=== PATIENT | female | born 1970 | race African-American/Black ===

== ENCOUNTER 2019-02-16 02:26 | Emergency (ER) | payer MEDICAID ==
[~2019-02-16] VITALS: Ht 170.2 cm; Wt 89.1 kg
[~2019-02-16 02:26] MED LIST: BUSPAR5 MG PO; CATAPRES 0.1MG0.1 MG PO; CLEOCIN HC150 MG/CAP PO; DULCOLAX STOOL100 MG PO; FERROUS SU325 MG/TAB PO; FLAGYL500 MG PO; FLEXERIL 1010 MG/TAB PO; FLEXERIL5 MG PO; FLOMAX 0.40.4 MG/CAP PO; GLUCOPHAGE1000 MG PO; GLUCOPHAGE500 MG/TAB PO; HCTZ12.5TAB PO; IBU600 MG PO; LANTUS100 U/ML SQ; LEVAQUIN 750MG750 M1 PO; LIDODERM 5% PATC1 EA TP; LIPITOR 10MG10 MG; LIPITOR 40MG TA40 MG PO; LOPRESSOR 225 MG/TAB PO; MACROBID 1100 MG/CAP PO; MAGIC MOUTH PO; NORCO 325 MG-51 TAB PO; NORVASC 10MG10 MG PO; NOVLOG SQ; NOVOLOG 100U100 U/M1 SQ; NOVOLOG FLEX100 U/ML SQ; PERCOCET 325 MG1 TA2 PO; PHENERGAN 25 TA25 MG PO; PRINIVIL2.5 MG PO; PYRIDIUM200 M1 PO; REGLAN 10MG10 MG/TAB PO; SOMA 350MG350 MG/TAB PO; TOUJEO300 U/ML SQ; ULTRAM 50MG TAB50 MG PO; VOLTAREN 75 DR75 MG PO; XANAX 0.5MG0.5 MG PO; XANAX 1MG1 MG PO; ZANAFLEX CAPSULE4 MG PO; ZANTAC 7575 MG PO; ZESTRIL 10MG10 MG PO; ZITHROMAX Z PA250 MG PO; ZITHROMAX500 M2 PO; ZOFRAN 4MG T4 MG/TAB PO; ZOFRAN ODT4 MG PO; ZOFRAN ODT8 MG PO; ZOFRAN8 MG PO; ZYPREXA10 MG PO
[2019-02-16 02:29] VITALS: TEMP 97.4
[2019-02-16] MEDS ORDERED: NOVOLOG FLEX100 U/ML IM (02:37)
[2019-02-16] MEDS ORDERED: CATAPRES 0.1MG0.1 MG PO (02:38)
[2019-02-16] MEDS ORDERED: LANTUS SOLOS100 U/ML SQ (02:38)
[2019-02-16] MEDS ORDERED: TOPROL XL 25MG25 MG PO (02:38)
[2019-02-16] MEDS ORDERED: XANAX .25M0.25 MG/TA (02:39)
[2019-02-16 03:00] LABS: BASO % 0.3 % (0.0-2.0); EOS % 0.1 % (0-4.0); GRAN # 7.2 (1.4-6.5); GRAN % 70.8 % (42.2-75.2); HEMOGLOBIN 10.9 g/dl (12.5-16.0); LYMPH # 2.5 (1.2-3.4); LYMPH % 24.5 % (20.0-51.0); MEAN CELL VOLUME 74 fl (80.0-100.0); MEAN CORPUSCULAR HEMOGLOBIN 23 pg (27.0-31.0); MEAN CORPUSCULAR HGB CONC 30 g/dl (33.0-37.0); MEAN PLATELET VOLUME 10.6 fl (7.4-10.4); MONO # 0.4 (0.1-0.6); MONO % 3.8 % (1.7-9.3); PLATELET COUNT 278 K/mm3 (130-400); RED BLOOD COUNT 4.82 M/mm3 (4.10-5.30); REDCELL DISTRIBUTION WIDTH-CV 14.7 % (11.5-14.5)
[2019-02-16 03:18] LABS: HEMATOCRIT 35.8 % (37.0-47.0)
[2019-02-16 03:25] LABS: INR 0.9 (0.8-3.0); PROTHROMBIN TIME 10.4 SECONDS (9.7-12.8)
[2019-02-16 04:22] LABS: ALANINE AMINOTRANSFERASE 21 U/L (9-52); ALBUMIN 4.6 gm/dL (3.5-5.0); ALKALINE PHOSPHATASE 81 U/L (50-136); ANION GAP 14 mmol/L (7-16); AST,SGOT 24 U/L (15-37); BILIRUBIN,TOTAL 0.2 mg/dL (0.0-1.0); BLOOD UREA NITROGEN 19 mg/dL (7-17); CALCIUM 9.9 mg/dL (8.4-10.2); CARBON DIOXIDE 25 mmol/L (22-30); CHLORIDE 104 mmol/L (98-107); CREATININE, serum 0.75 (0.52-1.25); GLUCOSE 158 mg/dL (74-106); POTASSIUM 3.8 mmol/L (3.4-5.0); SODIUM 144 mmol/L (137-145); TOTAL PROTEIN 8.1 gm/dL (6.4-8.2)
[2019-02-16 04:41] LABS: TROPONIN-I < 0.012 ng/mL (0.000-0.035)
[2019-02-16] MEDS ORDERED: XANAX 0.5MG0.5 MG PO (04:41)
[2019-02-16 05:00] VITALS: BP 124/80; PULSE 96
== END 2019-02-16 05:23 | disposition home or self-care (01) ==
LOC: EDBD 02:26 → COL.ER 02:26
PROVIDERS: Emergency Medicine
DX: R13.10 Dysphagia, unspecified (principal); R10.9 Unspecified abdominal pain; F41.9 Anxiety disorder, unspecified; E11.9 Type 2 diabetes mellitus without complications; I10 Essential (primary) hypertension; Z79.4 Long term (current) use of insulin
CPT/HCPCS: J2060; J2765

== ENCOUNTER 2019-03-26 17:26 | Emergency (ER) | payer MEDICAID ==
[~2019-03-26] VITALS: Ht 170.2 cm; Wt 92.7 kg
[~2019-03-26 17:26] MED LIST changes: +LANTUS SOLOS100 U/ML SQ; +NOVOLOG FLEX100 U/ML IM; +TOPROL XL 25MG25 MG PO; +XANAX .25M0.25 MG/TA
[2019-03-26 17:27] VITALS: TEMP 97.6
[2019-03-26 18:09] LABS: BASO % 0.6 % (0.0-2.0); EOS % 0.6 % (0-4.0); GRAN # 3.1 (1.4-6.5); GRAN % 43.5 % (42.2-75.2); HEMOGLOBIN 10.9 g/dl (12.5-16.0); LYMPH # 3.4 (1.2-3.4); LYMPH % 48.5 % (20.0-51.0); MEAN CELL VOLUME 73 fl (80.0-100.0); MEAN CORPUSCULAR HEMOGLOBIN 23 pg (27.0-31.0); MEAN CORPUSCULAR HGB CONC 31 g/dl (33.0-37.0); MEAN PLATELET VOLUME 10.5 fl (7.4-10.4); MONO # 0.5 (0.1-0.6); MONO % 6.5 % (1.7-9.3); PLATELET COUNT 373 K/mm3 (130-400); RED BLOOD COUNT 4.85 M/mm3 (4.10-5.30); REDCELL DISTRIBUTION WIDTH-CV 14.9 % (11.5-14.5)
[2019-03-26 18:11] LABS: HEMATOCRIT 35.5 % (37.0-47.0)
[2019-03-26 18:21] LABS: ALBUMIN 4.5 gm/dL (3.5-5.0); BILIRUBIN,TOTAL 0.2 mg/dL (0.0-1.0); C-REACTIVE PROTEIN 0.6 mg/dL (0.0-0.9); CALCIUM 9.5 mg/dL (8.4-10.2); CREATININE, serum 0.7 (0.52-1.25); POTASSIUM 3.4 mmol/L (3.4-5.0); TOTAL PROTEIN 8.4 gm/dL (6.4-8.2)
[2019-03-26] MEDS ORDERED: ZOFRAN ODT4 MG PO (20:03)
[2019-03-26] MEDS ORDERED: PERCOCET 325 MG1 TA2 PO (20:03)
[2019-03-26 21:00] VITALS: BP 182/79; PULSE 80
== END 2019-03-26 21:00 | disposition home or self-care (01) ==
LOC: COL.ER 17:26
PROVIDERS: Emergency Medicine
DX: R55 Syncope and collapse (principal); R11.2 Nausea with vomiting, unspecified; R10.9 Unspecified abdominal pain; F31.9 Bipolar disorder, unspecified; E11.9 Type 2 diabetes mellitus without complications; I10 Essential (primary) hypertension; E78.5 Hyperlipidemia, unspecified; Z90.710 Acquired absence of both cervix and uterus; Z98.890 Other specified postprocedural states
CPT/HCPCS: J1170; J2405; J2550; J7030; Q9967

== ENCOUNTER 2019-03-28 13:19 | Emergency (ER) | payer SELFPAY ==
[~2019-03-28] VITALS: Ht 170.2 cm; Wt 92.7 kg
[2019-03-28 13:25] VITALS: BP 132/90; TEMP 98.5
[2019-03-28] MEDS ORDERED: FLEXERIL 1010 MG/TAB PO (16:07)
[2019-03-28] MEDS ORDERED: ROXICODONE 55 MG/TAB PO (16:07)
[2019-03-28 16:36] VITALS: PULSE 89
== END 2019-03-28 16:37 | disposition home or self-care (01) ==
LOC: COL.ER 13:19
DX: M54.5 Low back pain (principal); F41.9 Anxiety disorder, unspecified; Z90.710 Acquired absence of both cervix and uterus; Z79.4 Long term (current) use of insulin
CPT/HCPCS: J1885

== ENCOUNTER 2019-04-02 15:42 | Emergency (ER) | payer MEDICAID ==
[~2019-04-02] VITALS: Ht 170.2 cm; Wt 92.7 kg
[~2019-04-02 15:42] MED LIST changes: +ROXICODONE 55 MG/TAB PO
[2019-04-02 16:05] VITALS: TEMP 97.3
[2019-04-02 17:14] LABS: COLLECTION METHOD CLEAN CATCH
[2019-04-02 17:21] LABS: BASO % 0.3 % (0.0-2.0); EOS % 0.5 % (0-4.0); GRAN # 3.2 (1.4-6.5); HEMATOCRIT 39.2 % (37.0-47.0); HEMOGLOBIN 11.9 g/dl (12.5-16.0); LYMPH # 2.5 (1.2-3.4); LYMPH % 41.4 % (20.0-51.0); MEAN CELL VOLUME 74 fl (80.0-100.0); MEAN CORPUSCULAR HEMOGLOBIN 22 pg (27.0-31.0); MEAN CORPUSCULAR HGB CONC 30 g/dl (33.0-37.0); MEAN PLATELET VOLUME 10.5 fl (7.4-10.4); MONO # 0.3 (0.1-0.6); MONO % 4.8 % (1.7-9.3); PLATELET COUNT 400 K/mm3 (130-400); RED BLOOD COUNT 5.32 M/mm3 (4.10-5.30)
[2019-04-02 17:27] LABS: PH 5 (5-8); URINE APPEARANCE Clear; URINE BACTERIA None Seen /hpf; URINE BILIRUBIN Negative (NEGATIVE); URINE BLOOD Negative (NEGATIVE); URINE COLOR Yellow; URINE GLUCOSE Negative (NEGATIVE); URINE KETONE Negative (NEGATIVE); URINE LEUKOCYTE ESTERASE Negative (NEGATIVE); URINE NITRATE Negative (NEGATIVE); URINE PROTEIN(semi-quant) Negative (NEGATIVE); URINE RBC None Seen /hpf; URINE UROBILINOGEN Negative (NEGATIVE)
[2019-04-02 17:32] LABS: ALBUMIN 4.9 gm/dL (3.5-5.0); BILIRUBIN,TOTAL 0.3 mg/dL (0.0-1.0); CREATININE, serum 0.63 (0.52-1.25); POTASSIUM 3.9 mmol/L (3.4-5.0); TOTAL PROTEIN 9.3 gm/dL (6.4-8.2)
[2019-04-02] MEDS ORDERED: FIORICET 325 MG1 TA1 PO (17:49)
[2019-04-02] MEDS ORDERED: NEXIUM 20MG20 MG PO (18:13)
[2019-04-02 18:26] VITALS: BP 129/71; PULSE 82
== END 2019-04-02 18:30 | disposition home or self-care (01) ==
LOC: COL.ER 15:42
PROVIDERS: Emergency Medicine
DX: R51 Headache (principal); R10.0 Acute abdomen; E11.9 Type 2 diabetes mellitus without complications; I10 Essential (primary) hypertension; Z90.710 Acquired absence of both cervix and uterus; Z79.4 Long term (current) use of insulin
CPT/HCPCS: J0780; J1170; J1200; J1885; J7030

== ENCOUNTER 2019-04-04 10:53 | Emergency (ER) | payer MEDICAID ==
[~2019-04-04] VITALS: Ht 170.2 cm; Wt 92.7 kg
[~2019-04-04 10:53] MED LIST changes: +FIORICET 325 MG1 TA1 PO; +NEXIUM 20MG20 MG PO
[2019-04-04 10:58] VITALS: BP 127/85; TEMP 96.8
[2019-04-04] MEDS ORDERED: FLEXERIL 1010 MG/TAB PO (12:42)
[2019-04-04] MEDS ORDERED: PERCOCET 325 MG1 TA2 PO (12:42)
[2019-04-04 12:55] VITALS: PULSE 74
== END 2019-04-04 12:56 | disposition home or self-care (01) ==
LOC: COL.ER 10:53
DX: S39.012A Strain of muscle, fascia and tendon of lower back, initial encounter (principal); F31.9 Bipolar disorder, unspecified; F41.9 Anxiety disorder, unspecified; E11.9 Type 2 diabetes mellitus without complications; Z90.710 Acquired absence of both cervix and uterus; Z79.4 Long term (current) use of insulin; Z88.0 Allergy status to penicillin; W01.0XXA Fall on same level from slipping, tripping and stumbling without subsequent striking against object, initial encounter; Y92.59 Other trade areas as the place of occurrence of the external cause
CPT/HCPCS: J1885

== ENCOUNTER 2019-04-07 15:11 | Emergency (ER) | payer MEDICAID ==
[~2019-04-07] VITALS: Ht 170.2 cm; Wt 96.5 kg
[2019-04-07 15:13] VITALS: TEMP 97.5
[2019-04-07 16:22] LABS: BASO % 0.6 % (0.0-2.0); EOS # 0.1 (0.0-0.7); EOS % 1.2 % (0-4.0); GRAN # 1.7 (1.4-6.5); GRAN % 34.7 % (42.2-75.2); LYMPH # 2.8 (1.2-3.4); LYMPH % 56.9 % (20.0-51.0); MEAN CELL VOLUME 75 fl (80.0-100.0); MEAN CORPUSCULAR HEMOGLOBIN 22 pg (27.0-31.0); MEAN CORPUSCULAR HGB CONC 30 g/dl (33.0-37.0); MEAN PLATELET VOLUME 10.6 fl (7.4-10.4); MONO # 0.3 (0.1-0.6); MONO % 6.4 % (1.7-9.3); PLATELET COUNT 330 K/mm3 (130-400); REDCELL DISTRIBUTION WIDTH-CV 15.1 % (11.5-14.5)
[2019-04-07 16:32] LABS: ALBUMIN 4.4 gm/dL (3.5-5.0); BILIRUBIN,TOTAL 0.2 mg/dL (0.0-1.0); CALCIUM 9.6 mg/dL (8.4-10.2); CREATININE, serum 0.77 (0.52-1.25); POTASSIUM 3.8 mmol/L (3.4-5.0); TOTAL PROTEIN 7.9 gm/dL (6.4-8.2)
[2019-04-07 16:33] LABS: HEMATOCRIT 33.9 % (37.0-47.0)
[2019-04-07] MEDS ORDERED: ZOFRAN 4MG T4 MG/TAB PO (17:41)
[2019-04-07] MEDS ORDERED: FLEXERIL 1010 MG/TAB PO (17:41)
[2019-04-07 17:58] VITALS: BP 119/71; PULSE 81
== END 2019-04-07 18:04 | disposition home or self-care (01) ==
LOC: COL.ER 15:11
PROVIDERS: Emergency Medicine
DX: S39.012A Strain of muscle, fascia and tendon of lower back, initial encounter (principal); M25.562 Pain in left knee; M25.561 Pain in right knee; R10.10 Upper abdominal pain, unspecified; R11.2 Nausea with vomiting, unspecified; E11.9 Type 2 diabetes mellitus without complications; I10 Essential (primary) hypertension; E78.5 Hyperlipidemia, unspecified; F31.9 Bipolar disorder, unspecified; E66.9 Obesity, unspecified; Z90.710 Acquired absence of both cervix and uterus; Z87.891 Personal history of nicotine dependence; Z79.4 Long term (current) use of insulin; Z68.33 Body mass index [BMI] 33.0-33.9, adult; W19.XXXA Unspecified fall, initial encounter
CPT/HCPCS: J1885; J2270; J2405; J7030

== ENCOUNTER 2019-04-11 11:41 | Emergency (ER) | payer MEDICAID ==
[~2019-04-11] VITALS: Ht 170.2 cm; Wt 92.7 kg
[2019-04-11 11:59] VITALS: BP 134/94; TEMP 97.7
[2019-04-11] MEDS ORDERED: CLEOCIN HCL300 MG PO (16:13)
[2019-04-11] MEDS ORDERED: PERCOCET 325 MG1 TA2 PO (16:13)
[2019-04-11 17:30] VITALS: PULSE 83
== END 2019-04-11 17:30 | disposition home or self-care (01) ==
LOC: COL.ER 11:41
DX: T22.252A Burn of second degree of left shoulder, initial encounter (principal); L03.114 Cellulitis of left upper limb; I10 Essential (primary) hypertension; E11.9 Type 2 diabetes mellitus without complications; Z88.0 Allergy status to penicillin; F41.9 Anxiety disorder, unspecified; F20.9 Schizophrenia, unspecified; E78.5 Hyperlipidemia, unspecified; Z79.4 Long term (current) use of insulin; X19.XXXA Contact with other heat and hot substances, initial encounter; Y92.009 Unspecified place in unspecified non-institutional (private) residence as the place of occurrence of the external cause

== ENCOUNTER 2019-04-13 12:05 | Emergency (ER) | payer MEDICAID ==
[~2019-04-13] VITALS: Ht 170.2 cm; Wt 93.6 kg
[~2019-04-13 12:05] MED LIST changes: +CLEOCIN HCL300 MG PO
[2019-04-13 12:51] VITALS: TEMP 98
[2019-04-13 13:37] LABS: BASO % 0.7 % (0.0-2.0); EOS # 0.1 (0.0-0.7); EOS % 1.2 % (0-4.0); GRAN # 1.9 (1.4-6.5); GRAN % 46.7 % (42.2-75.2); HEMOGLOBIN 10.6 g/dl (12.5-16.0); LYMPH # 1.8 (1.2-3.4); LYMPH % 44.2 % (20.0-51.0); MEAN CELL VOLUME 75 fl (80.0-100.0); MEAN CORPUSCULAR HEMOGLOBIN 22 pg (27.0-31.0); MEAN CORPUSCULAR HGB CONC 30 g/dl (33.0-37.0); MEAN PLATELET VOLUME 10.3 fl (7.4-10.4); MONO # 0.3 (0.1-0.6); PLATELET COUNT 342 K/mm3 (130-400); RED BLOOD COUNT 4.77 M/mm3 (4.10-5.30); REDCELL DISTRIBUTION WIDTH-CV 14.8 % (11.5-14.5)
[2019-04-13 13:48] LABS: HEMATOCRIT 35.7 % (37.0-47.0)
[2019-04-13 13:50] LABS: ALBUMIN 4.2 gm/dL (3.5-5.0); BILIRUBIN,TOTAL 0.2 mg/dL (0.0-1.0); C-REACTIVE PROTEIN 1.1 mg/dL (0.0-0.9); CALCIUM 9.5 mg/dL (8.4-10.2); CREATININE, serum 0.71 (0.52-1.25); POTASSIUM 4.2 mmol/L (3.4-5.0); TOTAL PROTEIN 7.8 gm/dL (6.4-8.2)
[2019-04-13 14:02] LABS: ERYTHROCYTE SEDIMENTATION RATE 4 mm/hr (0-20)
[2019-04-13] MEDS ORDERED: NORCO 325 MG-51 TAB PO (14:27)
[2019-04-13 16:11] VITALS: BP 111/78; PULSE 69
== END 2019-04-13 16:26 | disposition home or self-care (01) ==
LOC: COL.ER 12:05
PROVIDERS: Physician Assistant
DX: L03.114 Cellulitis of left upper limb (principal); E11.9 Type 2 diabetes mellitus without complications; F32.9 Major depressive disorder, single episode, unspecified; F41.9 Anxiety disorder, unspecified; I10 Essential (primary) hypertension; F20.9 Schizophrenia, unspecified; Z79.4 Long term (current) use of insulin; Z88.0 Allergy status to penicillin; Z90.710 Acquired absence of both cervix and uterus; Z87.828 Personal history of other (healed) physical injury and trauma
CPT/HCPCS: J1885; J2550; J7030

== ENCOUNTER 2019-04-17 16:12 | Emergency (ER) | payer MEDICAID ==
[~2019-04-17] VITALS: Ht 170.2 cm; Wt 93.2 kg
[2019-04-17 16:23] VITALS: TEMP 97.7
[2019-04-17 16:58] LABS: COLLECTION METHOD CLEAN CATCH
[2019-04-17 17:03] LABS: MUCOUS Present /lpf; PH 6 (5-8); URINE APPEARANCE Hazy; URINE BACTERIA None Seen /hpf; URINE BILIRUBIN Negative (NEGATIVE); URINE BLOOD Negative (NEGATIVE); URINE COLOR Yellow; URINE GLUCOSE Negative (NEGATIVE); URINE KETONE Negative (NEGATIVE); URINE LEUKOCYTE ESTERASE Negative (NEGATIVE); URINE NITRATE Negative (NEGATIVE); URINE PROTEIN(semi-quant) Negative (NEGATIVE); URINE RBC 0-2 /hpf; URINE UROBILINOGEN Negative (NEGATIVE)
[2019-04-17 18:44] LABS: BASO % 0.3 % (0.0-2.0); EOS % 0.3 % (0-4.0); GRAN # 4.2 (1.4-6.5); GRAN % 63.2 % (42.2-75.2); HEMATOCRIT 38.2 % (37.0-47.0); HEMOGLOBIN 11.6 g/dl (12.5-16.0); LYMPH % 30.9 % (20.0-51.0); MEAN CELL VOLUME 74 fl (80.0-100.0); MEAN CORPUSCULAR HEMOGLOBIN 22 pg (27.0-31.0); MEAN CORPUSCULAR HGB CONC 30 g/dl (33.0-37.0); MEAN PLATELET VOLUME 10.2 fl (7.4-10.4); MONO # 0.3 (0.1-0.6); PLATELET COUNT 335 K/mm3 (130-400); RED BLOOD COUNT 5.19 M/mm3 (4.10-5.30); REDCELL DISTRIBUTION WIDTH-CV 14.5 % (11.5-14.5)
[2019-04-17 18:55] LABS: ALBUMIN 4.7 gm/dL (3.5-5.0); BILIRUBIN,TOTAL 0.2 mg/dL (0.0-1.0); CALCIUM 10.3 mg/dL (8.4-10.2); CREATININE, serum 0.7 (0.52-1.25); POTASSIUM 3.9 mmol/L (3.4-5.0); TOTAL PROTEIN 8.9 gm/dL (6.4-8.2)
[2019-04-17] MEDS ORDERED: XANAX 1MG1 MG PO (19:31)
[2019-04-17 20:22] VITALS: BP 181/92; PULSE 50
== END 2019-04-17 20:29 | disposition home or self-care (01) ==
LOC: COL.ER 16:12
PROVIDERS: Physician Assistant
DX: R11.10 Vomiting, unspecified (principal); R10.13 Epigastric pain; E11.9 Type 2 diabetes mellitus without complications; I10 Essential (primary) hypertension; K21.9 Gastro-esophageal reflux disease without esophagitis; Z90.710 Acquired absence of both cervix and uterus; Z79.4 Long term (current) use of insulin; Z87.891 Personal history of nicotine dependence
CPT/HCPCS: J2270; J2405; J7030

== ENCOUNTER 2019-05-06 19:15 | Emergency (ER) | payer MEDICAID ==
[~2019-05-06] VITALS: Ht 170.2 cm; Wt 92.7 kg
[2019-05-06 19:25] VITALS: TEMP 97.2
[2019-05-06] MEDS ORDERED: PHENERGAN 25 TA25 MG PO (19:37)
[2019-05-06 19:55] LABS: BASO % 0.5 % (0.0-2.0); EOS % 0.4 % (0-4.0); GRAN # 2.3 (1.4-6.5); HEMOGLOBIN 10.5 g/dl (12.5-16.0); LYMPH # 2.8 (1.2-3.4); LYMPH % 50.7 % (20.0-51.0); MEAN CELL VOLUME 74 fl (80.0-100.0); MEAN CORPUSCULAR HEMOGLOBIN 23 pg (27.0-31.0); MEAN CORPUSCULAR HGB CONC 31 g/dl (33.0-37.0); MEAN PLATELET VOLUME 10.7 fl (7.4-10.4); MONO # 0.3 (0.1-0.6); PLATELET COUNT 288 K/mm3 (130-400); RED BLOOD COUNT 4.67 M/mm3 (4.10-5.30); REDCELL DISTRIBUTION WIDTH-CV 14.4 % (11.5-14.5)
[2019-05-06 19:57] LABS: HEMATOCRIT 34.4 % (37.0-47.0)
[2019-05-06 20:19] LABS: ALANINE AMINOTRANSFERASE 20 U/L (9-52); ALBUMIN 4.4 gm/dL (3.5-5.0); ALKALINE PHOSPHATASE 76 U/L (50-136); ANION GAP 13 mmol/L (7-16); AST,SGOT 25 U/L (15-37); BILIRUBIN,TOTAL 0.2 mg/dL (0.0-1.0); BLOOD UREA NITROGEN 10 mg/dL (7-17); C-REACTIVE PROTEIN 0.6 mg/dL (0.0-0.9); CALCIUM 9.8 mg/dL (8.4-10.2); CARBON DIOXIDE 30 mmol/L (22-30); CHLORIDE 98 mmol/L (98-107); CREATININE, serum 0.75 (0.52-1.25); GLUCOSE 331 mg/dL (74-106); LIPASE 91 U/L (23-300); POTASSIUM 3.7 mmol/L (3.4-5.0); SODIUM 141 mmol/L (137-145); TOTAL PROTEIN 7.6 gm/dL (6.4-8.2)
[2019-05-06 20:28] LABS: TROPONIN-I < 0.012 ng/mL (0.000-0.035)
[2019-05-06 21:05] LABS: COLLECTION METHOD CLEAN CATCH
[2019-05-06 21:17] LABS: MUCOUS Present /lpf; PH 6 (5-8); URINE APPEARANCE Hazy; URINE BACTERIA None Seen /hpf; URINE BILIRUBIN Negative (NEGATIVE); URINE BLOOD Negative (NEGATIVE); URINE COLOR Yellow; URINE GLUCOSE 3+ (NEGATIVE); URINE KETONE Negative (NEGATIVE); URINE LEUKOCYTE ESTERASE 3+ (NEGATIVE); URINE NITRATE Negative (NEGATIVE); URINE PROTEIN(semi-quant) Negative (NEGATIVE); URINE RBC None Seen /hpf; URINE UROBILINOGEN Negative (NEGATIVE)
[2019-05-06] MEDS ORDERED: OMNICEF 300MG300 MG PO (21:35)
[2019-05-06 22:03] VITALS: BP 143/118; PULSE 79
== END 2019-05-06 22:03 | disposition home or self-care (01) ==
LOC: COL.ER 19:15
PROVIDERS: Emergency Medicine
DX: N39.0 Urinary tract infection, site not specified (principal); I10 Essential (primary) hypertension; E11.9 Type 2 diabetes mellitus without complications; Z90.710 Acquired absence of both cervix and uterus; Z79.4 Long term (current) use of insulin
CPT/HCPCS: C9113; J0696; J1170; J1630; J2405; J2550; J7030

== ENCOUNTER 2019-05-16 13:48 | Emergency (ER) | payer MEDICAID ==
[~2019-05-16] VITALS: Ht 165.1 cm; Wt 90.9 kg
[~2019-05-16 13:48] MED LIST changes: +OMNICEF 300MG300 MG PO
[2019-05-16 13:56] VITALS: TEMP 97.9
[2019-05-16 15:08] VITALS: BP 149/102; PULSE 88
== END 2019-05-16 15:10 | disposition home or self-care (01) ==
LOC: COL.ER 13:48
DX: M79.645 Pain in left finger(s) (principal); M25.542 Pain in joints of left hand; I10 Essential (primary) hypertension; F32.9 Major depressive disorder, single episode, unspecified; E11.9 Type 2 diabetes mellitus without complications; F41.9 Anxiety disorder, unspecified; Z90.710 Acquired absence of both cervix and uterus; Z87.891 Personal history of nicotine dependence; Z79.4 Long term (current) use of insulin

== ENCOUNTER 2019-05-19 16:07 | Observation (INO) | payer MEDICAID ==
[~2019-05-19] VITALS: Ht 170.2 cm; Wt 99.9 kg
[2019-05-19 16:53] LABS: BASO % 0.2 % (0.0-2.0); EOS % 0.1 % (0-4.0); GRAN # 4.7 (1.4-6.5); HEMOGLOBIN 11.3 g/dl (12.5-16.0); LYMPH # 3.5 (1.2-3.4); LYMPH % 39.4 % (20.0-51.0); MEAN CELL VOLUME 73 fl (80.0-100.0); MEAN CORPUSCULAR HEMOGLOBIN 22 pg (27.0-31.0); MEAN CORPUSCULAR HGB CONC 31 g/dl (33.0-37.0); MEAN PLATELET VOLUME 10.5 fl (7.4-10.4); MONO # 0.5 (0.1-0.6); MONO % 5.8 % (1.7-9.3); PLATELET COUNT 375 K/mm3 (130-400); RED BLOOD COUNT 5.06 M/mm3 (4.10-5.30); REDCELL DISTRIBUTION WIDTH-CV 15.3 % (11.5-14.5)
[2019-05-19 16:59] LABS: ALANINE AMINOTRANSFERASE 21 U/L (9-52); ALBUMIN 4.9 gm/dL (3.5-5.0); ALKALINE PHOSPHATASE 106 U/L (50-136); ANION GAP 19 mmol/L (7-16); AST,SGOT 23 U/L (15-37); BILIRUBIN,TOTAL 0.4 mg/dL (0.0-1.0); BLOOD UREA NITROGEN 15 mg/dL (7-17); CALCIUM 10.3 mg/dL (8.4-10.2); CARBON DIOXIDE 27 mmol/L (22-30); CHLORIDE 96 mmol/L (98-107); CREATININE, serum 0.89 (0.52-1.25); GLUCOSE 324 mg/dL (74-106); LIPASE 56 U/L (23-300); POTASSIUM 3.9 mmol/L (3.4-5.0); SODIUM 142 mmol/L (137-145); TOTAL PROTEIN 8.5 gm/dL (6.4-8.2)
[2019-05-19 17:04] LABS: HEMATOCRIT 36.7 % (37.0-47.0)
[2019-05-19 17:11] LABS: TROPONIN-I < 0.012 ng/mL (0.000-0.035)
[2019-05-19] MEDS ORDERED: NOVOLOG 100U100 U/M1 SQ (22:07)
[2019-05-19] MEDS ORDERED: PRINIVIL20 MG PO (22:07)
[2019-05-19] MEDS ORDERED: PERCOCET 325 MG1 TAB PO (22:10)
[2019-05-19 23:18] LABS: PARTIAL THROMBOPLASTIN TIME 31.3 SECONDS (26.0-37.0)
[2019-05-20] VITALS (7 sets, daily range): BP systolic 109–174; BP diastolic 67–112; PULSE 67–94; TEMP 97.5–98.4
[2019-05-20 00:28] LABS: CALCIUM 9.4 mg/dL (8.4-10.2); CREATININE, serum 0.67 (0.52-1.25); POTASSIUM 3.5 mmol/L (3.4-5.0)
--- NOTE | 2019-05-20 03:17 | NUR ---
2144 - RECEIVED REPORT FROM NICOLÁS GALLEGOS. 2199 - PT ARRIVED IN UNIT VIA WHEELCHAIR, ALERT AND ORINTED, ON ROOM AIR, COMPLAINS OF CHEST PAIN 05/19. BP ELAVATED, MEDICATIONS GIVEN ORDERED. PRESENT AT BEDSIDE WELL.
[2019-05-20 05:47] LABS: BASO % 0.2 % (0.0-2.0); EOS % 0.4 % (0-4.0); GRAN # 1.9 (1.4-6.5); GRAN % 39.5 % (42.2-75.2); LYMPH # 2.6 (1.2-3.4); LYMPH % 52.9 % (20.0-51.0); MEAN CELL VOLUME 74 fl (80.0-100.0); MEAN CORPUSCULAR HGB CONC 31 g/dl (33.0-37.0); MEAN PLATELET VOLUME 11.3 fl (7.4-10.4); MONO # 0.3 (0.1-0.6); MONO % 6.8 % (1.7-9.3); RED BLOOD COUNT 4.06 M/mm3 (4.10-5.30); REDCELL DISTRIBUTION WIDTH-CV 15.7 % (11.5-14.5)
[2019-05-20 05:58] LABS: HEMATOCRIT 30.1 % (37.0-47.0); HEMOGLOBIN 9.2 g/dl (12.5-16.0); MEAN CORPUSCULAR HEMOGLOBIN 23 pg (27.0-31.0); PLATELET COUNT 275 K/mm3 (130-400)
[2019-05-20 06:00] LABS: ALANINE AMINOTRANSFERASE 22 U/L (9-52); ALBUMIN 3.6 gm/dL (3.5-5.0); ALKALINE PHOSPHATASE 72 U/L (50-136); ANION GAP 12 mmol/L (7-16); AST,SGOT 24 U/L (15-37); BILIRUBIN,TOTAL 0.2 mg/dL (0.0-1.0); BLOOD UREA NITROGEN 9 mg/dL (7-17); CALCIUM 8.4 mg/dL (8.4-10.2); CARBON DIOXIDE 26 mmol/L (22-30); CHLORIDE 101 mmol/L (98-107); CHOLESTEROL 155 mg/dL (120-200); CHOLESTEROL RISK RATIO 3.5; CREATININE, serum 0.55 (0.52-1.25); GLUCOSE 306 mg/dL (74-106); HDL CHOLESTEROL 44 mg/dL; LDL CHOLESTEROL 80 mg/dL; MAGNESIUM 1.8 mg/dL (1.6-2.3); POTASSIUM 3.8 mmol/L (3.4-5.0); SODIUM 139 mmol/L (137-145); TOTAL PROTEIN 6.4 gm/dL (6.4-8.2); TRIGLYCERIDE 153 mg/dL
[2019-05-20 06:11] LABS: TROPONIN-I < 0.012 ng/mL (0.000-0.035)
--- NOTE | 2019-05-20 07:27 | NUR ---
REPORT GIVEN TO NICOLÁS COSTA.
--- NOTE | 2019-05-20 07:45 | NUR ---
PATIENT ASSESSMENT COMPLETED. SHE COMPLAINS OF PAIN ALL OVER AND STATES THAT THE DOCTOR IN THE ICU WAS GOING TO GIVE HER "DILAUDID" FOR HER PAIN. I HAVE NO ORDERS AT THIS TIME FOR THIS MEDICATION. SHE IS DICONNECTED TO GET IN THE SHOWER SHE IS VERY HUNGRY BREAKFAST HAS BEEN ORDERED AND SHE HAS ALREADY AMBULATED IN THE HALLWAY TO THE NUTRITION ROOM GETTING CRACKERS WITH BUTTER.
--- NOTE | 2019-05-20 08:00 | NUR ---
PATIENT ASSESSMENT COMPLETED SHE IS SETTLED IN FROM TRANSFER FROM ICU. I HAVE DISCONNECTED HER FOR HER TO GET IN THE SHOWER. SHE AMBULATES AROUND THE ROOM WITHOUT DIFFICULTY STEADY ON FEET.
--- NOTE | 2019-05-20 08:30 | NUR ---
PATIENT FOUND ON FLOOR OF THE BATHROOM, SHE WAS IN THE SHOWER STOOD UP AND SLIPPED PER HER REPORT. ASSESSMENT COMPLETED. VSS. ASSISTED TO BED WITH 2 HOSPITAL STAFF AND GAIT BELT. CHARGE NURSE AND TRANSFORMER STOCK CLERK NOTIFIED. WILL NOTIFY DOCTOR. NEEDS MET AND FALL RISK FACTORS PUT INTO PLACE.
--- NOTE | 2019-05-20 09:00 | NUR ---
DR. DOSS NOTIFIED OF PATIENT FALL
--- NOTE | 2019-05-20 11:58 | NUR ---
PRN XANAX GIVEN AT THIS TIME PER REQUEST. SHE IS FEELING STIFF. WILL GET UP TO AMBULATE IN THE HALLWAYS AFTER LUNCH
--- NOTE | 2019-05-20 12:48 | NUR ---
PATIENT COMPLAINS OF PAIN PRN PAIN MEDICIATON GIVEN
--- NOTE | 2019-05-20 15:28 | NUR ---
Patient lives at home with her (Brandon Freedman [phone]) in [place], [place] and plans to return home upon recovery. Patient is typically independent with daily living activities and does not have anticipated durable medical equipment needs at this time. Patient's primary care physician is Dr. Cabral, her pharmacy is [facility], and she does not have advance directives of healthcare completed at this time. human services program specialist will follow as needed.
--- NOTE | 2019-05-20 16:00 | NUR ---
PATIENT AMBULATES WITH THIS NURSE IN THE HALLWAY. SHE REPORTS THAT SHE FEELS STIFF AND NEEDS TO MOVE AROUND.
--- NOTE | 2019-05-20 18:25 | NUR ---
PATIENT C/O OF GENERALIZED PAIN. PRN PERCOCET PROVIDED
--- NOTE | 2019-05-20 20:00 | NUR ---
PATIENT IS ORIENTED BUT DROWSY. VSS. HEART SR ON TELE. NO C/O CHEST PAIN OR SOA. PATIENT MOVING AROUND ROOM WITH EASY STAND BY ASSIST. PATIENT REPORTS SHE FELL IN THE SHOWER TODAY. NO INJURY REPORTED. PATIENT TAKES NARCOTICS FOR CHRONIC PAIN ISSUES WELL MEDS FOR ANXIETY AND DEPRESSION. PATIENT HAS PSYCH HX AND IS OFTEN ANXIOUS. NOTED BLOOD SUGARS IN THE 300'S. PATIENT HAS HX OF DM BUT DOESN'T FOLLOW ADA DIET. PATIENT SEEMS TO CONSTANTLY EAT. NPO AT ID FOR PEPITO. IV FLUIDS INFUSING INTO RIGHT AC IV VIA PUMP. HEAD TO TOE ASSESSMENT WNL. NOTED SLIGHTLY DEMINISHED BASES IN LUNG RIBERA. PM MEDS GIVEN. PATIENT REQUESTING XANAX BEFORE BED. AT BEDSIDE. NO OTHER NEEDS. CALL LIGHT IN REACH. LIGHTS TURNED DOWN.
[2019-05-21] VITALS (10 sets, daily range): BP systolic 114–140; BP diastolic 70–94; PULSE 58–89; TEMP 97.6–98.7
--- NOTE | 2019-05-21 07:40 | NUR ---
Patient is resting in bed, eyes are closed. Does open eyes when spoken to. States she is having some back pain and requested morning medications so she could receive her flexeril and requested PRN xanax. Asked multiple times when she would go for her procedure, she wants to eat. States she is starving. Does not want insulin until after she eats as she is afraid her glucose will drop. Was provided with warm blanket per her request. Does not verbalize any other needs or concerns at this time. Call light and personal items are within reach.
[2019-05-21 07:49] LABS: BASO % 0.5 % (0.0-2.0); EOS % 1.1 % (0-4.0); GRAN # 1.5 (1.4-6.5); LYMPH # 1.9 (1.2-3.4); LYMPH % 50.8 % (20.0-51.0); MEAN CELL VOLUME 75 fl (80.0-100.0); MEAN CORPUSCULAR HGB CONC 30 g/dl (33.0-37.0); MEAN PLATELET VOLUME 10.8 fl (7.4-10.4); MONO # 0.3 (0.1-0.6); MONO % 8.6 % (1.7-9.3); PLATELET COUNT 270 K/mm3 (130-400); RED BLOOD COUNT 4.15 M/mm3 (4.10-5.30); REDCELL DISTRIBUTION WIDTH-CV 15.9 % (11.5-14.5)
[2019-05-21 07:52] LABS: CALCIUM 8.6 mg/dL (8.4-10.2); CREATININE, serum 0.6 (0.52-1.25); HEMATOCRIT 31.3 % (37.0-47.0); HEMOGLOBIN 9.3 g/dl (12.5-16.0); MEAN CORPUSCULAR HEMOGLOBIN 22 pg (27.0-31.0); POTASSIUM 4.5 mmol/L (3.4-5.0)
--- NOTE | 2019-05-21 12:24 | NUR ---
Initial visit; Patient thanked Senior Svp for looking in on her and offering compassion and prayer. Senior Svp will follow up after patient receives test results.
[2019-05-21] MEDS ORDERED: CATAPRES 0.1MG0.1 MG PO (16:53)
[2019-05-21] MEDS ORDERED: LIPITOR 40MG TA40 MG PO (16:53)
[2019-05-21] MEDS ORDERED: LOPRESSOR 225 MG/TAB PO (16:53)
[2019-05-21] MEDS ORDERED: ASPIRIN E.C. 8181 MG PO (16:54)
[2019-05-21] MEDS ORDERED: LANTUS SOLOS100 U/ML SQ ×2 (16:54)
[2019-05-21] MEDS ORDERED: PRINIVIL20 MG PO (16:54)
[2019-05-21] MEDS ORDERED: NORVASC 10MG10 MG PO (16:54)
[2019-05-21] MEDS ORDERED: NOVOLOG 100U100 U/M1 SQ ×2 (16:55)
[2019-05-21] MEDS ORDERED: GLUCOPHAGE1000 MG PO (16:55)
--- NOTE | 2019-05-21 17:14 | NUR ---
Patients blood glucose resulted at 401, provider was notified.
--- NOTE | 2019-05-21 19:11 | NUR ---
Patient has no needs at this time, call light and personal items are within reach.
--- NOTE | 2019-05-21 19:25 | NUR ---
Shift assessment complete. Pt resting in bed, awake, a&o, cooperative c cares. Pt c/o continued back pain, will provide PRN pain med c HS meds per pt request. Pt denies any other c/o. INT patent. Tele in place. Pt denies further needs. Call light in reach, bed alarm on. Will continue to monitor.
[2019-05-22 03:56] VITALS: BP 134/88; PULSE 64; TEMP 98.6
[2019-05-22 07:47] VITALS: BP 136/101; PULSE 88; TEMP 97.9
--- NOTE | 2019-05-22 08:15 | NUR ---
Patient is in bed with blanket over head. Went to see her per her request. Knocked on door, patient noted to be snoring. Call light and personal items are within reach.
--- NOTE | 2019-05-22 10:05 | NUR ---
Entered patients room to administer medicaitons, patient requested to go to the bathroom and was assisted to do so. Nursing remained at bedside, was notified of this and instructed patient to let nurse know when she was finished so she could be assisted back to bed. Patient did not notifiy nurse and fell into bathroom door and then to ground. She states that she hit her head on the door and her knee was hurting. She would not attempt to stand for staff. Had to be rolled onto blanket and be physically lifted off floor by 4 staff. Neuro checks were complete and within normal limits. Vital signs were taken with no changes from this morning. Notified provider, CT scan ordered along with IV toradol x1. is at bedside and stated, "you've done this on purpose," and was laughing. There is no open areas to skin observed. Call light and personal items are within reach.
--- NOTE | 2019-05-22 10:30 | NUR ---
Follow-up visit; Patient thanked Sales Support Technician for looking in on her again today and asks that Sales Support Technician continue to pray for her.
[2019-05-22 11:14] LABS: CALCIUM 9.6 mg/dL (8.4-10.2); CREATININE, serum 0.68 (0.52-1.25); POTASSIUM 4.8 mmol/L (3.4-5.0)
--- NOTE | 2019-05-22 11:45 | NUR ---
Patient is up in recliner eating lunch. Gait was steady while walking around bed and to the chair. Was eating without difficulty. returned and aid observed him bringing her cookies. Patient was noted to have 2 glasses of iced tea on her table and there was several sugar packets in the trash. Patient was also asking for 2 chocolate milk cartons and was suggested to not drink the milk due to highly elevated blood sugars. Patient was unhappy with the suggestion. She had already had 2 apple juices from the patient fridge that brought her.
--- NOTE | 2019-05-22 15:44 | NUR ---
GILBERTO met the patient and patient's , Brandon, to review discharge plan and to discuss therapies recommendation of home health. GILBERTO also discussed how the patient's insurance, Medicaid [employer]etna, does not pay for therapy in the home. The patient and her verbalized understanding. The patient reports that she would be interested with being set up with home health for assisted and would be agreeable to do outpatient PT/OT. SW discussed therapy centers and presented her with Medicare.gov's list of home health agencies. The patient chose [facility] for assisted and [facility] for outpatient PT/OT. GILBERTO contacted and faxed a referral to Anselmo at [facility]. Anselmo reports that they can accept the patient for assisted, to help with medication management and diabetes education. GILBERTO contacted Charlee at [facility] and set up an appointment for OT on 05/25 at 1245 and an appointment for PT on 05/29 at 0900. GILBERTO updated the hospitalist and informed the refinery operator reforming unit of the appointments. GILBERTO will need to fax the patient's discharge orders to [facility] (fax#[phone]). GILBERTO to continue to follow.
[2019-05-22] MEDS ORDERED: LANTUS SOLOS100 U/ML SQ (17:26)
[2019-05-22] MEDS ORDERED: NOVOLOG 100U100 U/M1 SQ (17:26)
--- NOTE | 2019-05-22 19:20 | NUR ---
Patient assisted to personal vehicle via wheelchair. driving. Patient questioned possible written prescription for xanax and percocet. Per NICOLÁS Davidson providers will not write prescriptions for patient at this time. Follow up with primary care physician. Patient aware. No other questions at this time.
--- NOTE | 2019-05-23 09:01 | NUR ---
The patient discharged back home with her on, 05/22, with home health services for mcfp through [facility] and outpatient PT/OT at [facility] on [address]. SW contacted and faxed the patient's d/c orders to [facility] and [facility]. No additional needs at this time.
--- NOTE | 2019-05-23 16:20 | NUR ---
Suyapa, from [facility], contacted SW to inform that they cannot accept the patient for services; if she also does outpatient PT/OT. Anselmo, at [facility], reports that they can do snf/PT for the patient and then transition the patient to outpatient services, once she is ready to graduate from them. SW contacted the patient to discuss this plan. The patient reports that she is in agreeance to this. SW updated [facility]. No additional needs at this time.
== END 2019-05-22 19:30 | disposition home or self-care (01) ==
LOC: COL.ER 16:07 → ICU 20:22 → MEDICAL 20:22
PROVIDERS: Emergency Medicine; Nurse Practitioner Family; Physician Assistant; Student in an Organized Health Care Education/Training Program; ADMIT Family Medicine
DX: I16.0 Hypertensive urgency (principal); I10 Essential (primary) hypertension; G89.29 Other chronic pain; F51.04 Psychophysiologic insomnia; D50.9 Iron deficiency anemia, unspecified; E83.42 Hypomagnesemia; E11.65 Type 2 diabetes mellitus with hyperglycemia; I08.1 Rheumatic disorders of both mitral and tricuspid valves; E66.9 Obesity, unspecified; Z68.32 Body mass index [BMI] 32.0-32.9, adult; Z90.710 Acquired absence of both cervix and uterus; Z79.4 Long term (current) use of insulin; Z87.891 Personal history of nicotine dependence; Z82.49 Family history of ischemic heart disease and other diseases of the circulatory system; Z88.0 Allergy status to penicillin
CPT/HCPCS: 99232-AI; A9500; G0378; J1650; J1815; J1885; J2060; J2270; J3475; J7030; Q9967

== ENCOUNTER 2019-06-03 15:18 | Emergency (ER) | payer MEDICAID ==
[~2019-06-03] VITALS: Ht 170.2 cm; Wt 92.7 kg
[~2019-06-03 15:18] MED LIST changes: +ASPIRIN E.C. 8181 MG PO; +PERCOCET 325 MG1 TAB PO; +PRINIVIL20 MG PO
[2019-06-03 15:22] VITALS: TEMP 97
[2019-06-03 15:57] LABS: BASO % 0.3 % (0.0-2.0); EOS % 0.1 % (0-4.0); GRAN # 7.9 (1.4-6.5); GRAN % 82.8 % (42.2-75.2); HEMATOCRIT 37.3 % (37.0-47.0); HEMOGLOBIN 11.5 g/dl (12.5-16.0); LYMPH # 1.2 (1.2-3.4); LYMPH % 12.3 % (20.0-51.0); MEAN CELL VOLUME 72 fl (80.0-100.0); MEAN CORPUSCULAR HEMOGLOBIN 22 pg (27.0-31.0); MEAN CORPUSCULAR HGB CONC 31 g/dl (33.0-37.0); MEAN PLATELET VOLUME 10.7 fl (7.4-10.4); MONO # 0.4 (0.1-0.6); MONO % 4.1 % (1.7-9.3); PLATELET COUNT 329 K/mm3 (130-400); RED BLOOD COUNT 5.15 M/mm3 (4.10-5.30); REDCELL DISTRIBUTION WIDTH-CV 14.9 % (11.5-14.5)
[2019-06-03 16:07] LABS: ALANINE AMINOTRANSFERASE 34 U/L (9-52); ALBUMIN 4.8 gm/dL (3.5-5.0); ALKALINE PHOSPHATASE 138 U/L (50-136); ANION GAP 16 mmol/L (7-16); AST,SGOT 23 U/L (15-37); BILIRUBIN,TOTAL 0.4 mg/dL (0.0-1.0); BLOOD UREA NITROGEN 10 mg/dL (7-17); C-REACTIVE PROTEIN 1.7 mg/dL (0.0-0.9); CALCIUM 10.3 mg/dL (8.4-10.2); CARBON DIOXIDE 25 mmol/L (22-30); CHLORIDE 96 mmol/L (98-107); CREATININE, serum 0.63 (0.52-1.25); POTASSIUM 4.6 mmol/L (3.4-5.0); SODIUM 136 mmol/L (137-145); TOTAL PROTEIN 8.4 gm/dL (6.4-8.2)
[2019-06-03 16:23] LABS: ACETONE,SERUM SMALL; GLUCOSE 482 mg/dL (74-106)
[2019-06-03 17:00] LABS: COLLECTION METHOD CLEAN CATCH
[2019-06-03 17:05] LABS: PH 6 (5-8); SQUAMOUS EPITHELIAL 0-2 /hpf; URINE APPEARANCE Clear; URINE BACTERIA None Seen /hpf; URINE BILIRUBIN Negative (NEGATIVE); URINE BLOOD Negative (NEGATIVE); URINE COLOR Straw; URINE GLUCOSE 3+ (NEGATIVE); URINE KETONE 1+ (NEGATIVE); URINE LEUKOCYTE ESTERASE Negative (NEGATIVE); URINE NITRATE Negative (NEGATIVE); URINE PROTEIN(semi-quant) Negative (NEGATIVE); URINE RBC 0-2 /hpf; URINE UROBILINOGEN Negative (NEGATIVE)
[2019-06-03] MEDS ORDERED: NEURONTIN300 MG/CAP PO (17:42)
[2019-06-03 18:08] VITALS: BP 129/99; PULSE 80
== END 2019-06-03 18:10 | disposition home or self-care (01) ==
LOC: COL.ER 15:18
PROVIDERS: Physician Assistant
DX: E11.65 Type 2 diabetes mellitus with hyperglycemia (principal); M25.532 Pain in left wrist; I10 Essential (primary) hypertension; F32.9 Major depressive disorder, single episode, unspecified; F41.9 Anxiety disorder, unspecified; Z90.710 Acquired absence of both cervix and uterus; Z79.82 Long term (current) use of aspirin; Z79.4 Long term (current) use of insulin
CPT/HCPCS: J1815; J1885; J7030

== ENCOUNTER 2019-06-05 18:50 | Emergency (ER) | payer MEDICAID ==
[~2019-06-05] VITALS: Ht 170.2 cm; Wt 93.2 kg
[2019-06-05 18:50] VITALS: TEMP 98.1
[~2019-06-05 18:50] MED LIST changes: +NEURONTIN300 MG/CAP PO
[2019-06-05 19:32] LABS: BASO % 0.3 % (0.0-2.0); EOS % 0.6 % (0-4.0); GRAN % 57.1 % (42.2-75.2); HEMATOCRIT 37.2 % (37.0-47.0); HEMOGLOBIN 11.4 g/dl (12.5-16.0); LYMPH # 2.5 (1.2-3.4); LYMPH % 35.5 % (20.0-51.0); MEAN CELL VOLUME 73 fl (80.0-100.0); MEAN CORPUSCULAR HEMOGLOBIN 22 pg (27.0-31.0); MEAN CORPUSCULAR HGB CONC 31 g/dl (33.0-37.0); MEAN PLATELET VOLUME 11.1 fl (7.4-10.4); MONO # 0.4 (0.1-0.6); MONO % 6.2 % (1.7-9.3); PLATELET COUNT 313 K/mm3 (130-400); RED BLOOD COUNT 5.09 M/mm3 (4.10-5.30); REDCELL DISTRIBUTION WIDTH-CV 14.6 % (11.5-14.5)
[2019-06-05 19:45] LABS: ALANINE AMINOTRANSFERASE 21 U/L (9-52); ALBUMIN 4.6 gm/dL (3.5-5.0); ALKALINE PHOSPHATASE 125 U/L (50-136); ANION GAP 17 mmol/L (7-16); AST,SGOT 20 U/L (15-37); BILIRUBIN,TOTAL 0.2 mg/dL (0.0-1.0); BLOOD UREA NITROGEN 11 mg/dL (7-17); C-REACTIVE PROTEIN 1.4 mg/dL (0.0-0.9); CALCIUM 9.4 mg/dL (8.4-10.2); CARBON DIOXIDE 25 mmol/L (22-30); CHLORIDE 93 mmol/L (98-107); CREATININE, serum 0.72 (0.52-1.25); POTASSIUM 4.4 mmol/L (3.4-5.0); SODIUM 135 mmol/L (137-145); TOTAL PROTEIN 8.1 gm/dL (6.4-8.2)
[2019-06-05 19:46] LABS: ACETONE,SERUM NEGATIVE
[2019-06-05 19:49] LABS: GLUCOSE 556 mg/dL (74-106)
[2019-06-05 20:18] LABS: COLLECTION METHOD CLEAN CATCH
[2019-06-05 20:24] LABS: PH 6 (5-8); SQUAMOUS EPITHELIAL 0-2 /hpf; URINE APPEARANCE Clear; URINE BACTERIA None Seen /hpf; URINE BILIRUBIN Negative (NEGATIVE); URINE BLOOD Negative (NEGATIVE); URINE COLOR Straw; URINE GLUCOSE 3+ (NEGATIVE); URINE KETONE Negative (NEGATIVE); URINE LEUKOCYTE ESTERASE Negative (NEGATIVE); URINE NITRATE Negative (NEGATIVE); URINE PROTEIN(semi-quant) Negative (NEGATIVE); URINE RBC 0-2 /hpf; URINE UROBILINOGEN Negative (NEGATIVE)
[2019-06-05 23:08] VITALS: BP 115/80; PULSE 73
== END 2019-06-05 23:48 | disposition home or self-care (01) ==
LOC: COL.ER 18:50
PROVIDERS: Emergency Medicine
DX: S13.4XXA Sprain of ligaments of cervical spine, initial encounter (principal); S00.93XA Contusion of unspecified part of head, initial encounter; S20.219A Contusion of unspecified front wall of thorax, initial encounter; E11.65 Type 2 diabetes mellitus with hyperglycemia; I10 Essential (primary) hypertension; E78.00 Pure hypercholesterolemia, unspecified; Z87.891 Personal history of nicotine dependence; Z79.4 Long term (current) use of insulin; Z79.82 Long term (current) use of aspirin; W18.39XA Other fall on same level, initial encounter; Y92.009 Unspecified place in unspecified non-institutional (private) residence as the place of occurrence of the external cause
CPT/HCPCS: J1815; J2405; J3010; J7030

== ENCOUNTER 2019-07-15 12:01 | Emergency (ER) | payer MEDICAID ==
[~2019-07-15] VITALS: Ht 170.2 cm; Wt 95.0 kg
[2019-07-15 12:02] VITALS: TEMP 98.3
[2019-07-15 12:46] LABS: BASO % 0.4 % (0.0-2.0); GRAN # 6.8 (1.4-6.5); GRAN % 79.7 % (42.2-75.2); HEMOGLOBIN 10.8 g/dl (12.5-16.0); LYMPH # 1.3 (1.2-3.4); LYMPH % 15.4 % (20.0-51.0); MEAN CELL VOLUME 73 fl (80.0-100.0); MEAN CORPUSCULAR HEMOGLOBIN 22 pg (27.0-31.0); MEAN CORPUSCULAR HGB CONC 31 g/dl (33.0-37.0); MEAN PLATELET VOLUME 10.6 fl (7.4-10.4); MONO # 0.3 (0.1-0.6); PLATELET COUNT 309 K/mm3 (130-400); RED BLOOD COUNT 4.83 M/mm3 (4.10-5.30)
[2019-07-15 12:52] LABS: HEMATOCRIT 35.4 % (37.0-47.0)
[2019-07-15 12:55] LABS: ALANINE AMINOTRANSFERASE 24 U/L (9-52); ALBUMIN 4.6 gm/dL (3.5-5.0); ALKALINE PHOSPHATASE 117 U/L (50-136); ANION GAP 13 mmol/L (7-16); AST,SGOT 22 U/L (15-37); BILIRUBIN,TOTAL 0.2 mg/dL (0.0-1.0); BLOOD UREA NITROGEN 13 mg/dL (7-17); CALCIUM 9.6 mg/dL (8.4-10.2); CARBON DIOXIDE 25 mmol/L (22-30); CHLORIDE 96 mmol/L (98-107); CREATINE KINASE 239 U/L (30-135); CREATININE, serum 0.77 (0.52-1.25); GLUCOSE 379 mg/dL (74-106); POTASSIUM 4.8 mmol/L (3.4-5.0); SODIUM 135 mmol/L (137-145)
[2019-07-15 13:05] LABS: TROPONIN-I < 0.012 ng/mL (0.000-0.035)
[2019-07-15] MEDS ORDERED: XANAX 1MG1 MG PO (13:47)
[2019-07-15 15:04] VITALS: BP 115/86; PULSE 101
== END 2019-07-15 15:05 | disposition home or self-care (01) ==
LOC: COL.ER 12:01
PROVIDERS: Emergency Medicine
DX: R07.89 Other chest pain (principal); F41.9 Anxiety disorder, unspecified; R06.00 Dyspnea, unspecified; I10 Essential (primary) hypertension; E66.9 Obesity, unspecified; E11.9 Type 2 diabetes mellitus without complications; F31.9 Bipolar disorder, unspecified; J45.909 Unspecified asthma, uncomplicated; Z90.710 Acquired absence of both cervix and uterus; Z68.32 Body mass index [BMI] 32.0-32.9, adult; Z79.82 Long term (current) use of aspirin; Z79.4 Long term (current) use of insulin
CPT/HCPCS: J1815; J2060; J7030

== ENCOUNTER 2019-07-22 13:50 | Inpatient (IN) | payer MEDICAID ==
[~2019-07-22] VITALS: Ht 170.2 cm; Wt 101.2 kg
[2019-07-22 14:31] LABS: COLLECTION METHOD CLEAN CATCH
[2019-07-22 14:37] LABS: BASO % 0.4 % (0.0-2.0); EOS % 0.4 % (0-4.0); GRAN # 3.4 (1.4-6.5); HEMOGLOBIN 11.1 g/dl (12.5-16.0); LYMPH # 1.2 (1.2-3.4); LYMPH % 24.2 % (20.0-51.0); MEAN CELL VOLUME 73 fl (80.0-100.0); MEAN CORPUSCULAR HEMOGLOBIN 23 pg (27.0-31.0); MEAN CORPUSCULAR HGB CONC 31 g/dl (33.0-37.0); MEAN PLATELET VOLUME 10.9 fl (7.4-10.4); MONO # 0.3 (0.1-0.6); MONO % 6.8 % (1.7-9.3); PLATELET COUNT 332 K/mm3 (130-400); RED BLOOD COUNT 4.85 M/mm3 (4.10-5.30)
[2019-07-22 14:38] LABS: PH 6 (5-8); SQUAMOUS EPITHELIAL None Seen /hpf; URINE APPEARANCE Clear; URINE BACTERIA None Seen /hpf; URINE BILIRUBIN Negative (NEGATIVE); URINE BLOOD Negative (NEGATIVE); URINE COLOR Colorless; URINE GLUCOSE 3+ (NEGATIVE); URINE KETONE Negative (NEGATIVE); URINE LEUKOCYTE ESTERASE Negative (NEGATIVE); URINE NITRATE Negative (NEGATIVE); URINE PROTEIN(semi-quant) Negative (NEGATIVE); URINE RBC 0-2 /hpf; URINE UROBILINOGEN Negative (NEGATIVE)
[2019-07-22 14:39] LABS: HEMATOCRIT 35.3 % (37.0-47.0)
[2019-07-22 14:43] LABS: ALANINE AMINOTRANSFERASE 36 U/L (9-52); ALBUMIN 4.6 gm/dL (3.5-5.0); ALKALINE PHOSPHATASE 145 U/L (50-136); ANION GAP 14 mmol/L (7-16); AST,SGOT 27 U/L (15-37); BILIRUBIN,TOTAL 0.2 mg/dL (0.0-1.0); BLOOD UREA NITROGEN 16 mg/dL (7-17); CALCIUM 9.8 mg/dL (8.4-10.2); CARBON DIOXIDE 28 mmol/L (22-30); CREATININE, serum 0.81 (0.52-1.25); LIPASE 161 U/L (23-300); POTASSIUM 4.8 mmol/L (3.4-5.0); SODIUM 130 mmol/L (137-145)
[2019-07-22 14:53] LABS: ACETONE,SERUM NEGATIVE; CHLORIDE 88 mmol/L (98-107); GLUCOSE 778 mg/dL (74-106)
[2019-07-22 16:10] LABS: ARTERIAL BLD GAS O2 SATURATION 95.8 % (92-100); ARTERIAL BLD GAS TCO2 CT 23.8; ARTERIAL BLOOD GAS BASE EXCESS -1.2 (-2-2); ARTERIAL BLOOD GAS HCO3 22.7 meq/L (22-26); ARTERIAL BLOOD GAS PCO2 35.6 mmHg (35-45); ARTERIAL BLOOD GAS PO2 77.5 mmHg (80-100); ARTERIAL BLOOD GAS pH 7.42 (7.35-7.45)
[2019-07-22] MEDS ORDERED: LIPITOR 40MG TA40 MG PO (18:26)
[2019-07-22] MEDS ORDERED: NORVASC 10MG10 MG PO (18:27)
--- NOTE | 2019-07-22 18:30 | NUR ---
Patient to room 315 by wheelchair from ED. at the bedside. Patient assisted into bed. Call light within reach
[2019-07-22 19:52] VITALS: BP 122/87; PULSE 77; TEMP 98.4
--- NOTE | 2019-07-22 20:00 | NUR ---
Pt resting in bed. Tele attached. NS changed to plum tubing and attached to pump. Spouse at bedside. Voices no c/o . Accu ck cont to be checked every 4 hours and still run high.
[2019-07-22 20:50] LABS: CALCIUM 9.1 mg/dL (8.4-10.2); CREATININE, serum 0.75 (0.52-1.25); POTASSIUM 4.5 mmol/L (3.4-5.0)
[2019-07-22] MEDS ORDERED: NORCO 325 MG-51 TAB PO (23:35)
[2019-07-23] VITALS (7 sets, daily range): BP systolic 112–141; BP diastolic 71–97; PULSE 67–100; TEMP 97.9–98.4
[2019-07-23 07:14] LABS: BASO % 0.5 % (0.0-2.0); EOS # 0.1 (0.0-0.7); EOS % 1.6 % (0-4.0); GRAN % 34.7 % (42.2-75.2); HEMOGLOBIN 10.3 g/dl (12.5-16.0); LYMPH # 3.3 (1.2-3.4); LYMPH % 56.3 % (20.0-51.0); MEAN CELL VOLUME 73 fl (80.0-100.0); MEAN CORPUSCULAR HEMOGLOBIN 22 pg (27.0-31.0); MEAN CORPUSCULAR HGB CONC 31 g/dl (33.0-37.0); MEAN PLATELET VOLUME 10.5 fl (7.4-10.4); MONO # 0.4 (0.1-0.6); MONO % 6.6 % (1.7-9.3); PLATELET COUNT 330 K/mm3 (130-400); RED BLOOD COUNT 4.59 M/mm3 (4.10-5.30); REDCELL DISTRIBUTION WIDTH-CV 14.1 % (11.5-14.5)
[2019-07-23 07:15] LABS: HEMATOCRIT 33.6 % (37.0-47.0)
[2019-07-23 07:33] LABS: CALCIUM 8.8 mg/dL (8.4-10.2); CREATININE, serum 0.69 (0.52-1.25); POTASSIUM 3.8 mmol/L (3.4-5.0)
--- NOTE | 2019-07-23 10:04 | NUR ---
Social Workers met with the patient to discuss discharge planning. The patient lives in [place] with her , Brandon. The patient obtains her medications from [facility] and repots no issues. The patient reports needing assistance with ADL's and more falls at home recently. SW asked the PA to order PT. The patient also reports that she is interested in obtaining a walker from home. The patient sees Dr. Carlotta Staples for primary care. The paitient states she has Medicaid and wants to switch from [employer] to [employer]. The patient does not had Advance Directives on file however she agreed to take the forms home with her for DPOA-HC. The patient reports interest in Home Health Services and provided her with the Medicare.gov list of home health agencies in her area. The patient chose [facility] and GILBERTO will follow with a referral.
[2019-07-23 10:33] LABS: FERRITIN 83 ng/mL (6-137)
--- NOTE | 2019-07-23 11:02 | NUR ---
Initial visit; Patient thanked Chainstitch Seat Joiner for looking in on her, offering prayer and bringing her a Bible. Chainstitch Seat Joiner offered God's blessings.
[2019-07-23 14:29] LABS: TOTAL IRON BINDING CAPACITY 344 ug/dL (265-497)
[2019-07-23 14:40] LABS: IRON,SERUM 67 ug/dL (35-150)
--- NOTE | 2019-07-23 20:07 | NUR ---
Resting in bed. Assessment completed. IV right forearm without complications. Rating knee pain 7/10 provided with extra tab of norco as ordered in additional comments of norco order. Denies other needs at this time. Call light in reach.
--- NOTE | 2019-07-23 20:13 | NUR ---
PT RECIEVING NS TO IV SITE WITHOUT ISSUE. DIETARY HAS BEEN IN TO DISCUSS DIET CHANGES WITH PT TODAY. HAS NEEDED PAIN MEDS ABLE TO PER PRN ORDER. PT ON FALL RISK PRECAUTIONS, HAS BEEN UP AMBULATING WITHOUT CALLING FOR HELP, HAVE REMINDED PT TO CALL FOR HELP. PT HAS BEEN TEARFUL AT TIMES. STATES THAT SHE JUST WANTS TO GET BETTER. HAS VOICED WORRY AND CONSERN ABOUT NODULES IN [place], THIS NURSE NOTIFIED PROVIDER, ORDERS FOR WARM COMPRESS. PT HAS RECIEVED INSULIN THROUGHOUT THE DAY NEEDED FOR HIGH BLOOD SUGAR LEVEL STILL. NO OTHER ISSUES VOICED.
--- NOTE | 2019-07-23 23:30 | NUR ---
Requested snack. Provided to patient. Denies other needs at this time.
--- NOTE | 2019-07-24 00:05 | NUR ---
Patient in hallway upset due to "staff during the day time talking bad about me." Patient would like to be discharged in AM and "never come back to this hospital." Patient reporting 10/10 pain. Pray not due this at this time. Patient tearful. Spoke with Dr. Matthews obtained order for x1 dose of norco and 50mg of benadryl now. Provided to patient. Provided moral support. Patient would like lumps in underarm assessed by physician. Will pass on to next shift.
[2019-07-24 04:07] VITALS: BP 117/80; PULSE 72; TEMP 97.9
--- NOTE | 2019-07-24 06:52 | NUR ---
Patient upset earlier in night. Provided with x3 doses of norco. Otherwise uneventful night. Resting in bed this AM. Report given to NICOLÁS Davidson
[2019-07-24 07:04] VITALS: BP 121/84; PULSE 80; TEMP 98.1
[2019-07-24 07:04] LABS: BASO % 0.4 % (0.0-2.0); EOS # 0.1 (0.0-0.7); EOS % 1.2 % (0-4.0); GRAN # 1.7 (1.4-6.5); GRAN % 35.7 % (42.2-75.2); LYMPH # 2.8 (1.2-3.4); LYMPH % 57.2 % (20.0-51.0); MEAN CELL VOLUME 74 fl (80.0-100.0); MEAN CORPUSCULAR HGB CONC 30 g/dl (33.0-37.0); MEAN PLATELET VOLUME 10.7 fl (7.4-10.4); MONO # 0.3 (0.1-0.6); MONO % 5.3 % (1.7-9.3); PLATELET COUNT 286 K/mm3 (130-400); RED BLOOD COUNT 4.38 M/mm3 (4.10-5.30); REDCELL DISTRIBUTION WIDTH-CV 14.4 % (11.5-14.5)
--- NOTE | 2019-07-24 07:10 | NUR ---
Received report, went to meet patient, she is laying in bed on her right side, opens her eyes when staff enter but will not speak. No needs verbalized, call light and personal items are within reach.
[2019-07-24 07:15] LABS: HEMATOCRIT 32.6 % (37.0-47.0); HEMOGLOBIN 9.8 g/dl (12.5-16.0); MEAN CORPUSCULAR HEMOGLOBIN 22 pg (27.0-31.0)
[2019-07-24 07:21] LABS: CALCIUM 8.6 mg/dL (8.4-10.2); CREATININE, serum 0.57 (0.52-1.25); POTASSIUM 3.9 mmol/L (3.4-5.0)
--- NOTE | 2019-07-24 08:45 | NUR ---
Patient eating breakfast and took morning meds, did call to notify staff that she threw up all of her breakfast and there was obvious emesis in the trash and on the floor. She stated she threw up all of her medications and was especially worried about her pain medication. The 45 minute second dose was administered 10 minutes early. She is upset and doesn't understand why the provider will not give her 2 norco at once as that is what she takes at home. I did tell patient that I would be in contact with the provider when they are available.
--- NOTE | 2019-07-24 10:22 | NUR ---
Anselmo, at [facility], reports that they have had the patient in the past and that she constantly refuses their services. Anselmo reports that they are unable to accept the patient. SW to inform the patient and will continue to follow.
--- NOTE | 2019-07-24 10:25 | NUR ---
Spoke with providers, explained patient's medication concern, they agreed to have both norco to administered at the same time instead of 45 minutes apart. Patient was pleased with this.
--- NOTE | 2019-07-24 10:36 | NUR ---
When patient received breakfast she requested a regular pepsi and regular jelly for her toast. She was encouraged to have diet items and she replied that she would get it herself if it wasnt provided by staff. Patient is a fall risk as well. Again explained the benefits of eating according to her diet and she continued to be persistent.
--- NOTE | 2019-07-24 10:47 | NUR ---
Follow-up visit; Joinery Setter Out looked in on patient, offering continual prayer and encouragement.
[2019-07-24] MEDS ORDERED: NORCO 325 MG-51 TAB PO (11:53)
[2019-07-24] MEDS ORDERED: DOXYCYCLINE 10100 MG PO (11:53)
[2019-07-24] MEDS ORDERED: NOVOLOG 100U100 U/M1 SQ ×2 (11:54→11:55)
[2019-07-24] MEDS ORDERED: TRUE COMFORT P1 EAC1 MC (11:57)
--- NOTE | 2019-07-24 13:34 | NUR ---
GILBERTO met with the patient to inform her of [facility] declining and the reason. The patient states that she would like try with someone else and that she would work with them. GILBERTO presented the patient with Medicare.gov's list of home health agencies that serve [place]. The patient chose [facility]. GILBERTO contacted and faxed a referral to Lilo at [facility]. Lilo reports that they can accept the patient. GILBERTO informed the patient. The patient was also interested in getting a front wheeled walker. GILBERTO presented and explained the patient choice form for DME. The patient chose [facility] and asked if [facility] could deliver the walker to her home. Patient choice form signed by the patient and she was provided a copy. GILBERTO contacted and faxed the patient's walker order to Yanely at [facility]. Yanely reports that she is unsure when they would be able to deliver the walker to the home and recommended that the patient and her cherry picker operator the walker on their way home. GILBERTO informed the patient of this. The patient was in agreeace to cherry picker operator the walker on the way home. The patient is to discharge back home with her today, 07/24, and home health services for alf through [facility]. No additional needs at this time.
[2019-07-24] MEDS ORDERED: PROTONIX 40MG T40 MG PO (13:41)
--- NOTE | 2019-07-24 14:10 | NUR ---
Patient discharged home with . Was escorted out with [facility] via wheelchair. Patient states that she is going to be stopping at the medical supply store to cloth picker her walker. Wanted PRN pain medication prior to discharge stating that the providers said she could right before she left. There were no orders for this and the providers stated they did not offer that. She was provided with a script for norco which patient was ok with. Personal belongings with patient. Provided discharge eductation which she declined to review as she knows about the instructions provided.
== END 2019-07-24 13:35 | disposition home health service (06) | DRG 638 ==
LOC: COL.ER 13:50 → MEDICAL 16:26
PROVIDERS: Emergency Medicine; Physician Assistant; ADMIT Hospitalist
DX: E11.00 Type 2 diabetes mellitus with hyperosmolarity without nonketotic hyperglycemic-hyperosmolar coma (NKHHC) (principal); E87.1 Hypo-osmolality and hyponatremia; I10 Essential (primary) hypertension; E78.5 Hyperlipidemia, unspecified; F41.9 Anxiety disorder, unspecified; G89.29 Other chronic pain; R55 Syncope and collapse; E66.9 Obesity, unspecified; D50.8 Other iron deficiency anemias; E87.8 Other disorders of electrolyte and fluid balance, not elsewhere classified; G47.00 Insomnia, unspecified; F31.9 Bipolar disorder, unspecified; Z68.32 Body mass index [BMI] 32.0-32.9, adult; Z90.710 Acquired absence of both cervix and uterus; Z86.73 Personal history of transient ischemic attack (TIA), and cerebral infarction without residual deficits; Z79.4 Long term (current) use of insulin; Z79.82 Long term (current) use of aspirin; Z87.891 Personal history of nicotine dependence; Z88.0 Allergy status to penicillin
CPT/HCPCS: 99222-AI; 99232-AI; 99239; C9113; J1200; J1650; J1815; J2405; J2765; J3010; J7030

== ENCOUNTER 2019-08-06 10:31 | Emergency (ER) | payer MEDICAID ==
[~2019-08-06] VITALS: Ht 170.2 cm; Wt 95.5 kg
[~2019-08-06 10:31] MED LIST changes: +DOXYCYCLINE 10100 MG PO; +PROTONIX 40MG T40 MG PO; +TRUE COMFORT P1 EAC1 MC
[2019-08-06 10:41] VITALS: TEMP 99.4
[2019-08-06] MEDS ORDERED: DOXYCYCLINE 10100 MG PO (11:29)
[2019-08-06] MEDS ORDERED: NORCO 325 MG-7.1 TAB PO (11:30)
[2019-08-06 11:42] VITALS: BP 137/108; PULSE 83
--- NOTE | 2019-08-06 12:07 | NUR ---
Initial visit; Cierra called Director Of Accounts Payable into her room in the Emergency Room requesting support and prayer. Director Of Accounts Payable offered encouragement and will keep patient and her family in her prayers.
[2019-08-07] MEDS ORDERED: NORCO 325 MG-7.1 TAB PO (15:32)
== END 2019-08-06 11:42 | disposition home or self-care (01) ==
LOC: COL.ER 10:31
DX: R22.32 Localized swelling, mass and lump, left upper limb (principal); E11.9 Type 2 diabetes mellitus without complications; I10 Essential (primary) hypertension; E78.5 Hyperlipidemia, unspecified; F41.9 Anxiety disorder, unspecified; Z79.82 Long term (current) use of aspirin; Z79.4 Long term (current) use of insulin

== ENCOUNTER 2019-08-07 13:19 | Emergency (ER) | payer MEDICAID ==
[~2019-08-07] VITALS: Ht 170.2 cm; Wt 95.5 kg
[~2019-08-07 13:19] MED LIST changes: +NORCO 325 MG-7.1 TAB PO
[2019-08-07 13:25] VITALS: TEMP 97.9
[2019-08-07] MEDS ORDERED: NORCO 325 MG-7.1 TAB PO (15:32)
[2019-08-07 15:50] VITALS: BP 144/94; PULSE 80
== END 2019-08-07 15:52 | disposition home or self-care (01) ==
LOC: COL.ER 13:19
DX: L02.412 Cutaneous abscess of left axilla (principal); F32.9 Major depressive disorder, single episode, unspecified; F41.9 Anxiety disorder, unspecified; I10 Essential (primary) hypertension; E11.9 Type 2 diabetes mellitus without complications; F20.9 Schizophrenia, unspecified; Z87.891 Personal history of nicotine dependence; Z79.4 Long term (current) use of insulin; Z88.0 Allergy status to penicillin; Z79.82 Long term (current) use of aspirin
CPT/HCPCS: J1885

== ENCOUNTER 2019-08-20 13:10 | Emergency (ER) | payer MEDICAID ==
[~2019-08-20] VITALS: Ht 170.2 cm; Wt 95.0 kg
[2019-08-20 13:14] VITALS: TEMP 97.1
[2019-08-20 13:32] LABS: BASO % 0.4 % (0.0-2.0); EOS % 0.1 % (0-4.0); GRAN # 7.2 (1.4-6.5); GRAN % 78.2 % (42.2-75.2); HEMATOCRIT 37.7 % (37.0-47.0); HEMOGLOBIN 11.5 g/dl (12.5-16.0); INR 0.9 (0.8-3.0); LYMPH # 1.6 (1.2-3.4); MEAN CELL VOLUME 73 fl (80.0-100.0); MEAN CORPUSCULAR HEMOGLOBIN 22 pg (27.0-31.0); MEAN CORPUSCULAR HGB CONC 31 g/dl (33.0-37.0); MEAN PLATELET VOLUME 11.1 fl (7.4-10.4); MONO # 0.4 (0.1-0.6); PLATELET COUNT 398 K/mm3 (130-400); PROTHROMBIN TIME 10.8 SECONDS (9.7-12.8); RED BLOOD COUNT 5.15 M/mm3 (4.10-5.30); REDCELL DISTRIBUTION WIDTH-CV 13.9 % (11.5-14.5)
[2019-08-20 13:55] LABS: ALANINE AMINOTRANSFERASE 20 U/L (9-52); ALBUMIN 4.7 gm/dL (3.5-5.0); ALKALINE PHOSPHATASE 122 U/L (50-136); ANION GAP 13 mmol/L (7-16); AST,SGOT 21 U/L (15-37); BILIRUBIN,TOTAL 0.3 mg/dL (0.0-1.0); BLOOD UREA NITROGEN 12 mg/dL (7-17); CALCIUM 10.1 mg/dL (8.4-10.2); CARBON DIOXIDE 28 mmol/L (22-30); CHLORIDE 97 mmol/L (98-107); CREATININE, serum 0.87 (0.52-1.25); LIPASE 92 U/L (23-300); POTASSIUM 4.4 mmol/L (3.4-5.0); SODIUM 138 mmol/L (137-145); TOTAL PROTEIN 8.5 gm/dL (6.4-8.2)
[2019-08-20 14:03] LABS: ACETONE,SERUM NEGATIVE
[2019-08-20 14:10] LABS: TROPONIN-I < 0.012 ng/mL (0.000-0.035)
[2019-08-20 14:11] LABS: GLUCOSE 471 mg/dL (74-106)
[2019-08-20 14:46] VITALS: BP 129/85
[2019-08-20 20:13] VITALS: PULSE 86
[2019-08-20 20:53] LABS: COLLECTION METHOD CLEAN CATCH
[2019-08-20 21:03] LABS: PH 8 (5-8); SQUAMOUS EPITHELIAL 0-2 /hpf; URINE APPEARANCE Clear; URINE BACTERIA None Seen /hpf; URINE BILIRUBIN Negative (NEGATIVE); URINE BLOOD Negative (NEGATIVE); URINE COLOR Straw; URINE GLUCOSE 3+ (NEGATIVE); URINE KETONE Negative (NEGATIVE); URINE LEUKOCYTE ESTERASE Negative (NEGATIVE); URINE NITRATE Negative (NEGATIVE); URINE PROTEIN(semi-quant) Negative (NEGATIVE); URINE RBC 0-2 /hpf; URINE UROBILINOGEN Negative (NEGATIVE)
== END 2019-08-20 20:13 | disposition home or self-care (01) ==
LOC: COL.ER 13:10
PROVIDERS: Emergency Medicine
DX: E11.65 Type 2 diabetes mellitus with hyperglycemia (principal); R07.89 Other chest pain; E66.9 Obesity, unspecified; I10 Essential (primary) hypertension; Z87.891 Personal history of nicotine dependence; Z90.710 Acquired absence of both cervix and uterus; Z79.82 Long term (current) use of aspirin; Z79.4 Long term (current) use of insulin
CPT/HCPCS: J1815; J2270; J2405; J2550; J3010; J7030

== ENCOUNTER 2019-10-14 12:08 | Emergency (ER) | payer MEDICAID ==
[~2019-10-14] VITALS: Ht 170.2 cm; Wt 94.5 kg
[2019-10-14 12:29] LABS: COLLECTION METHOD CLEAN CATCH
[2019-10-14 12:39] VITALS: TEMP 98.8
[2019-10-14 12:40] LABS: MUCOUS Present /lpf; PH 7 (5-8); SQUAMOUS EPITHELIAL 0-2 /hpf; URINE APPEARANCE Clear; URINE BACTERIA None Seen /hpf; URINE BILIRUBIN Negative (NEGATIVE); URINE BLOOD Negative (NEGATIVE); URINE COLOR Straw; URINE GLUCOSE 3+ (NEGATIVE); URINE KETONE Negative (NEGATIVE); URINE LEUKOCYTE ESTERASE Negative (NEGATIVE); URINE NITRATE Negative (NEGATIVE); URINE PROTEIN(semi-quant) Negative (NEGATIVE); URINE RBC 0-2 /hpf; URINE UROBILINOGEN Negative (NEGATIVE)
[2019-10-14 13:07] LABS: BASO % 0.6 % (0.0-2.0); EOS % 0.4 % (0-4.0); GRAN # 4.1 (1.4-6.5); GRAN % 58.1 % (42.2-75.2); HEMOGLOBIN 10.9 g/dl (12.5-16.0); LYMPH # 2.5 (1.2-3.4); LYMPH % 35.2 % (20.0-51.0); MEAN CELL VOLUME 74 fl (80.0-100.0); MEAN CORPUSCULAR HEMOGLOBIN 23 pg (27.0-31.0); MEAN CORPUSCULAR HGB CONC 31 g/dl (33.0-37.0); MEAN PLATELET VOLUME 10.8 fl (7.4-10.4); MONO # 0.4 (0.1-0.6); MONO % 5.6 % (1.7-9.3); PLATELET COUNT 327 K/mm3 (130-400); REDCELL DISTRIBUTION WIDTH-CV 14.2 % (11.5-14.5)
[2019-10-14 13:10] LABS: HEMATOCRIT 35.4 % (37.0-47.0)
[2019-10-14 13:14] LABS: ALANINE AMINOTRANSFERASE 57 U/L (9-52); ALBUMIN 4.5 gm/dL (3.5-5.0); ALKALINE PHOSPHATASE 144 U/L (50-136); ANION GAP 13 mmol/L (7-16); AST,SGOT 52 U/L (15-37); BILIRUBIN,TOTAL 0.2 mg/dL (0.0-1.0); BLOOD UREA NITROGEN 19 mg/dL (7-17); CALCIUM 9.5 mg/dL (8.4-10.2); CARBON DIOXIDE 28 mmol/L (22-30); CHLORIDE 93 mmol/L (98-107); CREATININE, serum 0.97 (0.52-1.25); LIPASE 227 U/L (23-300); POTASSIUM 4.9 mmol/L (3.4-5.0); SODIUM 133 mmol/L (137-145); TOTAL PROTEIN 7.9 gm/dL (6.4-8.2)
[2019-10-14 13:15] LABS: ACETONE,SERUM NEGATIVE
[2019-10-14 13:17] LABS: GLUCOSE 539 mg/dL (74-106)
[2019-10-14 14:17] VITALS: BP 116/92; PULSE 79
[2019-10-14] MEDS ORDERED: PROTONIX 40MG T40 MG PO (14:23)
[2019-10-14] MEDS ORDERED: ZOFRAN ODT4 MG PO (14:23)
[2019-10-14] MEDS ORDERED: PERCOCET 325 MG1 TA3 PO (14:23)
== END 2019-10-14 14:32 | disposition home or self-care (01) ==
LOC: COL.ER 12:08
PROVIDERS: Emergency Medicine
DX: E11.65 Type 2 diabetes mellitus with hyperglycemia (principal); E66.9 Obesity, unspecified; I10 Essential (primary) hypertension; F31.9 Bipolar disorder, unspecified; E78.5 Hyperlipidemia, unspecified; Z90.710 Acquired absence of both cervix and uterus; Z68.32 Body mass index [BMI] 32.0-32.9, adult; Z79.82 Long term (current) use of aspirin; Z79.4 Long term (current) use of insulin
CPT/HCPCS: J1170; J1815; J2060; J2405; J7030

== ENCOUNTER 2019-10-29 17:43 | Inpatient (IN) | payer MEDICAID ==
[~2019-10-29] VITALS: Ht 170.2 cm; Wt 93.5 kg
[~2019-10-29 17:43] MED LIST changes: +PERCOCET 325 MG1 TA3 PO
[2019-10-29 19:35] LABS: COLLECTION METHOD CLEAN CATCH
[2019-10-29 19:44] LABS: PH 6 (5-8); SQUAMOUS EPITHELIAL 0-2 /hpf; URINE APPEARANCE Clear; URINE BACTERIA None Seen /hpf; URINE BILIRUBIN Negative (NEGATIVE); URINE BLOOD Negative (NEGATIVE); URINE COLOR Straw; URINE GLUCOSE 3+ (NEGATIVE); URINE KETONE Trace (NEGATIVE); URINE LEUKOCYTE ESTERASE Negative (NEGATIVE); URINE NITRATE Negative (NEGATIVE); URINE PROTEIN(semi-quant) Negative (NEGATIVE); URINE RBC 0-2 /hpf; URINE UROBILINOGEN Negative (NEGATIVE)
[2019-10-29 19:53] LABS: BASO % 0.5 % (0.0-2.0); EOS % 0.2 % (0-4.0); GRAN # 3.4 (1.4-6.5); GRAN % 54.7 % (42.2-75.2); HEMATOCRIT 37.3 % (37.0-47.0); HEMOGLOBIN 11.5 g/dl (12.5-16.0); LYMPH # 2.5 (1.2-3.4); LYMPH % 39.6 % (20.0-51.0); MEAN CELL VOLUME 73 fl (80.0-100.0); MEAN CORPUSCULAR HEMOGLOBIN 23 pg (27.0-31.0); MEAN CORPUSCULAR HGB CONC 31 g/dl (33.0-37.0); MEAN PLATELET VOLUME 10.9 fl (7.4-10.4); MONO # 0.3 (0.1-0.6); MONO % 4.8 % (1.7-9.3); PLATELET COUNT 318 K/mm3 (130-400); RED BLOOD COUNT 5.08 M/mm3 (4.10-5.30); REDCELL DISTRIBUTION WIDTH-CV 14.8 % (11.5-14.5)
[2019-10-29 19:56] LABS: INR 0.8 (0.8-3.0); PROTHROMBIN TIME 9.6 SECONDS (9.7-12.8)
[2019-10-29 19:58] LABS: PARTIAL THROMBOPLASTIN TIME 29.7 SECONDS (26.0-37.0)
[2019-10-29 20:05] LABS: ALANINE AMINOTRANSFERASE 30 U/L (9-52); ALKALINE PHOSPHATASE 186 U/L (50-136); ANION GAP 16 mmol/L (7-16); AST,SGOT 27 U/L (15-37); BILIRUBIN,TOTAL 0.5 mg/dL (0.0-1.0); BLOOD UREA NITROGEN 19 mg/dL (7-17); CARBON DIOXIDE 24 mmol/L (22-30); CHLORIDE 92 mmol/L (98-107); CREATININE, serum 0.76 (0.52-1.25); LIPASE 191 U/L (23-300); POTASSIUM 4.8 mmol/L (3.4-5.0); SODIUM 132 mmol/L (137-145); TOTAL PROTEIN 8.6 gm/dL (6.4-8.2)
[2019-10-29 20:24] LABS: GLUCOSE 783 mg/dL (74-106); TROPONIN-I < 0.012 ng/mL (0.000-0.035)
[2019-10-29] MEDS ORDERED: HUMULIN N 10100 U/ML SQ (23:57)
[2019-10-30 00:17] VITALS: BP 136/92; PULSE 72; TEMP 98.4
[2019-10-30 04:38] VITALS: BP 103/52; PULSE 80; TEMP 98.2
[2019-10-30 06:48] LABS: BASO % 0.6 % (0.0-2.0); EOS # 0.1 (0.0-0.7); EOS % 1.2 % (0-4.0); GRAN % 39.5 % (42.2-75.2); HEMOGLOBIN 10.2 g/dl (12.5-16.0); LYMPH # 2.6 (1.2-3.4); LYMPH % 51.3 % (20.0-51.0); MEAN CELL VOLUME 75 fl (80.0-100.0); MEAN CORPUSCULAR HEMOGLOBIN 23 pg (27.0-31.0); MEAN CORPUSCULAR HGB CONC 31 g/dl (33.0-37.0); MEAN PLATELET VOLUME 11.4 fl (7.4-10.4); MONO # 0.4 (0.1-0.6); MONO % 7.2 % (1.7-9.3); PLATELET COUNT 275 K/mm3 (130-400); RED BLOOD COUNT 4.45 M/mm3 (4.10-5.30); REDCELL DISTRIBUTION WIDTH-CV 14.9 % (11.5-14.5)
[2019-10-30 06:49] LABS: HEMATOCRIT 33.2 % (37.0-47.0)
[2019-10-30 07:02] LABS: ALANINE AMINOTRANSFERASE 26 U/L (9-52); ALBUMIN 3.9 gm/dL (3.5-5.0); ALKALINE PHOSPHATASE 106 U/L (50-136); ANION GAP 9 mmol/L (7-16); AST,SGOT 17 U/L (15-37); BILIRUBIN,TOTAL 0.2 mg/dL (0.0-1.0); BLOOD UREA NITROGEN 14 mg/dL (7-17); CALCIUM 8.6 mg/dL (8.4-10.2); CARBON DIOXIDE 27 mmol/L (22-30); CHLORIDE 104 mmol/L (98-107); CHOLESTEROL 162 mg/dL (120-200); CHOLESTEROL RISK RATIO 4.6; CREATININE, serum 0.71 (0.52-1.25); GLUCOSE 187 mg/dL (74-106); HDL CHOLESTEROL 35 mg/dL; LDL CHOLESTEROL 67 mg/dL; MAGNESIUM 1.5 mg/dL (1.6-2.3); POTASSIUM 3.6 mmol/L (3.4-5.0); SODIUM 140 mmol/L (137-145); TOTAL PROTEIN 6.9 gm/dL (6.4-8.2); TRIGLYCERIDE 301 mg/dL
[2019-10-30 07:10] LABS: TROPONIN-I < 0.012 ng/mL (0.000-0.035)
--- NOTE | 2019-10-30 10:34 | NUR ---
GILBERTO met with the patient and her , Brandon Freedman (ph#[phone]), to discuss discharge plan. The patient lives in [place] with her . She reports independence with ADLs and has a walker. The patient's PCP is Dr. Carlotta Staples and she receives her medications at [facility]. She reports occasional difficulties affording her medications when she has a co-pay. GILBERTO discussed the [employer] discount card and application. The patient does not have advanced directives and she was not interested in completing them at this time. The patient plans to return home with her upon discharge. The patient was set up with [facility] during her last hospital stay. The patient reports that she no longer has services through them, but would like to restart them. GILBERTO contacted and faxed a referral to Lilo at [facility]. Lilo reports that they will accept the patient for services, but that this is her last chance with them. She states that the patient would miss her visits with them last time. GILBERTO updated the patient and discussed the importance of letting them visit her. The patient verbalized understanding and states that she will be better. GILBERTO to continue to follow.
--- NOTE | 2019-10-30 10:44 | NUR ---
Patient left the floor for MRI
[2019-10-30 11:20] VITALS: BP 127/86; PULSE 88; TEMP 97.8
--- NOTE | 2019-10-30 12:33 | NUR ---
patient back in the room from MRI. She took a shower independedntly after i set up the bathroom for her. Patient is back on her bed watching TV.
[2019-10-30 13:06] VITALS: BP 143/99; PULSE 97; TEMP 97.7
--- NOTE | 2019-10-30 16:09 | NUR ---
Patient up to walk with this nurse. No complaints while walking in the hallway to the surgical doors and back. Patient stated that, "she felt better" when she was up and walking. Fresh water given to patient upon retuning to her room.
[2019-10-30 16:40] VITALS: BP 122/86; PULSE 80; TEMP 98.4
--- NOTE | 2019-10-30 19:27 | NUR ---
Patient eating dinner, call light within reach. patient.
[2019-10-30 20:00] VITALS: BP 128/77; PULSE 80; PULSE 81; TEMP 98.5
--- NOTE | 2019-10-30 20:25 | NUR ---
Resting in bed. Assessment complete. Lungs clear. Heart sounds normal. Bowels active x4. Pulses strong throughout. No edema noted. INT right forearm flushed without complications. Reports 8 back pain-meds not due until 2200. Requested snack due to NPO at 0000. Provided to patient. Denies other needs at this time. Call light in reach.
--- NOTE | 2019-10-30 22:00 | NUR ---
Request PRN percocet for 5/10 back pain. Provided to patient at this time.
[2019-10-31] VITALS (11 sets, daily range): BP systolic 92–146; BP diastolic 52–96; PULSE 61–100; TEMP 98–98.6
--- NOTE | 2019-10-31 00:30 | NUR ---
Resting in bed. BP systolic in 90s. Patient drowsy and laying on side. Will monitor.
--- NOTE | 2019-10-31 02:20 | NUR ---
Resting in bed asleep. Call light in reach.
--- NOTE | 2019-10-31 04:22 | NUR ---
Patient resting in bed. Reports feeling "better." Blood sugar 160, patient currently NPO. Holding 0400 dose of novolog at this time. Will recheck blood sugar. Denies needs at this time. Call light in reach.
--- NOTE | 2019-10-31 06:26 | NUR ---
Patient required x1 dose of xanax and x1 dose of percocet throughout night. Drowsy this AM. Had requested dose of pain medication this AM-patient unable to stay awake to speak with staff, will provide once patient more awake. Otherwise uneventful night. Resting in bed this AM.
[2019-10-31 06:44] LABS: MEAN CELL VOLUME 76 fl (80.0-100.0); MEAN CORPUSCULAR HGB CONC 30 g/dl (33.0-37.0); MEAN PLATELET VOLUME 10.8 fl (7.4-10.4); PLATELET COUNT 262 K/mm3 (130-400); REDCELL DISTRIBUTION WIDTH-CV 15.2 % (11.5-14.5)
[2019-10-31 06:56] LABS: HEMATOCRIT 31.7 % (37.0-47.0); HEMOGLOBIN 9.4 g/dl (12.5-16.0); MEAN CORPUSCULAR HEMOGLOBIN 22 pg (27.0-31.0)
[2019-10-31 07:00] LABS: CALCIUM 8.8 mg/dL (8.4-10.2); CREATININE, serum 0.77 (0.52-1.25); POTASSIUM 4.1 mmol/L (3.4-5.0)
--- NOTE | 2019-10-31 07:14 | NUR ---
Report given to NICOLÁS Prince
[2019-10-31 07:48] LABS: EOSINOPHIL 1 % (0-4); LYMPHOCYTE 65 % (20.0-51.0); NEUTROPHILS 33 % (42.0-75.2); PLATELET ESTIMATE NORMAL (NORMAL)
[2019-10-31 07:49] LABS: OVALOCYTES 1+
--- NOTE | 2019-10-31 09:19 | NUR ---
Pt assessment complete. Pt very drowsy but reports pain to back 7/10 requesting pain medication. Pt also requesting "anti anxiety" medication because she is anxious for her stress test today. Pt up to sink to brush teeth and wash her face prior to study. BP soft but patient reports she would take bp meds at this time. No needs at this time. POC discussed with patient who verbalized understanding.
--- NOTE | 2019-10-31 09:34 | NUR ---
Pt down to lexiscan at this time.
[2019-10-31] MEDS ORDERED: LANTUS SOLOS100 U/ML SQ (11:52)
[2019-10-31] MEDS ORDERED: HUMALOG PEN100 U/ML SQ (11:53)
[2019-10-31] MEDS ORDERED: VALTREX1 GM PO (11:54)
[2019-10-31] MEDS ORDERED: ELIQUIS 5MG PO (11:56)
[2019-10-31] MEDS ORDERED: TRUE COMFORT P1 EAC1 MC (11:57)
[2019-10-31] MEDS ORDERED: GLUCOSE TEST ST1 DEV MC (11:57)
[2019-10-31] MEDS ORDERED: PERCOCET 325 MG1 TA3 PO (11:59)
--- NOTE | 2019-10-31 12:53 | NUR ---
The patient is to discharge back home with her today, 10/31, with home health services for nursing home from [facility]. SW contacted and faxed the patient's discharge orders to Crystal at [facility]. No additional needs at this time.
--- NOTE | 2019-10-31 13:04 | NUR ---
Discharge paperwork and instructions reviewed with patient. All questions answered at this time. IV to RFA dc'd catheter intact. Pt walked out of facility at this time.
== END 2019-10-31 13:20 | disposition home health service (06) | DRG 176 ==
LOC: COL.ER 17:43 → MEDICAL 23:11
PROVIDERS: Emergency Medicine; Nurse Practitioner Family; ADMIT Internal Medicine
DX: I26.99 Other pulmonary embolism without acute cor pulmonale (principal); F31.9 Bipolar disorder, unspecified; E78.5 Hyperlipidemia, unspecified; E11.65 Type 2 diabetes mellitus with hyperglycemia; I10 Essential (primary) hypertension; R07.89 Other chest pain; G51.0 Bell's palsy; F41.9 Anxiety disorder, unspecified; E83.42 Hypomagnesemia; D50.9 Iron deficiency anemia, unspecified; G47.00 Insomnia, unspecified; G89.29 Other chronic pain; Z90.710 Acquired absence of both cervix and uterus; Z68.32 Body mass index [BMI] 32.0-32.9, adult; Z79.82 Long term (current) use of aspirin; Z88.0 Allergy status to penicillin
CPT/HCPCS: 99223-AI; 99239; A9500; A9585; J1650; J1815; J1885; J2270; J2405; J2785; J3475; J7030; Q9967

== ENCOUNTER 2019-11-26 12:03 | Observation (INO) | payer MEDICAID ==
[~2019-11-26] VITALS: Ht 170.2 cm; Wt 47.1 kg
[~2019-11-26 12:03] MED LIST changes: +ELIQUIS 5MG PO; +GLUCOSE TEST ST1 DEV MC; +HUMALOG PEN100 U/ML SQ; +HUMULIN N 10100 U/ML SQ; +VALTREX1 GM PO
[2019-11-26 12:33] LABS: BASO % 0.5 % (0.0-2.0); EOS % 0.5 % (0-4.0); GRAN % 52.5 % (42.2-75.2); HEMOGLOBIN 10.5 g/dl (12.5-16.0); LYMPH # 2.2 (1.2-3.4); LYMPH % 37.6 % (20.0-51.0); MEAN CELL VOLUME 76 fl (80.0-100.0); MEAN CORPUSCULAR HEMOGLOBIN 23 pg (27.0-31.0); MEAN CORPUSCULAR HGB CONC 30 g/dl (33.0-37.0); MEAN PLATELET VOLUME 10.4 fl (7.4-10.4); MONO # 0.4 (0.1-0.6); MONO % 7.5 % (1.7-9.3); PLATELET COUNT 301 K/mm3 (130-400); RED BLOOD COUNT 4.56 M/mm3 (4.10-5.30); REDCELL DISTRIBUTION WIDTH-CV 15.9 % (11.5-14.5)
[2019-11-26 12:35] LABS: HEMATOCRIT 34.6 % (37.0-47.0)
[2019-11-26 12:38] LABS: PROTHROMBIN TIME 11.8 SECONDS (9.7-12.8)
[2019-11-26 12:40] LABS: PARTIAL THROMBOPLASTIN TIME 31.7 SECONDS (26.0-37.0)
[2019-11-26 12:42] LABS: ALANINE AMINOTRANSFERASE 34 U/L (9-52); ALBUMIN 4.7 gm/dL (3.5-5.0); ALKALINE PHOSPHATASE 98 U/L (50-136); ANION GAP 9 mmol/L (7-16); AST,SGOT 29 U/L (15-37); BILIRUBIN,TOTAL 0.3 mg/dL (0.0-1.0); BLOOD UREA NITROGEN 10 mg/dL (7-17); CALCIUM 9.4 mg/dL (8.4-10.2); CARBON DIOXIDE 28 mmol/L (22-30); CHLORIDE 105 mmol/L (98-107); CREATININE, serum 0.56 (0.52-1.25); GLUCOSE 167 mg/dL (74-106); POTASSIUM 4.3 mmol/L (3.4-5.0); SODIUM 142 mmol/L (137-145); TOTAL PROTEIN 8.1 gm/dL (6.4-8.2)
[2019-11-26 12:55] LABS: TROPONIN-I < 0.012 ng/mL (0.000-0.035)
--- NOTE | 2019-11-26 15:17 | NUR ---
Pt up to room 353, A&O, independent in room. Pt currently eating lunch. Will complete assessment when finished.
[2019-11-26 15:43] VITALS: BP 135/94; PULSE 79; TEMP 98.1
[2019-11-26] MEDS ORDERED: LANTUS SOLOS100 U/ML SQ ×2 (15:51→15:52)
[2019-11-26] MEDS ORDERED: GEODON80 MG PO (17:29)
[2019-11-26] MEDS ORDERED: REMERON 15M15 MG/TA1 PO (17:29)
--- NOTE | 2019-11-26 18:04 | NUR ---
Pt admission completed and charted. Pt sitting in bed with friends and at bedside. Pt states her chest pain "isn't as bad as it was". RAC IV flushes w/o complications. Initial Hep Xa drawn prior to hep bolus and initiating hep gtt. Hep gtt started at 5.5 ml/hr to RAC w/o complications. LS cta, heart RRR, pulses strong bilaterally. BS active. Pt is A&O, independent in room. Pt requested two juices. Discussed POC in regards to her insulin and the sliding scale. Med rec completed. Pt requesting xanax and percocet, PRN meds administered per DEC. Pt brought samraa grayson, discussed w/ pt about being on carb diet and NPO at midnight for heart cath in the morning. Consent signed and on chart. No other concerns noted at this time.
--- NOTE | 2019-11-26 18:55 | NUR ---
Received report from Asha. Patient is awake, lying on bed. on the bedside. With O2 at 1lpm via NC. With IV on right AC, infusing heparin drip 5.5ml/hr. Patient is alert and oriented. Instructed not to eat and drink by midnight.
[2019-11-26 19:54] VITALS: BP 125/91; PULSE 83; TEMP 99
--- NOTE | 2019-11-26 20:06 | NUR ---
Patient requested her medications to be given early sicne she wanted to sleep already.
--- NOTE | 2019-11-26 20:33 | NUR ---
Patient states she has right chest pain. With a pain score of 8/10. Denies nausea/vomiting. Pain doesn't radiate as well. Nitroglycerine SL PRN given. FO=469/80.
--- NOTE | 2019-11-26 20:41 | NUR ---
Patient states she still have right chest pain with pain score of 7/10. BP= 121/81.
[2019-11-26 23:14] VITALS: BP 111/64; PULSE 76; TEMP 98.6
[2019-11-27] VITALS (11 sets, daily range): BP systolic 12–137; BP diastolic 80–101; PULSE 72–96; TEMP 97.7–98.2
--- NOTE | 2019-11-27 02:15 | NUR ---
HepaXa result is 0.22. Titrated heparin drip from 5.5ml/hr to 7 ml/hr. Patient is asleep. Verified done by
--- NOTE | 2019-11-27 06:16 | NUR ---
Patient is awake. She complains of back pain, Percocet PRN given. Patient requests to have a shower but informed her we cannot unhook the IV for the meantime since it's a heparin drip. Informed her we can have warm body wipes and she agreed on it. She noted that she felt pain on her left underarm. Upon palpation, it feels like a round nodule like and she states pain while palpating it. Patient's blood glucose is 242mg/dl. Insulin Novolog on hold since patient is for heart cath procedure. Will endorse to day shift nurse.
[2019-11-27 07:10] LABS: BASO % 0.4 % (0.0-2.0); EOS # 0.1 (0.0-0.7); EOS % 1.4 % (0-4.0); GRAN # 2.1 (1.4-6.5); GRAN % 36.8 % (42.2-75.2); LYMPH # 3.1 (1.2-3.4); LYMPH % 54.9 % (20.0-51.0); MEAN CELL VOLUME 77 fl (80.0-100.0); MEAN CORPUSCULAR HGB CONC 30 g/dl (33.0-37.0); MEAN PLATELET VOLUME 10.4 fl (7.4-10.4); MONO # 0.3 (0.1-0.6); PLATELET COUNT 289 K/mm3 (130-400); RED BLOOD COUNT 4.29 M/mm3 (4.10-5.30); REDCELL DISTRIBUTION WIDTH-CV 16.1 % (11.5-14.5)
[2019-11-27 07:11] LABS: HEMATOCRIT 33.2 % (37.0-47.0); HEMOGLOBIN 9.9 g/dl (12.5-16.0); MEAN CORPUSCULAR HEMOGLOBIN 23 pg (27.0-31.0)
[2019-11-27 07:24] LABS: CALCIUM 8.9 mg/dL (8.4-10.2); CREATININE, serum 0.75 (0.52-1.25); POTASSIUM 4.3 mmol/L (3.4-5.0)
--- NOTE | 2019-11-27 07:47 | NUR ---
SEE MERGE FOR MEDICATION ADMINISTRATION TIMES AND INTRA AND POST SEDATION ASSESSMENTS.
--- NOTE | 2019-11-27 07:51 | NUR ---
PT DOWN FOR HEART CATH PROCEDURE AT THIS TIME.
--- NOTE | 2019-11-27 08:47 | NUR ---
hand off report to sanam renae who will assume care. pt is alert and oriented. hemostasis noted. tr band to r wrist with 13 cc of air in the syringe. pt is requesting a meal tray at this time. nursing clinical director with patient at this time. pt has no concerns or questions.
--- NOTE | 2019-11-27 08:57 | NUR ---
Pt back from heart cath procedure. TR band to Rt wrist w/ 13cc air. Cap refill normal, hand warm to touch. IV access lost during procedure. Pt denies any pain, requesting "apple juice, coffee, dulce crackers and pb". Informed pt we would check BS prior as she was 242 this morning. Student from [facility] caring for pt this morning. Dietary called, breakfast being sent up. VS monitoring in progress. No other concerns at this time.
--- NOTE | 2019-11-27 10:00 | NUR ---
Pt BS rechecked, 228, 2 units per scale administered by nursing services manager and instructor.
--- NOTE | 2019-11-27 11:27 | NUR ---
Initial visit; Patient thanked Buttermaker Continuous Churn for stopping and offering spiritual care. [employer] Ch[employer] will keep Cierra in her prayers.
--- NOTE | 2019-11-27 11:37 | NUR ---
5mls air from Rt TR band released, no complications, no active bleeding noted. Cap refill present, hand warm to touch. student success coach and instructor administering pain medication per mar.
--- NOTE | 2019-11-27 12:45 | NUR ---
BS checked prior to lunch, resulted in 411. 14 units per scale notified, pt was placed on high dose sliding scale. Hospitalist aware. Pt to discharge. Will check prior to discharge. Rt radial TR band air released completely. No hematoma, pulse strong, hand warm, cap refill <2. No other concerns, bandaid placed over site.
[2019-11-27] MEDS ORDERED: PERCOCET 325 MG1 TA2 PO (13:38)
--- NOTE | 2019-11-27 14:13 | NUR ---
GILBERTO met with the patient to discuss discharge plan. The patient lives in [place] with her , Brandon Freedman (ph#[phone]). She reports independence with ADLs and has a FWW. She also receives home health services for nursing home through [facility]. The patient reports that she would like to continue their services, but that her PCP (Dr. Carlotta Staples) fired her. She was interested in getting set up with a new PCP. GILBERTO provided the patient with a list of the different providers in [place]. The patient reports that she was also fired from PCP's at [facility] and [facility]. The patient was interested in getting set up at [facility]. GILBERTO contacted Sadie at [facility] and secured the patient and appointment with Quang Ramirez for tomorrow, 11/28, at 1015. GILBERTO faxed the patient's records to [facility] and informed the patient and her PA-C of the appointment. GILBERTO discussed with the patient the importance of going to this appointment. The patient verbalized understanding and states that she will go. GILBERTO contacted and faxed updates to Lilo at [facility]. Lilo reports that they can resume services for the patient and they can visit the patient this . GILBERTO informed the patient of this. The patient receives her medications at [facility]. She reports occasional difficulties affording her medications and syringes. She states that [facility] has been helping her. The patient does not have advanced directives and she was not interested in completing them at this time. The patient is to discharge back home with her today, 11/27, with home health services for nursing home through [facility]. GILBERTO faxed the patient's discharge orders to Lilo at [facility]. No additional needs at this time.
--- NOTE | 2019-11-27 15:38 | NUR ---
Pt BS rechecked after receiving 14 units novolog, improved to 240s. Pt ambulating halls, awaiting discharge.
--- NOTE | 2019-11-27 16:38 | NUR ---
Pt discharge instructions discussed and reviewed w/ patient who verbalized understanding. RAC INT IV dc'd w/o complications. Pt escorted out by JILLIAN Smart. NO other needs expressed.
== END 2019-11-27 16:30 | disposition home or self-care (01) ==
LOC: COL.ER 12:03 → MEDICAL 13:47
PROVIDERS: Family Medicine; Hospitalist; ADMIT Internal Medicine Cardiovascular Disease
DX: R07.89 Other chest pain (principal); E11.9 Type 2 diabetes mellitus without complications; I77.1 Stricture of artery; I10 Essential (primary) hypertension; Z86.718 Personal history of other venous thrombosis and embolism; Z79.01 Long term (current) use of anticoagulants; F31.9 Bipolar disorder, unspecified; F41.9 Anxiety disorder, unspecified; E66.9 Obesity, unspecified; Z68.32 Body mass index [BMI] 32.0-32.9, adult; Z79.899 Other long term (current) drug therapy; Z79.83 Long term (current) use of bisphosphonates; Z79.4 Long term (current) use of insulin; Z79.82 Long term (current) use of aspirin; Z87.891 Personal history of nicotine dependence; Z09 Encounter for follow-up examination after completed treatment for conditions other than malignant neoplasm; Z88.0 Allergy status to penicillin; F51.04 Psychophysiologic insomnia; D50.9 Iron deficiency anemia, unspecified
CPT/HCPCS: G0378; J1644; J1815; J2250; J2270; J3010; Q9967

== ENCOUNTER 2019-12-05 13:10 | Emergency (ER) | payer MEDICAID ==
[~2019-12-05] VITALS: Ht 170.2 cm; Wt 93.2 kg
[~2019-12-05 13:10] MED LIST changes: +GEODON80 MG PO; +REMERON 15M15 MG/TA1 PO
[2019-12-05 13:22] VITALS: TEMP 97.8
[2019-12-05 14:50] LABS: BASO % 0.5 % (0.0-2.0); EOS % 0.5 % (0-4.0); GRAN # 3.9 (1.4-6.5); GRAN % 63.1 % (42.2-75.2); HEMOGLOBIN 10.2 g/dl (12.5-16.0); LYMPH # 1.8 (1.2-3.4); LYMPH % 28.4 % (20.0-51.0); MEAN CELL VOLUME 77 fl (80.0-100.0); MEAN CORPUSCULAR HEMOGLOBIN 23 pg (27.0-31.0); MEAN CORPUSCULAR HGB CONC 30 g/dl (33.0-37.0); MEAN PLATELET VOLUME 10.1 fl (7.4-10.4); MONO # 0.5 (0.1-0.6); MONO % 7.2 % (1.7-9.3); PLATELET COUNT 309 K/mm3 (130-400); REDCELL DISTRIBUTION WIDTH-CV 16.1 % (11.5-14.5)
[2019-12-05 14:51] LABS: HEMATOCRIT 34.6 % (37.0-47.0)
[2019-12-05 14:55] LABS: INR 0.9 (0.8-3.0)
[2019-12-05 15:09] LABS: ALANINE AMINOTRANSFERASE 22 U/L (9-52); ALBUMIN 4.5 gm/dL (3.5-5.0); ALKALINE PHOSPHATASE 90 U/L (50-136); ANION GAP 12 mmol/L (7-16); AST,SGOT 20 U/L (15-37); BILIRUBIN,TOTAL 0.2 mg/dL (0.0-1.0); BLOOD UREA NITROGEN 12 mg/dL (7-17); CALCIUM 9.1 mg/dL (8.4-10.2); CARBON DIOXIDE 25 mmol/L (22-30); CHLORIDE 103 mmol/L (98-107); CREATININE, serum 0.91 (0.52-1.25); GLUCOSE 260 mg/dL (74-106); LIPASE 77 U/L (23-300); POTASSIUM 4.2 mmol/L (3.4-5.0); SODIUM 140 mmol/L (137-145); TOTAL PROTEIN 7.7 gm/dL (6.4-8.2)
[2019-12-05 15:25] LABS: TROPONIN-I < 0.012 ng/mL (0.000-0.035)
[2019-12-05] MEDS ORDERED: CARAFATE S1 GM/10 ML PO (16:34)
[2019-12-05] MEDS ORDERED: PROTONIX 40MG T40 MG PO (16:34)
[2019-12-05 17:07] VITALS: BP 119/86; PULSE 92
== END 2019-12-05 17:25 | disposition home or self-care (01) ==
LOC: COL.ER 13:10
PROVIDERS: Physician Assistant
DX: K21.0 Gastro-esophageal reflux disease with esophagitis (principal); E11.9 Type 2 diabetes mellitus without complications; I10 Essential (primary) hypertension; E78.5 Hyperlipidemia, unspecified; F31.9 Bipolar disorder, unspecified; F41.9 Anxiety disorder, unspecified; Z86.718 Personal history of other venous thrombosis and embolism; Z86.711 Personal history of pulmonary embolism; Z79.4 Long term (current) use of insulin; Z95.9 Presence of cardiac and vascular implant and graft, unspecified; Z79.01 Long term (current) use of anticoagulants; Z79.82 Long term (current) use of aspirin
CPT/HCPCS: C9113; J2270; J2405; J7030; Q9967

== ENCOUNTER 2019-12-20 10:02 | Emergency (ER) | payer MEDICAID ==
[~2019-12-20] VITALS: Ht 170.2 cm; Wt 100.0 kg
[~2019-12-20 10:02] MED LIST changes: +CARAFATE S1 GM/10 ML PO
[2019-12-20 10:08] VITALS: TEMP 98
[2019-12-20] MEDS ORDERED: NORCO 325 MG-7.1 TAB PO (10:50)
[2019-12-20] MEDS ORDERED: LIDODERM 5% PATC1 EA TP (10:50)
[2019-12-20 10:53] VITALS: BP 155/80; PULSE 80
== END 2019-12-20 11:07 | disposition home or self-care (01) ==
LOC: COL.ER 10:02
DX: S42.002A Fracture of unspecified part of left clavicle, initial encounter for closed fracture (principal); I10 Essential (primary) hypertension; E11.9 Type 2 diabetes mellitus without complications; F32.9 Major depressive disorder, single episode, unspecified; F41.9 Anxiety disorder, unspecified; Z88.0 Allergy status to penicillin; Z87.891 Personal history of nicotine dependence; Z90.710 Acquired absence of both cervix and uterus; Z79.82 Long term (current) use of aspirin; Z79.01 Long term (current) use of anticoagulants; Z79.4 Long term (current) use of insulin; W18.2XXA Fall in (into) shower or empty bathtub, initial encounter; Y92.009 Unspecified place in unspecified non-institutional (private) residence as the place of occurrence of the external cause

== ENCOUNTER 2019-12-22 12:57 | Emergency (ER) | payer MEDICAID ==
[~2019-12-22] VITALS: Ht 172.7 cm; Wt 94.5 kg
[2019-12-22 13:40] LABS: BASO # 0.1 (0.0-0.2); BASO % 0.3 % (0.0-2.0); GRAN # 13.2 (1.4-6.5); GRAN % 81.8 % (42.2-75.2); HEMATOCRIT 37.4 % (37.0-47.0); HEMOGLOBIN 11.3 g/dl (12.5-16.0); LYMPH # 2.1 (1.2-3.4); MEAN CELL VOLUME 75 fl (80.0-100.0); MEAN CORPUSCULAR HEMOGLOBIN 23 pg (27.0-31.0); MEAN CORPUSCULAR HGB CONC 30 g/dl (33.0-37.0); MEAN PLATELET VOLUME 10.2 fl (7.4-10.4); MONO # 0.7 (0.1-0.6); MONO % 4.5 % (1.7-9.3); PLATELET COUNT 349 K/mm3 (130-400); RED BLOOD COUNT 4.96 M/mm3 (4.10-5.30); REDCELL DISTRIBUTION WIDTH-CV 15.3 % (11.5-14.5)
[2019-12-22] MEDS ORDERED: NOVOLOG MIX 70/33 ML SQ (13:40)
[2019-12-22 13:45] LABS: INR 1.2 (0.8-3.0); PROTHROMBIN TIME 13.6 SECONDS (9.7-12.8)
[2019-12-22 13:50] LABS: ALANINE AMINOTRANSFERASE 19 U/L (4-34); ALKALINE PHOSPHATASE 90 U/L (50-136); ANION GAP 14 mmol/L (7-16); AST,SGOT 20 U/L (15-37); BILIRUBIN,TOTAL 0.4 mg/dL (0.0-1.0); BLOOD UREA NITROGEN 11 mg/dL (7-17); CALCIUM 9.6 mg/dL (8.4-10.2); CARBON DIOXIDE 29 mmol/L (22-30); CHLORIDE 99 mmol/L (98-107); CREATININE, serum 0.61 (0.52-1.25); GLUCOSE 210 mg/dL (74-106); LIPASE 126 U/L (23-300); POTASSIUM 4.1 mmol/L (3.4-5.0); SODIUM 142 mmol/L (137-145); TOTAL PROTEIN 8.7 gm/dL (6.4-8.2)
[2019-12-22 14:05] LABS: TROPONIN-I < 0.012 ng/mL (0.000-0.035)
[2019-12-22 14:15] LABS: COLLECTION METHOD CLEAN CATCH
[2019-12-22 14:22] LABS: MUCOUS Present /lpf; PH 7 (5-8); SQUAMOUS EPITHELIAL 0-2 /hpf; URINE APPEARANCE Clear; URINE BACTERIA None Seen /hpf; URINE BILIRUBIN Negative (NEGATIVE); URINE BLOOD Negative (NEGATIVE); URINE COLOR Yellow; URINE GLUCOSE 1+ (NEGATIVE); URINE KETONE Negative (NEGATIVE); URINE LEUKOCYTE ESTERASE Negative (NEGATIVE); URINE NITRATE Negative (NEGATIVE); URINE PROTEIN(semi-quant) 1+ (NEGATIVE); URINE RBC None Seen /hpf; URINE UROBILINOGEN Negative (NEGATIVE)
[2019-12-22 17:19] VITALS: BP 116/75; PULSE 81
[2019-12-22] MEDS ORDERED: PERCOCET 325 MG1 TA3 PO (17:27)
== END 2019-12-22 17:40 | disposition home or self-care (01) ==
LOC: COL.ER 12:57
PROVIDERS: Emergency Medicine
DX: R07.89 Other chest pain (principal); E11.9 Type 2 diabetes mellitus without complications; I10 Essential (primary) hypertension; F31.9 Bipolar disorder, unspecified; F41.9 Anxiety disorder, unspecified; Z87.891 Personal history of nicotine dependence; Z90.710 Acquired absence of both cervix and uterus; Z98.890 Other specified postprocedural states; Z79.82 Long term (current) use of aspirin; Z79.01 Long term (current) use of anticoagulants; Z79.4 Long term (current) use of insulin; Z86.711 Personal history of pulmonary embolism
CPT/HCPCS: C9113; J1170; J2270; J2405; J2550; J7030

== ENCOUNTER 2019-12-25 15:58 | Emergency (ER) | payer MEDICAID ==
[~2019-12-25] VITALS: Ht 170.2 cm; Wt 95.0 kg
[~2019-12-25 15:58] MED LIST changes: +NOVOLOG MIX 70/33 ML SQ
[2019-12-25 16:04] VITALS: TEMP 98.3
[2019-12-25] MEDS ORDERED: NORCO 325 MG-51 TAB PO ×2 (16:26→16:27)
[2019-12-25 16:42] LABS: BASO % 0.3 % (0.0-2.0); EOS % 0.2 % (0-4.0); GRAN # 4.3 (1.4-6.5); GRAN % 69.1 % (42.2-75.2); HEMOGLOBIN 10.4 g/dl (12.5-16.0); LYMPH # 1.5 (1.2-3.4); LYMPH % 24.5 % (20.0-51.0); MEAN CELL VOLUME 76 fl (80.0-100.0); MEAN CORPUSCULAR HEMOGLOBIN 23 pg (27.0-31.0); MEAN CORPUSCULAR HGB CONC 30 g/dl (33.0-37.0); MEAN PLATELET VOLUME 9.5 fl (7.4-10.4); MONO # 0.4 (0.1-0.6); MONO % 5.6 % (1.7-9.3); PLATELET COUNT 334 K/mm3 (130-400); RED BLOOD COUNT 4.54 M/mm3 (4.10-5.30); REDCELL DISTRIBUTION WIDTH-CV 15.4 % (11.5-14.5)
[2019-12-25 16:44] LABS: HEMATOCRIT 34.4 % (37.0-47.0)
[2019-12-25 16:57] LABS: ALANINE AMINOTRANSFERASE 19 U/L (4-34); ALBUMIN 4.7 gm/dL (3.5-5.0); ALKALINE PHOSPHATASE 96 U/L (50-136); ANION GAP 13 mmol/L (7-16); AST,SGOT 32 U/L (15-37); BILIRUBIN,TOTAL 0.4 mg/dL (0.0-1.0); BLOOD UREA NITROGEN 11 mg/dL (7-17); C-REACTIVE PROTEIN 1.7 mg/dL (0.0-0.9); CALCIUM 9.6 mg/dL (8.4-10.2); CARBON DIOXIDE 25 mmol/L (22-30); CHLORIDE 103 mmol/L (98-107); CREATININE, serum 0.56 (0.52-1.25); GLUCOSE 124 mg/dL (74-106); LIPASE 48 U/L (23-300); POTASSIUM 4.2 mmol/L (3.4-5.0); SODIUM 141 mmol/L (137-145); TOTAL PROTEIN 8.3 gm/dL (6.4-8.2)
[2019-12-25 17:16] LABS: TROPONIN-I < 0.012 ng/mL (0.000-0.035)
[2019-12-25 17:16] LABS: STREP SCREEN NEGATIVE
[2019-12-25] MEDS ORDERED: CLEOCIN HCL300 MG PO (17:30)
[2019-12-25 17:55] VITALS: BP 139/90; PULSE 74
== END 2019-12-25 18:11 | disposition home or self-care (01) ==
LOC: COL.ER 15:58
PROVIDERS: Emergency Medicine
DX: J02.9 Acute pharyngitis, unspecified (principal); I10 Essential (primary) hypertension; E11.9 Type 2 diabetes mellitus without complications; E78.00 Pure hypercholesterolemia, unspecified; Z95.9 Presence of cardiac and vascular implant and graft, unspecified; Z79.01 Long term (current) use of anticoagulants; Z79.82 Long term (current) use of aspirin; Z79.84 Long term (current) use of oral hypoglycemic drugs
CPT/HCPCS: J1100; J2405; J3010; J7030

== ENCOUNTER 2020-01-17 15:33 | Emergency (ER) | payer MEDICAID ==
[~2020-01-17] VITALS: Ht 170.2 cm; Wt 106.4 kg
[2020-01-17 15:43] VITALS: TEMP 98.7
[2020-01-17] MEDS ORDERED: VENTOLIN SQ (16:13)
[2020-01-17 16:54] LABS: BASO % 0.4 % (0.0-2.0); EOS % 0.8 % (0-4.0); GRAN # 2.1 (1.4-6.5); GRAN % 42.7 % (42.2-75.2); HEMOGLOBIN 10.7 g/dl (12.5-16.0); LYMPH # 2.4 (1.2-3.4); MEAN CELL VOLUME 77 fl (80.0-100.0); MEAN CORPUSCULAR HEMOGLOBIN 24 pg (27.0-31.0); MEAN CORPUSCULAR HGB CONC 30 g/dl (33.0-37.0); MEAN PLATELET VOLUME 10.3 fl (7.4-10.4); MONO # 0.3 (0.1-0.6); MONO % 6.9 % (1.7-9.3); PLATELET COUNT 380 K/mm3 (130-400); RED BLOOD COUNT 4.56 M/mm3 (4.10-5.30); REDCELL DISTRIBUTION WIDTH-CV 15.5 % (11.5-14.5)
[2020-01-17 17:01] LABS: HEMATOCRIT 35.2 % (37.0-47.0)
[2020-01-17 17:02] VITALS: BP 135/87
[2020-01-17 17:04] LABS: ALANINE AMINOTRANSFERASE 35 U/L (4-34); ALBUMIN 4.8 gm/dL (3.5-5.0); ALKALINE PHOSPHATASE 84 U/L (50-136); ANION GAP 10 mmol/L (7-16); AST,SGOT 33 U/L (15-37); BILIRUBIN,TOTAL 0.4 mg/dL (0.0-1.0); BLOOD UREA NITROGEN 16 mg/dL (7-17); C-REACTIVE PROTEIN 1.1 mg/dL (0.0-0.9); CALCIUM 9.8 mg/dL (8.4-10.2); CARBON DIOXIDE 28 mmol/L (22-30); CHLORIDE 100 mmol/L (98-107); CREATININE, serum 0.94 (0.52-1.25); GLUCOSE 134 mg/dL (74-106); LIPASE 79 U/L (23-300); POTASSIUM 4.4 mmol/L (3.4-5.0); SODIUM 138 mmol/L (137-145); TOTAL PROTEIN 8.4 gm/dL (6.4-8.2)
[2020-01-17 17:14] LABS: TROPONIN-I < 0.012 ng/mL (0.000-0.035)
[2020-01-17] MEDS ORDERED: ZOFRAN ODT4 MG PO (17:25)
[2020-01-17] MEDS ORDERED: PERCOCET 325 MG1 TA2 PO (17:25)
[2020-01-17 17:33] VITALS: PULSE 97
== END 2020-01-17 17:35 | disposition home or self-care (01) ==
LOC: COL.ER 15:33
PROVIDERS: Physician Assistant
DX: R10.11 Right upper quadrant pain (principal); R11.2 Nausea with vomiting, unspecified; I10 Essential (primary) hypertension; E11.9 Type 2 diabetes mellitus without complications; F20.9 Schizophrenia, unspecified; Z79.4 Long term (current) use of insulin; Z86.711 Personal history of pulmonary embolism; Z79.01 Long term (current) use of anticoagulants; Z79.82 Long term (current) use of aspirin
CPT/HCPCS: J2270; J2405; J7030

== ENCOUNTER 2020-02-06 17:35 | Emergency (ER) | payer MEDICAID ==
[~2020-02-06] VITALS: Ht 170.2 cm; Wt 104.5 kg
[~2020-02-06 17:35] MED LIST changes: +VENTOLIN SQ
[2020-02-06 18:27] LABS: STREP SCREEN NEGATIVE
[2020-02-06 19:02] LABS: BASO % 0.3 % (0.0-2.0); EOS % 0.1 % (0-4.0); GRAN # 4.1 (1.4-6.5); GRAN % 59.3 % (42.2-75.2); HEMATOCRIT 37.4 % (37.0-47.0); HEMOGLOBIN 11.3 g/dl (12.5-16.0); LYMPH # 2.4 (1.2-3.4); LYMPH % 34.9 % (20.0-51.0); MEAN CELL VOLUME 75 fl (80.0-100.0); MEAN CORPUSCULAR HEMOGLOBIN 23 pg (27.0-31.0); MEAN CORPUSCULAR HGB CONC 30 g/dl (33.0-37.0); MEAN PLATELET VOLUME 9.3 fl (7.4-10.4); MONO # 0.4 (0.1-0.6); MONO % 5.3 % (1.7-9.3); PLATELET COUNT 355 K/mm3 (130-400); RED BLOOD COUNT 5.01 M/mm3 (4.10-5.30); REDCELL DISTRIBUTION WIDTH-CV 14.6 % (11.5-14.5)
[2020-02-06 19:12] LABS: ALKALINE PHOSPHATASE 88 U/L (50-136); ANION GAP 18 mmol/L (7-16); AST,SGOT 31 U/L (15-37); BILIRUBIN,TOTAL 0.2 mg/dL (0.0-1.0); BLOOD UREA NITROGEN 12 mg/dL (7-17); CALCIUM 9.9 mg/dL (8.4-10.2); CARBON DIOXIDE 22 mmol/L (22-30); CHLORIDE 102 mmol/L (98-107); CREATININE, serum 0.72 (0.52-1.25); GLUCOSE 199 mg/dL (74-106); POTASSIUM 3.5 mmol/L (3.4-5.0); SODIUM 142 mmol/L (137-145); TOTAL PROTEIN 8.6 gm/dL (6.4-8.2)
[2020-02-06 19:18] LABS: ALANINE AMINOTRANSFERASE 35 U/L (4-34)
[2020-02-06 19:38] LABS: TROPONIN-I < 0.012 ng/mL (0.000-0.035)
[2020-02-06] MEDS ORDERED: ZITHROMAX Z PA250 MG PO (19:47)
[2020-02-06 20:05] VITALS: BP 144/70; PULSE 82; TEMP 97
== END 2020-02-06 20:05 | disposition home or self-care (01) ==
LOC: COL.ER 17:35
PROVIDERS: Physician Assistant
DX: J02.9 Acute pharyngitis, unspecified (principal); R07.89 Other chest pain; Z79.82 Long term (current) use of aspirin; Z79.01 Long term (current) use of anticoagulants; Z79.84 Long term (current) use of oral hypoglycemic drugs
CPT/HCPCS: J1100; J2270

== ENCOUNTER 2020-03-04 14:59 | Emergency (ER) | payer MEDICAID ==
[~2020-03-04] VITALS: Ht 170.2 cm; Wt 105.5 kg
[2020-03-04 15:04] VITALS: TEMP 97.5
[2020-03-04 15:50] LABS: BASO % 0.6 % (0.0-2.0); EOS % 0.4 % (0-4.0); GRAN # 2.9 (1.4-6.5); GRAN % 54.3 % (42.2-75.2); HEMOGLOBIN 11.1 g/dl (12.5-16.0); LYMPH % 38.5 % (20.0-51.0); MEAN CELL VOLUME 75 fl (80.0-100.0); MEAN CORPUSCULAR HEMOGLOBIN 23 pg (27.0-31.0); MEAN CORPUSCULAR HGB CONC 30 g/dl (33.0-37.0); MEAN PLATELET VOLUME 10.5 fl (7.4-10.4); MONO # 0.3 (0.1-0.6); MONO % 5.3 % (1.7-9.3); PLATELET COUNT 329 K/mm3 (130-400); REDCELL DISTRIBUTION WIDTH-CV 13.7 % (11.5-14.5)
[2020-03-04 15:56] LABS: HEMATOCRIT 36.7 % (37.0-47.0)
[2020-03-04 16:01] LABS: ALBUMIN 4.4 gm/dL (3.5-5.0); BILIRUBIN,TOTAL 0.3 mg/dL (0.0-1.0); CALCIUM 9.7 mg/dL (8.4-10.2); CREATININE, serum 0.64 (0.52-1.25); POTASSIUM 3.8 mmol/L (3.4-5.0); TOTAL PROTEIN 7.9 gm/dL (6.4-8.2)
[2020-03-04 16:42] LABS: COLLECTION METHOD CLEAN CATCH
[2020-03-04 16:49] LABS: MUCOUS Present /lpf; PH 7 (5-8); SQUAMOUS EPITHELIAL 0-2 /hpf; URINE APPEARANCE Clear; URINE BACTERIA Rare /hpf; URINE BILIRUBIN Negative (NEGATIVE); URINE BLOOD Negative (NEGATIVE); URINE COLOR Straw; URINE GLUCOSE 3+ (NEGATIVE); URINE KETONE Negative (NEGATIVE); URINE LEUKOCYTE ESTERASE Negative (NEGATIVE); URINE NITRATE Negative (NEGATIVE); URINE PROTEIN(semi-quant) Negative (NEGATIVE); URINE RBC 0-2 /hpf; URINE UROBILINOGEN Negative (NEGATIVE)
[2020-03-04] MEDS ORDERED: REGLAN 10MG10 MG/TAB PO (17:27)
[2020-03-04 18:04] VITALS: BP 149/104; PULSE 88
== END 2020-03-04 18:15 | disposition home or self-care (01) ==
LOC: COL.ER 14:59
PROVIDERS: Emergency Medicine
DX: R10.11 Right upper quadrant pain (principal); R10.13 Epigastric pain; E11.9 Type 2 diabetes mellitus without complications; Z90.710 Acquired absence of both cervix and uterus; Z86.718 Personal history of other venous thrombosis and embolism; Z86.711 Personal history of pulmonary embolism; Z79.84 Long term (current) use of oral hypoglycemic drugs; Z79.82 Long term (current) use of aspirin; Z79.01 Long term (current) use of anticoagulants
CPT/HCPCS: J0780; J1170; J1200; J7030

== ENCOUNTER 2020-03-20 06:52 | Emergency (ER) | payer MEDICAID ==
[~2020-03-20] VITALS: Ht 170.2 cm; Wt 104.5 kg
[2020-03-20 06:57] VITALS: TEMP 99.1
[2020-03-20 07:36] LABS: INR 1.3 (0.8-3.0); PROTHROMBIN TIME 14.3 SECONDS (9.7-12.8)
[2020-03-20 07:39] LABS: PARTIAL THROMBOPLASTIN TIME 37.6 SECONDS (26.0-37.0)
[2020-03-20 07:43] LABS: ALANINE AMINOTRANSFERASE 26 U/L (4-34); ALBUMIN 4.8 gm/dL (3.5-5.0); ALKALINE PHOSPHATASE 107 U/L (50-136); ANION GAP 14 mmol/L (7-16); AST,SGOT 30 U/L (15-37); BILIRUBIN,TOTAL 0.5 mg/dL (0.0-1.0); BLOOD UREA NITROGEN 13 mg/dL (7-17); CALCIUM 9.6 mg/dL (8.4-10.2); CARBON DIOXIDE 25 mmol/L (22-30); CHLORIDE 98 mmol/L (98-107); CREATININE, serum 0.96 (0.52-1.25); GLUCOSE 238 mg/dL (74-106); LIPASE 86 U/L (23-300); POTASSIUM 3.6 mmol/L (3.4-5.0); SODIUM 137 mmol/L (137-145); TOTAL PROTEIN 8.4 gm/dL (6.4-8.2)
[2020-03-20 07:46] LABS: BASO % 0.5 % (0.0-2.0); EOS % 0.4 % (0-4.0); GRAN # 5.5 (1.4-6.5); GRAN % 67.1 % (42.2-75.2); HEMATOCRIT 38.5 % (37.0-47.0); HEMOGLOBIN 11.8 g/dl (12.5-16.0); LYMPH # 2.1 (1.2-3.4); LYMPH % 25.7 % (20.0-51.0); MEAN CELL VOLUME 74 fl (80.0-100.0); MEAN CORPUSCULAR HEMOGLOBIN 23 pg (27.0-31.0); MEAN CORPUSCULAR HGB CONC 31 g/dl (33.0-37.0); MEAN PLATELET VOLUME 10.7 fl (7.4-10.4); MONO # 0.5 (0.1-0.6); MONO % 6.1 % (1.7-9.3); PLATELET COUNT 345 K/mm3 (130-400); REDCELL DISTRIBUTION WIDTH-CV 14.2 % (11.5-14.5)
[2020-03-20 07:56] LABS: TROPONIN-I < 0.012 ng/mL (0.000-0.035)
[2020-03-20] MEDS ORDERED: FLEXERIL 1010 MG/TAB PO (09:13)
[2020-03-20 09:47] VITALS: BP 139/95; PULSE 90
== END 2020-03-20 09:41 | disposition home or self-care (01) ==
LOC: COL.ER 06:52
PROVIDERS: Emergency Medicine
DX: R06.02 Shortness of breath (principal); F41.9 Anxiety disorder, unspecified; F31.9 Bipolar disorder, unspecified; E11.9 Type 2 diabetes mellitus without complications; I10 Essential (primary) hypertension; E78.5 Hyperlipidemia, unspecified; F17.220 Nicotine dependence, chewing tobacco, uncomplicated; Z90.710 Acquired absence of both cervix and uterus; Z79.01 Long term (current) use of anticoagulants; Z79.4 Long term (current) use of insulin; Z79.82 Long term (current) use of aspirin
CPT/HCPCS: J1170; J2060; J2405; J7030; Q9967

== ENCOUNTER 2020-04-05 12:12 | Emergency (ER) | payer MEDICAID ==
[~2020-04-05] VITALS: Ht 170.2 cm; Wt 104.5 kg
[2020-04-05 12:16] VITALS: TEMP 97.9
[2020-04-05] MEDS ORDERED: SOMA250 MG PO (13:49)
[2020-04-05 14:12] VITALS: BP 144/111; PULSE 108
== END 2020-04-05 14:14 | disposition home or self-care (01) ==
LOC: COL.ER 12:12
DX: F41.9 Anxiety disorder, unspecified (principal); E11.9 Type 2 diabetes mellitus without complications; I10 Essential (primary) hypertension; F31.9 Bipolar disorder, unspecified; F20.9 Schizophrenia, unspecified; Z79.4 Long term (current) use of insulin; Z79.82 Long term (current) use of aspirin; Z86.73 Personal history of transient ischemic attack (TIA), and cerebral infarction without residual deficits; Z86.711 Personal history of pulmonary embolism; Z87.891 Personal history of nicotine dependence; Z88.0 Allergy status to penicillin

== ENCOUNTER 2020-04-16 12:58 | Observation (INO) | payer MEDICAID ==
[~2020-04-16] VITALS: Ht 170.2 cm; Wt 95.6 kg
[~2020-04-16 12:58] MED LIST changes: +SOMA250 MG PO
[2020-04-16 13:31] LABS: BASO % 0.6 % (0.0-2.0); EOS # 0.1 (0.0-0.7); EOS % 1.5 % (0-4.0); GRAN # 2.7 (1.4-6.5); GRAN % 49.4 % (42.2-75.2); LYMPH # 2.2 (1.2-3.4); LYMPH % 41.6 % (20.0-51.0); MEAN CELL VOLUME 74 fl (80.0-100.0); MEAN CORPUSCULAR HEMOGLOBIN 23 pg (27.0-31.0); MEAN CORPUSCULAR HGB CONC 31 g/dl (33.0-37.0); MEAN PLATELET VOLUME 10.9 fl (7.4-10.4); MONO # 0.4 (0.1-0.6); MONO % 6.7 % (1.7-9.3); PLATELET COUNT 322 K/mm3 (130-400); REDCELL DISTRIBUTION WIDTH-CV 14.5 % (11.5-14.5)
[2020-04-16 13:32] LABS: HEMATOCRIT 32.7 % (37.0-47.0)
[2020-04-16 13:45] LABS: ALANINE AMINOTRANSFERASE 20 U/L (4-34); ALBUMIN 4.3 gm/dL (3.5-5.0); ALKALINE PHOSPHATASE 81 U/L (50-136); ANION GAP 10 mmol/L (7-16); AST,SGOT 22 U/L (15-37); BILIRUBIN,TOTAL 0.3 mg/dL (0.0-1.0); BLOOD UREA NITROGEN 10 mg/dL (7-17); CALCIUM 8.9 mg/dL (8.4-10.2); CARBON DIOXIDE 25 mmol/L (22-30); CHLORIDE 101 mmol/L (98-107); CREATININE, serum 0.78 (0.52-1.25); GLUCOSE 268 mg/dL (74-106); POTASSIUM 4.9 mmol/L (3.4-5.0); SODIUM 136 mmol/L (137-145); TOTAL PROTEIN 7.5 gm/dL (6.4-8.2)
[2020-04-16 13:50] LABS: ACETONE,SERUM NEGATIVE
[2020-04-16 16:35] LABS: INR 1.1 (0.8-3.0); PROTHROMBIN TIME 12.3 SECONDS (9.7-12.8)
[2020-04-16 16:56] LABS: IRON,SERUM 89 ug/dL (35-150)
[2020-04-16 17:05] LABS: TOTAL IRON BINDING CAPACITY 338 ug/dL (265-497)
[2020-04-16 19:20] VITALS: BP 129/87; PULSE 78; TEMP 97.6
--- NOTE | 2020-04-16 20:30 | NUR ---
Received report from NICOLÁS Vila. Pt sitting up on side of bed. A/Ox4. Assessment completed. C/O chronic back pain, leg and stomach pain. Ordered meds administered. Explained to pt reasons home pain meds are not being continued, pt was unhappy about not receiving home pain meds. fractionation plant supervisor spoke to pt and explained. DICKSON Flores notified and one time order of percocet was ordered and adminsitered. Pt happy. Tele monitor placed. INT to RAC intact, flushed, dressing CDI. needs met. snacks provided as requested. call light within reach.
[2020-04-17 03:36] VITALS: BP 113/65; PULSE 53; TEMP 98.2
--- NOTE | 2020-04-17 05:22 | NUR ---
Pt made no further complaints after receiving percocet. Pt slept the rest of the night. Call light within reach.
[2020-04-17 06:25] LABS: BASO % 0.7 % (0.0-2.0); EOS # 0.2 (0.0-0.7); EOS % 4.4 % (0-4.0); GRAN # 1.2 (1.4-6.5); GRAN % 29.1 % (42.2-75.2); LYMPH # 2.4 (1.2-3.4); LYMPH % 58.9 % (20.0-51.0); MEAN CELL VOLUME 75 fl (80.0-100.0); MEAN CORPUSCULAR HGB CONC 30 g/dl (33.0-37.0); MEAN PLATELET VOLUME 11.1 fl (7.4-10.4); MONO # 0.3 (0.1-0.6); MONO % 6.7 % (1.7-9.3); PLATELET COUNT 301 K/mm3 (130-400); REDCELL DISTRIBUTION WIDTH-CV 14.9 % (11.5-14.5)
[2020-04-17 06:40] LABS: CALCIUM 8.8 mg/dL (8.4-10.2); CREATININE, serum 0.82 (0.52-1.25); POTASSIUM 4.3 mmol/L (3.4-5.0)
[2020-04-17 06:50] LABS: HEMATOCRIT 31.4 % (37.0-47.0); HEMOGLOBIN 9.4 g/dl (12.5-16.0); MEAN CORPUSCULAR HEMOGLOBIN 22 pg (27.0-31.0)
--- NOTE | 2020-04-17 07:25 | NUR ---
Report given to NICOLÁS Mcneil.
[2020-04-17 07:32] VITALS: BP 118/85; PULSE 55
--- NOTE | 2020-04-17 09:04 | NUR ---
PT IN BED, RATES PAIN 8/10 IN LOW BACK AND PT REPORTS HEADACHE. FLEXERIL AND XANAX GIVEN. MEDICATIONS GIVEN, ASSESSMENT PERFORMED. PT IS DROWSY AND LETHARGIC WHEN GETTING BLOOD SUGAR, KEPT HAVING TO WAKE UP PT TO GET PT TO ANSWER QUESTIONS. PT ALERT AND ORIENTED X4. FLAT AFFECT PRESENT. PT WANTS OPIOID PAIN MEDICATION RESTARTED. EDUCATED HER ON WHY THEY DID NOT RESTART THOSE MEDICATIONS. NO PSYCHIATRIST TOILET AND LAUNDRY SOAP SUPERVISOR TO CALL IN PSYCH CONSULT, PSYCH REFERRAL FORM FAXED TO [facility]. NO OTHER NEEDS AT THIS TIME.
[2020-04-17] MEDS ORDERED: VICTOZA6 MG/ML SQ (10:29)
--- NOTE | 2020-04-17 11:23 | NUR ---
PT BEING TAKEN DOWN FOR MRI VIA WHEELCHAIR. XANAX GIVEN FOR CLOSTROPHOBIA.
--- NOTE | 2020-04-17 12:15 | NUR ---
PT ARRIVED BACK FROM CT VIA WHEELCHAIR. PT DROWSY, TALKS WITH EYES CLOSED. NO OTHER NEEDS AT THIS TIME.
[2020-04-17 12:21] VITALS: BP 158/100; PULSE 77; TEMP 98.5
--- NOTE | 2020-04-17 13:57 | NUR ---
PT SAID SHE WANTS TO GO HOME. INFORMED HER I WOULD CALL THE DOCTOR TO SEE IF HE WOULD CLEAR HER AND DISCHARGE OR IF SHE WOULD HAVE TO LEAVE AMA. DR. SORENSON WAS NOTIFIED AND SAID HE WOULD CONSULT WITH ANOTHER AND GET BACK TO ME.
[2020-04-17] MEDS ORDERED: MONODOX100 PO (14:42)
[2020-04-17] MEDS ORDERED: NORCO 325 MG-51 TAB PO (14:42)
[2020-04-17] MEDS ORDERED: NOVOLOG FLEX100 U/ML SQ (14:44)
--- NOTE | 2020-04-17 15:27 | NUR ---
DISCHARGE EDUCATION PROVIDED, IV DISCONTINUED, PT DRESSED AND BELONGINGS GATHERED. WILL CALL FOR RIDE. NO OTHER NEEDS AT THIS TIME.
--- NOTE | 2020-04-17 15:34 | NUR ---
PT LEFT REFUSED WHEELCHAIR AND WALKED DOWN WITH BELONGINGS
== END 2020-04-17 15:38 | disposition home or self-care (01) ==
LOC: COL.ER 12:58 → MEDICAL 16:07
PROVIDERS: Emergency Medicine; Nurse Practitioner Primary Care; Physician Assistant; ADMIT Internal Medicine
DX: R41.82 Altered mental status, unspecified (principal); R47.9 Unspecified speech disturbances; I37.1 Nonrheumatic pulmonary valve insufficiency; E10.65 Type 1 diabetes mellitus with hyperglycemia; E10.42 Type 1 diabetes mellitus with diabetic polyneuropathy; E83.42 Hypomagnesemia; D50.9 Iron deficiency anemia, unspecified; G89.29 Other chronic pain; M54.89 Other dorsalgia; I10 Essential (primary) hypertension; E78.5 Hyperlipidemia, unspecified; F31.9 Bipolar disorder, unspecified; F41.9 Anxiety disorder, unspecified; F20.9 Schizophrenia, unspecified; D49.7 Neoplasm of unspecified behavior of endocrine glands and other parts of nervous system; J32.0 Chronic maxillary sinusitis; Z86.711 Personal history of pulmonary embolism; Z79.01 Long term (current) use of anticoagulants; Z86.73 Personal history of transient ischemic attack (TIA), and cerebral infarction without residual deficits; Z90.710 Acquired absence of both cervix and uterus; Z79.82 Long term (current) use of aspirin; Z87.891 Personal history of nicotine dependence; Z88.0 Allergy status to penicillin
CPT/HCPCS: 99223-AI; A9585; G0378; J1815; J2270; J3475; Q9967

== ENCOUNTER 2020-04-20 17:18 | Emergency (ER) | payer MEDICAID ==
[~2020-04-20] VITALS: Ht 170.2 cm; Wt 104.5 kg
[~2020-04-20 17:18] MED LIST changes: +MONODOX100 PO; +VICTOZA6 MG/ML SQ
[2020-04-20 17:29] VITALS: TEMP 98.1
[2020-04-20 19:13] LABS: BASO % 0.5 % (0.0-2.0); EOS # 0.4 (0.0-0.7); EOS % 6.6 % (0-4.0); GRAN # 3.4 (1.4-6.5); GRAN % 55.5 % (42.2-75.2); HEMOGLOBIN 10.2 g/dl (12.5-16.0); LYMPH # 1.8 (1.2-3.4); LYMPH % 29.7 % (20.0-51.0); MEAN CELL VOLUME 75 fl (80.0-100.0); MEAN CORPUSCULAR HEMOGLOBIN 23 pg (27.0-31.0); MEAN CORPUSCULAR HGB CONC 31 g/dl (33.0-37.0); MEAN PLATELET VOLUME 10.5 fl (7.4-10.4); MONO # 0.5 (0.1-0.6); MONO % 7.4 % (1.7-9.3); PLATELET COUNT 317 K/mm3 (130-400); RED BLOOD COUNT 4.47 M/mm3 (4.10-5.30)
[2020-04-20 19:14] LABS: HEMATOCRIT 33.3 % (37.0-47.0)
[2020-04-20 19:19] LABS: ALANINE AMINOTRANSFERASE 31 U/L (4-34); ALBUMIN 4.3 gm/dL (3.5-5.0); ALKALINE PHOSPHATASE 88 U/L (50-136); ANION GAP 9 mmol/L (7-16); AST,SGOT 45 U/L (15-37); BILIRUBIN,TOTAL 0.3 mg/dL (0.0-1.0); BLOOD UREA NITROGEN 9 mg/dL (7-17); CALCIUM 9.7 mg/dL (8.4-10.2); CARBON DIOXIDE 26 mmol/L (22-30); CHLORIDE 103 mmol/L (98-107); GLUCOSE 151 mg/dL (74-106); LIPASE 49 U/L (23-300); POTASSIUM 4.1 mmol/L (3.4-5.0); SODIUM 139 mmol/L (137-145); TOTAL PROTEIN 7.7 gm/dL (6.4-8.2)
[2020-04-20 19:31] LABS: TROPONIN-I < 0.012 ng/mL (0.000-0.035)
[2020-04-20] MEDS ORDERED: NORVASC 5MG5 MG/TAB PO (20:46)
[2020-04-20] MEDS ORDERED: PHENERGAN 25 TA25 MG PO (20:47)
[2020-04-20 21:07] VITALS: BP 158/106; PULSE 76
== END 2020-04-20 21:14 | disposition home or self-care (01) ==
LOC: COL.ER 17:18
PROVIDERS: Emergency Medicine
DX: J32.9 Chronic sinusitis, unspecified (principal); R11.2 Nausea with vomiting, unspecified; E11.9 Type 2 diabetes mellitus without complications; I10 Essential (primary) hypertension; E78.5 Hyperlipidemia, unspecified; F41.9 Anxiety disorder, unspecified; F31.9 Bipolar disorder, unspecified; F20.9 Schizophrenia, unspecified; Z79.01 Long term (current) use of anticoagulants; Z79.4 Long term (current) use of insulin; Z79.82 Long term (current) use of aspirin; Z86.711 Personal history of pulmonary embolism; Z86.73 Personal history of transient ischemic attack (TIA), and cerebral infarction without residual deficits
CPT/HCPCS: J1200; J1790; J1885; J2405

== ENCOUNTER 2020-04-26 18:44 | Emergency (ER) | payer MEDICAID ==
[~2020-04-26] VITALS: Ht 167.6 cm; Wt 100.9 kg
[~2020-04-26 18:44] MED LIST changes: +NORVASC 5MG5 MG/TAB PO
[2020-04-26 19:16] VITALS: TEMP 98.6
[2020-04-26 20:04] LABS: BASO % 0.6 % (0.0-2.0); EOS # 0.1 (0.0-0.7); EOS % 0.9 % (0-4.0); GRAN # 4.2 (1.4-6.5); GRAN % 61.6 % (42.2-75.2); HEMOGLOBIN 10.5 g/dl (12.5-16.0); MEAN CELL VOLUME 74 fl (80.0-100.0); MEAN CORPUSCULAR HEMOGLOBIN 22 pg (27.0-31.0); MEAN CORPUSCULAR HGB CONC 30 g/dl (33.0-37.0); MEAN PLATELET VOLUME 10.1 fl (7.4-10.4); MONO # 0.5 (0.1-0.6); MONO % 6.8 % (1.7-9.3); PLATELET COUNT 295 K/mm3 (130-400); RED BLOOD COUNT 4.74 M/mm3 (4.10-5.30); REDCELL DISTRIBUTION WIDTH-CV 15.3 % (11.5-14.5)
[2020-04-26 20:05] LABS: HEMATOCRIT 35.2 % (37.0-47.0)
[2020-04-26 20:18] LABS: ALANINE AMINOTRANSFERASE 63 U/L (4-34); ALBUMIN 4.7 gm/dL (3.5-5.0); ALKALINE PHOSPHATASE 99 U/L (50-136); ANION GAP 14 mmol/L (7-16); AST,SGOT 39 U/L (15-37); BILIRUBIN,TOTAL 0.4 mg/dL (0.0-1.0); BLOOD UREA NITROGEN 11 mg/dL (7-17); CALCIUM 9.8 mg/dL (8.4-10.2); CARBON DIOXIDE 23 mmol/L (22-30); CHLORIDE 103 mmol/L (98-107); CREATININE, serum 0.71 (0.52-1.25); GLUCOSE 188 mg/dL (74-106); LIPASE 63 U/L (23-300); SODIUM 140 mmol/L (137-145); TOTAL PROTEIN 8.4 gm/dL (6.4-8.2)
[2020-04-26 20:30] LABS: TROPONIN-I < 0.012 ng/mL (0.000-0.035)
[2020-04-26 22:47] VITALS: BP 168/110; PULSE 95
== END 2020-04-26 22:47 | disposition home or self-care (01) ==
LOC: COL.ER 18:44
PROVIDERS: Physician Assistant
DX: R10.11 Right upper quadrant pain (principal); R06.02 Shortness of breath; R51 Headache; I10 Essential (primary) hypertension; E66.9 Obesity, unspecified; R11.0 Nausea; E78.5 Hyperlipidemia, unspecified; E11.9 Type 2 diabetes mellitus without complications; F41.9 Anxiety disorder, unspecified; F20.9 Schizophrenia, unspecified; F31.9 Bipolar disorder, unspecified; G89.29 Other chronic pain; Z87.891 Personal history of nicotine dependence; Z79.01 Long term (current) use of anticoagulants; Z79.82 Long term (current) use of aspirin; Z79.4 Long term (current) use of insulin; Z86.718 Personal history of other venous thrombosis and embolism; Z86.73 Personal history of transient ischemic attack (TIA), and cerebral infarction without residual deficits; Z90.710 Acquired absence of both cervix and uterus
CPT/HCPCS: J2405; J3010; J7030

== ENCOUNTER 2020-04-30 13:52 | Emergency (ER) | payer MEDICAID ==
[~2020-04-30] VITALS: Ht 170.2 cm; Wt 100.9 kg
[2020-04-30 13:56] VITALS: BP 175/132; TEMP 98.3
[2020-04-30 14:23] LABS: BASO % 0.7 % (0.0-2.0); EOS # 0.4 (0.0-0.7); EOS % 5.8 % (0-4.0); GRAN # 3.1 (1.4-6.5); GRAN % 50.2 % (42.2-75.2); HEMOGLOBIN 10.6 g/dl (12.5-16.0); LYMPH # 2.3 (1.2-3.4); LYMPH % 37.7 % (20.0-51.0); MEAN CELL VOLUME 75 fl (80.0-100.0); MEAN CORPUSCULAR HEMOGLOBIN 23 pg (27.0-31.0); MEAN CORPUSCULAR HGB CONC 30 g/dl (33.0-37.0); MEAN PLATELET VOLUME 10.3 fl (7.4-10.4); MONO # 0.3 (0.1-0.6); MONO % 5.3 % (1.7-9.3); PLATELET COUNT 313 K/mm3 (130-400); REDCELL DISTRIBUTION WIDTH-CV 15.3 % (11.5-14.5)
[2020-04-30 14:34] LABS: HEMATOCRIT 35.4 % (37.0-47.0)
[2020-04-30 14:47] LABS: ALBUMIN 4.5 gm/dL (3.5-5.0); BILIRUBIN,TOTAL 0.3 mg/dL (0.0-1.0); C-REACTIVE PROTEIN 0.8 mg/dL (0.0-0.9); CALCIUM 9.8 mg/dL (8.4-10.2); CREATININE, serum 0.76 (0.52-1.25); POTASSIUM 4.2 mmol/L (3.4-5.0)
[2020-04-30 15:00] LABS: LIPASE 300 U/L (23-300)
[2020-04-30 15:15] LABS: TROPONIN-I < 0.012 ng/mL (0.000-0.035)
[2020-04-30] MEDS ORDERED: CARAFATE 1GM1 G PO (15:23)
[2020-04-30] MEDS ORDERED: PERCOCET 325 MG1 TA2 PO (15:23)
[2020-04-30] MEDS ORDERED: ZOFRAN ODT4 MG PO (15:23)
[2020-04-30 15:55] VITALS: PULSE 80
== END 2020-04-30 15:48 | disposition home or self-care (01) ==
LOC: COL.ER 13:52
PROVIDERS: Emergency Medicine
DX: K29.70 Gastritis, unspecified, without bleeding (principal); E11.9 Type 2 diabetes mellitus without complications; I10 Essential (primary) hypertension; I48.91 Unspecified atrial fibrillation; Z79.4 Long term (current) use of insulin; Z88.0 Allergy status to penicillin; Z79.82 Long term (current) use of aspirin; Z87.891 Personal history of nicotine dependence; Z86.73 Personal history of transient ischemic attack (TIA), and cerebral infarction without residual deficits
CPT/HCPCS: C9113; J1170; J2270; J2550; J7030

== ENCOUNTER 2020-05-03 10:53 | Emergency (ER) | payer MEDICAID ==
[~2020-05-03] VITALS: Ht 170.2 cm; Wt 100.9 kg
[~2020-05-03 10:53] MED LIST changes: +CARAFATE 1GM1 G PO
[2020-05-03 11:00] VITALS: TEMP 97.8
[2020-05-03 12:41] LABS: BASO % 0.9 % (0.0-2.0); EOS # 0.2 (0.0-0.7); EOS % 4.9 % (0-4.0); GRAN # 2.2 (1.4-6.5); GRAN % 48.5 % (42.2-75.2); LYMPH # 1.8 (1.2-3.4); LYMPH % 39.5 % (20.0-51.0); MEAN CELL VOLUME 75 fl (80.0-100.0); MEAN CORPUSCULAR HGB CONC 30 g/dl (33.0-37.0); MEAN PLATELET VOLUME 10.3 fl (7.4-10.4); MONO # 0.3 (0.1-0.6); PLATELET COUNT 302 K/mm3 (130-400); REDCELL DISTRIBUTION WIDTH-CV 15.4 % (11.5-14.5)
[2020-05-03 12:48] LABS: ALANINE AMINOTRANSFERASE 27 U/L (4-34); ALBUMIN 4.2 gm/dL (3.5-5.0); ALKALINE PHOSPHATASE 69 U/L (50-136); ANION GAP 8 mmol/L (7-16); AST,SGOT 28 U/L (15-37); BILIRUBIN,TOTAL 0.3 mg/dL (0.0-1.0); BLOOD UREA NITROGEN 14 mg/dL (7-17); CARBON DIOXIDE 26 mmol/L (22-30); CHLORIDE 106 mmol/L (98-107); CREATININE, serum 0.76 (0.52-1.25); GLUCOSE 129 mg/dL (74-106); LIPASE 95 U/L (23-300); POTASSIUM 4.1 mmol/L (3.4-5.0); SODIUM 140 mmol/L (137-145); TOTAL PROTEIN 7.4 gm/dL (6.4-8.2)
[2020-05-03 13:08] LABS: TROPONIN-I < 0.012 ng/mL (0.000-0.035)
[2020-05-03 13:12] LABS: PROTHROMBIN TIME 11.7 SECONDS (9.7-12.8)
[2020-05-03 13:14] LABS: PARTIAL THROMBOPLASTIN TIME 38.6 SECONDS (26.0-37.0)
[2020-05-03 13:18] LABS: HEMATOCRIT 32.4 % (37.0-47.0); HEMOGLOBIN 9.7 g/dl (12.5-16.0); MEAN CORPUSCULAR HEMOGLOBIN 23 pg (27.0-31.0)
[2020-05-03] MEDS ORDERED: PHENERGAN 25 TA25 MG PO (14:44)
[2020-05-03] MEDS ORDERED: ZOFRAN ODT4 MG PO (14:44)
[2020-05-03 14:48] VITALS: BP 129/99; PULSE 93
== END 2020-05-03 14:50 | disposition home or self-care (01) ==
LOC: COL.ER 10:53
PROVIDERS: Emergency Medicine
DX: K29.70 Gastritis, unspecified, without bleeding (principal); E78.5 Hyperlipidemia, unspecified; I10 Essential (primary) hypertension; E11.9 Type 2 diabetes mellitus without complications; F31.9 Bipolar disorder, unspecified; Z86.718 Personal history of other venous thrombosis and embolism; Z90.710 Acquired absence of both cervix and uterus; Z79.82 Long term (current) use of aspirin; Z79.01 Long term (current) use of anticoagulants; Z79.4 Long term (current) use of insulin
CPT/HCPCS: J1170; J1200; J1790; J1885; J7030

== ENCOUNTER 2020-05-07 14:49 | Emergency (ER) | payer MEDICAID ==
[~2020-05-07] VITALS: Ht 170.2 cm; Wt 100.9 kg
[2020-05-07 15:03] VITALS: TEMP 98.3
[2020-05-07 16:08] VITALS: BP 131/90; PULSE 84
== END 2020-05-07 16:28 | disposition left against medical advice (07) ==
LOC: COL.ER 14:49
DX: R10.84 Generalized abdominal pain (principal); R11.2 Nausea with vomiting, unspecified

== ENCOUNTER 2020-05-14 07:39 | Emergency (ER) | payer MEDICAID ==
[~2020-05-14] VITALS: Ht 170.2 cm; Wt 102.7 kg
[2020-05-14 07:45] VITALS: BP 149/112; PULSE 99; TEMP 98.2
--- NOTE | 2020-05-14 10:09 | NUR ---
GILBERTO responded to ED consult. The patient's RN informed GILBERTO that the patient has frequent ED visits. The patient has been to the ED twelve times since 01/17/2020. The patient is known to this SW from prior hospital stays. The patient had [facility] in the past. GILBERTO contacted Bernie at [facility] to inquire about care. Bernie reports that they have discharged the patient from their services twice now, due to her being non-compliant. Bernie reports that they would not accept her back for services. GILBERTO then contacted the patient's PCP's office, [facility]. Tara, RN with Esther, reports that the patient just had an appointment with Esther yesterday. Tara reports that they have ordered tests for the patient and follow ups, but they also have difficulties with her being non-compliant. Tara reports that Esther Paul did inform the patient yesterday that she would prescribe her a couple Soma, but would not be prescribing her any more pain meds after that. Tara reports that the patient does have a follow up appointment with them on Tuesday, 05/16. GILBERTO notified the patient's RN on the above information. GILBERTO then met with the patient. The patient reports that she came to the ED, due to her abdominal pain. GILBERTO discussed her appointments with her PCP and how they can continuing care for her after the hospital. The patient reports that she goes to all her appointments. The patient then appeared upset and asked for the RN to remove her IV. The patient contacted her to come pick her up. GILBERTO reviewed how she does have her appointment with her PCP on Tuesday. The patient verbalized understanding. GILBERTO updated the patient's RN. GILBERTO made an APS report. Intake ID#[id number].
== END 2020-05-14 10:02 | disposition left against medical advice (07) ==
LOC: COL.ER 07:39
DX: R10.13 Epigastric pain (principal); R11.10 Vomiting, unspecified; E11.9 Type 2 diabetes mellitus without complications; I10 Essential (primary) hypertension; E78.5 Hyperlipidemia, unspecified; F31.9 Bipolar disorder, unspecified; F41.9 Anxiety disorder, unspecified; F20.9 Schizophrenia, unspecified; Z86.73 Personal history of transient ischemic attack (TIA), and cerebral infarction without residual deficits; Z90.710 Acquired absence of both cervix and uterus; Z79.01 Long term (current) use of anticoagulants; Z79.82 Long term (current) use of aspirin; Z79.4 Long term (current) use of insulin; Z87.891 Personal history of nicotine dependence
CPT/HCPCS: J1790; J1885; J2405; J7030

== ENCOUNTER 2020-06-04 15:40 | Emergency (ER) | payer MEDICAID ==
[~2020-06-04] VITALS: Ht 170.2 cm; Wt 102.7 kg
[2020-06-04 16:01] VITALS: TEMP 98.3
[2020-06-04 18:30] VITALS: BP 147/103; PULSE 92
== END 2020-06-04 18:30 | disposition home or self-care (01) ==
LOC: COL.ER 15:40
DX: S90.111A Contusion of right great toe without damage to nail, initial encounter (principal); S90.121A Contusion of right lesser toe(s) without damage to nail, initial encounter; F20.9 Schizophrenia, unspecified; F31.9 Bipolar disorder, unspecified; Z79.82 Long term (current) use of aspirin; Z87.891 Personal history of nicotine dependence; W04.XXXA Fall while being carried or supported by other persons, initial encounter; Y92.009 Unspecified place in unspecified non-institutional (private) residence as the place of occurrence of the external cause

== ENCOUNTER 2020-06-08 13:28 | Emergency (ER) | payer MEDICAID ==
[~2020-06-08] VITALS: Ht 170.2 cm; Wt 102.7 kg
[2020-06-08 13:37] VITALS: TEMP 98.4
[2020-06-08 14:18] LABS: COLLECTION METHOD CLEAN CATCH
[2020-06-08 14:26] LABS: MUCOUS Present /lpf; PH 6 (5-8); SQUAMOUS EPITHELIAL 0-2 /hpf; URINE APPEARANCE Clear; URINE BACTERIA None Seen /hpf; URINE BILIRUBIN Negative (NEGATIVE); URINE BLOOD Negative (NEGATIVE); URINE COLOR Straw; URINE GLUCOSE Negative (NEGATIVE); URINE KETONE Negative (NEGATIVE); URINE LEUKOCYTE ESTERASE Negative (NEGATIVE); URINE NITRATE Negative (NEGATIVE); URINE PROTEIN(semi-quant) Negative (NEGATIVE); URINE RBC 0-2 /hpf; URINE UROBILINOGEN Negative (NEGATIVE)
[2020-06-08 15:38] LABS: BASO % 0.4 % (0.0-2.0); EOS % 0.5 % (0-4.0); GRAN # 3.7 (1.4-6.5); GRAN % 64.2 % (42.2-75.2); HEMOGLOBIN 11.2 g/dl (12.5-16.0); LYMPH # 1.6 (1.2-3.4); LYMPH % 28.8 % (20.0-51.0); MEAN CELL VOLUME 74 fl (80.0-100.0); MEAN CORPUSCULAR HEMOGLOBIN 23 pg (27.0-31.0); MEAN CORPUSCULAR HGB CONC 31 g/dl (33.0-37.0); MEAN PLATELET VOLUME 10.6 fl (7.4-10.4); MONO # 0.4 (0.1-0.6); MONO % 6.1 % (1.7-9.3); PLATELET COUNT 300 K/mm3 (130-400); RED BLOOD COUNT 4.94 M/mm3 (4.10-5.30); REDCELL DISTRIBUTION WIDTH-CV 14.9 % (11.5-14.5)
[2020-06-08 15:41] LABS: HEMATOCRIT 36.7 % (37.0-47.0)
[2020-06-08 15:49] LABS: ALBUMIN 4.8 gm/dL (3.5-5.0); BILIRUBIN,TOTAL 0.5 mg/dL (0.0-1.0); CALCIUM 9.4 mg/dL (8.4-10.2); CREATININE, serum 0.64 (0.52-1.25); POTASSIUM 4.8 mmol/L (3.4-5.0); TOTAL PROTEIN 8.5 gm/dL (6.4-8.2)
[2020-06-08] MEDS ORDERED: PHENERGAN 25 TA25 MG PO (17:05)
[2020-06-08 17:25] VITALS: BP 126/89; PULSE 87
== END 2020-06-08 17:25 | disposition home or self-care (01) ==
LOC: COL.ER 13:28
PROVIDERS: Emergency Medicine
DX: R10.11 Right upper quadrant pain (principal); R11.2 Nausea with vomiting, unspecified; Z79.82 Long term (current) use of aspirin; Z79.84 Long term (current) use of oral hypoglycemic drugs
CPT/HCPCS: J0780; J1170

== ENCOUNTER 2020-08-18 11:01 | Emergency (ER) | payer MEDICAID ==
[~2020-08-18] VITALS: Ht 170.2 cm; Wt 87.3 kg
[2020-08-18 11:11] VITALS: TEMP 97.6
[2020-08-18 15:41] LABS: COLLECTION METHOD CLEAN CATCH
[2020-08-18 15:47] LABS: BASO % 0.6 % (0.0-2.0); EOS % 0.2 % (0-4.0); GRAN % 56.5 % (42.2-75.2); HEMATOCRIT 38.5 % (37.0-47.0); HEMOGLOBIN 11.7 g/dl (12.5-16.0); LYMPH % 36.9 % (20.0-51.0); MEAN CELL VOLUME 74 fl (80.0-100.0); MEAN CORPUSCULAR HEMOGLOBIN 23 pg (27.0-31.0); MEAN CORPUSCULAR HGB CONC 30 g/dl (33.0-37.0); MEAN PLATELET VOLUME 11.6 fl (7.4-10.4); MONO # 0.3 (0.1-0.6); MONO % 5.6 % (1.7-9.3); PLATELET COUNT 316 K/mm3 (130-400); REDCELL DISTRIBUTION WIDTH-CV 15.3 % (11.5-14.5)
[2020-08-18 15:53] LABS: PH 6 (5-8); SQUAMOUS EPITHELIAL 0-2 /hpf; URINE APPEARANCE Clear; URINE BACTERIA None Seen /hpf; URINE BILIRUBIN Negative (NEGATIVE); URINE BLOOD Negative (NEGATIVE); URINE COLOR Colorless; URINE GLUCOSE 3+ (NEGATIVE); URINE KETONE Negative (NEGATIVE); URINE LEUKOCYTE ESTERASE Negative (NEGATIVE); URINE NITRATE Negative (NEGATIVE); URINE PROTEIN(semi-quant) Negative (NEGATIVE); URINE RBC 0-2 /hpf; URINE UROBILINOGEN Negative (NEGATIVE)
[2020-08-18] MEDS ORDERED: GLUCOPHAGE1000 MG PO (16:59)
[2020-08-18 17:14] LABS: ALANINE AMINOTRANSFERASE 30 U/L (4-34); ALBUMIN 4.7 gm/dL (3.5-5.0); ALKALINE PHOSPHATASE 123 U/L (50-136); ANION GAP 12 mmol/L (7-16); AST,SGOT 34 U/L (15-37); BILIRUBIN,TOTAL 0.4 mg/dL (0.0-1.0); BLOOD UREA NITROGEN 6 mg/dL (7-17); C-REACTIVE PROTEIN 1.2 mg/dL (0.0-0.9); CALCIUM 9.5 mg/dL (8.4-10.2); CARBON DIOXIDE 26 mmol/L (22-30); CHLORIDE 98 mmol/L (98-107); CREATININE, serum 0.67 (0.52-1.25); POTASSIUM 3.8 mmol/L (3.4-5.0); SODIUM 136 mmol/L (137-145); TOTAL PROTEIN 8.1 gm/dL (6.4-8.2)
[2020-08-18 17:15] LABS: ACETONE,SERUM NEGATIVE
[2020-08-18 17:24] LABS: GLUCOSE 457 mg/dL (74-106); TROPONIN-I < 0.012 ng/mL (0.000-0.035)
[2020-08-18] MEDS ORDERED: LANTUS SOLOS100 U/ML SQ (18:37)
[2020-08-18] MEDS ORDERED: GLUCOPHAGE500 MG/TAB PO (18:52)
[2020-08-18] MEDS ORDERED: ELIQUIS 5MG PO (18:53)
[2020-08-18 19:30] VITALS: BP 150/101; PULSE 86
[2020-08-18] MEDS ORDERED: NOVOLIN R100 U/ML SQ (19:33)
[2020-08-18] MEDS ORDERED: PROAIR HFA0.09 MG/AC IH (19:34)
== END 2020-08-18 19:30 | disposition home or self-care (01) ==
LOC: COL.ER 11:01
PROVIDERS: Emergency Medicine; Physician Assistant
DX: G89.29 Other chronic pain (principal); E11.65 Type 2 diabetes mellitus with hyperglycemia; F31.9 Bipolar disorder, unspecified; D50.9 Iron deficiency anemia, unspecified; E78.5 Hyperlipidemia, unspecified; Z86.718 Personal history of other venous thrombosis and embolism; Z86.711 Personal history of pulmonary embolism; Z90.710 Acquired absence of both cervix and uterus; Z23 Encounter for immunization; Z88.0 Allergy status to penicillin; Z88.6 Allergy status to analgesic agent; Z79.01 Long term (current) use of anticoagulants; Z79.4 Long term (current) use of insulin; Z79.82 Long term (current) use of aspirin
CPT/HCPCS: J1815; J1885; J2270; J2550; J7030

== ENCOUNTER 2020-08-26 21:34 | Emergency (ER) | payer MEDICAID ==
[~2020-08-26] VITALS: Ht 170.2 cm; Wt 89.5 kg
[~2020-08-26 21:34] MED LIST changes: +NOVOLIN R100 U/ML SQ; +PROAIR HFA0.09 MG/AC IH
[2020-08-26 22:12] LABS: BASO % 0.5 % (0.0-2.0); EOS % 0.7 % (0-4.0); GRAN # 2.5 (1.4-6.5); GRAN % 42.5 % (42.2-75.2); HEMOGLOBIN 10.9 g/dl (12.5-16.0); LYMPH # 2.9 (1.2-3.4); LYMPH % 50.6 % (20.0-51.0); MEAN CELL VOLUME 73 fl (80.0-100.0); MEAN CORPUSCULAR HEMOGLOBIN 23 pg (27.0-31.0); MEAN CORPUSCULAR HGB CONC 31 g/dl (33.0-37.0); MEAN PLATELET VOLUME 10.2 fl (7.4-10.4); MONO # 0.3 (0.1-0.6); MONO % 5.5 % (1.7-9.3); PLATELET COUNT 371 K/mm3 (130-400); RED BLOOD COUNT 4.84 M/mm3 (4.10-5.30)
[2020-08-26 22:20] LABS: HEMATOCRIT 35.4 % (37.0-47.0)
[2020-08-26 22:24] LABS: ALANINE AMINOTRANSFERASE 32 U/L (4-34); ALBUMIN 4.8 gm/dL (3.5-5.0); ALKALINE PHOSPHATASE 84 U/L (50-136); ANION GAP 12 mmol/L (7-16); AST,SGOT 32 U/L (15-37); BILIRUBIN,TOTAL 0.3 mg/dL (0.0-1.0); BLOOD UREA NITROGEN 11 mg/dL (7-17); C-REACTIVE PROTEIN 1.4 mg/dL (0.0-0.9); CALCIUM 9.5 mg/dL (8.4-10.2); CARBON DIOXIDE 30 mmol/L (22-30); CHLORIDE 97 mmol/L (98-107); CREATININE, serum 0.92 (0.52-1.25); GLUCOSE 256 mg/dL (74-106); POTASSIUM 3.3 mmol/L (3.4-5.0); SODIUM 139 mmol/L (137-145); TOTAL PROTEIN 7.9 gm/dL (6.4-8.2)
[2020-08-26 22:43] LABS: TROPONIN-I < 0.012 ng/mL (0.000-0.035)
[2020-08-26] MEDS ORDERED: CATAPRES 0.1MG0.1 MG PO (23:34)
[2020-08-26] MEDS ORDERED: PRINIVIL20 MG PO (23:34)
[2020-08-26] MEDS ORDERED: NORVASC 5MG5 MG/TAB PO (23:34)
[2020-08-26] MEDS ORDERED: FLEXERIL 1010 MG/TAB PO (23:36)
[2020-08-26] MEDS ORDERED: PERCOCET 325 MG1 TA3 PO (23:36)
[2020-08-27 00:02] VITALS: BP 142/89; PULSE 75; TEMP 98.6
== END 2020-08-27 00:05 | disposition home or self-care (01) ==
LOC: COL.ER 21:34
PROVIDERS: Emergency Medicine
DX: I10 Essential (primary) hypertension (principal); E11.65 Type 2 diabetes mellitus with hyperglycemia; R07.9 Chest pain, unspecified; M54.9 Dorsalgia, unspecified; R51.9 Headache, unspecified; E66.9 Obesity, unspecified; E78.5 Hyperlipidemia, unspecified; Z86.73 Personal history of transient ischemic attack (TIA), and cerebral infarction without residual deficits; Z86.711 Personal history of pulmonary embolism; Z88.0 Allergy status to penicillin; Z88.6 Allergy status to analgesic agent; Z87.891 Personal history of nicotine dependence; Z79.82 Long term (current) use of aspirin; Z79.01 Long term (current) use of anticoagulants; Z79.4 Long term (current) use of insulin
CPT/HCPCS: J1170; J7030

== ENCOUNTER 2020-09-17 15:57 | Emergency (ER) | payer OTHER, MEDICAID ==
[~2020-09-17] VITALS: Ht 170.2 cm; Wt 94.1 kg
[2020-09-17 16:03] VITALS: TEMP 97.5
[2020-09-17 16:43] LABS: BASO % 0.3 % (0.0-2.0); EOS % 0.5 % (0-4.0); GRAN # 3.5 (1.4-6.5); GRAN % 58.4 % (42.2-75.2); HEMOGLOBIN 10.9 g/dl (12.5-16.0); LYMPH # 2.1 (1.2-3.4); MEAN CELL VOLUME 75 fl (80.0-100.0); MEAN CORPUSCULAR HEMOGLOBIN 23 pg (27.0-31.0); MEAN CORPUSCULAR HGB CONC 30 g/dl (33.0-37.0); MEAN PLATELET VOLUME 10.6 fl (7.4-10.4); MONO # 0.3 (0.1-0.6); MONO % 5.6 % (1.7-9.3); PLATELET COUNT 342 K/mm3 (130-400); RED BLOOD COUNT 4.78 M/mm3 (4.10-5.30); REDCELL DISTRIBUTION WIDTH-CV 15.1 % (11.5-14.5)
[2020-09-17 16:48] LABS: INR 1.1 (0.8-3.0); PROTHROMBIN TIME 12.1 SECONDS (9.7-12.8)
[2020-09-17 16:52] LABS: ALANINE AMINOTRANSFERASE 24 U/L (4-34); ALBUMIN 4.4 gm/dL (3.5-5.0); ALKALINE PHOSPHATASE 83 U/L (50-136); ANION GAP 10 mmol/L (7-16); AST,SGOT 21 U/L (15-37); BILIRUBIN,TOTAL 0.2 mg/dL (0.0-1.0); BLOOD UREA NITROGEN 14 mg/dL (7-17); CALCIUM 9.3 mg/dL (8.4-10.2); CARBON DIOXIDE 27 mmol/L (22-30); CHLORIDE 101 mmol/L (98-107); CREATININE, serum 0.77 (0.52-1.25); GLUCOSE 233 mg/dL (74-106); HEMATOCRIT 35.8 % (37.0-47.0); LIPASE 395 U/L (23-300); POTASSIUM 4.1 mmol/L (3.4-5.0); SODIUM 138 mmol/L (137-145); TOTAL PROTEIN 7.3 gm/dL (6.4-8.2)
[2020-09-17 17:00] LABS: PARTIAL THROMBOPLASTIN TIME 36.4 SECONDS (26.0-37.0)
[2020-09-17 17:06] LABS: TROPONIN-I < 0.012 ng/mL (0.000-0.035)
[2020-09-17] MEDS ORDERED: CEPHALEXIN500 M1 PO (18:09)
[2020-09-17] MEDS ORDERED: PERCOCET 325 MG1 TA2 PO (18:25)
[2020-09-17 19:00] VITALS: BP 146/86; PULSE 80
== END 2020-09-17 19:00 | disposition home or self-care (01) ==
LOC: COL.ER 15:57
PROVIDERS: Family Medicine
DX: L03.211 Cellulitis of face (principal); E11.65 Type 2 diabetes mellitus with hyperglycemia; K52.9 Noninfective gastroenteritis and colitis, unspecified; I10 Essential (primary) hypertension; Z80.9 Family history of malignant neoplasm, unspecified; Z86.73 Personal history of transient ischemic attack (TIA), and cerebral infarction without residual deficits; Z88.0 Allergy status to penicillin; Z88.6 Allergy status to analgesic agent; Z79.82 Long term (current) use of aspirin; Z79.01 Long term (current) use of anticoagulants; Z79.4 Long term (current) use of insulin
CPT/HCPCS: J2550; J3010

== ENCOUNTER → 2020-09-26 | Outpatient (CLI) | payer MEDICAID ==
[~2020-09-26] MED LIST changes: +CEPHALEXIN500 M1 PO
== END ==
LOC: COL.RAD 16:00
DX: M54.5 Low back pain (principal); S09.90XA Unspecified injury of head, initial encounter; Z79.01 Long term (current) use of anticoagulants; W19.XXXA Unspecified fall, initial encounter

== ENCOUNTER 2020-10-05 12:18 | Emergency (ER) | payer MEDICAID ==
[~2020-10-05] VITALS: Ht 170.2 cm; Wt 94.1 kg
[2020-10-05 13:26] LABS: BASO % 0.4 % (0.0-2.0); EOS % 0.4 % (0-4.0); GRAN # 3.5 (1.4-6.5); GRAN % 63.7 % (42.2-75.2); HEMOGLOBIN 10.8 g/dl (12.5-16.0); LYMPH # 1.6 (1.2-3.4); LYMPH % 29.8 % (20.0-51.0); MEAN CELL VOLUME 74 fl (80.0-100.0); MEAN CORPUSCULAR HEMOGLOBIN 23 pg (27.0-31.0); MEAN CORPUSCULAR HGB CONC 31 g/dl (33.0-37.0); MEAN PLATELET VOLUME 10.1 fl (7.4-10.4); MONO # 0.3 (0.1-0.6); MONO % 5.3 % (1.7-9.3); PLATELET COUNT 299 K/mm3 (130-400); RED BLOOD COUNT 4.78 M/mm3 (4.10-5.30); REDCELL DISTRIBUTION WIDTH-CV 15.2 % (11.5-14.5)
[2020-10-05 13:36] LABS: HEMATOCRIT 35.4 % (37.0-47.0)
[2020-10-05 13:42] LABS: ALBUMIN 4.6 gm/dL (3.5-5.0); BILIRUBIN,TOTAL 0.3 mg/dL (0.0-1.0); C-REACTIVE PROTEIN 0.6 mg/dL (0.0-0.9); CALCIUM 9.8 mg/dL (8.4-10.2); CREATININE, serum 0.59 (0.52-1.25); POTASSIUM 3.9 mmol/L (3.4-5.0); TOTAL PROTEIN 7.8 gm/dL (6.4-8.2)
[2020-10-05 17:12] VITALS: TEMP 97.8
[2020-10-05 17:35] VITALS: BP 135/101; PULSE 94
== END 2020-10-05 17:30 | disposition home or self-care (01) ==
LOC: COL.ER 12:18
PROVIDERS: Nurse Practitioner
DX: R07.9 Chest pain, unspecified (principal); R10.9 Unspecified abdominal pain; E11.9 Type 2 diabetes mellitus without complications; Z20.828 Contact with and (suspected) exposure to other viral communicable diseases; Z87.891 Personal history of nicotine dependence; Z88.0 Allergy status to penicillin; Z88.6 Allergy status to analgesic agent; Z86.73 Personal history of transient ischemic attack (TIA), and cerebral infarction without residual deficits; Z90.49 Acquired absence of other specified parts of digestive tract; Z86.711 Personal history of pulmonary embolism; Z79.82 Long term (current) use of aspirin; Z79.01 Long term (current) use of anticoagulants; Z79.4 Long term (current) use of insulin
CPT/HCPCS: J1885; J2270; J2405; J7030

== ENCOUNTER 2020-10-15 15:09 | Emergency (ER) | payer MEDICAID ==
[~2020-10-15] VITALS: Ht 170.2 cm; Wt 94.1 kg
[~2020-10-15 15:09] MED LIST changes: +LEVSIN0.125 M1 PO; +PHENERGAN25 MG RC
[2020-10-15 15:30] VITALS: TEMP 98
[2020-10-15 15:58] LABS: COLLECTION METHOD CLEAN CATCH
[2020-10-15 16:05] LABS: MUCOUS Present /lpf; PH 5 (5-8); SQUAMOUS EPITHELIAL 0-2 /hpf; URINE APPEARANCE Clear; URINE BACTERIA None Seen /hpf; URINE BILIRUBIN Negative (NEGATIVE); URINE BLOOD Negative (NEGATIVE); URINE COLOR Straw; URINE GLUCOSE 3+ (NEGATIVE); URINE KETONE Trace (NEGATIVE); URINE LEUKOCYTE ESTERASE Negative (NEGATIVE); URINE NITRATE Negative (NEGATIVE); URINE PROTEIN(semi-quant) Negative (NEGATIVE); URINE RBC 0-2 /hpf; URINE UROBILINOGEN Negative (NEGATIVE)
[2020-10-15 17:02] LABS: ACETONE,SERUM NEGATIVE; ALANINE AMINOTRANSFERASE 25 U/L (4-34); ALBUMIN 4.5 gm/dL (3.5-5.0); ALKALINE PHOSPHATASE 95 U/L (50-136); ANION GAP 15 mmol/L (7-16); AST,SGOT 19 U/L (15-37); BILIRUBIN,TOTAL 0.3 mg/dL (0.0-1.0); BLOOD UREA NITROGEN 9 mg/dL (7-17); CALCIUM 9.4 mg/dL (8.4-10.2); CARBON DIOXIDE 24 mmol/L (22-30); CHLORIDE 98 mmol/L (98-107); CREATININE, serum 0.67 (0.52-1.25); GLUCOSE 387 mg/dL (74-106); LIPASE 104 U/L (23-300); POTASSIUM 3.9 mmol/L (3.4-5.0); SODIUM 136 mmol/L (137-145); TOTAL PROTEIN 7.5 gm/dL (6.4-8.2)
[2020-10-15 17:03] LABS: BASO % 0.3 % (0.0-2.0); EOS % 0.1 % (0-4.0); GRAN # 4.5 (1.4-6.5); GRAN % 66.9 % (42.2-75.2); HEMOGLOBIN 10.9 g/dl (12.5-16.0); LYMPH # 1.8 (1.2-3.4); LYMPH % 26.7 % (20.0-51.0); MEAN CELL VOLUME 74 fl (80.0-100.0); MEAN CORPUSCULAR HEMOGLOBIN 23 pg (27.0-31.0); MEAN CORPUSCULAR HGB CONC 31 g/dl (33.0-37.0); MEAN PLATELET VOLUME 10.8 fl (7.4-10.4); MONO # 0.4 (0.1-0.6); MONO % 5.7 % (1.7-9.3); PLATELET COUNT 341 K/mm3 (130-400); RED BLOOD COUNT 4.71 M/mm3 (4.10-5.30); REDCELL DISTRIBUTION WIDTH-CV 14.7 % (11.5-14.5)
[2020-10-15 17:15] LABS: TROPONIN-I < 0.012 ng/mL (0.000-0.035)
[2020-10-15 17:18] LABS: HEMATOCRIT 34.8 % (37.0-47.0)
[2020-10-15 17:24] LABS: PROTHROMBIN TIME 11.4 SECONDS (9.7-12.8)
[2020-10-15 17:25] LABS: PARTIAL THROMBOPLASTIN TIME 26.3 SECONDS (26.0-37.0)
[2020-10-15 17:41] LABS: D-DIMER < 200.00 ng/mLDDu (200-230)
[2020-10-15 18:30] VITALS: BP 161/109; PULSE 94
[2020-10-15] MEDS ORDERED: PRILOTC PO (18:40)
== END 2020-10-15 18:46 | disposition home or self-care (01) ==
LOC: COL.ER 15:09
PROVIDERS: Emergency Medicine
DX: R10.13 Epigastric pain (principal); R73.9 Hyperglycemia, unspecified; E11.9 Type 2 diabetes mellitus without complications; I10 Essential (primary) hypertension; E78.5 Hyperlipidemia, unspecified; Z86.711 Personal history of pulmonary embolism; Z88.0 Allergy status to penicillin; Z88.6 Allergy status to analgesic agent; Z79.82 Long term (current) use of aspirin; Z79.01 Long term (current) use of anticoagulants; Z79.4 Long term (current) use of insulin
CPT/HCPCS: J1815; J2270; J2405; J7030

== ENCOUNTER 2020-10-20 15:27 | Emergency (ER) | payer MEDICAID ==
[~2020-10-20] VITALS: Ht 170.2 cm; Wt 95.5 kg
[~2020-10-20 15:27] MED LIST changes: +PRILOTC PO
[2020-10-20 16:15] LABS: BASO % 0.4 % (0.0-2.0); EOS % 0.8 % (0-4.0); GRAN # 2.2 (1.4-6.5); HEMOGLOBIN 10.9 g/dl (12.5-16.0); LYMPH # 2.3 (1.2-3.4); MEAN CELL VOLUME 74 fl (80.0-100.0); MEAN CORPUSCULAR HEMOGLOBIN 23 pg (27.0-31.0); MEAN CORPUSCULAR HGB CONC 30 g/dl (33.0-37.0); MEAN PLATELET VOLUME 10.4 fl (7.4-10.4); MONO # 0.3 (0.1-0.6); MONO % 6.6 % (1.7-9.3); PLATELET COUNT 350 K/mm3 (130-400); RED BLOOD COUNT 4.81 M/mm3 (4.10-5.30); REDCELL DISTRIBUTION WIDTH-CV 14.9 % (11.5-14.5)
[2020-10-20 16:25] LABS: HEMATOCRIT 35.8 % (37.0-47.0)
[2020-10-20 16:32] LABS: ALANINE AMINOTRANSFERASE 34 U/L (4-34); ALBUMIN 4.5 gm/dL (3.5-5.0); ALKALINE PHOSPHATASE 106 U/L (50-136); ANION GAP 13 mmol/L (7-16); AST,SGOT 32 U/L (15-37); BILIRUBIN,TOTAL 0.3 mg/dL (0.0-1.0); BLOOD UREA NITROGEN 10 mg/dL (7-17); C-REACTIVE PROTEIN 1.5 mg/dL (0.0-0.9); CALCIUM 9.7 mg/dL (8.4-10.2); CARBON DIOXIDE 30 mmol/L (22-30); CHLORIDE 97 mmol/L (98-107); CREATININE, serum 0.72 (0.52-1.25); GLUCOSE 310 mg/dL (74-106); LIPASE 118 U/L (23-300); POTASSIUM 3.5 mmol/L (3.4-5.0); SODIUM 139 mmol/L (137-145); TOTAL PROTEIN 7.7 gm/dL (6.4-8.2)
[2020-10-20 16:43] LABS: TROPONIN-I < 0.012 ng/mL (0.000-0.035)
[2020-10-20 17:19] LABS: COLLECTION METHOD CLEAN CATCH
[2020-10-20 17:27] LABS: PH 5 (5-8); URINE APPEARANCE Hazy; URINE BACTERIA None Seen /hpf; URINE BILIRUBIN Negative (NEGATIVE); URINE BLOOD Negative (NEGATIVE); URINE COLOR Yellow; URINE GLUCOSE 3+ (NEGATIVE); URINE KETONE Negative (NEGATIVE); URINE LEUKOCYTE ESTERASE Negative (NEGATIVE); URINE NITRATE Negative (NEGATIVE); URINE PROTEIN(semi-quant) 1+ (NEGATIVE); URINE RBC 0-2 /hpf; URINE UROBILINOGEN Negative (NEGATIVE)
[2020-10-20] MEDS ORDERED: ZOFRAN 4MG T4 MG/TAB PO (17:28)
[2020-10-20 17:33] VITALS: BP 169/113; PULSE 89; TEMP 98
== END 2020-10-20 17:33 | disposition home or self-care (01) ==
LOC: COL.ER 15:27
PROVIDERS: Nurse Practitioner Primary Care
DX: R10.9 Unspecified abdominal pain (principal); R07.9 Chest pain, unspecified; G89.29 Other chronic pain; R11.2 Nausea with vomiting, unspecified; J45.909 Unspecified asthma, uncomplicated; E11.9 Type 2 diabetes mellitus without complications; F31.9 Bipolar disorder, unspecified; F41.9 Anxiety disorder, unspecified; Z20.822 Contact with and (suspected) exposure to COVID-19; Z88.0 Allergy status to penicillin; Z88.6 Allergy status to analgesic agent; Z87.891 Personal history of nicotine dependence; Z79.82 Long term (current) use of aspirin; Z79.01 Long term (current) use of anticoagulants; Z79.4 Long term (current) use of insulin; Z79.51 Long term (current) use of inhaled steroids
CPT/HCPCS: J0780; J1885; J2270; J2405; J7030

== ENCOUNTER 2020-10-24 13:22 | Emergency (ER) | payer MEDICAID ==
[~2020-10-24] VITALS: Ht 170.2 cm; Wt 95.5 kg
[2020-10-24 13:34] VITALS: BP 128/86; TEMP 97.8
[2020-10-24 14:17] VITALS: PULSE 82
== END 2020-10-24 14:20 | disposition home or self-care (01) ==
LOC: COL.ER 13:22
DX: R10.9 Unspecified abdominal pain (principal); R07.9 Chest pain, unspecified; G89.29 Other chronic pain; F31.9 Bipolar disorder, unspecified; E11.9 Type 2 diabetes mellitus without complications; Z86.711 Personal history of pulmonary embolism; Z90.710 Acquired absence of both cervix and uterus; Z88.0 Allergy status to penicillin; Z88.6 Allergy status to analgesic agent; Z79.82 Long term (current) use of aspirin; Z79.01 Long term (current) use of anticoagulants; Z79.4 Long term (current) use of insulin
CPT/HCPCS: J1885

== ENCOUNTER 2020-11-04 01:21 | Observation (INO) | payer MEDICAID ==
[~2020-11-04] VITALS: Ht 170.2 cm; Wt 103.2 kg
[2020-11-04 01:38] LABS: BASO % 0.3 % (0.0-2.0); EOS % 0.3 % (0-4.0); GRAN # 5.8 (1.4-6.5); HEMOGLOBIN 10.6 g/dl (12.5-16.0); LYMPH # 2.2 (1.2-3.4); LYMPH % 25.5 % (20.0-51.0); MEAN CELL VOLUME 75 fl (80.0-100.0); MEAN CORPUSCULAR HEMOGLOBIN 23 pg (27.0-31.0); MEAN CORPUSCULAR HGB CONC 31 g/dl (33.0-37.0); MEAN PLATELET VOLUME 10.3 fl (7.4-10.4); MONO # 0.6 (0.1-0.6); MONO % 6.7 % (1.7-9.3); PLATELET COUNT 321 K/mm3 (130-400); RED BLOOD COUNT 4.65 M/mm3 (4.10-5.30); REDCELL DISTRIBUTION WIDTH-CV 14.3 % (11.5-14.5)
[2020-11-04 01:42] LABS: HEMATOCRIT 34.7 % (37.0-47.0)
[2020-11-04 01:48] LABS: ALANINE AMINOTRANSFERASE 21 U/L (4-34); ALBUMIN 4.4 gm/dL (3.5-5.0); ALKALINE PHOSPHATASE 94 U/L (50-136); ANION GAP 14 mmol/L (7-16); AST,SGOT 23 U/L (15-37); BILIRUBIN,TOTAL 0.4 mg/dL (0.0-1.0); BLOOD UREA NITROGEN 18 mg/dL (7-17); CALCIUM 10.4 mg/dL (8.4-10.2); CARBON DIOXIDE 27 mmol/L (22-30); CHLORIDE 94 mmol/L (98-107); GLUCOSE 357 mg/dL (74-106); LIPASE 68 U/L (23-300); SODIUM 135 mmol/L (137-145); TOTAL PROTEIN 7.6 gm/dL (6.4-8.2)
[2020-11-04 01:51] LABS: PROTHROMBIN TIME 11.5 SECONDS (9.7-12.8)
[2020-11-04 01:54] LABS: PARTIAL THROMBOPLASTIN TIME 26.2 SECONDS (26.0-37.0)
[2020-11-04 02:02] LABS: TROPONIN-I < 0.012 ng/mL (0.000-0.035)
[2020-11-04] MEDS ORDERED: CATAPRES0.2 MG PO (05:13)
[2020-11-04] MEDS ORDERED: VICTOZA6 MG/ML (05:20)
[2020-11-04] MEDS ORDERED: COLACE 100100 MG/CAP PO (05:23)
[2020-11-04] MEDS ORDERED: SOMA 350MG350 MG/TAB PO (05:23)
[2020-11-04 12:45] LABS: COLLECTION METHOD CLEAN CATCH
[2020-11-04 12:57] LABS: MUCOUS Present /lpf; PH 5 (5-8); SQUAMOUS EPITHELIAL None Seen /hpf; URINE APPEARANCE Clear; URINE BACTERIA None Seen /hpf; URINE BILIRUBIN Negative (NEGATIVE); URINE BLOOD Negative (NEGATIVE); URINE COLOR Colorless; URINE GLUCOSE 3+ (NEGATIVE); URINE KETONE Negative (NEGATIVE); URINE LEUKOCYTE ESTERASE Negative (NEGATIVE); URINE NITRATE Negative (NEGATIVE); URINE PROTEIN(semi-quant) Negative (NEGATIVE); URINE RBC 0-2 /hpf; URINE UROBILINOGEN Negative (NEGATIVE); URINE WBC 0-2 /hpf
--- NOTE | 2020-11-04 20:13 | NUR ---
Pt up to room 317 this afternoon, pt A&O, independent in room, on room air, breathing is even and unlabored, pt appears content, answers questions appropriately, addmission, med rec, allergies completed. Pt does state that she has chest pain and "the doctor said I could get dilaudid every 2 hours". Pt received percocet and dilaudid per dec. Will reasses. Pt has RWR IV that flushes well w/ hep gtt at 15.5 ml/hr running w/o issue, 1629 hep xa was WNL, no change made to rate. Pt had NS running to LAC IV, IV no longer flushes, per nightshift, they will change sites. Pt denies any dizziness, n/v/d, numbness or tingling. Pt tolerated dinner well. LS cta. No further needs expressed at this time.
--- NOTE | 2020-11-04 20:30 | NUR ---
Initial shift assessment done- states having pain in chest from the clots,, will give Dilaudid when it is time for next dose-- Up in snyder walking, requesting many snacks etc, heparin drip at 15.5cc/hr-- next hepxa at 2300 tonight- NS at 75cc/hr,
[2020-11-04 21:37] VITALS: BP 152/96; PULSE 77; TEMP 97.7
[2020-11-05 01:00] VITALS: BP 117/64; PULSE 80; TEMP 97.8
--- NOTE | 2020-11-05 05:51 | NUR ---
Has been sleeping well since around 0100 this morning-- no requests, refusing vitals-- heparin drip at 15.5cc/hr. getting another hepxa drawn now
--- NOTE | 2020-11-05 07:05 | NUR ---
Report with NICOLÁS Paulino. Pt awake, ambulates around room briefly then sits back on bed, reports pain 7 out of 10 to chest and requesting PRN pain medication. IV infusion and fluids infusing per orders without s/s of complications. Call light in reach.
[2020-11-05 08:18] LABS: BASO % 0.5 % (0.0-2.0); EOS # 0.1 (0.0-0.7); EOS % 1.5 % (0-4.0); GRAN # 1.4 (1.4-6.5); GRAN % 33.5 % (42.2-75.2); LYMPH # 2.3 (1.2-3.4); MEAN CELL VOLUME 76 fl (80.0-100.0); MEAN CORPUSCULAR HGB CONC 30 g/dl (33.0-37.0); MEAN PLATELET VOLUME 11.6 fl (7.4-10.4); MONO # 0.3 (0.1-0.6); MONO % 8.5 % (1.7-9.3); PLATELET COUNT 309 K/mm3 (130-400); RED BLOOD COUNT 4.31 M/mm3 (4.10-5.30); REDCELL DISTRIBUTION WIDTH-CV 14.7 % (11.5-14.5)
[2020-11-05 08:19] LABS: HEMATOCRIT 32.8 % (37.0-47.0); HEMOGLOBIN 9.9 g/dl (12.5-16.0); MEAN CORPUSCULAR HEMOGLOBIN 23 pg (27.0-31.0)
[2020-11-05] MEDS ORDERED: GLUCOPHAGE1000 MG PO (08:21)
[2020-11-05 09:08] LABS: CALCIUM 8.3 mg/dL (8.4-10.2); CREATININE, serum 0.59 (0.52-1.25); POTASSIUM 4.4 mmol/L (3.4-5.0)
[2020-11-05 09:14] VITALS: BP 131/73; BP 131/737; PULSE 78; TEMP 98.1
[2020-11-05] MEDS ORDERED: ELIQUIS 5MG PO (10:20)
[2020-11-05] MEDS ORDERED: PERCOCET 325 MG1 TA3 PO (10:27)
--- NOTE | 2020-11-05 12:30 | NUR ---
Pt discharged home after reviewing discharge paperwork. Pt ambulates out of facility accompanied by this nurse. Pt's providing transporation home.
== END 2020-11-05 13:00 | disposition home or self-care (01) ==
LOC: COL.ER 01:21 → MEDICAL 04:15
PROVIDERS: Emergency Medicine; Physician Assistant; ADMIT Student in an Organized Health Care Education/Training Program
DX: R07.9 Chest pain, unspecified (principal); I26.99 Other pulmonary embolism without acute cor pulmonale; R06.02 Shortness of breath; N17.9 Acute kidney failure, unspecified; I10 Essential (primary) hypertension; D50.9 Iron deficiency anemia, unspecified; E11.9 Type 2 diabetes mellitus without complications; F41.9 Anxiety disorder, unspecified; F20.9 Schizophrenia, unspecified; E78.5 Hyperlipidemia, unspecified; G47.00 Insomnia, unspecified; K21.9 Gastro-esophageal reflux disease without esophagitis; G89.29 Other chronic pain; I07.1 Rheumatic tricuspid insufficiency; Z86.718 Personal history of other venous thrombosis and embolism; Z86.73 Personal history of transient ischemic attack (TIA), and cerebral infarction without residual deficits; Z88.0 Allergy status to penicillin; Z88.8 Allergy status to other drugs, medicaments and biological substances; Z79.82 Long term (current) use of aspirin; Z79.4 Long term (current) use of insulin; Z90.710 Acquired absence of both cervix and uterus; Z87.891 Personal history of nicotine dependence
CPT/HCPCS: J1170; J1644; J1815; J2270; J2405; J7030; Q9967

== ENCOUNTER 2020-12-02 14:09 | Emergency (ER) | payer MEDICAID ==
[~2020-12-02] VITALS: Ht 170.2 cm; Wt 93.2 kg
[~2020-12-02 14:09] MED LIST changes: +CATAPRES0.2 MG PO; +COLACE 100100 MG/CAP PO; +VICTOZA6 MG/ML
[2020-12-02 14:18] VITALS: TEMP 98.5
[2020-12-02 15:21] LABS: BASO % 0.4 % (0.0-2.0); EOS % 0.3 % (0-4.0); GRAN # 3.8 (1.4-6.5); GRAN % 52.8 % (42.2-75.2); HEMATOCRIT 38.6 % (37.0-47.0); HEMOGLOBIN 11.7 g/dl (12.5-16.0); LYMPH # 2.9 (1.2-3.4); LYMPH % 40.6 % (20.0-51.0); MEAN CELL VOLUME 74 fl (80.0-100.0); MEAN CORPUSCULAR HEMOGLOBIN 23 pg (27.0-31.0); MEAN CORPUSCULAR HGB CONC 30 g/dl (33.0-37.0); MEAN PLATELET VOLUME 10.4 fl (7.4-10.4); MONO # 0.4 (0.1-0.6); MONO % 5.8 % (1.7-9.3); PLATELET COUNT 357 K/mm3 (130-400); RED BLOOD COUNT 5.19 M/mm3 (4.10-5.30); REDCELL DISTRIBUTION WIDTH-CV 14.1 % (11.5-14.5)
[2020-12-02 15:28] LABS: INR 1.1 (0.8-3.0); PROTHROMBIN TIME 12.6 SECONDS (9.7-12.8)
[2020-12-02 15:35] LABS: D-DIMER < 200.00 ng/mLDDu (200-230)
[2020-12-02 15:38] LABS: ALANINE AMINOTRANSFERASE 22 U/L (4-34); ALBUMIN 4.7 gm/dL (3.5-5.0); ALKALINE PHOSPHATASE 80 U/L (50-136); ANION GAP 14 mmol/L (7-16); AST,SGOT 22 U/L (15-37); BILIRUBIN,TOTAL 0.3 mg/dL (0.0-1.0); BLOOD UREA NITROGEN 13 mg/dL (7-17); CALCIUM 9.4 mg/dL (8.4-10.2); CARBON DIOXIDE 26 mmol/L (22-30); CHLORIDE 99 mmol/L (98-107); CREATININE, serum 0.73 (0.52-1.25); GLUCOSE 146 mg/dL (74-106); POTASSIUM 3.8 mmol/L (3.4-5.0); SODIUM 140 mmol/L (137-145); TOTAL PROTEIN 8.1 gm/dL (6.4-8.2)
[2020-12-02 15:50] LABS: TROPONIN-I < 0.012 ng/mL (0.000-0.035)
[2020-12-02 17:17] VITALS: BP 166/102; PULSE 102
== END 2020-12-02 17:19 | disposition home or self-care (01) ==
LOC: COL.ER 14:09
PROVIDERS: Family Medicine
DX: R07.89 Other chest pain (principal); I10 Essential (primary) hypertension; E66.9 Obesity, unspecified; E11.9 Type 2 diabetes mellitus without complications; F31.9 Bipolar disorder, unspecified; F41.9 Anxiety disorder, unspecified; F20.9 Schizophrenia, unspecified; E78.5 Hyperlipidemia, unspecified; G89.29 Other chronic pain; Z86.73 Personal history of transient ischemic attack (TIA), and cerebral infarction without residual deficits; Z86.711 Personal history of pulmonary embolism; Z79.01 Long term (current) use of anticoagulants; Z88.0 Allergy status to penicillin; Z88.6 Allergy status to analgesic agent; Z79.82 Long term (current) use of aspirin; Z79.4 Long term (current) use of insulin; Z68.32 Body mass index [BMI] 32.0-32.9, adult
CPT/HCPCS: J2270

== ENCOUNTER 2020-12-17 21:01 | Emergency (ER) | payer MEDICAID ==
[~2020-12-17] VITALS: Ht 170.2 cm; Wt 93.6 kg
[2020-12-17] MEDS ORDERED: CEPHALEXIN500 M1 PO (21:43)
[2020-12-17 21:56] VITALS: BP 128/74; PULSE 82; TEMP 97.4
[2020-12-17 22:22] LABS: STREP SCREEN NEGATIVE
== END 2020-12-17 22:03 | disposition home or self-care (01) ==
LOC: COL.ER 21:01
PROVIDERS: Emergency Medicine
DX: R59.0 Localized enlarged lymph nodes (principal); J02.9 Acute pharyngitis, unspecified; I10 Essential (primary) hypertension; E78.5 Hyperlipidemia, unspecified; E11.9 Type 2 diabetes mellitus without complications; E66.01 Morbid (severe) obesity due to excess calories; F32.9 Major depressive disorder, single episode, unspecified; Z86.718 Personal history of other venous thrombosis and embolism; Z79.01 Long term (current) use of anticoagulants; Z88.0 Allergy status to penicillin; Z88.6 Allergy status to analgesic agent; Z87.891 Personal history of nicotine dependence; Z86.73 Personal history of transient ischemic attack (TIA), and cerebral infarction without residual deficits; Z79.82 Long term (current) use of aspirin; Z79.4 Long term (current) use of insulin

== ENCOUNTER 2021-01-04 15:25 | Emergency (ER) | payer MEDICAID ==
[~2021-01-04] VITALS: Ht 170.2 cm; Wt 90.9 kg
[2021-01-04 15:36] VITALS: TEMP 98.2
[2021-01-04 16:09] LABS: BASO % 0.5 % (0.0-2.0); EOS % 0.2 % (0-4.0); GRAN # 4.2 (1.4-6.5); GRAN % 65.9 % (42.2-75.2); HEMOGLOBIN 10.5 g/dl (12.5-16.0); LYMPH # 1.8 (1.2-3.4); LYMPH % 28.8 % (20.0-51.0); MEAN CELL VOLUME 77 fl (80.0-100.0); MEAN CORPUSCULAR HEMOGLOBIN 22 pg (27.0-31.0); MEAN CORPUSCULAR HGB CONC 29 g/dl (33.0-37.0); MEAN PLATELET VOLUME 10.6 fl (7.4-10.4); MONO # 0.3 (0.1-0.6); MONO % 4.4 % (1.7-9.3); PLATELET COUNT 349 K/mm3 (130-400); REDCELL DISTRIBUTION WIDTH-CV 14.6 % (11.5-14.5)
[2021-01-04 16:17] LABS: HEMATOCRIT 36.1 % (37.0-47.0)
[2021-01-04 16:18] LABS: ALANINE AMINOTRANSFERASE 25 U/L (4-34); ALBUMIN 4.5 gm/dL (3.5-5.0); ALKALINE PHOSPHATASE 75 U/L (50-136); ANION GAP 15 mmol/L (7-16); AST,SGOT 25 U/L (15-37); BILIRUBIN,TOTAL < 0.1 mg/dL (0.0-1.0); BLOOD UREA NITROGEN 14 mg/dL (7-17); CALCIUM 9.1 mg/dL (8.4-10.2); CARBON DIOXIDE 24 mmol/L (22-30); CHLORIDE 99 mmol/L (98-107); CREATININE, serum 0.62 (0.52-1.25); GLUCOSE 325 mg/dL (74-106); POTASSIUM 3.9 mmol/L (3.4-5.0); SODIUM 138 mmol/L (137-145)
[2021-01-04 16:31] LABS: TROPONIN-I < 0.012 ng/mL (0.000-0.035)
[2021-01-04 18:38] VITALS: BP 121/76; PULSE 77
== END 2021-01-04 18:45 | disposition home or self-care (01) ==
LOC: COL.ER 15:25
PROVIDERS: Nurse Practitioner Primary Care
DX: R07.89 Other chest pain (principal); R11.2 Nausea with vomiting, unspecified; I10 Essential (primary) hypertension; E11.9 Type 2 diabetes mellitus without complications; G89.29 Other chronic pain; E78.5 Hyperlipidemia, unspecified; E66.9 Obesity, unspecified; F31.9 Bipolar disorder, unspecified; F41.9 Anxiety disorder, unspecified; F20.9 Schizophrenia, unspecified; Z88.0 Allergy status to penicillin; Z86.73 Personal history of transient ischemic attack (TIA), and cerebral infarction without residual deficits; Z88.6 Allergy status to analgesic agent; Z87.891 Personal history of nicotine dependence; Z79.82 Long term (current) use of aspirin; Z79.4 Long term (current) use of insulin; Z79.01 Long term (current) use of anticoagulants; Z68.31 Body mass index [BMI] 31.0-31.9, adult
CPT/HCPCS: J2270; J2550; J7030

== ENCOUNTER 2021-01-26 07:58 | Emergency (ER) | payer MEDICAID ==
[~2021-01-26] VITALS: Ht 170.2 cm; Wt 93.2 kg
[2021-01-26 08:04] VITALS: TEMP 98.2
[2021-01-26] MEDS ORDERED: PERCOCET 325 MG1 TA2 PO (08:32)
[2021-01-26 09:29] VITALS: BP 170/100; PULSE 89
== END 2021-01-26 09:28 | disposition home or self-care (01) ==
LOC: COL.ER 07:58
DX: S52.502A Unspecified fracture of the lower end of left radius, initial encounter for closed fracture (principal); E11.9 Type 2 diabetes mellitus without complications; Z86.73 Personal history of transient ischemic attack (TIA), and cerebral infarction without residual deficits; Z86.711 Personal history of pulmonary embolism; Z90.710 Acquired absence of both cervix and uterus; Z88.0 Allergy status to penicillin; Z88.6 Allergy status to analgesic agent; Z79.82 Long term (current) use of aspirin; Z79.4 Long term (current) use of insulin; Z79.51 Long term (current) use of inhaled steroids; Z79.01 Long term (current) use of anticoagulants; W10.8XXA Fall (on) (from) other stairs and steps, initial encounter

== ENCOUNTER 2021-02-03 13:33 | Observation (INO) | payer MEDICAID ==
[~2021-02-03] VITALS: Ht 170.2 cm; Wt 92.3 kg
[2021-02-03] MEDS ORDERED: NORVASC 10MG10 MG PO (14:31)
[2021-02-03] MEDS ORDERED: ELIQUIS 5MG PO (14:32)
[2021-02-03] MEDS ORDERED: TOPROL XL 25MG25 MG PO (14:32)
[2021-02-03] MEDS ORDERED: PERCOCET 325 MG1 TAB PO (14:32)
[2021-02-03] MEDS ORDERED: GLUCOPHAGE1000 MG PO (14:33)
[2021-02-03] MEDS ORDERED: LIPITOR 40MG TA40 MG PO (14:33)
[2021-02-03] MEDS ORDERED: ZESTRIL 20MG TA20 MG PO (14:33)
[2021-02-03] MEDS ORDERED: PRILOSEC 20MG20 MG PO (14:34)
[2021-02-03] MEDS ORDERED: REMERON 15M15 MG/TA1 PO (14:34)
[2021-02-03] MEDS ORDERED: ZOFRAN 4MG T4 MG/TAB PO (14:35)
[2021-02-03] MEDS ORDERED: GEODON80 MG PO (14:35)
[2021-02-03] MEDS ORDERED: LANTUS100 U/ML SQ (14:36)
[2021-02-03 14:51] VITALS: BP 124/88; PULSE 78; TEMP 98.6
[2021-02-03 14:53] VITALS: BP 124/88; PULSE 74; TEMP 98.6
--- NOTE | 2021-02-03 15:00 | NUR ---
Pt arrived to the floor from admissions. [facility] She is ambulatory and steady on her feet. Left arm does have a splint and sling in place. She does have someone with her. Called JONES Nino to notify her of patients arrival.
--- NOTE | 2021-02-03 15:50 | NUR ---
JONES Nino has been in to see patient. New orders wrote. Patient has requested food everytime I go in the room. Informed her that we are waiting on lab work before she can eat. IVF started
[2021-02-03 17:08] LABS: BASO % 0.7 % (0.0-2.0); EOS % 0.5 % (0-4.0); GRAN # 1.9 (1.4-6.5); LYMPH % 47.5 % (20.0-51.0); MEAN CELL VOLUME 74 fl (80.0-100.0); MEAN CORPUSCULAR HGB CONC 30 g/dl (33.0-37.0); MEAN PLATELET VOLUME 11.2 fl (7.4-10.4); MONO # 0.3 (0.1-0.6); MONO % 6.1 % (1.7-9.3); PLATELET COUNT 345 K/mm3 (130-400); RED BLOOD COUNT 4.39 M/mm3 (4.10-5.30); REDCELL DISTRIBUTION WIDTH-CV 14.1 % (11.5-14.5)
[2021-02-03 17:16] LABS: HEMATOCRIT 32.5 % (37.0-47.0); HEMOGLOBIN 9.8 g/dl (12.5-16.0); MEAN CORPUSCULAR HEMOGLOBIN 22 pg (27.0-31.0)
[2021-02-03 17:37] LABS: ALANINE AMINOTRANSFERASE 14 U/L (4-34); ALBUMIN 4.1 gm/dL (3.5-5.0); ALKALINE PHOSPHATASE 76 U/L (50-136); ANION GAP 9 mmol/L (7-16); AST,SGOT 25 U/L (15-37); BILIRUBIN,TOTAL < 0.1 mg/dL (0.0-1.0); BLOOD UREA NITROGEN 11 mg/dL (7-17); CARBON DIOXIDE 28 mmol/L (22-30); CHLORIDE 101 mmol/L (98-107); CREATININE, serum 0.55 (0.52-1.25); GLUCOSE 282 mg/dL (74-106); POTASSIUM 3.7 mmol/L (3.4-5.0); SODIUM 138 mmol/L (137-145); TOTAL PROTEIN 7.4 gm/dL (6.4-8.2)
--- NOTE | 2021-02-03 17:57 | NUR ---
Pt is able to eat, ordering food at this time
[2021-02-03 18:58] LABS: COLLECTION METHOD CLEAN CATCH
[2021-02-03 19:07] LABS: PH 5 (5-8); URINE APPEARANCE Clear; URINE BACTERIA None Seen /hpf; URINE BILIRUBIN Negative (NEGATIVE); URINE BLOOD Negative (NEGATIVE); URINE COLOR Yellow; URINE GLUCOSE 3+ (NEGATIVE); URINE KETONE Negative (NEGATIVE); URINE LEUKOCYTE ESTERASE Negative (NEGATIVE); URINE NITRATE Negative (NEGATIVE); URINE PROTEIN(semi-quant) Negative (NEGATIVE); URINE RBC 0-2 /hpf; URINE UROBILINOGEN Negative (NEGATIVE)
[2021-02-03 19:12] VITALS: BP 130/88; PULSE 98; TEMP 97.1
[2021-02-03 23:50] VITALS: BP 124/75; PULSE 90; TEMP 98
--- NOTE | 2021-02-04 01:16 | NUR ---
ASSESSMENT DONE AT SHIFT CHANGE. PT SETTING UP IN CHAIR WITH LEFT ARM PROPPED UP ON PILLOW. IN SLING AND BRACE FOR SUPPORT. SURGERY WAS POSTPONED DUE TO BLOOD SUGARS. PAIN RATING OF 10/10 . NEEDS MET.
--- NOTE | 2021-02-04 06:02 | NUR ---
RESTED OFF AND ON THROUGH THE NIGHT WOULD ASK FOR PAIN MEDS EVERY TIME WHEN IN ROOM. PT VERY SLEEPY THIS AM. DID NOT GIVE PERCOCET EVEN THOUGH REQUESTED. ASK FOR SNACKS OFTEN WELL. NEEDS MET.
[2021-02-04 07:05] VITALS: BP 135/82; PULSE 73; TEMP 97.7
[2021-02-04 07:26] LABS: BASO % 0.9 % (0.0-2.0); CALCIUM 8.5 mg/dL (8.4-10.2); CREATININE, serum 0.59 (0.52-1.25); EOS # 0.1 (0.0-0.7); EOS % 1.1 % (0-4.0); GRAN # 1.6 (1.4-6.5); GRAN % 37.2 % (42.2-75.2); LYMPH # 2.4 (1.2-3.4); LYMPH % 55.3 % (20.0-51.0); MEAN CELL VOLUME 74 fl (80.0-100.0); MEAN CORPUSCULAR HGB CONC 31 g/dl (33.0-37.0); MEAN PLATELET VOLUME 11.2 fl (7.4-10.4); MONO # 0.2 (0.1-0.6); MONO % 5.3 % (1.7-9.3); PLATELET COUNT 315 K/mm3 (130-400); POTASSIUM 3.6 mmol/L (3.4-5.0); RED BLOOD COUNT 4.02 M/mm3 (4.10-5.30); REDCELL DISTRIBUTION WIDTH-CV 14.3 % (11.5-14.5)
[2021-02-04 07:30] LABS: HEMATOCRIT 29.7 % (37.0-47.0); HEMOGLOBIN 9.2 g/dl (12.5-16.0); MEAN CORPUSCULAR HEMOGLOBIN 23 pg (27.0-31.0)
--- NOTE | 2021-02-04 10:15 | NUR ---
Patient alert and oriented, answers questions appropriately. See assessment. LUE with hard splint in place, neuros intact, no numbness or tingling. Sling in place to LUE over splint. C/o pain 05/19 to LUE, however, unable to keep eyes open through conversation, delayed responses noted. No other c/o at this time.
--- NOTE | 2021-02-04 13:20 | NUR ---
First visit from the pulley mortiser operator. No needs right now.
[2021-02-04 13:44] VITALS: BP 148/95; PULSE 95; TEMP 98.1
[2021-02-04 16:00] VITALS: BP 148/92; PULSE 83; TEMP 98
--- NOTE | 2021-02-04 19:00 | NUR ---
RECEIVED CHANGE OF SHIFT REPORT FROM DAY SHIFT NURSE. PATIENT UP INDEPENDENTLY IN ROOM. NEW SLING APPLIED TO LUE, PATIENT REPORTED PREVIOUS SLING "GOT WET". SPOUSE IN ROOM AT TIME OF REPORT AT BEDSIDE.
[2021-02-04 19:16] VITALS: BP 163/103; PULSE 106; TEMP 98.6
--- NOTE | 2021-02-04 20:00 | NUR ---
PATIENT UP IN ROOM, NO REPORTED DISCOMFORT AT THIS TIME. DENIES CHEST PAIN/SOA, DENIES NUMBNESS/TINGLING TO LEFT HAND FINGERS, OBSERVED SOME WIGGLING OF LEFT HAND EXPOSED FINGERS FROM LUE SPLINT. LUE ELEVATED ON PILLOWS WHILE IN BED.
[2021-02-04 20:11] VITALS: BP 155/98
--- NOTE | 2021-02-04 21:51 | NUR ---
PATIENT REQUESTING MULTIPLE FOOD ITEMS PRIOR TO BEING MADE NPO, PATIENT REMINDED REPEATED TO BE MINDFUL OF KEEPING FSBS 200'S OR LESS INORDER TO HAVE SURGERY DONE WITH PATIENT VERBALIZING UNDERSTANDING BUT STILL REQUESTING ADDITIONAL HS SNACK ITEMS.
[2021-02-04 23:04] VITALS: BP 136/85; PULSE 91; TEMP 98.4
--- NOTE | 2021-02-04 23:15 | NUR ---
PATIENT INSISTENT ON MORE SNACK AND AGREED TO NO MORE FOOD REQUESTS WHEN REMINDED OF NEEDING TO KEEP BLOOD SUGAR READINGS WITHIN PROVIDER'S REC INORDER FOR PATIENT TO BE ELIGIBLE FOR SURGERY IN AM.
[2021-02-05] VITALS (9 sets, daily range): BP systolic 145–168; BP diastolic 78–100; PULSE 64–81; TEMP 97.7–98.1
--- NOTE | 2021-02-05 01:30 | NUR ---
PATIENT SLEEPING, DOES NOT WAKE WHEN ROOM IS ENTERED BY STAFF. BREATHING NONLABORED AND EVEN. TELE IN PLACE.
--- NOTE | 2021-02-05 06:55 | NUR ---
CHANGE OF SHIFT REPORT GIVEN TO DAY SHIFT NURSE, IRLANDA MONZON.
[2021-02-05 07:15] LABS: BASO % 0.8 % (0.0-2.0); GRAN # 1.6 (1.4-6.5); GRAN % 40.1 % (42.2-75.2); LYMPH % 50.6 % (20.0-51.0); MEAN CELL VOLUME 73 fl (80.0-100.0); MEAN CORPUSCULAR HGB CONC 31 g/dl (33.0-37.0); MONO # 0.3 (0.1-0.6); PLATELET COUNT 306 K/mm3 (130-400)
[2021-02-05 07:20] LABS: MEAN CORPUSCULAR HEMOGLOBIN 23 pg (27.0-31.0)
[2021-02-05 07:22] LABS: HEMATOCRIT 29.1 % (37.0-47.0)
[2021-02-05 07:29] LABS: CALCIUM 8.6 mg/dL (8.4-10.2); CREATININE, serum 0.49 (0.52-1.25); POTASSIUM 3.4 mmol/L (3.4-5.0)
--- NOTE | 2021-02-05 09:26 | NUR ---
Keeler Polygraph Operator met with patient to complete intake. The patient lives in [place] with her Brandon. The patient has a cane and walker and is independent. The patient states she has a broken arm because she fill assisting her up after a fall. The patient reports she has had home health in the past with [facility] and would like send a referral to them again. The patient does not have a PCP. She states she was let go by Dr. Cruz. The patient is interested in setting up primary care with Gabriela Chatterjee PA-C from [facility]. The patient states she has new patient paperwork at home that has not been completed. SW discussed requesting new patient paperwork to complete this day. She was agreeable. The patient receives medications from [facility] with no difficulties. The patient does not have advanced directives and was not interested in DPOA-HC form at this time. The plan is to return home with [facility] (if [facility] can accept for services). Referral sent to [facility]. GILBERTO contacted the office of Gabriela Chatterjee PA-C, staff to fax new patient paperwork to this SW. *Discharge disposition* Home (with home health if [facility] accepts for services)
--- NOTE | 2021-02-05 10:03 | NUR ---
Per dietary report, patient ordered her own patient meal and three guest trays for supper meal last night. Patient had one visitor yesterday afternoon. Patients visitor brought her in regular coke and a plastic bag of candy. Patient was finishing coke when this nurse entered room. Re-educated patient and visitor on dietary restrictions regarding glucose.
--- NOTE | 2021-02-05 10:09 | NUR ---
The patient's , Brandon has history of falls. Per patient her broken arm is due to assisting Brandon after he fell. APS reports have been made on Brandon in the past due to fall and unsafe at . GILBERTO contacted [facility] with APS regarding the patient being hospitalized. APS report made on Brandon Freedman, intake # [id number].
--- NOTE | 2021-02-05 10:30 | NUR ---
Patient alert and oriented, answers questions appropriately. See assessment. LUE in hard splint and sling, no c/o numbness or tingling. Reviewed NPO status and potential surgery today. Request pain medication "every time its due". No other c/o at this time.
--- NOTE | 2021-02-05 11:46 | NUR ---
Eloisa with [facility] reports they can accept the patient for retirement services. If the patient is discharges over the weekend, the weekend is booked and they will be able to do the initial evaluation on Tuesday or Tuesday. GILBERTO received new patient packet from Gabriela Bourne office. The patient is in surgery at this time. After surgery, this SW to assist the patient in completing paperwork. *Discharge disposition* Home with [facility] nursing services
--- NOTE | 2021-02-05 12:05 | NUR ---
Patient to surgery with surgical staff at 1135.
--- NOTE | 2021-02-05 13:28 | NUR ---
Initial visit; Patient thanked Bookkeeping Teacher for looking in on her and offering prayer and keeping her and her Marck in Bookkeeping Teacher's prayers.
--- NOTE | 2021-02-05 14:07 | NUR ---
Patient returns from surgery at 1335.
[2021-02-05] MEDS ORDERED: PERCOCET 325 MG1 TAB PO (14:36)
--- NOTE | 2021-02-05 16:24 | NUR ---
The patient is to discharge home today, 02/05 with [facility] nursing services. The patient has her episcopalian family for support and her (limited assistance) as well. Tool Analyst faxed discharge orders to [facility]. SW assisted the patient in completing new patient packet to be able to set up primary care with Gabriela Chatterjee PA-C. Packet was faxed and Yue with the office informed this SW that she will contact the patient to set up an appointment. GILBERTO collaborated the above information with the patient's nurse and community relations assistant.
--- NOTE | 2021-02-05 16:26 | NUR ---
Discharge instructions reviewed with patient and spouse, verbalized understanding. Discharged via wheelchair to auto/home with spouse at 1535.
--- NOTE | 2021-02-12 14:53 | NUR ---
The patient has a follow up with Gabriela Chatterjee PA-C this day, 02/12 at 1545.
== END 2021-02-05 15:35 | disposition home or self-care (01) ==
LOC: SURG 13:33
PROVIDERS: Physician Assistant; ADMIT Student in an Organized Health Care Education/Training Program
DX: S52.502A Unspecified fracture of the lower end of left radius, initial encounter for closed fracture (principal); E11.65 Type 2 diabetes mellitus with hyperglycemia; I10 Essential (primary) hypertension; G47.00 Insomnia, unspecified; D50.9 Iron deficiency anemia, unspecified; F31.9 Bipolar disorder, unspecified; F41.9 Anxiety disorder, unspecified; F20.9 Schizophrenia, unspecified; E78.5 Hyperlipidemia, unspecified; G89.29 Other chronic pain; E66.9 Obesity, unspecified; J45.909 Unspecified asthma, uncomplicated; W19.XXXA Unspecified fall, initial encounter; Z86.711 Personal history of pulmonary embolism; Z86.73 Personal history of transient ischemic attack (TIA), and cerebral infarction without residual deficits; Z79.4 Long term (current) use of insulin; Z79.01 Long term (current) use of anticoagulants; Z88.0 Allergy status to penicillin; Z88.6 Allergy status to analgesic agent; Z68.33 Body mass index [BMI] 33.0-33.9, adult; Z79.899 Other long term (current) drug therapy; Z87.891 Personal history of nicotine dependence
CPT/HCPCS: 99222-AI; 99239; C1713; J0690; J1170; J1650; J1815; J2250; J2405; J2704; J2795; J3010; J7030; J7120

== ENCOUNTER 2021-02-28 10:51 | Emergency (ER) | payer MEDICAID ==
[~2021-02-28] VITALS: Ht 170.2 cm; Wt 91.4 kg
[~2021-02-28 10:51] MED LIST changes: +PRILOSEC 20MG20 MG PO; +ZESTRIL 20MG TA20 MG PO
[2021-02-28 11:02] VITALS: TEMP 98
[2021-02-28 11:50] LABS: BASO % 0.4 % (0.0-2.0); EOS % 0.6 % (0-4.0); GRAN % 59.9 % (42.2-75.2); HEMOGLOBIN 11.1 g/dl (12.5-16.0); LYMPH # 1.7 (1.2-3.4); LYMPH % 34.3 % (20.0-51.0); MEAN CELL VOLUME 76 fl (80.0-100.0); MEAN CORPUSCULAR HEMOGLOBIN 24 pg (27.0-31.0); MEAN CORPUSCULAR HGB CONC 31 g/dl (33.0-37.0); MEAN PLATELET VOLUME 11.4 fl (7.4-10.4); MONO # 0.2 (0.1-0.6); MONO % 4.6 % (1.7-9.3); PLATELET COUNT 310 K/mm3 (130-400); RED BLOOD COUNT 4.73 M/mm3 (4.10-5.30); REDCELL DISTRIBUTION WIDTH-CV 14.9 % (11.5-14.5)
[2021-02-28 11:52] LABS: HEMATOCRIT 35.8 % (37.0-47.0)
[2021-02-28 12:00] LABS: ALANINE AMINOTRANSFERASE 29 U/L (4-34); ALBUMIN 4.5 gm/dL (3.5-5.0); ALKALINE PHOSPHATASE 103 U/L (50-136); ANION GAP 15 mmol/L (7-16); AST,SGOT 27 U/L (15-37); BILIRUBIN,TOTAL < 0.1 mg/dL (0.0-1.0); BLOOD UREA NITROGEN 12 mg/dL (7-17); CALCIUM 9.2 mg/dL (8.4-10.2); CARBON DIOXIDE 24 mmol/L (22-30); CHLORIDE 102 mmol/L (98-107); CREATININE, serum 0.56 (0.52-1.25); GLUCOSE 369 mg/dL (74-106); LIPASE 269 U/L (23-300); POTASSIUM 4.5 mmol/L (3.4-5.0); SODIUM 140 mmol/L (137-145); TOTAL PROTEIN 7.9 gm/dL (6.4-8.2)
[2021-02-28 12:16] LABS: TROPONIN-I < 0.012 ng/mL (0.000-0.035)
[2021-02-28] MEDS ORDERED: ROXICODONE 55 MG/TAB PO (12:18)
[2021-02-28 12:28] VITALS: BP 141/98; PULSE 103
== END 2021-02-28 12:30 | disposition home or self-care (01) ==
LOC: COL.ER 10:51
PROVIDERS: Emergency Medicine
DX: E11.65 Type 2 diabetes mellitus with hyperglycemia (principal); G89.29 Other chronic pain; M25.532 Pain in left wrist; R07.9 Chest pain, unspecified; Z86.73 Personal history of transient ischemic attack (TIA), and cerebral infarction without residual deficits; Z86.711 Personal history of pulmonary embolism; Z88.0 Allergy status to penicillin; Z88.6 Allergy status to analgesic agent; Z79.4 Long term (current) use of insulin; Z79.01 Long term (current) use of anticoagulants

== ENCOUNTER 2021-03-17 23:54 | Emergency (ER) | payer MEDICAID ==
[~2021-03-17] VITALS: Ht 170.2 cm; Wt 94.1 kg
[2021-03-18 01:27] LABS: BASO % 0.3 % (0.0-2.0); EOS % 0.5 % (0-4.0); GRAN # 3.3 (1.4-6.5); GRAN % 57.7 % (42.2-75.2); HEMOGLOBIN 10.6 g/dl (12.5-16.0); LYMPH # 2.2 (1.2-3.4); LYMPH % 37.1 % (20.0-51.0); MEAN CELL VOLUME 74 fl (80.0-100.0); MEAN CORPUSCULAR HEMOGLOBIN 23 pg (27.0-31.0); MEAN CORPUSCULAR HGB CONC 31 g/dl (33.0-37.0); MEAN PLATELET VOLUME 10.6 fl (7.4-10.4); MONO # 0.2 (0.1-0.6); MONO % 4.1 % (1.7-9.3); PLATELET COUNT 346 K/mm3 (130-400); RED BLOOD COUNT 4.64 M/mm3 (4.10-5.30); REDCELL DISTRIBUTION WIDTH-CV 14.5 % (11.5-14.5)
[2021-03-18 01:31] LABS: HEMATOCRIT 34.4 % (37.0-47.0)
[2021-03-18 01:35] LABS: INR 1.2 (0.8-3.0); PROTHROMBIN TIME 13.2 SECONDS (9.7-12.8)
[2021-03-18 01:42] LABS: ALANINE AMINOTRANSFERASE 26 U/L (4-34); ALBUMIN 4.4 gm/dL (3.5-5.0); ALKALINE PHOSPHATASE 91 U/L (50-136); ANION GAP 11 mmol/L (7-16); AST,SGOT 22 U/L (15-37); BILIRUBIN,TOTAL 0.1 mg/dL (0.0-1.0); BLOOD UREA NITROGEN 12 mg/dL (7-17); CALCIUM 9.4 mg/dL (8.4-10.2); CARBON DIOXIDE 26 mmol/L (22-30); CHLORIDE 97 mmol/L (98-107); CREATININE, serum 0.56 (0.52-1.25); GLUCOSE 274 mg/dL (74-106); SODIUM 135 mmol/L (137-145); TOTAL PROTEIN 7.6 gm/dL (6.4-8.2)
[2021-03-18 01:54] LABS: TROPONIN-I < 0.012 ng/mL (0.000-0.035)
[2021-03-18 01:59] VITALS: BP 143/91; PULSE 86; TEMP 97.9
[2021-03-18 01:59] LABS: C-REACTIVE PROTEIN < 0.5 mg/dL (0.0-0.9)
== END 2021-03-18 01:59 | disposition home or self-care (01) ==
LOC: COL.ER 23:54
PROVIDERS: Emergency Medicine
DX: J98.01 Acute bronchospasm (principal); I10 Essential (primary) hypertension; E11.9 Type 2 diabetes mellitus without complications; E78.5 Hyperlipidemia, unspecified; G47.00 Insomnia, unspecified; F31.9 Bipolar disorder, unspecified; F41.9 Anxiety disorder, unspecified; F20.9 Schizophrenia, unspecified; G89.4 Chronic pain syndrome; Z86.711 Personal history of pulmonary embolism; Z79.01 Long term (current) use of anticoagulants; Z79.4 Long term (current) use of insulin; Z79.899 Other long term (current) drug therapy; Z86.73 Personal history of transient ischemic attack (TIA), and cerebral infarction without residual deficits; Z88.6 Allergy status to analgesic agent; Z87.891 Personal history of nicotine dependence; Z79.891 Long term (current) use of opiate analgesic

== ENCOUNTER 2021-03-27 23:28 | Emergency (ER) | payer MEDICAID ==
[~2021-03-27] VITALS: Ht 170.2 cm; Wt 90.0 kg
[2021-03-27 23:38] VITALS: BP 212/124; PULSE 113; TEMP 98.2
[2021-03-28 00:26] LABS: BASO % 0.6 % (0.0-2.0); EOS % 0.6 % (0-4.0); GRAN # 2.4 (1.4-6.5); GRAN % 46.5 % (42.2-75.2); HEMOGLOBIN 11.3 g/dl (12.5-16.0); LYMPH # 2.4 (1.2-3.4); LYMPH % 46.3 % (20.0-51.0); MEAN CELL VOLUME 76 fl (80.0-100.0); MEAN CORPUSCULAR HEMOGLOBIN 23 pg (27.0-31.0); MEAN CORPUSCULAR HGB CONC 30 g/dl (33.0-37.0); MEAN PLATELET VOLUME 10.8 fl (7.4-10.4); MONO # 0.3 (0.1-0.6); MONO % 5.6 % (1.7-9.3); PLATELET COUNT 339 K/mm3 (130-400); RED BLOOD COUNT 5.01 M/mm3 (4.10-5.30); REDCELL DISTRIBUTION WIDTH-CV 14.4 % (11.5-14.5)
[2021-03-28 00:40] LABS: ALANINE AMINOTRANSFERASE 23 U/L (4-34); ALBUMIN 4.8 gm/dL (3.5-5.0); ALKALINE PHOSPHATASE 91 U/L (50-136); ANION GAP 11 mmol/L (7-16); AST,SGOT 26 U/L (15-37); BILIRUBIN,TOTAL 0.1 mg/dL (0.0-1.0); BLOOD UREA NITROGEN 7 mg/dL (7-17); CALCIUM 9.7 mg/dL (8.4-10.2); CARBON DIOXIDE 27 mmol/L (22-30); CHLORIDE 100 mmol/L (98-107); CREATININE, serum 0.68 (0.52-1.25); GLUCOSE 267 mg/dL (74-106); POTASSIUM 3.6 mmol/L (3.4-5.0); SODIUM 138 mmol/L (137-145); TOTAL PROTEIN 8.3 gm/dL (6.4-8.2)
[2021-03-28 00:54] LABS: STREP SCREEN NEGATIVE
[2021-03-28 00:55] LABS: TROPONIN-I < 0.012 ng/mL (0.000-0.035)
== END 2021-03-28 01:41 | disposition left against medical advice (07) ==
LOC: COL.ER 23:28
PROVIDERS: Emergency Medicine; Nurse Practitioner Primary Care
DX: B34.9 Viral infection, unspecified (principal); M25.532 Pain in left wrist; I10 Essential (primary) hypertension; E11.9 Type 2 diabetes mellitus without complications; G89.29 Other chronic pain; E78.5 Hyperlipidemia, unspecified; E66.9 Obesity, unspecified; Z86.73 Personal history of transient ischemic attack (TIA), and cerebral infarction without residual deficits; Z86.711 Personal history of pulmonary embolism; Z79.891 Long term (current) use of opiate analgesic; Z79.4 Long term (current) use of insulin; Z79.01 Long term (current) use of anticoagulants; Z79.899 Other long term (current) drug therapy
CPT/HCPCS: J1100; J1885; J2270; J2405; J7030

== ENCOUNTER 2021-04-16 12:45 | Outpatient (RCR) | payer MEDICAID | END 2021-05-07 08:50 | LOC: WSOT 12:45 | DX: M25.532 Pain in left wrist (principal) ==

== ENCOUNTER 2021-05-08 01:39 | Emergency (ER) | payer MEDICAID ==
[~2021-05-08] VITALS: Ht 170.2 cm; Wt 84.1 kg
[2021-05-08 02:29] VITALS: TEMP 98.5
[2021-05-08 03:04] LABS: BASO % 0.2 % (0.0-2.0); EOS % 0.1 % (0-4.0); GRAN % 74.6 % (42.2-75.2); LYMPH # 1.6 (1.2-3.4); LYMPH % 19.3 % (20.0-51.0); MEAN CELL VOLUME 73 fl (80.0-100.0); MEAN CORPUSCULAR HGB CONC 31 g/dl (33.0-37.0); MEAN PLATELET VOLUME 10.9 fl (7.4-10.4); MONO # 0.5 (0.1-0.6); MONO % 5.6 % (1.7-9.3); PLATELET COUNT 306 K/mm3 (130-400); RED BLOOD COUNT 4.36 M/mm3 (4.10-5.30); REDCELL DISTRIBUTION WIDTH-CV 14.4 % (11.5-14.5)
[2021-05-08 03:12] LABS: ALBUMIN 4.2 gm/dL (3.5-5.0); BILIRUBIN,TOTAL 0.1 mg/dL (0.0-1.0); CALCIUM 8.4 mg/dL (8.4-10.2); CREATININE, serum 0.65 (0.52-1.25); TOTAL PROTEIN 7.1 gm/dL (6.4-8.2)
[2021-05-08 03:13] LABS: HEMOGLOBIN 9.9 g/dl (12.5-16.0); MEAN CORPUSCULAR HEMOGLOBIN 23 pg (27.0-31.0)
[2021-05-08 04:01] VITALS: BP 144/109; PULSE 103
== END 2021-05-08 04:01 | disposition home or self-care (01) ==
LOC: COL.ER 01:39
PROVIDERS: Emergency Medicine
DX: M79.602 Pain in left arm (principal); G89.29 Other chronic pain; R60.0 Localized edema
CPT/HCPCS: J1170; J2550

== ENCOUNTER 2021-06-07 14:07 | Emergency (ER) | payer MEDICAID ==
[~2021-06-07] VITALS: Ht 170.2 cm; Wt 80.5 kg
[2021-06-07 14:31] VITALS: TEMP 98.8
[2021-06-07 15:15] LABS: BASO % 0.4 % (0.0-2.0); EOS % 0.4 % (0-4.0); GRAN # 4.1 (1.4-6.5); GRAN % 58.3 % (42.2-75.2); HEMATOCRIT 37.4 % (37.0-47.0); HEMOGLOBIN 11.5 g/dl (12.5-16.0); LYMPH # 2.4 (1.2-3.4); LYMPH % 34.8 % (20.0-51.0); MEAN CELL VOLUME 74 fl (80.0-100.0); MEAN CORPUSCULAR HEMOGLOBIN 23 pg (27.0-31.0); MEAN CORPUSCULAR HGB CONC 31 g/dl (33.0-37.0); MEAN PLATELET VOLUME 10.7 fl (7.4-10.4); MONO # 0.4 (0.1-0.6); MONO % 5.2 % (1.7-9.3); PLATELET COUNT 345 K/mm3 (130-400); RED BLOOD COUNT 5.09 M/mm3 (4.10-5.30); REDCELL DISTRIBUTION WIDTH-CV 14.7 % (11.5-14.5)
[2021-06-07 15:18] LABS: ALBUMIN 4.6 gm/dL (3.5-5.0); ALKALINE PHOSPHATASE 94 U/L (50-136); ANION GAP 11 mmol/L (7-16); AST,SGOT 33 U/L (15-37); BILIRUBIN,TOTAL 0.1 mg/dL (0.0-1.0); BLOOD UREA NITROGEN 10 mg/dL (7-17); CALCIUM 10.3 mg/dL (8.4-10.2); CARBON DIOXIDE 28 mmol/L (22-30); CHLORIDE 99 mmol/L (98-107); CREATININE, serum 0.59 (0.52-1.25); GLUCOSE 221 mg/dL (74-106); POTASSIUM 3.7 mmol/L (3.4-5.0); SODIUM 139 mmol/L (137-145); TOTAL PROTEIN 8.5 gm/dL (6.4-8.2)
[2021-06-07 15:23] LABS: ALANINE AMINOTRANSFERASE 42 U/L (4-34)
[2021-06-07 15:30] LABS: C-REACTIVE PROTEIN 1.2 mg/dL (0.0-0.9); LIPASE 943 U/L (23-300)
[2021-06-07 15:31] LABS: TROPONIN-I < 0.012 ng/mL (0.000-0.035)
[2021-06-07 19:11] VITALS: BP 149/112; PULSE 95
== END 2021-06-07 19:11 | disposition home or self-care (01) ==
LOC: COL.ER 14:07
PROVIDERS: Physician Assistant
DX: S09.90XA Unspecified injury of head, initial encounter (principal); R74.8 Abnormal levels of other serum enzymes; R07.9 Chest pain, unspecified; R10.13 Epigastric pain; R00.0 Tachycardia, unspecified; D50.9 Iron deficiency anemia, unspecified; Z86.711 Personal history of pulmonary embolism; Z79.01 Long term (current) use of anticoagulants; I10 Essential (primary) hypertension; E11.65 Type 2 diabetes mellitus with hyperglycemia; G89.29 Other chronic pain; E66.9 Obesity, unspecified; F31.9 Bipolar disorder, unspecified; F41.9 Anxiety disorder, unspecified; F20.9 Schizophrenia, unspecified; E78.5 Hyperlipidemia, unspecified; Z86.73 Personal history of transient ischemic attack (TIA), and cerebral infarction without residual deficits; Z87.891 Personal history of nicotine dependence; Z79.891 Long term (current) use of opiate analgesic; Z79.4 Long term (current) use of insulin; Z79.899 Other long term (current) drug therapy; Z68.27 Body mass index [BMI] 27.0-27.9, adult; W19.XXXA Unspecified fall, initial encounter; Y92.531 Health care provider office as the place of occurrence of the external cause
CPT/HCPCS: J2270; J2405; J7030; Q9967

== ENCOUNTER 2021-06-16 21:19 | Emergency (ER) | payer MEDICAID ==
[~2021-06-16] VITALS: Ht 170.2 cm; Wt 81.8 kg
[2021-06-16 22:00] LABS: BASO % 0.3 % (0.0-2.0); GRAN # 4.1 (1.4-6.5); GRAN % 65.2 % (42.2-75.2); HEMOGLOBIN 10.6 g/dl (12.5-16.0); LYMPH # 1.8 (1.2-3.4); LYMPH % 28.4 % (20.0-51.0); MEAN CELL VOLUME 71 fl (80.0-100.0); MEAN CORPUSCULAR HEMOGLOBIN 23 pg (27.0-31.0); MEAN CORPUSCULAR HGB CONC 32 g/dl (33.0-37.0); MONO # 0.4 (0.1-0.6); MONO % 5.5 % (1.7-9.3); PLATELET COUNT 376 K/mm3 (130-400); REDCELL DISTRIBUTION WIDTH-CV 14.9 % (11.5-14.5)
[2021-06-16 22:03] LABS: HEMATOCRIT 33.4 % (37.0-47.0)
[2021-06-16 22:09] LABS: ALANINE AMINOTRANSFERASE 30 U/L (4-34); ALBUMIN 4.7 gm/dL (3.5-5.0); ALKALINE PHOSPHATASE 69 U/L (50-136); ANION GAP 13 mmol/L (7-16); AST,SGOT 33 U/L (15-37); BILIRUBIN,TOTAL 0.6 mg/dL (0.0-1.0); BLOOD UREA NITROGEN 11 mg/dL (7-17); CARBON DIOXIDE 27 mmol/L (22-30); CHLORIDE 97 mmol/L (98-107); CREATINE KINASE 92 U/L (30-135); CREATININE, serum 0.54 (0.52-1.25); GLUCOSE 341 mg/dL (74-106); LIPASE 82 U/L (23-300); POTASSIUM 4.3 mmol/L (3.4-5.0); SODIUM 137 mmol/L (137-145); TOTAL PROTEIN 7.9 gm/dL (6.4-8.2)
[2021-06-16 22:10] LABS: C-REACTIVE PROTEIN < 0.5 mg/dL (0.0-0.9)
[2021-06-16 22:20] LABS: TROPONIN-I < 0.012 ng/mL (0.000-0.035)
[2021-06-16 22:28] LABS: COLLECTION METHOD CLEAN CATCH
[2021-06-16 22:35] LABS: PH 5 (5-8); SQUAMOUS EPITHELIAL 0-2 /hpf; URINE APPEARANCE Clear; URINE BACTERIA None Seen /hpf; URINE BILIRUBIN Negative (NEGATIVE); URINE BLOOD Negative (NEGATIVE); URINE COLOR Yellow; URINE GLUCOSE 3+ (NEGATIVE); URINE KETONE Negative (NEGATIVE); URINE LEUKOCYTE ESTERASE Negative (NEGATIVE); URINE NITRATE Negative (NEGATIVE); URINE PROTEIN(semi-quant) 2+ (NEGATIVE); URINE RBC 0-2 /hpf; URINE UROBILINOGEN Negative (NEGATIVE)
[2021-06-17 00:32] VITALS: TEMP 99
[2021-06-17 01:02] VITALS: BP 154/107; PULSE 104
== END 2021-06-17 01:06 | disposition home or self-care (01) ==
LOC: COL.ER 21:19
PROVIDERS: Emergency Medicine
DX: I10 Essential (primary) hypertension (principal); E11.65 Type 2 diabetes mellitus with hyperglycemia; E66.9 Obesity, unspecified; G51.0 Bell's palsy; F31.9 Bipolar disorder, unspecified; F41.9 Anxiety disorder, unspecified; F20.9 Schizophrenia, unspecified; E78.5 Hyperlipidemia, unspecified; F51.04 Psychophysiologic insomnia; Z86.711 Personal history of pulmonary embolism; Z20.822 Contact with and (suspected) exposure to COVID-19; Z68.28 Body mass index [BMI] 28.0-28.9, adult; Z79.4 Long term (current) use of insulin; Z79.01 Long term (current) use of anticoagulants; Z79.899 Other long term (current) drug therapy
CPT/HCPCS: J0360; J1170; J2270; J2405; J7030

== ENCOUNTER 2021-07-07 20:59 | Emergency (ER) | payer MEDICAID ==
[~2021-07-07] VITALS: Ht 170.2 cm; Wt 94.1 kg
[2021-07-07 21:26] VITALS: TEMP 98.4
[2021-07-07 22:04] LABS: BASO % 0.4 % (0.0-2.0); EOS % 0.4 % (0-4.0); GRAN # 3.1 (1.4-6.5); GRAN % 46.1 % (42.2-75.2); HEMATOCRIT 34.8 % (37.0-47.0); HEMOGLOBIN 10.6 g/dl (12.5-16.0); LYMPH # 3.2 (1.2-3.4); LYMPH % 47.4 % (20.0-51.0); MEAN CELL VOLUME 75 fl (80.0-100.0); MEAN CORPUSCULAR HEMOGLOBIN 23 pg (27.0-31.0); MEAN CORPUSCULAR HGB CONC 31 g/dl (33.0-37.0); MEAN PLATELET VOLUME 10.3 fl (7.4-10.4); MONO # 0.4 (0.1-0.6); MONO % 5.6 % (1.7-9.3); PLATELET COUNT 377 K/mm3 (130-400); RED BLOOD COUNT 4.66 M/mm3 (4.10-5.30)
[2021-07-07 22:10] LABS: INR 1.4 (0.8-3.0); PROTHROMBIN TIME 15.7 SECONDS (9.7-12.8)
[2021-07-07 22:12] LABS: PARTIAL THROMBOPLASTIN TIME 35.3 SECONDS (26.0-37.0)
[2021-07-07 22:33] LABS: ALANINE AMINOTRANSFERASE 22 U/L (0-55); ALBUMIN 4.3 gm/dL (3.5-5.0); ALKALINE PHOSPHATASE 76 U/L (0-750); ANION GAP 15 mmol/L; AST,SGOT 13 U/L (5-34); BILIRUBIN,TOTAL 0.2 mg/dL (0.2-1.2); BLOOD UREA NITROGEN 12 mg/dL (7-19); CALCIUM 9.8 mg/dL (8.4-10.2); CARBON DIOXIDE 23 mEq/L (22-29); CHLORIDE 104 mmol/L (98-107); CREATININE, serum 0.92 mg/dL (0.57-1.11); GLUCOSE 228 mg/dL (70-99); LIPASE 67 U/L (8-78); POTASSIUM 3.8 mmol/L (3.5-4.5); SODIUM 142 mmol/L (136-145)
[2021-07-07 22:40] LABS: TROPONIN-I < 0.010 ng/mL (0.00-0.033)
[2021-07-08 00:25] VITALS: BP 152/117; PULSE 82
== END 2021-07-08 00:25 | disposition home or self-care (01) ==
LOC: COL.ER 20:59
PROVIDERS: Student in an Organized Health Care Education/Training Program
DX: R07.89 Other chest pain (principal); Z86.711 Personal history of pulmonary embolism; E11.9 Type 2 diabetes mellitus without complications; I10 Essential (primary) hypertension; E78.5 Hyperlipidemia, unspecified; Z79.01 Long term (current) use of anticoagulants; Z86.73 Personal history of transient ischemic attack (TIA), and cerebral infarction without residual deficits; Z79.4 Long term (current) use of insulin; Z79.899 Other long term (current) drug therapy
CPT/HCPCS: J2270; J2405; J7030; Q9967

== ENCOUNTER 2021-07-14 15:33 | Inpatient (IN) | payer MEDICAID ==
[~2021-07-14] VITALS: Ht 172.7 cm; Wt 90.3 kg
[2021-07-14] VITALS (197 sets, daily range): BP systolic 130; BP diastolic 97; PULSE 96; TEMP 97.9; O2SAT 97–100
[2021-07-14 15:53] LABS: BASO % 0.6 % (0.0-2.0); EOS % 0.8 % (0-4.0); GRAN # 1.8 K/mm3 (1.4-6.5); GRAN % 36.5 % (42.2-75.2); LYMPH # 2.7 K/mm3 (1.2-3.4); LYMPH % 54.7 % (20.0-51.0); MEAN CELL VOLUME 78 fl (80.0-100.0); MEAN CORPUSCULAR HGB CONC 29 g/dl (33.0-37.0); MEAN PLATELET VOLUME 11.1 fl (7.4-10.4); MONO # 0.4 K/mm3 (0.1-0.6); MONO % 7.2 % (1.7-9.3); PLATELET COUNT 296 K/mm3 (130-400); RED BLOOD COUNT 4.16 M/mm3 (4.10-5.30); REDCELL DISTRIBUTION WIDTH-CV 15.7 % (11.5-14.5)
[2021-07-14 15:55] LABS: HEMATOCRIT 32.6 % (37.0-47.0); HEMOGLOBIN 9.6 g/dl (12.5-16.0); MEAN CORPUSCULAR HEMOGLOBIN 23 pg (27.0-31.0)
[2021-07-14 15:56] LABS: ARTERIAL BLD GAS O2 SATURATION 98.5 % (92-100); ARTERIAL BLD GAS TCO2 CT 27.5; ARTERIAL BLOOD GAS BASE EXCESS 2.2 (-2-2); ARTERIAL BLOOD GAS HCO3 26.3 meq/L (22-26); ARTERIAL BLOOD GAS PCO2 39.1 mmHg (35-45); ARTERIAL BLOOD GAS PO2 112.3 mmHg (80-100); ARTERIAL BLOOD GAS pH 7.45 (7.35-7.45)
[2021-07-14 15:58] LABS: COLLECTION METHOD CLEAN CATCH
[2021-07-14 16:04] LABS: MUCOUS Present /lpf; PH 5 (5-8); URINE APPEARANCE Hazy; URINE BACTERIA None Seen /hpf; URINE BILIRUBIN Negative (NEGATIVE); URINE BLOOD 1+ (NEGATIVE); URINE COLOR Yellow; URINE GLUCOSE 3+ (NEGATIVE); URINE KETONE Negative (NEGATIVE); URINE LEUKOCYTE ESTERASE Negative (NEGATIVE); URINE NITRATE Negative (NEGATIVE); URINE PROTEIN(semi-quant) Negative (NEGATIVE); URINE UROBILINOGEN Negative (NEGATIVE)
[2021-07-14 16:05] LABS: PROTHROMBIN TIME 10.7 SECONDS (9.7-12.8)
[2021-07-14 16:12] LABS: TRICYCLIC ANTIDEPRESS URINE NEGATIVE
[2021-07-14 16:14] LABS: ALANINE AMINOTRANSFERASE 30 U/L (0-55); ALBUMIN 3.6 gm/dL (3.5-5.0); ALKALINE PHOSPHATASE 74 U/L (0-750); ANION GAP 11 mmol/L (7-16); AST,SGOT 21 U/L (5-34); BILIRUBIN,TOTAL 0.1 mg/dL (0.2-1.2); BLOOD UREA NITROGEN 12 mg/dL (7-19); CALCIUM 9.1 mg/dL (8.4-10.2); CARBON DIOXIDE 26 mmol/L (22-29); CHLORIDE 103 mmol/L (98-107); CREATINE KINASE 91 U/L (29-168); CREATININE, serum 1.13 mg/dL (0.57-1.11); GLUCOSE 280 mg/dL (70-99); POTASSIUM 4.5 mmol/L (3.5-4.5); SODIUM 140 mmol/L (136-145); TOTAL PROTEIN 6.9 gm/dL (6.2-8.1)
[2021-07-14 16:22] LABS: TROPONIN-I < 0.010 ng/mL (0.00-0.033)
[2021-07-14 17:04] LABS: ALCOHOL(ethanol),MEDICAL < 10 mg/dL (0-10); SALICYLATE < 5.0 mg/dL (15.0-30.0)
--- NOTE | 2021-07-14 19:30 | NUR ---
Bedside report recieved from Sharmila MONZON. While in patient room, Nina RN recieves call from family. Raised voices noted, then this RN on phone with family. Speaking with niece, Kenyatta, and , Brandon; family very upset, state havnen't had "an update all day!" Apologized at this time, and updates given. Answered questions as able to. Privacy code given and instructions for use and how to call given. Patient's asks to come visit and stay the night, visiting hours and rules reviewed. Niece and voice understanding. Contact information reviewed and updated. Encouraged family to call at any time with questions or concerned. Family very appreciative of updates at this time. Reassured this RN will call with any changes.
--- NOTE | 2021-07-14 21:11 | NUR ---
PATIENT ADMITTED TO ICU FROM ED THIS EVENING INTUBATED AND SEDATED. PATIENT WAS STILL RESTLESS AND AGITATED AND WAS TRYING TO SIT UP IN THE BED UPON TRANSFER TO THE ICU BED. PATIENT CURRENTLY RESTING COMFORTABLY WITH PROPOFOL SEDATION.
[2021-07-14 21:12] LABS: ARTERIAL BLD GAS O2 SATURATION 98.7 % (92-100); ARTERIAL BLD GAS TCO2 CT 25.4; ARTERIAL BLOOD GAS BASE EXCESS 0.7 (-2-2); ARTERIAL BLOOD GAS HCO3 24.3 meq/L (22-26); ARTERIAL BLOOD GAS PCO2 35.1 mmHg (35-45); ARTERIAL BLOOD GAS pH 7.46 (7.35-7.45)
[2021-07-14 21:13] LABS: ARTERIAL BLOOD GAS PO2 131.4 mmHg (80-100)
--- NOTE | 2021-07-14 21:13 | NUR ---
GAVE BEDSIDE REPORT TO NICOLÁS WORKMAN; PATIENT SEDATED AND INTUBATED AND RESTING COMFORTABLY IN BED.
--- NOTE | 2021-07-14 21:15 | NUR ---
Recieved call from niece and for update. Niece states she hasn't been updated all day/night. Reminded that this RN talked with them this evening at 1930 and updates given at that time; family states "I took a nap and I don't remember any of this." Family asking results of UDS, but able to tell this RN all that showed in UA. Niece states "Just so you know, Xanax is her drug of choice. Her doctor took her off that, she's not supposed to be taking it but she just loves it." Family asks if patient is awake, explained again that patient has a tube down her throat to help her breathe and we are given her medication to keep her comfortable and sleepy. yells in the back ground "just lock her up in the loony bin".
--- NOTE | 2021-07-14 21:57 | NUR ---
Niece calls this RN very upset; they can't find patient's 's medications at home and want to know if the patient has them. This RN explains that I am in with another patient and I will look and call back. States "Ok, but don't wilfrid around and take too long. This is critical." 2158 - Returned call to family, on speaker phone with neice and . Explained that this RN went through her belongings here and there were no medications with them. Niece states "well they could be in her stomach, did you think about that? She hides his medicines all the time. Can you just ask her where they are? He neeeds his high blood pressure medicines." Explained again at length that patient is sedated and on a ventilator to help her breathe, unable to talk at this time. States understanding. "Guess I'll just keep looking." Nidaryn then states that patient has court in the morning and could we call the municipal court in the morning and tell them she is here. Explained that family would need to call and let them know, the hospital cannot do that. yells "well you are worthless." Niece apologizes, states "Avery the effort to ask I guess."
--- NOTE | 2021-07-14 23:30 | NUR ---
Patient pulling at wrist restraints. Tears in eyes. When this RN asks if hurting, shakes head yes. Follows commands. Fentanyl increased and emotional support offered. Will monitor for need to increase medications.
[2021-07-15] VITALS (556 sets, daily range): BP systolic 98–172; BP diastolic 67–109; PULSE 74–101; TEMP 98.7–99.4; O2SAT 61–100
--- NOTE | 2021-07-15 01:40 | NUR ---
Recieved call from patient's niece and . Wanting updates, updates given. Asks when patient will be discharged. States, again, that paibill has court in the morning and could this nurse just call so patient doesn't get a warrent for her arrest while she's here. Explained, again, that family will need to call. Tez states "Can't you just call and tell them she's at [facility] and she can't come to court?!" This RN explains that the patient is currently at [facility] in [place], [place] and tez states "Then why in the hell aren't we there with here?!" Reviewed visiting hours and policies for visitors in the ICU again, states "ok, ya ok."
--- NOTE | 2021-07-15 02:00 | NUR ---
Latanya calls again. Wants this RN to ask patient where 's medications are. "She hides them and I have looked everywhere and he's going on 20 hours without his blood pressure medicine." Explained again at length that patient cannot talk because she has a tube down her throat helping her breathe and we are giving her medication to keep her sedated while that tube is there. Latanya states " Listen. Just give her a pen and have her write it down. I have developmentally disabled child and I know they can tell you things, so she should be able to do that too."
--- NOTE | 2021-07-15 02:28 | NUR ---
Recieved call from Brionna with Poison Control for updates. VS and EKG reviewed. No new orders at this time.
[2021-07-15 04:11] LABS: ARTERIAL BLD GAS O2 SATURATION 98.9 % (92-100); ARTERIAL BLD GAS TCO2 CT 24.6; ARTERIAL BLOOD GAS BASE EXCESS 2.9 (-2-2); ARTERIAL BLOOD GAS HCO3 23.8 meq/L (22-26); ARTERIAL BLOOD GAS PCO2 25.3 mmHg (35-45); ARTERIAL BLOOD GAS PO2 132.2 mmHg (80-100); ARTERIAL BLOOD GAS pH 7.59 (7.35-7.45)
--- NOTE | 2021-07-15 05:00 | NUR ---
Patient has very restless and agitated since approx 0415. Fentanyl increased. Patient continues to attempt to talk around the ET tube despite frequent attempts to redirect. Will shake head yes/no that she can hear and understand me. When asked if uncomfortable shakes head yes, repositioned in bed and pillows removed from under arms at patient's request. No sedation vacation at this time.
[2021-07-15 05:40] LABS: BASO % 0.5 % (0.0-2.0); EOS % 0.4 % (0-4.0); GRAN % 53.2 % (42.2-75.2); LYMPH % 39.5 % (20.0-51.0); MEAN CELL VOLUME 76 fl (80.0-100.0); MEAN CORPUSCULAR HGB CONC 31 g/dl (33.0-37.0); MEAN PLATELET VOLUME 10.9 fl (7.4-10.4); MONO # 0.5 K/mm3 (0.1-0.6); MONO % 6.1 % (1.7-9.3); PLATELET COUNT 305 K/mm3 (130-400); RED BLOOD COUNT 3.98 M/mm3 (4.10-5.30); REDCELL DISTRIBUTION WIDTH-CV 15.3 % (11.5-14.5)
[2021-07-15 05:46] LABS: HEMATOCRIT 30.2 % (37.0-47.0); HEMOGLOBIN 9.2 g/dl (12.5-16.0); MEAN CORPUSCULAR HEMOGLOBIN 23 pg (27.0-31.0)
[2021-07-15 05:56] LABS: INR 1.1 (0.8-3.0); PROTHROMBIN TIME 11.8 SECONDS (9.7-12.8)
[2021-07-15 06:02] LABS: ALBUMIN 3.5 gm/dL (3.5-5.0); BILIRUBIN,TOTAL 0.1 mg/dL (0.2-1.2); CALCIUM 8.7 mg/dL (8.4-10.2); CREATININE, serum 0.74 mg/dL (0.57-1.11); MAGNESIUM 1.3 mg/dL (1.6-2.6); POTASSIUM 3.4 mmol/L (3.5-4.5); TOTAL PROTEIN 6.6 gm/dL (6.2-8.1)
--- NOTE | 2021-07-15 06:04 | NUR ---
Patient granddaughter called requesting staff ask patient where patient husbands medications are. Explained to granddaughter multiple times during phone call that patient is intubated and sedated and unable to answer those types of questions at this time. Patient granddaughter voices unsatisfaction. Given managers name to call back. Recommended if patient had any symptoms of difficilty breathing chest pain etc to go to nearest ER or potentially contact pharmacy for temporary refill of medications. also in on phone call. Requested visiting hours. Informed them of hours. Patient/granddaughter voiced theyre upset with inability to answer question and threatened a law suit. Informed granddaughter staff will ask patient question at earliest ability that patient is able to answer. Patient nurse NICOLÁS Kerns updated regarding phone call.
--- NOTE | 2021-07-15 08:59 | NUR ---
Field Professional reviewed patient's chart and attempted to meet with patient's , Brandon, who is presently at patient's bedside. Dr. Deras attempted to extubate but is watiting until patient is more alert. was asked to step out by and this worker asked [place] if we could discuss discharge plan. He agreed and said he would be in ICU waiting room because he "knows where that is" but when SW went there, he was gone. SW will continue following for patient needs.
--- NOTE | 2021-07-15 09:00 | NUR ---
SPOKE WITH PATIENTS IN REGARDS TO HER MEDICATIONS, ABLE TO CONFIRM SOME OF THE MEDS IN THE MED REC, BUT WAS UNABLE TO VERIFY DOSES OR WHEN SHE LAST TOOK THEM.
--- NOTE | 2021-07-15 09:28 | NUR ---
Initial visit; Patient seemed to respond to prayer and God's blessings this morning. Her thanked [employer] Stitcher Hand for visit.
--- NOTE | 2021-07-15 09:30 | NUR ---
PATIENT WAS EXTUBATED THIS MORNING AT APPROX 0915 AFTER STOPPING SEDATION; DR SIMONS EXPLAINED PROCEDURE TO PATIENT AND RT REMOVED ET/OG TUBES AT APPROX 0915. PATIENT TOLERATED PROCEDURE WELL AND O2 SATS WERE 99-100% ON ROOM AIR AFTERWARDS.
--- NOTE | 2021-07-15 10:30 | NUR ---
PATIENT SPOKE WITH (PRESENT IN ROOM) AND NIECE MARCELO VIA SPEAKER PHONE, EVERYTHING OK AND A PLEASANT CONVERSATION WAS HAD.
[2021-07-15] MEDS ORDERED: CATAPRES 0.1MG0.1 MG PO (11:08)
--- NOTE | 2021-07-15 11:10 | NUR ---
Roll Off Driver met with patient and her , Brandon, is at bedside. Patient is now extubated but drowsy and tearful. Patient lives in [place] in a mobile home with her . Her added that sometimes Cierra will invite friends to spend the night. Patient told this worker that she last saw her PCP Gabriela Chatterjee (ROSANA) on 07/08. She receives her meds from [facility] without difficulty. Patient states that she uses her walker most of the time but also has a cane and shower chair. Patient states she takes xanax for anxiety and added "I must have taken a few extra pills"; the last thing she remembers is sitting down on the couch. Brandon added that patient was "just out" and he threw a glass of cold water on her. Patient says she was getting [place] health [place] [facility] [place] and they used to help her with her medications but they haven't been there for about a month. [place] stated that patient had court today but they cancelled it. SW will continue to follow for d/c planning. Patient will be transfered to floor
[2021-07-15] MEDS ORDERED: TOPROL XL 25MG25 MG PO (11:11)
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
--- NOTE | 2021-07-15 14:00 | NUR ---
WAS UNABLE TO GET A PROPER MED REC PATIENT/FAMILY WERE NOT SURE OF INFORMATION REQUIRED TO PROPERLY DOCUMENT.
--- NOTE | 2021-07-15 19:45 | NUR ---
Transfered to room 327 via wheelchair with at side. This RN had to warn once prior to discharge not to yell at patient. States "ok ma'am" and then tells patient "baby you're the best thing to happen to me". Patient very tearful, emotional support provided. also asks about staying with patient once she moves to 3rd floor. Patient and made aware that he will be unable to stay, he asks "well where can I stay?" Informed he will have to leave and can come back at 0800 tomorrow, both state understanding. Number for Go [employer] given to patient and . Mercedes RN, Mitch RN and Rosa M RN all aware of this conversation and situation.
--- NOTE | 2021-07-15 20:51 | NUR ---
PATIENTS CAME IN THIS AFTERNOON TO SWITCH CELL PHONES; PATIENT AND , ED, FOUGHT ABOUT MARCELO AND IT BECAME INCREASINGLY LOUDER AND MORE DISRUPTIVE THROUGHOUT THE ICU AND SECURITY HAD TO BE CALLED. ED WAS ASKED TO LEAVE, BUT THEN GIVEN ONE MORE CHANCE PER PATIENTS REQUEST. ED CAME BACK INTO THE ROOM AND STAYED FOR THE REST OF THE AFTERNOON, WHERE THEY CONTINUED TO ARGUE ON AND OFF BUT KEPT IT AT A REASONABLE LEVEL.
--- NOTE | 2021-07-15 20:54 | NUR ---
PATIENT STATED AT A COUPLE OF DIFFERENT TIMES THROUGHOUT THE DAY THAT SHE WANTED TO LEAVE. INFORMED PATIENT THAT SHE WAS WELCOME TO LEAVE BUT THAT IT WAS NOT RECOMMENDED AND THAT SHE WOULD BE LEAVING AMA AND WOULD HAVE TO SIGN A PAPER STATING SUCH. THE FIRST TIME PATIENT TRIED TO LEAVE, SHE WAS CONVINCED TO STAY HER BLOOD PRESSURE WAS HIGH AND WOULD NOT BE ABLE TO BE MONITORED AFTER SHE WAS GIVEN HER MEDICATION TO HELP LOWER IT; PATIENT DECIDED TO STAY. THE SECOND TIME PATIENT TRIED TO LEAVE AMA, DR. WALTERS AGAIN EXPRESSED CONCERN FOR HER BLOOD PRESSURE AND EXTUBATION STATUS (WITHIN 24 HOURS POST-EXTUBATION). PATIENT AGAIN DECIDED TO STAY AND WAS TRANSFERRED UPSTAIRS TO THE SURGICAL FLOOR.
--- NOTE | 2021-07-15 20:58 | NUR ---
PATIENT COMPLAINED MANY TIMES TODAY OF PAIN AND OF HAVING A HEADACHE, AND STATED THAT SHE NEEDED HER PAIN MEDS AND HER MEDICATION FOR HER "NERVES", WHICH AT ONE POINT SHE STATED WAS HER XANAX, AND AT ANOTHER TIME STATED IT WAS HER SOMA. PER DR. CAMERON WE WILL NOT BE GIVING HER OPIOIDS OR HER XANAX DUE TO THOSE BEING THE REASON SHE IS HERE IN THE FIRST PLACE.
--- NOTE | 2021-07-15 23:49 | NUR ---
ALERT AND OX4. CROSS FROM ICU PER W/C. RATING PAIN 10/10 TO LOWER BACK. STATES SHE NEED SOMETHING FOR PAIN ,TAKES OXY 10MG AT HOME FOR CHRONIC BACK PAIN AND WILL CHECK OUT AND GO HOME TO TAKE IF NECESSARY. MICHAEL GOLDMAN NOTIFED. TRAMADOL ORDERED. DENIES SOA, CHEST PAIN OR DIZZY. SHOWERED. PM MEDS GIVEN. BP TX PER DEC. SANDWICH BOX PROVIDED. CALL LIGHT WI REACH. NEEDS MET.
[2021-07-16 04:24] VITALS: BP 176/96; PULSE 87; TEMP 98.4
[2021-07-16 05:15] VITALS: BP 158/92
--- NOTE | 2021-07-16 05:45 | NUR ---
RESTED THROUGH THE NIGHT WITHOUT INCIDENT. C/O BACK PAIN AND HEAD ACHES ALL NIGHT. BP TREATED X2 W APRESOLINE AND HEAT TO BACK. TRAMADOL GIVEN PRN Q 6 HRS PER REQUEST. NEEDS MET.
[2021-07-16 08:00] VITALS: BP 173/91; PULSE 87; TEMP 98.2
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
[2021-07-16 08:10] LABS: CALCIUM 9.1 mg/dL (8.4-10.2); CREATININE, serum 0.74 mg/dL (0.57-1.11); MAGNESIUM 1.8 mg/dL (1.6-2.6); POTASSIUM 3.8 mmol/L (3.5-4.5)
--- NOTE | 2021-07-16 08:50 | NUR ---
PATIENT AMBULATING IN HALLWAYS WITH PT. SEE PT NOTES.
--- NOTE | 2021-07-16 09:34 | NUR ---
Follow-up visit; Patient let Automotive Design Layout Drafter know that she must have accidently taken some of her medicine twice which made her pass out and come here to the hospital. Automotive Design Layout Drafter offered empathy, encouragement and prayer for patient. Automotive Design Layout Drafter will follow up while Cierra is a patient.
--- NOTE | 2021-07-16 11:53 | NUR ---
The hospitalist notified GILBERTO that he would like the patient screened by [facility] and that he has medically cleared her. He also ordered a psych consult. GILBERTO contacted and faxed the patient's records to [facility] for them to screen the patient. Awaiting to hear back from Be[facility]. GILBERTO updated the patient's RN.
[2021-07-16 12:45] VITALS: BP 166/88; PULSE 81; TEMP 97.9
--- NOTE | 2021-07-16 13:35 | NUR ---
PATIENT ON PHONE WITH JOHN RICHARD. ASKED TO KINDLY STEP OUT, HE COMPLIED.
--- NOTE | 2021-07-16 13:38 | NUR ---
Jess, therapist, at [facility] contacted the patient's RN with the Zoom meeting login. SW connected the patient to the Zoom meeting. Will await Uriah's recommendations.
[2021-07-16] MEDS ORDERED: REMERON 15M15 MG/TA1 PO (14:52)
[2021-07-16] MEDS ORDERED: LIPITOR 40MG TA40 MG PO (14:52)
[2021-07-16] MEDS ORDERED: ZESTRIL 20MG TA20 MG PO (14:52)
[2021-07-16] MEDS ORDERED: CATAPRES 0.1MG0.1 MG PO (14:52)
[2021-07-16] MEDS ORDERED: LANTUS100 U/ML SQ (14:52)
[2021-07-16] MEDS ORDERED: NOVOLOG 100U100 U/M1 SQ (14:52)
[2021-07-16] MEDS ORDERED: ELIQUIS 5MG PO (14:52)
[2021-07-16] MEDS ORDERED: PROAIR HFA0.09 MG/AC IH (14:52)
[2021-07-16] MEDS ORDERED: ZOFRAN 4MG T4 MG/TAB PO (14:52)
[2021-07-16] MEDS ORDERED: TOPROL XL 25MG25 MG PO ×2 (14:52)
[2021-07-16] MEDS ORDERED: COLACE 100100 MG/CAP PO (14:52)
[2021-07-16] MEDS ORDERED: GLUCOPHAGE1000 MG PO (14:52)
[2021-07-16] MEDS ORDERED: SOMA 350MG350 MG/TAB PO (14:52)
[2021-07-16] MEDS ORDERED: PRILOSEC 20MG20 MG PO ×2 (14:52)
[2021-07-16] MEDS ORDERED: VICTOZA6 MG/ML SQ (14:52)
[2021-07-16] MEDS ORDERED: NORVASC 10MG10 MG PO (14:52)
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
[2021-07-16 16:08] VITALS: BP 176/106; PULSE 85; TEMP 98.4
--- NOTE | 2021-07-16 16:30 | NUR ---
PATIENT DISCHARGING HOME. HOME HEALTH AGENCY TO CONTACT HER AFTER DISCHARGE. GAVE DISCHARGE INSTRUCTION, INSULIN SCRIPT WAS NOT SIGNED BUT PATIENT REPORTS SHE HAS PLENTY OF INSULIN & A F/U APT WITH HER PCP. PATIENT GIVEN SAFETY PLAN SET UP WITH JOHN TODAY. STUDENT NURSE DC'D IV EARLIER TODAY. PATIENT DRESSED, PACKED & DISCHARGED.
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
--- NOTE | 2021-07-17 09:41 | NUR ---
Dominique, at [facility], left a voicemail for GILBERTO this morning. Dominique reports that after further review of the patient's referral, they are going to have to decline the patient. GILBERTO contacted Daniela at [facility]. Daniela reports that they do not take Medicaid. GILBERTO left a voicemail with Cayla at [facility], inquiring if they take Medicaid. GILBERTO faxed her the referral. GILBERTO contacted Cassandra at [facility]. Cassandra reports that they do take Medicaid [employer]. GILBERTO faxed a referral and discharge orders to Cassandra at [facility].
== END 2021-07-16 16:30 | disposition home health service (06) | DRG 918 ==
LOC: COL.ER 15:33 → ICU 16:38 → SURG 07-15 23:34
PROVIDERS: Emergency Medicine; Internal Medicine Pulmonary Disease; ADMIT Internal Medicine
PROC: 0BH17EZ Insertion of Endotracheal Airway into Trachea, Via Natural or Artificial Opening (ICD-10-PCS; principal; 2021-07-14)
PROC: 5A1945Z Respiratory Ventilation, 24-96 Consecutive Hours (ICD-10-PCS; 2021-07-14)
DX: T42.4X2A Poisoning by benzodiazepines, intentional self-harm, initial encounter (principal); D50.9 Iron deficiency anemia, unspecified; E78.5 Hyperlipidemia, unspecified; F31.9 Bipolar disorder, unspecified; F41.9 Anxiety disorder, unspecified; G89.29 Other chronic pain; E66.9 Obesity, unspecified; G47.00 Insomnia, unspecified; E87.6 Hypokalemia; G51.0 Bell's palsy; E83.42 Hypomagnesemia; Z20.822 Contact with and (suspected) exposure to COVID-19; T40.602A Poisoning by unspecified narcotics, intentional self-harm, initial encounter; E11.65 Type 2 diabetes mellitus with hyperglycemia; Z86.73 Personal history of transient ischemic attack (TIA), and cerebral infarction without residual deficits; Z86.711 Personal history of pulmonary embolism; Z90.710 Acquired absence of both cervix and uterus
CPT/HCPCS: 99223-AI; 99233-AI; 99239; A4314; J0330; J0360; J1650; J1815; J2250; J2310; J2704; J3010; J3475; J7030

== ENCOUNTER 2021-08-14 11:39 | Emergency (ER) | payer MEDICAID ==
[~2021-08-14] VITALS: Ht 170.2 cm; Wt 93.6 kg
[2021-08-14 12:59] LABS: COLLECTION METHOD IN
[2021-08-14 13:05] LABS: BASO % 0.4 % (0.0-2.0); EOS % 0.1 % (0-4.0); GRAN # 5.1 K/mm3 (1.4-6.5); GRAN % 75.7 % (42.2-75.2); HEMATOCRIT 36.8 % (37.0-47.0); LYMPH # 1.3 K/mm3 (1.2-3.4); LYMPH % 18.9 % (20.0-51.0); MEAN CELL VOLUME 76 fl (80.0-100.0); MEAN CORPUSCULAR HEMOGLOBIN 23 pg (27.0-31.0); MEAN CORPUSCULAR HGB CONC 30 g/dl (33.0-37.0); MEAN PLATELET VOLUME 11.1 fl (7.4-10.4); MONO # 0.3 K/mm3 (0.1-0.6); PLATELET COUNT 339 K/mm3 (130-400); RED BLOOD COUNT 4.87 M/mm3 (4.10-5.30); REDCELL DISTRIBUTION WIDTH-CV 13.9 % (11.5-14.5)
[2021-08-14 13:08] LABS: PH 6 (5-8); SQUAMOUS EPITHELIAL 0-2 /hpf; URINE APPEARANCE Clear; URINE BACTERIA None Seen /hpf; URINE BILIRUBIN Negative (NEGATIVE); URINE BLOOD Negative (NEGATIVE); URINE COLOR Colorless; URINE GLUCOSE 3+ (NEGATIVE); URINE KETONE Trace (NEGATIVE); URINE LEUKOCYTE ESTERASE Negative (NEGATIVE); URINE NITRATE Negative (NEGATIVE); URINE PROTEIN(semi-quant) Negative (NEGATIVE); URINE RBC 0-2 /hpf; URINE UROBILINOGEN Negative (NEGATIVE)
[2021-08-14 13:15] LABS: ACETONE,SERUM NEGATIVE
[2021-08-14 13:23] LABS: ALANINE AMINOTRANSFERASE 27 U/L (0-55); ALBUMIN 3.9 gm/dL (3.5-5.0); ALKALINE PHOSPHATASE 101 U/L (40-150); ANION GAP 15 mmol/L (7-16); AST,SGOT 15 U/L (5-34); BILIRUBIN,TOTAL 0.1 mg/dL (0.2-1.2); BLOOD UREA NITROGEN 11 mg/dL (7-19); CALCIUM 9.5 mg/dL (8.4-10.2); CARBON DIOXIDE 21 mmol/L (22-29); CHLORIDE 99 mmol/L (98-107); CREATININE, serum 1.17 mg/dL (0.57-1.11); LIPASE 50 U/L (8-78); POTASSIUM 4.5 mmol/L (3.5-4.5); SODIUM 135 mmol/L (136-145); TOTAL PROTEIN 7.8 gm/dL (6.2-8.1)
[2021-08-14 13:26] LABS: GLUCOSE 621 mg/dL (70-99)
[2021-08-14 13:29] LABS: TROPONIN-I < 0.010 ng/mL (0.00-0.033)
[2021-08-14] MEDS ORDERED: ZOFRAN ODT4 MG PO (13:48)
[2021-08-14 15:00] VITALS: BP 148/64; PULSE 88; TEMP 97.8
== END 2021-08-14 15:00 | disposition home or self-care (01) ==
LOC: COL.ER 11:39
PROVIDERS: Student in an Organized Health Care Education/Training Program
DX: S50.312A Abrasion of left elbow, initial encounter (principal); R10.13 Epigastric pain; R07.89 Other chest pain; R11.0 Nausea; E11.65 Type 2 diabetes mellitus with hyperglycemia; I10 Essential (primary) hypertension; E66.9 Obesity, unspecified; E78.5 Hyperlipidemia, unspecified; F31.9 Bipolar disorder, unspecified; F41.9 Anxiety disorder, unspecified; F20.9 Schizophrenia, unspecified; Z79.01 Long term (current) use of anticoagulants; Z79.899 Other long term (current) drug therapy; Z79.84 Long term (current) use of oral hypoglycemic drugs; Z79.4 Long term (current) use of insulin; W19.XXXA Unspecified fall, initial encounter
CPT/HCPCS: J1815; J2270; J2405; J7030

== ENCOUNTER 2021-08-16 15:16 | Emergency (ER) | payer MEDICAID ==
[~2021-08-16] VITALS: Ht 170.2 cm; Wt 93.6 kg
[2021-08-16 15:55] LABS: BASO % 0.4 % (0.0-2.0); GRAN % 68.1 % (42.2-75.2); HEMATOCRIT 37.1 % (37.0-47.0); HEMOGLOBIN 11.5 g/dl (12.5-16.0); LYMPH # 1.9 K/mm3 (1.2-3.4); MEAN CELL VOLUME 74 fl (80.0-100.0); MEAN CORPUSCULAR HEMOGLOBIN 23 pg (27.0-31.0); MEAN CORPUSCULAR HGB CONC 31 g/dl (33.0-37.0); MEAN PLATELET VOLUME 10.7 fl (7.4-10.4); MONO # 0.4 K/mm3 (0.1-0.6); MONO % 5.2 % (1.7-9.3); PLATELET COUNT 325 K/mm3 (130-400); RED BLOOD COUNT 5.03 M/mm3 (4.10-5.30)
[2021-08-16 16:06] LABS: ALBUMIN 3.8 gm/dL (3.5-5.0); BILIRUBIN,TOTAL 0.1 mg/dL (0.2-1.2); CALCIUM 9.3 mg/dL (8.4-10.2); CREATININE, serum 1.17 mg/dL (0.57-1.11); POTASSIUM 4.5 mmol/L (3.5-4.5); TOTAL PROTEIN 7.2 gm/dL (6.2-8.1)
[2021-08-16 20:30] VITALS: BP 135/93; PULSE 97; TEMP 98.2
== END 2021-08-16 20:30 | disposition home or self-care (01) ==
LOC: COL.ER 15:16
PROVIDERS: Personal Emergency Response Attendant
DX: R10.11 Right upper quadrant pain (principal); R07.89 Other chest pain; E66.9 Obesity, unspecified; I10 Essential (primary) hypertension; E11.9 Type 2 diabetes mellitus without complications; Z79.899 Other long term (current) drug therapy; Z79.01 Long term (current) use of anticoagulants; Z86.711 Personal history of pulmonary embolism; Z79.84 Long term (current) use of oral hypoglycemic drugs; Z79.4 Long term (current) use of insulin
CPT/HCPCS: J1815; J2270; J2405; J7030

== ENCOUNTER 2021-08-17 20:39 | Observation (INO) | payer MEDICAID ==
[~2021-08-17] VITALS: Ht 170.2 cm; Wt 90.5 kg
[2021-08-17 21:26] LABS: BASO % 0.3 % (0.0-2.0); EOS % 0.2 % (0-4.0); GRAN # 3.3 K/mm3 (1.4-6.5); GRAN % 55.2 % (42.2-75.2); HEMOGLOBIN 10.5 g/dl (12.5-16.0); LYMPH # 2.3 K/mm3 (1.2-3.4); LYMPH % 38.1 % (20.0-51.0); MEAN CELL VOLUME 74 fl (80.0-100.0); MEAN CORPUSCULAR HEMOGLOBIN 23 pg (27.0-31.0); MEAN CORPUSCULAR HGB CONC 32 g/dl (33.0-37.0); MEAN PLATELET VOLUME 10.8 fl (7.4-10.4); MONO # 0.4 K/mm3 (0.1-0.6); PLATELET COUNT 316 K/mm3 (130-400); RED BLOOD COUNT 4.52 M/mm3 (4.10-5.30); REDCELL DISTRIBUTION WIDTH-CV 13.8 % (11.5-14.5)
[2021-08-17 21:27] LABS: HEMATOCRIT 33.3 % (37.0-47.0)
[2021-08-17 21:39] LABS: ALBUMIN 3.6 gm/dL (3.5-5.0); BILIRUBIN,TOTAL 0.2 mg/dL (0.2-1.2); CALCIUM 9.2 mg/dL (8.4-10.2); CREATININE, serum 0.98 mg/dL (0.57-1.11); POTASSIUM 3.8 mmol/L (3.5-4.5); TOTAL PROTEIN 7.1 gm/dL (6.2-8.1)
[2021-08-17 22:32] LABS: COLLECTION METHOD CLEAN CATCH
[2021-08-17 22:37] LABS: MUCOUS Present /lpf; PH 5 (5-8); SQUAMOUS EPITHELIAL 0-2 /hpf; URINE APPEARANCE Clear; URINE BACTERIA None Seen /hpf; URINE BILIRUBIN Negative (NEGATIVE); URINE BLOOD Negative (NEGATIVE); URINE COLOR Straw; URINE GLUCOSE 3+ (NEGATIVE); URINE KETONE Negative (NEGATIVE); URINE LEUKOCYTE ESTERASE Negative (NEGATIVE); URINE NITRATE Negative (NEGATIVE); URINE PROTEIN(semi-quant) 1+ (NEGATIVE); URINE RBC 0-2 /hpf; URINE UROBILINOGEN Negative (NEGATIVE)
[2021-08-18] VITALS (8 sets, daily range): BP systolic 101–166; BP diastolic 65–107; PULSE 66–77; TEMP 97.8–98.5
[2021-08-18] MEDS ORDERED: TOPROL XL 25MG25 MG PO (00:24)
[2021-08-18] MEDS ORDERED: PERCOCET 325 MG1 TA3 PO (00:25)
--- NOTE | 2021-08-18 05:52 | NUR ---
Patient arrived to surgical unit from ER around midnight. Complained of chest pain, radiatig to left shoulder. JONES Kerns aware. Received scheduled Percocet once, and PRN Dilaudid once since arriving from ER. Patient has IV fluids running per orders to IV site to right hand. Telemetry in place: normal sinus. BS in the 200s upon arrival to floor. Given sandwich, crackers, peanut butter, and jello as requested. BS 182 around 0400. In bed with call light within reach. Voices no questions, needs, or concerns at this time.
[2021-08-18 06:50] LABS: BASO % 0.4 % (0.0-2.0); EOS # 0.1 K/mm3 (0.0-0.7); GRAN % 40.3 % (42.2-75.2); LYMPH # 2.5 K/mm3 (1.2-3.4); LYMPH % 50.4 % (20.0-51.0); MEAN CELL VOLUME 75 fl (80.0-100.0); MEAN CORPUSCULAR HGB CONC 30 g/dl (33.0-37.0); MEAN PLATELET VOLUME 11.7 fl (7.4-10.4); MONO # 0.4 K/mm3 (0.1-0.6); MONO % 7.5 % (1.7-9.3); PLATELET COUNT 297 K/mm3 (130-400); RED BLOOD COUNT 3.97 M/mm3 (4.10-5.30)
[2021-08-18 06:51] LABS: HEMATOCRIT 29.9 % (37.0-47.0); HEMOGLOBIN 9.1 g/dl (12.5-16.0); MEAN CORPUSCULAR HEMOGLOBIN 23 pg (27.0-31.0)
--- NOTE | 2021-08-18 06:59 | NUR ---
bedside shift report received NICOLÁS Smith, patient is drowsy and eyes are drooping during report and she is asking for something for pain, will monitor,
[2021-08-18 07:11] LABS: CALCIUM 8.1 mg/dL (8.4-10.2); CREATININE, serum 0.79 mg/dL (0.57-1.11); POTASSIUM 3.6 mmol/L (3.5-4.5)
--- NOTE | 2021-08-18 07:56 | NUR ---
entered room and new bag of IV fluids hung, she is sleeping soundly with resp quiet and easy, no moaning or grimacing or moving about in bed
--- NOTE | 2021-08-18 08:29 | NUR ---
power technician in and completed abdominal ultrasound
--- NOTE | 2021-08-18 08:40 | NUR ---
awake and assisted up to side of bed, states she has slept very well, contiues to c/o pain o back and left upper chest area, medicated with scheduled percocet 5mg 1 tab, she is ready to get up and take a shower and complete am care, telemetry off and LOGISTICAL ENGINEER student assisted her up and into shower
--- NOTE | 2021-08-18 09:10 | NUR ---
out of shower and sitting up eating breakfast, telemetry on
--- NOTE | 2021-08-18 09:30 | NUR ---
Shift Assessment completed. Patient reported pain in chest radiating to shoulder and back, rating it 8 out 10. drowsy and sleeping off and on.Telemetry intact,INT on right arm without redness or swelling.
--- NOTE | 2021-08-18 10:33 | NUR ---
in bed and appears to be sleeping, eyes closed, resp quiet and easy
--- NOTE | 2021-08-18 11:17 | NUR ---
reviewed assessment completed and documented by student ARTIFICIAL FLOWERS DYER and in agreement with that assessment
--- NOTE | 2021-08-18 11:57 | NUR ---
The patient recently discharged from the hospital, 07/16, and returned home with her and home health services from [facility]. GILBERTO contacted Herve at [facility] to follow up. Herve reports that the patient was discharged from services around 08/13. She reports that they will not take the patient back, due to her noncompliance. Herve reports that the patient is noncompliant with seeing her PCP and taking her meds. GILBERTO met with the patient to discuss discharge plan. The patient lives in [place] with her , Brandon (ph#[phone]). She reports independence with ADLs and has a cane and walker. The patient's primary care provider is Gabriela Chatterjee PA-C and she receives her medications from [facility]. She reports no difficulties obtaining her meds. The patient reports that she last saw Gabriela yesterday. The patient does not have a DPOA-HC, but she was interested in completing one while here. GILBERTO presented the form. The patient verbalized that she would like to designate her and then her rastafarian friend, Rosalie Guzman (ph#[phone]), as the alternate. GILBERTO and NICOLÁS Pacheco, witnessed the patient's signature. GILBERTO provided the patient with the orginal and some copies. GILBERTO placed a copy in the patient's chart. The patient plans to return home with her upon discharge. The patient reports that she may be interested in having someone help her bathe. GILBERTO educated her on how [facility] has declined to take her back, due to her non-compliance. This SW has also set her up with other home health agencies, such as [facility] and [facility]. They have declined taking her back, due to non-compliance. The patient also has Medicaid and it limits what home health agencies can take her insurance. GILBERTO educated the patient on this. The patient verbalized understanding. GILBERTO informed her of [facility] and [facility]. The patient was interested in obtaining their phone numbers. GILBERTO provided her with their numbers. SW to follow as needed. *Discharge plan: home with *
--- NOTE | 2021-08-18 12:15 | NUR ---
states pain is better after having dilaudid
--- NOTE | 2021-08-18 13:35 | NUR ---
entered room and she was having a small amount of undigested emesis, medicated with zofran 4mg slow IV and Dr Infante was notified of this
--- NOTE | 2021-08-18 13:45 | NUR ---
ambulating in snyder with standby assist of HASHER OPERATOR,
--- NOTE | 2021-08-18 15:42 | NUR ---
ambulating in snyder independently and moves with steady gait
--- NOTE | 2021-08-18 16:12 | NUR ---
sitting up in bed eating salad for supper, states nausea was better after zofran,
--- NOTE | 2021-08-18 16:50 | NUR ---
continues to c/o abdominal pain and medicated with dilaudid 2.5mg slow IV
--- NOTE | 2021-08-18 18:02 | NUR ---
in bed and appears to be sleeping
--- NOTE | 2021-08-18 18:57 | NUR ---
bedside shift report given to NICOLÁS Meyer
--- NOTE | 2021-08-18 20:00 | NUR ---
Patient is lying in bed, alert and oriented x 4, VSS, denies nausea or vomiting. Reports pain of 7 out of 10 in the abdomen. PRN provided. Tele in place, NS running at 75 ml/hr. Assessment completed, medications provided. No further needs at this time. Call light within reach.
--- NOTE | 2021-08-18 22:25 | NUR ---
Patient threw up. She ate jelly and could not avoid it. Patient states that she can not tolerate any food and has been with this problem all day. [place] provided. She asked for her dose of dilaudid, waiting for the time to be administered.
[2021-08-19 03:27] VITALS: BP 108/73; PULSE 60; TEMP 98.7
--- NOTE | 2021-08-19 06:13 | NUR ---
Patient has a relatively calm night. She complained of pain in her abdomen. PRN provided. After the vomiting she did not have anoter episode. Has been NPO after midnight. Shift report will be given to dayshift nurse.
--- NOTE | 2021-08-19 06:45 | NUR ---
Patient left the unit for scheduled HIDA scan.
--- NOTE | 2021-08-19 07:14 | NUR ---
REPORT RECEIVED FROM NICOLÁS CASTELLANO. PT OFF FLOOR FOR HIDA SCAN AT THIS TIME
--- NOTE | 2021-08-19 09:35 | NUR ---
Patient returned safely from HIDA scan by cheelchair.
[2021-08-19 09:40] VITALS: BP 145/92; PULSE 70; TEMP 98.3
--- NOTE | 2021-08-19 10:00 | NUR ---
Shift assessment completed. RUQ pain and swollen lymphnodes present. Complain of pain rating it a 9 out of 10. Notified nurse.
--- NOTE | 2021-08-19 11:00 | NUR ---
THIS NURSE REVIEWED PT ASSESSMENT ENTERED BY STUDENT NURSE, AND AGREES WITH IT. ONLY CHANGE IS IV LOCATION IS R HAND
[2021-08-19] MEDS ORDERED: PRILOSEC 20MG20 MG PO (11:27)
[2021-08-19 11:39] VITALS: BP 123/80; PULSE 98; TEMP 97.3
--- NOTE | 2021-08-19 11:56 | NUR ---
The patient is to discharge back home with her today, 08/19. No additional needs at this time.
--- NOTE | 2021-08-19 12:57 | NUR ---
DISCHARGE INSTRUCTIONS REVIEWED WITH PATIENT. QUESTIONS INVITED AND ANSWERED. IV AND TELE D/C'D. PT ESCORTED OUT BY [facility]
== END 2021-08-19 13:24 | disposition home or self-care (01) ==
LOC: COL.ER 20:39 → SURG 22:13
PROVIDERS: Student in an Organized Health Care Education/Training Program; ADMIT Internal Medicine
DX: R07.9 Chest pain, unspecified (principal); E72.51 Non-ketotic hyperglycinemia; E11.65 Type 2 diabetes mellitus with hyperglycemia; R11.2 Nausea with vomiting, unspecified; R10.11 Right upper quadrant pain; M25.512 Pain in left shoulder; I26.99 Other pulmonary embolism without acute cor pulmonale; I10 Essential (primary) hypertension; G89.29 Other chronic pain; E78.5 Hyperlipidemia, unspecified; E66.9 Obesity, unspecified; G51.0 Bell's palsy; D50.9 Iron deficiency anemia, unspecified; F31.9 Bipolar disorder, unspecified; F51.04 Psychophysiologic insomnia; F41.9 Anxiety disorder, unspecified; F20.9 Schizophrenia, unspecified; Z90.710 Acquired absence of both cervix and uterus; Z79.01 Long term (current) use of anticoagulants; Z79.899 Other long term (current) drug therapy; Z79.84 Long term (current) use of oral hypoglycemic drugs; Z79.4 Long term (current) use of insulin
CPT/HCPCS: A9537; G0378; J1170; J1815; J2270; J2405; J2805; J7030

== ENCOUNTER 2021-08-22 15:50 | Emergency (ER) | payer MEDICAID ==
[~2021-08-22] VITALS: Ht 170.2 cm; Wt 93.6 kg
[2021-08-22 15:50] VITALS: TEMP 98.7
[2021-08-22 16:18] LABS: COLLECTION METHOD CLEAN CATCH
[2021-08-22 16:24] LABS: PH 6 (5-8); URINE APPEARANCE Clear; URINE BACTERIA None Seen /hpf; URINE BILIRUBIN Negative (NEGATIVE); URINE BLOOD Negative (NEGATIVE); URINE COLOR Straw; URINE GLUCOSE 3+ (NEGATIVE); URINE KETONE Trace (NEGATIVE); URINE LEUKOCYTE ESTERASE Negative (NEGATIVE); URINE NITRATE Negative (NEGATIVE); URINE PROTEIN(semi-quant) Negative (NEGATIVE); URINE RBC None Seen /hpf; URINE UROBILINOGEN Negative (NEGATIVE)
[2021-08-22 17:01] LABS: BASO % 0.4 % (0.0-2.0); EOS % 0.4 % (0-4.0); GRAN # 3.1 K/mm3 (1.4-6.5); GRAN % 64.7 % (42.2-75.2); HEMOGLOBIN 11.2 g/dl (12.5-16.0); LYMPH # 1.4 K/mm3 (1.2-3.4); LYMPH % 28.4 % (20.0-51.0); MEAN CELL VOLUME 74 fl (80.0-100.0); MEAN CORPUSCULAR HEMOGLOBIN 23 pg (27.0-31.0); MEAN CORPUSCULAR HGB CONC 31 g/dl (33.0-37.0); MEAN PLATELET VOLUME 11.1 fl (7.4-10.4); MONO # 0.3 K/mm3 (0.1-0.6); MONO % 5.9 % (1.7-9.3); PLATELET COUNT 336 K/mm3 (130-400); RED BLOOD COUNT 4.86 M/mm3 (4.10-5.30); REDCELL DISTRIBUTION WIDTH-CV 14.1 % (11.5-14.5)
[2021-08-22 17:03] LABS: HEMATOCRIT 35.9 % (37.0-47.0)
[2021-08-22 17:15] LABS: ACETONE,SERUM NEGATIVE
[2021-08-22 17:21] LABS: ALANINE AMINOTRANSFERASE 20 U/L (0-55); ALBUMIN 3.8 gm/dL (3.5-5.0); ALKALINE PHOSPHATASE 82 U/L (40-150); ANION GAP 14 mmol/L (7-16); AST,SGOT 11 U/L (5-34); BILIRUBIN,TOTAL 0.1 mg/dL (0.2-1.2); BLOOD UREA NITROGEN 12 mg/dL (7-19); CARBON DIOXIDE 22 mmol/L (22-29); CHLORIDE 101 mmol/L (98-107); CREATININE, serum 1.11 mg/dL (0.57-1.11); LIPASE 31 U/L (8-78); POTASSIUM 4.8 mmol/L (3.5-4.5); SODIUM 137 mmol/L (136-145); TOTAL PROTEIN 7.7 gm/dL (6.2-8.1)
[2021-08-22 17:23] LABS: GLUCOSE 440 mg/dL (70-99)
[2021-08-22 17:27] LABS: TROPONIN-I < 0.010 ng/mL (0.00-0.033)
[2021-08-22 22:05] VITALS: BP 171/107; PULSE 84
== END 2021-08-22 22:05 | disposition home or self-care (01) ==
LOC: COL.ER 15:50
PROVIDERS: Emergency Medicine
DX: R07.89 Other chest pain (principal); E11.65 Type 2 diabetes mellitus with hyperglycemia; I10 Essential (primary) hypertension; E66.9 Obesity, unspecified; G89.29 Other chronic pain; F31.9 Bipolar disorder, unspecified; F41.9 Anxiety disorder, unspecified; F20.9 Schizophrenia, unspecified; E78.5 Hyperlipidemia, unspecified; Z86.711 Personal history of pulmonary embolism; Z79.01 Long term (current) use of anticoagulants; Z79.899 Other long term (current) drug therapy; Z79.4 Long term (current) use of insulin; Z79.84 Long term (current) use of oral hypoglycemic drugs; Z79.891 Long term (current) use of opiate analgesic; Z87.891 Personal history of nicotine dependence
CPT/HCPCS: J1170; J1815; J1885; J2405; Q9967

== ENCOUNTER 2021-08-25 20:34 | Emergency (ER) | payer MEDICAID ==
[~2021-08-25] VITALS: Ht 170.2 cm; Wt 90.0 kg
[2021-08-25 20:39] VITALS: TEMP 98.3
[2021-08-25 22:00] VITALS: BP 146/110; PULSE 113
== END 2021-08-25 22:00 | disposition home or self-care (01) ==
LOC: COL.ER 20:34
DX: R07.9 Chest pain, unspecified (principal); E11.65 Type 2 diabetes mellitus with hyperglycemia; Z86.73 Personal history of transient ischemic attack (TIA), and cerebral infarction without residual deficits; Z79.84 Long term (current) use of oral hypoglycemic drugs

== ENCOUNTER 2021-08-30 11:17 | Emergency (ER) | payer MEDICAID ==
[~2021-08-30] VITALS: Ht 170.2 cm; Wt 93.6 kg
[2021-08-30 11:51] VITALS: TEMP 98.5
[2021-08-30 12:20] LABS: BASO % 0.6 % (0.0-2.0); EOS % 0.2 % (0-4.0); GRAN # 4.2 K/mm3 (1.4-6.5); GRAN % 64.7 % (42.2-75.2); HEMATOCRIT 38.4 % (37.0-47.0); HEMOGLOBIN 12.3 g/dl (12.5-16.0); LYMPH # 1.8 K/mm3 (1.2-3.4); LYMPH % 27.8 % (20.0-51.0); MEAN CELL VOLUME 73 fl (80.0-100.0); MEAN CORPUSCULAR HEMOGLOBIN 23 pg (27.0-31.0); MEAN CORPUSCULAR HGB CONC 32 g/dl (33.0-37.0); MEAN PLATELET VOLUME 10.6 fl (7.4-10.4); MONO # 0.4 K/mm3 (0.1-0.6); MONO % 6.4 % (1.7-9.3); PLATELET COUNT 454 K/mm3 (130-400); RED BLOOD COUNT 5.27 M/mm3 (4.10-5.30); REDCELL DISTRIBUTION WIDTH-CV 13.8 % (11.5-14.5)
[2021-08-30 12:26] LABS: ALANINE AMINOTRANSFERASE 32 U/L (0-55); ALBUMIN 4.6 gm/dL (3.5-5.0); ALKALINE PHOSPHATASE 92 U/L (40-150); ANION GAP 18 mmol/L (7-16); AST,SGOT 15 U/L (5-34); BILIRUBIN,TOTAL 0.2 mg/dL (0.2-1.2); BLOOD UREA NITROGEN 15 mg/dL (7-19); CALCIUM 10.9 mg/dL (8.4-10.2); CARBON DIOXIDE 19 mmol/L (22-29); CHLORIDE 96 mmol/L (98-107); CREATININE, serum 1.41 mg/dL (0.57-1.11); POTASSIUM 4.9 mmol/L (3.5-4.5); SODIUM 133 mmol/L (136-145); TOTAL PROTEIN 8.6 gm/dL (6.2-8.1)
[2021-08-30 12:32] LABS: TROPONIN-I < 0.010 ng/mL (0.00-0.033)
[2021-08-30 12:34] LABS: GLUCOSE 640 mg/dL (70-99)
[2021-08-30] MEDS ORDERED: ZOFRAN ODT4 MG PO (14:36)
[2021-08-30 14:50] VITALS: BP 116/86; PULSE 97
[2021-08-30 15:08] LABS: CALCIUM 10.4 mg/dL (8.4-10.2); CREATININE, serum 0.91 mg/dL (0.57-1.11); POTASSIUM 4.2 mmol/L (3.5-4.5)
== END 2021-08-30 14:50 | disposition home or self-care (01) ==
LOC: COL.ER 11:17
PROVIDERS: Emergency Medicine
DX: E11.65 Type 2 diabetes mellitus with hyperglycemia (principal); R07.9 Chest pain, unspecified; I10 Essential (primary) hypertension; E66.9 Obesity, unspecified; E78.5 Hyperlipidemia, unspecified; F31.9 Bipolar disorder, unspecified; F41.9 Anxiety disorder, unspecified; F20.9 Schizophrenia, unspecified; G51.0 Bell's palsy; Z86.711 Personal history of pulmonary embolism; Z79.4 Long term (current) use of insulin; Z79.84 Long term (current) use of oral hypoglycemic drugs; Z79.01 Long term (current) use of anticoagulants; Z79.899 Other long term (current) drug therapy
CPT/HCPCS: J1170; J1815; J2405; J7030

== ENCOUNTER 2021-09-04 01:05 | Emergency (ER) | payer MEDICAID ==
[~2021-09-04] VITALS: Ht 170.2 cm; Wt 93.6 kg
[2021-09-04 01:08] VITALS: TEMP 98.2
[2021-09-04 01:32] LABS: BASO % 0.5 % (0.0-2.0); EOS % 0.2 % (0-4.0); GRAN # 2.9 K/mm3 (1.4-6.5); GRAN % 47.8 % (42.2-75.2); HEMOGLOBIN 10.5 g/dl (12.5-16.0); LYMPH # 2.8 K/mm3 (1.2-3.4); LYMPH % 45.9 % (20.0-51.0); MEAN CELL VOLUME 73 fl (80.0-100.0); MEAN CORPUSCULAR HEMOGLOBIN 23 pg (27.0-31.0); MEAN CORPUSCULAR HGB CONC 31 g/dl (33.0-37.0); MEAN PLATELET VOLUME 10.3 fl (7.4-10.4); MONO # 0.3 K/mm3 (0.1-0.6); MONO % 5.4 % (1.7-9.3); PLATELET COUNT 345 K/mm3 (130-400); RED BLOOD COUNT 4.62 M/mm3 (4.10-5.30); REDCELL DISTRIBUTION WIDTH-CV 13.4 % (11.5-14.5)
[2021-09-04 01:33] LABS: HEMATOCRIT 33.8 % (37.0-47.0)
[2021-09-04 01:57] LABS: ALANINE AMINOTRANSFERASE 21 U/L (0-55); ALKALINE PHOSPHATASE 78 U/L (40-150); ANION GAP 17 mmol/L (7-16); AST,SGOT 14 U/L (5-34); BILIRUBIN,TOTAL 0.2 mg/dL (0.2-1.2); BLOOD UREA NITROGEN 11 mg/dL (7-19); CALCIUM 9.4 mg/dL (8.4-10.2); CARBON DIOXIDE 18 mmol/L (22-29); CHLORIDE 101 mmol/L (98-107); GLUCOSE 227 mg/dL (70-99); LIPASE 32 U/L (8-78); SODIUM 136 mmol/L (136-145); TOTAL PROTEIN 7.5 gm/dL (6.2-8.1)
[2021-09-04 02:09] LABS: TROPONIN-I < 0.010 ng/mL (0.00-0.033)
[2021-09-04 02:35] VITALS: BP 194/127; PULSE 99
== END 2021-09-04 02:35 | disposition home or self-care (01) ==
LOC: COL.ER 01:05
PROVIDERS: Emergency Medicine
DX: R07.89 Other chest pain (principal); R10.13 Epigastric pain; E11.65 Type 2 diabetes mellitus with hyperglycemia; E78.5 Hyperlipidemia, unspecified; I10 Essential (primary) hypertension; F31.9 Bipolar disorder, unspecified; F41.9 Anxiety disorder, unspecified; F20.9 Schizophrenia, unspecified; Z86.73 Personal history of transient ischemic attack (TIA), and cerebral infarction without residual deficits; Z79.01 Long term (current) use of anticoagulants; Z79.4 Long term (current) use of insulin; Z79.84 Long term (current) use of oral hypoglycemic drugs; Z79.899 Other long term (current) drug therapy
CPT/HCPCS: J7030

== ENCOUNTER 2021-09-14 01:39 | Emergency (ER) | payer MEDICAID ==
[2021-09-14 01:44] VITALS: TEMP 98.2
[2021-09-14 02:23] LABS: BASO % 0.3 % (0.0-2.0); EOS % 0.3 % (0-4.0); GRAN % 79.1 % (42.2-75.2); HEMOGLOBIN 10.6 g/dl (12.5-16.0); LYMPH # 1.5 K/mm3 (1.2-3.4); LYMPH % 14.7 % (20.0-51.0); MEAN CELL VOLUME 74 fl (80.0-100.0); MEAN CORPUSCULAR HEMOGLOBIN 23 pg (27.0-31.0); MEAN CORPUSCULAR HGB CONC 31 g/dl (33.0-37.0); MEAN PLATELET VOLUME 10.2 fl (7.4-10.4); MONO # 0.5 K/mm3 (0.1-0.6); MONO % 5.2 % (1.7-9.3); PLATELET COUNT 287 K/mm3 (130-400); RED BLOOD COUNT 4.57 M/mm3 (4.10-5.30); REDCELL DISTRIBUTION WIDTH-CV 13.7 % (11.5-14.5)
[2021-09-14 02:47] LABS: ALBUMIN 4.1 gm/dL (3.5-5.0); BILIRUBIN,TOTAL 0.2 mg/dL (0.2-1.2); CALCIUM 9.2 mg/dL (8.4-10.2); CREATININE, serum 1.16 mg/dL (0.57-1.11); POTASSIUM 4.1 mmol/L (3.5-4.5); TOTAL PROTEIN 7.7 gm/dL (6.2-8.1)
[2021-09-14 02:53] LABS: TROPONIN-I 0.016 ng/mL (0.00-0.033)
[2021-09-14 03:40] VITALS: BP 175/123; PULSE 125
== END 2021-09-14 03:40 | disposition home or self-care (01) ==
LOC: COL.ER 01:39
PROVIDERS: Student in an Organized Health Care Education/Training Program
DX: R07.89 Other chest pain (principal); E11.9 Type 2 diabetes mellitus without complications; Z86.711 Personal history of pulmonary embolism; Z79.01 Long term (current) use of anticoagulants; Z79.4 Long term (current) use of insulin; Z79.84 Long term (current) use of oral hypoglycemic drugs

== ENCOUNTER 2021-09-14 06:33 | Emergency (ER) | payer MEDICAID ==
[~2021-09-14] VITALS: Ht 170.2 cm; Wt 92.3 kg
[2021-09-14 06:37] VITALS: TEMP 98.5
[2021-09-14 07:24] LABS: BASO % 0.4 % (0.0-2.0); GRAN # 6.5 K/mm3 (1.4-6.5); GRAN % 76.9 % (42.2-75.2); HEMOGLOBIN 10.8 g/dl (12.5-16.0); LYMPH # 1.4 K/mm3 (1.2-3.4); LYMPH % 16.6 % (20.0-51.0); MEAN CELL VOLUME 75 fl (80.0-100.0); MEAN CORPUSCULAR HEMOGLOBIN 23 pg (27.0-31.0); MEAN CORPUSCULAR HGB CONC 31 g/dl (33.0-37.0); MEAN PLATELET VOLUME 11.3 fl (7.4-10.4); MONO # 0.5 K/mm3 (0.1-0.6); MONO % 5.6 % (1.7-9.3); PLATELET COUNT 299 K/mm3 (130-400); RED BLOOD COUNT 4.69 M/mm3 (4.10-5.30); REDCELL DISTRIBUTION WIDTH-CV 13.9 % (11.5-14.5)
[2021-09-14 07:25] LABS: HEMATOCRIT 35.3 % (37.0-47.0)
[2021-09-14 07:37] LABS: ALBUMIN 4.3 gm/dL (3.5-5.0); BILIRUBIN,TOTAL 0.3 mg/dL (0.2-1.2); CALCIUM 9.3 mg/dL (8.4-10.2); CREATININE, serum 1.14 mg/dL (0.57-1.11); POTASSIUM 4.5 mmol/L (3.5-4.5); TOTAL PROTEIN 8.1 gm/dL (6.2-8.1)
[2021-09-14 07:43] LABS: TROPONIN-I 0.01 ng/mL (0.00-0.033)
[2021-09-14 08:55] VITALS: BP 119/90; PULSE 90
== END 2021-09-14 08:54 | disposition home or self-care (01) ==
LOC: COL.ER 06:33
PROVIDERS: Personal Emergency Response Attendant
DX: R06.00 Dyspnea, unspecified (principal); R07.9 Chest pain, unspecified; I10 Essential (primary) hypertension; F41.9 Anxiety disorder, unspecified; F31.9 Bipolar disorder, unspecified; E11.9 Type 2 diabetes mellitus without complications; E78.5 Hyperlipidemia, unspecified; Z98.61 Coronary angioplasty status; Z79.4 Long term (current) use of insulin; Z79.84 Long term (current) use of oral hypoglycemic drugs; Z79.899 Other long term (current) drug therapy
CPT/HCPCS: C9113; J1630; J7030

== ENCOUNTER 2021-11-22 11:18 | Emergency (ER) | payer MEDICAID ==
[~2021-11-22] VITALS: Ht 170.2 cm; Wt 95.5 kg
[2021-11-22 11:20] VITALS: TEMP 98.7
[2021-11-22 12:39] VITALS: BP 147/99; PULSE 116
== END 2021-11-22 12:39 | disposition home or self-care (01) ==
LOC: COL.ER 11:18
DX: R10.13 Epigastric pain (principal); F41.9 Anxiety disorder, unspecified; F31.9 Bipolar disorder, unspecified; E11.9 Type 2 diabetes mellitus without complications; I10 Essential (primary) hypertension; E78.5 Hyperlipidemia, unspecified; Z79.899 Other long term (current) drug therapy; Z79.84 Long term (current) use of oral hypoglycemic drugs; Z79.4 Long term (current) use of insulin

== ENCOUNTER 2021-11-22 15:15 | Emergency (ER) | payer MEDICAID ==
[~2021-11-22] VITALS: Ht 170.2 cm; Wt 95.5 kg
[2021-11-22 15:36] VITALS: BP 134/91; TEMP 98.6
[2021-11-22 17:00] VITALS: PULSE 94
== END 2021-11-22 17:00 | disposition home or self-care (01) ==
LOC: COL.ER 15:15
DX: K30 Functional dyspepsia (principal); E11.9 Type 2 diabetes mellitus without complications; E78.5 Hyperlipidemia, unspecified; F41.9 Anxiety disorder, unspecified; F31.9 Bipolar disorder, unspecified; I10 Essential (primary) hypertension; Z79.01 Long term (current) use of anticoagulants; F20.9 Schizophrenia, unspecified; E66.9 Obesity, unspecified; G89.29 Other chronic pain; Z86.73 Personal history of transient ischemic attack (TIA), and cerebral infarction without residual deficits; Z79.899 Other long term (current) drug therapy; Z79.4 Long term (current) use of insulin; Z79.891 Long term (current) use of opiate analgesic; Z68.32 Body mass index [BMI] 32.0-32.9, adult

== ENCOUNTER 2021-11-22 20:46 | Emergency (ER) | payer MEDICAID ==
[~2021-11-22] VITALS: Ht 170.2 cm; Wt 95.5 kg
[2021-11-22 21:08] VITALS: TEMP 97.8
[2021-11-22 22:19] LABS: BASO % 0.3 % (0.0-2.0); EOS % 0.1 % (0.0-4.0); GRAN % 68.4 % (42.2-75.2); HEMOGLOBIN 10.2 g/dl (12.5-16.0); LYMPH # 1.8 K/mm3 (1.2-3.4); LYMPH % 25.2 % (20.0-51.0); MEAN CELL VOLUME 72 fl (80.0-100.0); MEAN CORPUSCULAR HEMOGLOBIN 23 pg (27-31); MEAN CORPUSCULAR HGB CONC 32 g/dl (33.0-37.0); MEAN PLATELET VOLUME 11.3 fl (7.4-10.4); MONO # 0.4 K/mm3 (0.1-0.6); MONO % 5.9 % (1.7-9.3); PLATELET COUNT 380 K/mm3 (130-400); RED BLOOD COUNT 4.48 M/mm3 (4.10-5.30); REDCELL DISTRIBUTION WIDTH-CV 14.4 % (11.5-14.5)
[2021-11-22 22:25] LABS: HEMATOCRIT 32.4 % (37.0-47.0)
[2021-11-22 22:34] LABS: ACETONE,SERUM NEGATIVE
[2021-11-22 22:40] LABS: ALANINE AMINOTRANSFERASE 20 U/L (0-55); ALBUMIN 4.1 gm/dL (3.5-5.0); ALKALINE PHOSPHATASE 92 U/L (40-150); ANION GAP 15 mmol/L (7-16); AST,SGOT 20 U/L (5-34); BILIRUBIN,TOTAL 0.3 mg/dL (0.2-1.2); BLOOD UREA NITROGEN 13 mg/dL (7-19); CARBON DIOXIDE 23 mmol/L (22-29); CHLORIDE 96 mmol/L (98-107); CREATININE, serum 1.57 mg/dL (0.57-1.11); LIPASE 14 U/L (8-78); POTASSIUM 5.3 mmol/L (3.5-4.5); SODIUM 134 mmol/L (136-145); TOTAL PROTEIN 8.2 gm/dL (6.2-8.1)
[2021-11-22 22:44] LABS: GLUCOSE 489 mg/dL (70-99)
[2021-11-22 22:46] LABS: TROPONIN-I < 0.010 ng/mL (0.00-0.033)
[2021-11-23 00:37] VITALS: BP 109/68; PULSE 87
== END 2021-11-23 00:37 | disposition home or self-care (01) ==
LOC: COL.ER 20:46
PROVIDERS: Nurse Practitioner
DX: R07.89 Other chest pain (principal); R11.0 Nausea; E11.65 Type 2 diabetes mellitus with hyperglycemia; F41.9 Anxiety disorder, unspecified; F31.9 Bipolar disorder, unspecified; I10 Essential (primary) hypertension; E78.5 Hyperlipidemia, unspecified; Z86.711 Personal history of pulmonary embolism; Z86.73 Personal history of transient ischemic attack (TIA), and cerebral infarction without residual deficits; Z79.899 Other long term (current) drug therapy; Z79.4 Long term (current) use of insulin; Z79.84 Long term (current) use of oral hypoglycemic drugs; Z79.01 Long term (current) use of anticoagulants
CPT/HCPCS: J2405; J7030

== ENCOUNTER 2021-12-30 16:12 | Emergency (ER) | payer MEDICAID ==
[~2021-12-30] VITALS: Ht 170.2 cm; Wt 93.6 kg
[2021-12-30 17:00] LABS: BASO % 0.3 % (0.0-2.0); EOS % 0.2 % (0.0-4.0); GRAN # 3.7 K/mm3 (1.4-6.5); GRAN % 60.4 % (42.2-75.2); HEMOGLOBIN 11.5 g/dl (12.5-16.0); LYMPH % 33.2 % (20.0-51.0); MEAN CELL VOLUME 72 fl (80.0-100.0); MEAN CORPUSCULAR HEMOGLOBIN 23 pg (27-31); MEAN CORPUSCULAR HGB CONC 31 g/dl (33.0-37.0); MEAN PLATELET VOLUME 10.2 fl (7.4-10.4); MONO # 0.3 K/mm3 (0.1-0.6); MONO % 5.6 % (1.7-9.3); PLATELET COUNT 460 K/mm3 (130-400); RED BLOOD COUNT 5.08 M/mm3 (4.10-5.30); REDCELL DISTRIBUTION WIDTH-CV 14.3 % (11.5-14.5)
[2021-12-30 17:06] LABS: HEMATOCRIT 36.6 % (37.0-47.0)
[2021-12-30 17:23] LABS: ALBUMIN 4.1 gm/dL (3.5-5.0); BILIRUBIN,TOTAL 0.4 mg/dL (0.2-1.2); C-REACTIVE PROTEIN 1.15 mg/dL (0.00-0.50); CALCIUM 9.9 mg/dL (8.4-10.2); CREATININE, serum 1.3 mg/dL (0.57-1.11); MAGNESIUM 1.6 mg/dL (1.6-2.6); POTASSIUM 4.3 mmol/L (3.5-4.5); TOTAL PROTEIN 8.2 gm/dL (6.2-8.1)
[2021-12-30 17:56] LABS: COLLECTION METHOD CLEAN CATCH
[2021-12-30 18:01] LABS: MUCOUS Present (NOT PRESENT); PH 5 (5-8); SQUAMOUS EPITHELIAL 0-2 /hpf (0-10); URINE APPEARANCE Clear (CLEAR/HAZY); URINE BACTERIA None Seen /hpf (NONE SEEN); URINE BILIRUBIN Negative (NEGATIVE); URINE BLOOD Negative (NEGATIVE); URINE COLOR Straw (YELLOW); URINE GLUCOSE 3+ (NEGATIVE); URINE KETONE 1+ (NEGATIVE); URINE LEUKOCYTE ESTERASE Negative (NEGATIVE); URINE NITRATE Negative (NEGATIVE); URINE PROTEIN(semi-quant) Negative (NEGATIVE); URINE RBC 0-2 /hpf (0-2); URINE UROBILINOGEN Negative (NEGATIVE)
[2021-12-30 19:40] VITALS: BP 138/81; PULSE 82; TEMP 98.1
== END 2021-12-30 19:45 | disposition home or self-care (01) ==
LOC: COL.ER 16:12
PROVIDERS: Emergency Medicine
DX: R10.11 Right upper quadrant pain (principal); E11.9 Type 2 diabetes mellitus without complications; Z86.711 Personal history of pulmonary embolism; Z88.6 Allergy status to analgesic agent; Z79.01 Long term (current) use of anticoagulants
CPT/HCPCS: J2405; J3010; J7120

== ENCOUNTER → 2022-01-11 | Emergency (ER) | payer MEDICAID ==
[~2022-01-11] MED LIST changes: +BACTRIM DS 8001 TAB PO; +BACTROBAN 22GM22 GM TP
== END ==
LOC: COL.ER 18:50
DX: R69 Illness, unspecified (principal)

== ENCOUNTER 2022-01-17 01:43 | Emergency (ER) | payer MEDICAID ==
[~2022-01-17] VITALS: Ht 170.2 cm; Wt 85.5 kg
[~2022-01-17 01:43] MED LIST changes: -BACTRIM DS 8001 TAB PO; -BACTROBAN 22GM22 GM TP
[2022-01-17 01:47] VITALS: TEMP 98.3
[2022-01-17 02:04] LABS: BASO % 0.6 % (0.0-2.0); EOS % 0.6 % (0.0-4.0); GRAN # 2.1 K/mm3 (1.4-6.5); GRAN % 43.1 % (42.2-75.2); HEMOGLOBIN 10.1 g/dl (12.5-16.0); LYMPH # 2.3 K/mm3 (1.2-3.4); LYMPH % 48.8 % (20.0-51.0); MEAN CELL VOLUME 74 fl (80.0-100.0); MEAN CORPUSCULAR HEMOGLOBIN 23 pg (27-31); MEAN CORPUSCULAR HGB CONC 31 g/dl (33.0-37.0); MEAN PLATELET VOLUME 10.4 fl (7.4-10.4); MONO # 0.3 K/mm3 (0.1-0.6); MONO % 6.7 % (1.7-9.3); PLATELET COUNT 246 K/mm3 (130-400); RED BLOOD COUNT 4.42 M/mm3 (4.10-5.30); REDCELL DISTRIBUTION WIDTH-CV 14.7 % (11.5-14.5)
[2022-01-17 02:15] LABS: HEMATOCRIT 32.6 % (37.0-47.0)
[2022-01-17 02:31] LABS: ALANINE AMINOTRANSFERASE 17 U/L (0-55); ALBUMIN 3.5 gm/dL (3.5-5.0); ALKALINE PHOSPHATASE 69 U/L (40-150); ANION GAP 15 mmol/L (7-16); AST,SGOT 9 U/L (5-34); BILIRUBIN,TOTAL 0.1 mg/dL (0.2-1.2); BLOOD UREA NITROGEN 11 mg/dL (7-19); CALCIUM 8.6 mg/dL (8.4-10.2); CARBON DIOXIDE 21 mmol/L (22-29); CHLORIDE 101 mmol/L (98-107); CREATININE, serum 1.16 mg/dL (0.57-1.11); GLUCOSE 393 mg/dL (70-99); SODIUM 137 mmol/L (136-145); TOTAL PROTEIN 6.6 gm/dL (6.2-8.1)
[2022-01-17 02:39] LABS: TROPONIN-I < 0.010 ng/mL (0.00-0.033)
[2022-01-17 03:43] VITALS: BP 148/91; PULSE 95
== END 2022-01-17 03:57 | disposition home or self-care (01) ==
LOC: COL.ER 01:43
PROVIDERS: Emergency Medicine
DX: E11.65 Type 2 diabetes mellitus with hyperglycemia (principal); R07.9 Chest pain, unspecified; Z86.711 Personal history of pulmonary embolism; Z86.73 Personal history of transient ischemic attack (TIA), and cerebral infarction without residual deficits; Z79.01 Long term (current) use of anticoagulants; Z79.4 Long term (current) use of insulin
CPT/HCPCS: J1170; J1815; J2270; J2765

== ENCOUNTER 2022-01-22 22:41 | Emergency (ER) | payer MEDICAID ==
[~2022-01-22] VITALS: Ht 170.2 cm; Wt 85.5 kg
[2022-01-22 22:52] VITALS: TEMP 97.8
[2022-01-22 23:23] LABS: BASO % 0.4 % (0.0-2.0); EOS % 0.2 % (0.0-4.0); GRAN # 3.1 K/mm3 (1.4-6.5); GRAN % 56.1 % (42.2-75.2); HEMOGLOBIN 10.6 g/dl (12.5-16.0); LYMPH # 2.1 K/mm3 (1.2-3.4); LYMPH % 37.1 % (20.0-51.0); MEAN CELL VOLUME 74 fl (80.0-100.0); MEAN CORPUSCULAR HEMOGLOBIN 23 pg (27-31); MEAN CORPUSCULAR HGB CONC 31 g/dl (33.0-37.0); MEAN PLATELET VOLUME 10.2 fl (7.4-10.4); MONO # 0.3 K/mm3 (0.1-0.6); PLATELET COUNT 280 K/mm3 (130-400); RED BLOOD COUNT 4.68 M/mm3 (4.10-5.30); REDCELL DISTRIBUTION WIDTH-CV 14.9 % (11.5-14.5)
[2022-01-22 23:31] LABS: HEMATOCRIT 34.7 % (37.0-47.0)
[2022-01-22 23:39] LABS: ALANINE AMINOTRANSFERASE 21 U/L (0-55); ALBUMIN 4.3 gm/dL (3.5-5.0); ALKALINE PHOSPHATASE 83 U/L (40-150); ANION GAP 16 mmol/L (7-16); AST,SGOT 12 U/L (5-34); BILIRUBIN,TOTAL 0.3 mg/dL (0.2-1.2); BLOOD UREA NITROGEN 7 mg/dL (7-19); CALCIUM 9.7 mg/dL (8.4-10.2); CARBON DIOXIDE 22 mmol/L (22-29); CHLORIDE 98 mmol/L (98-107); CREATININE, serum 1.01 mg/dL (0.57-1.11); GLUCOSE 309 mg/dL (70-99); SODIUM 136 mmol/L (136-145); TOTAL PROTEIN 7.6 gm/dL (6.2-8.1)
[2022-01-22 23:47] LABS: TROPONIN-I < 0.010 ng/mL (0.00-0.033)
[2022-01-23 01:28] VITALS: BP 148/98; PULSE 68
== END 2022-01-23 01:28 | disposition home or self-care (01) ==
LOC: COL.ER 22:41
PROVIDERS: Emergency Medicine
DX: R51.9 Headache, unspecified (principal); R00.0 Tachycardia, unspecified; R07.89 Other chest pain; E66.9 Obesity, unspecified; Z68.29 Body mass index [BMI] 29.0-29.9, adult
CPT/HCPCS: J0780; J1170; J1200; J7120

== ENCOUNTER 2022-02-03 20:17 | Emergency (ER) | payer MEDICAID ==
[~2022-02-03] VITALS: Ht 170.2 cm; Wt 85.0 kg
[2022-02-03 20:23] VITALS: BP 153/96; PULSE 91; TEMP 97.6
== END 2022-02-03 20:55 | disposition home or self-care (01) ==
LOC: COL.ER 20:17
DX: R53.81 Other malaise (principal)

== ENCOUNTER 2022-02-17 20:52 | Emergency (ER) | payer MEDICAID ==
[~2022-02-17] VITALS: Ht 170.2 cm; Wt 85.5 kg
[2022-02-17 21:23] VITALS: TEMP 98
[2022-02-17] MEDS ORDERED: BACTRIM DS 8001 TAB PO (21:56)
[2022-02-17] MEDS ORDERED: CEPHALEXIN500 M1 PO (21:56)
[2022-02-17 22:08] VITALS: BP 130/86; PULSE 93
== END 2022-02-17 22:10 | disposition home or self-care (01) ==
LOC: COL.ER 20:52
DX: H60.12 Cellulitis of left external ear (principal); Z88.0 Allergy status to penicillin; Z28.310 Unvaccinated for COVID-19

== ENCOUNTER 2022-02-18 22:37 | Emergency (ER) | payer MEDICAID ==
[~2022-02-18] VITALS: Ht 170.2 cm; Wt 85.5 kg
[~2022-02-18 22:37] MED LIST changes: +BACTRIM DS 8001 TAB PO
[2022-02-18 22:56] VITALS: BP 108/87; PULSE 111; TEMP 97.9
== END 2022-02-18 23:35 | disposition home or self-care (01) ==
LOC: COL.ER 22:37
DX: H60.12 Cellulitis of left external ear (principal); Z28.311 Partially vaccinated for COVID-19

== ENCOUNTER 2022-02-20 23:36 | Emergency (ER) | payer MEDICAID ==
[~2022-02-20] VITALS: Ht 175.3 cm; Wt 75.0 kg
[2022-02-20 23:44] VITALS: BP 188/116; TEMP 97.9
[2022-02-21 00:17] VITALS: PULSE 72
== END 2022-02-21 00:18 | disposition home or self-care (01) ==
LOC: COL.ER 23:36
DX: K21.9 Gastro-esophageal reflux disease without esophagitis (principal); Z87.891 Personal history of nicotine dependence

== ENCOUNTER 2022-03-01 12:45 | Emergency (ER) | payer MEDICAID ==
[~2022-03-01] VITALS: Ht 170.2 cm; Wt 85.5 kg
[2022-03-01 13:04] VITALS: TEMP 98
[2022-03-01] MEDS ORDERED: DOXYCYCLINE 10100 MG PO (13:16)
[2022-03-01] MEDS ORDERED: BACTROBAN 22GM22 GM TP (13:16)
[2022-03-01 13:23] VITALS: BP 159/90; PULSE 98
== END 2022-03-01 13:23 | disposition home or self-care (01) ==
LOC: COL.ER 12:45
DX: H60.12 Cellulitis of left external ear (principal); E66.9 Obesity, unspecified; Z88.0 Allergy status to penicillin; Z28.310 Unvaccinated for COVID-19

== ENCOUNTER 2022-03-16 05:35 | Emergency (ER) | payer MEDICAID ==
[~2022-03-16] VITALS: Ht 170.2 cm; Wt 85.5 kg
[2022-03-16 05:35] VITALS: TEMP 97.5
[~2022-03-16 05:35] MED LIST changes: +BACTROBAN 22GM22 GM TP
[2022-03-16 06:20] LABS: BASO % 0.4 % (0.0-2.0); EOS % 0.1 % (0.0-4.0); GRAN # 5.2 K/mm3 (1.4-6.5); HEMOGLOBIN 10.4 g/dl (12.5-16.0); LYMPH # 1.6 K/mm3 (1.2-3.4); LYMPH % 21.8 % (20.0-51.0); MEAN CELL VOLUME 75 fl (80.0-100.0); MEAN CORPUSCULAR HEMOGLOBIN 23 pg (27-31); MEAN CORPUSCULAR HGB CONC 31 g/dl (33.0-37.0); MEAN PLATELET VOLUME 10.5 fl (7.4-10.4); MONO # 0.4 K/mm3 (0.1-0.6); MONO % 5.3 % (1.7-9.3); PLATELET COUNT 300 K/mm3 (130-400); RED BLOOD COUNT 4.55 M/mm3 (4.10-5.30); REDCELL DISTRIBUTION WIDTH-CV 14.2 % (11.5-14.5)
[2022-03-16 06:25] LABS: HEMATOCRIT 34.1 % (37.0-47.0)
[2022-03-16 06:35] LABS: ALANINE AMINOTRANSFERASE 26 U/L (0-55); ALBUMIN 4.1 gm/dL (3.5-5.0); ALKALINE PHOSPHATASE 67 U/L (40-150); ANION GAP 20 mmol/L (7-16); AST,SGOT 23 U/L (5-34); BILIRUBIN,TOTAL 0.2 mg/dL (0.2-1.2); BLOOD UREA NITROGEN 11 mg/dL (7-19); CALCIUM 9.5 mg/dL (8.4-10.2); CARBON DIOXIDE 22 mmol/L (22-29); CHLORIDE 96 mmol/L (98-107); CREATININE, serum 1.19 mg/dL (0.57-1.11); GLUCOSE 399 mg/dL (70-99); LIPASE 27 U/L (8-78); POTASSIUM 4.9 mmol/L (3.5-4.5); SODIUM 138 mmol/L (136-145); TOTAL PROTEIN 7.8 gm/dL (6.2-8.1)
[2022-03-16 06:42] LABS: TROPONIN-I < 0.010 ng/mL (0.00-0.033)
[2022-03-16] MEDS ORDERED: ZOFRAN ODT4 MG PO (09:11)
[2022-03-16 09:23] VITALS: BP 114/87; PULSE 97
== END 2022-03-16 09:27 | disposition home or self-care (01) ==
LOC: COL.ER 05:35
PROVIDERS: Emergency Medicine
DX: R11.2 Nausea with vomiting, unspecified (principal); Z20.822 Contact with and (suspected) exposure to COVID-19; Z28.311 Partially vaccinated for COVID-19
CPT/HCPCS: J2270; J2765; J7120

== ENCOUNTER 2022-03-28 23:18 | Emergency (ER) | payer MEDICAID ==
[~2022-03-28] VITALS: Ht 170.2 cm; Wt 84.5 kg
[2022-03-28 23:21] VITALS: TEMP 98.6
[2022-03-28 23:43] LABS: BASO % 0.6 % (0.0-2.0); EOS % 0.4 % (0.0-4.0); GRAN # 2.5 K/mm3 (1.4-6.5); GRAN % 49.9 % (42.2-75.2); HEMATOCRIT 37.9 % (37.0-47.0); HEMOGLOBIN 11.6 g/dl (12.5-16.0); LYMPH # 2.2 K/mm3 (1.2-3.4); LYMPH % 43.6 % (20.0-51.0); MEAN CELL VOLUME 75 fl (80.0-100.0); MEAN CORPUSCULAR HEMOGLOBIN 23 pg (27-31); MEAN CORPUSCULAR HGB CONC 31 g/dl (33.0-37.0); MONO # 0.3 K/mm3 (0.1-0.6); MONO % 5.3 % (1.7-9.3); PLATELET COUNT 360 K/mm3 (130-400); RED BLOOD COUNT 5.08 M/mm3 (4.10-5.30); REDCELL DISTRIBUTION WIDTH-CV 14.3 % (11.5-14.5)
[2022-03-29 00:02] LABS: ALANINE AMINOTRANSFERASE 25 U/L (0-55); ALBUMIN 4.4 gm/dL (3.5-5.0); ALKALINE PHOSPHATASE 73 U/L (40-150); ANION GAP 18 mmol/L (7-16); AST,SGOT 17 U/L (5-34); BILIRUBIN,TOTAL 0.2 mg/dL (0.2-1.2); BLOOD UREA NITROGEN 13 mg/dL (7-19); CALCIUM 10.4 mg/dL (8.4-10.2); CARBON DIOXIDE 26 mmol/L (22-29); CHLORIDE 99 mmol/L (98-107); GLUCOSE 170 mg/dL (70-99); POTASSIUM 4.4 mmol/L (3.5-4.5); SODIUM 143 mmol/L (136-145); TOTAL PROTEIN 8.8 gm/dL (6.2-8.1)
[2022-03-29 00:08] LABS: TROPONIN-I < 0.010 ng/mL (0.00-0.033)
[2022-03-29] MEDS ORDERED: ZOFRAN ODT4 MG PO (00:57)
[2022-03-29] MEDS ORDERED: PRILOSEC 20MG20 MG PO (00:57)
[2022-03-29 01:09] VITALS: BP 124/91; PULSE 87
== END 2022-03-29 01:09 | disposition home or self-care (01) ==
LOC: COL.ER 23:18
PROVIDERS: Emergency Medicine
DX: R07.89 Other chest pain (principal); R10.13 Epigastric pain; Z28.311 Partially vaccinated for COVID-19
CPT/HCPCS: C9113; J2270; J2405; J7030

== ENCOUNTER 2022-03-31 19:21 | Emergency (ER) | payer MEDICAID ==
[~2022-03-31] VITALS: Ht 170.2 cm; Wt 84.5 kg
[2022-03-31 19:27] VITALS: TEMP 96.7
[2022-03-31 21:14] LABS: BASO % 0.4 % (0.0-2.0); EOS % 0.2 % (0.0-4.0); GRAN # 3.1 K/mm3 (1.4-6.5); GRAN % 62.6 % (42.2-75.2); HEMATOCRIT 35.8 % (37.0-47.0); HEMOGLOBIN 10.6 g/dl (12.5-16.0); LYMPH # 1.5 K/mm3 (1.2-3.4); LYMPH % 31.3 % (20.0-51.0); MEAN CELL VOLUME 75 fl (80.0-100.0); MEAN CORPUSCULAR HEMOGLOBIN 22 pg (27-31); MEAN CORPUSCULAR HGB CONC 30 g/dl (33.0-37.0); MEAN PLATELET VOLUME 9.9 fl (7.4-10.4); MONO # 0.3 K/mm3 (0.1-0.6); MONO % 5.1 % (1.7-9.3); PLATELET COUNT 367 K/mm3 (130-400); RED BLOOD COUNT 4.76 M/mm3 (4.10-5.30); REDCELL DISTRIBUTION WIDTH-CV 14.6 % (11.5-14.5)
[2022-03-31 21:35] LABS: ANION GAP 16 mmol/L (7-16); BLOOD UREA NITROGEN 8 mg/dL (7-19); CARBON DIOXIDE 23 mmol/L (22-29); CHLORIDE 102 mmol/L (98-107); CREATININE, serum 1.05 mg/dL (0.57-1.11); GLUCOSE 235 mg/dL (70-99); LIPASE 22 U/L (8-78); POTASSIUM 4.6 mmol/L (3.5-4.5); SODIUM 141 mmol/L (136-145)
[2022-03-31 21:41] LABS: TROPONIN-I < 0.010 ng/mL (0.00-0.033)
[2022-04-01 00:08] VITALS: BP 133/95; PULSE 85
== END 2022-04-01 00:08 | disposition home or self-care (01) ==
LOC: COL.ER 19:21
PROVIDERS: Emergency Medicine
DX: R10.13 Epigastric pain (principal); E11.9 Type 2 diabetes mellitus without complications; Z28.311 Partially vaccinated for COVID-19
CPT/HCPCS: J1885; J2765

== ENCOUNTER 2022-04-06 20:08 | Emergency (ER) | payer MEDICAID ==
[~2022-04-06] VITALS: Ht 170.2 cm; Wt 84.5 kg
[2022-04-06 21:16] LABS: BASO % 0.3 % (0.0-2.0); EOS % 0.1 % (0.0-4.0); GRAN # 4.6 K/mm3 (1.4-6.5); GRAN % 66.5 % (42.2-75.2); HEMATOCRIT 35.5 % (37.0-47.0); LYMPH # 1.8 K/mm3 (1.2-3.4); LYMPH % 26.6 % (20.0-51.0); MEAN CELL VOLUME 73 fl (80.0-100.0); MEAN CORPUSCULAR HEMOGLOBIN 23 pg (27-31); MEAN CORPUSCULAR HGB CONC 31 g/dl (33.0-37.0); MEAN PLATELET VOLUME 10.2 fl (7.4-10.4); MONO # 0.4 K/mm3 (0.1-0.6); MONO % 6.2 % (1.7-9.3); PLATELET COUNT 374 K/mm3 (130-400); RED BLOOD COUNT 4.85 M/mm3 (4.10-5.30); REDCELL DISTRIBUTION WIDTH-CV 14.4 % (11.5-14.5)
[2022-04-06 21:33] LABS: ALANINE AMINOTRANSFERASE 19 U/L (0-55); ALBUMIN 4.5 gm/dL (3.5-5.0); ALKALINE PHOSPHATASE 71 U/L (40-150); ANION GAP 17 mmol/L (7-16); AST,SGOT 13 U/L (5-34); BILIRUBIN,TOTAL 0.3 mg/dL (0.2-1.2); BLOOD UREA NITROGEN 11 mg/dL (7-19); CALCIUM 10.9 mg/dL (8.4-10.2); CARBON DIOXIDE 25 mmol/L (22-29); CHLORIDE 100 mmol/L (98-107); CREATININE, serum 0.86 mg/dL (0.57-1.11); GLUCOSE 155 mg/dL (70-99); POTASSIUM 3.9 mmol/L (3.5-4.5); SODIUM 142 mmol/L (136-145); TOTAL PROTEIN 8.3 gm/dL (6.2-8.1)
[2022-04-06 21:35] LABS: INR 1.2 (0.8-3.0); PROTHROMBIN TIME 14.3 SECONDS (9.7-12.8)
[2022-04-06 21:40] LABS: TROPONIN-I < 0.010 ng/mL (0.00-0.033)
[2022-04-06 23:38] VITALS: BP 124/93; PULSE 98; TEMP 98.5
== END 2022-04-06 23:38 | disposition home or self-care (01) ==
LOC: COL.ER 20:08
PROVIDERS: Family Medicine
DX: I10 Essential (primary) hypertension (principal); R10.13 Epigastric pain; E66.9 Obesity, unspecified; Z79.899 Other long term (current) drug therapy; Z28.311 Partially vaccinated for COVID-19
CPT/HCPCS: J1200; J1790; J3010

== ENCOUNTER 2022-04-14 02:31 | Emergency (ER) | payer MEDICAID ==
[~2022-04-14] VITALS: Ht 170.2 cm; Wt 83.2 kg
[2022-04-14 03:01] LABS: BASO % 0.3 % (0.0-2.0); EOS % 0.2 % (0.0-4.0); GRAN % 68.1 % (42.2-75.2); HEMOGLOBIN 10.4 g/dl (12.5-16.0); LYMPH # 2.3 K/mm3 (1.2-3.4); LYMPH % 25.9 % (20.0-51.0); MEAN CELL VOLUME 74 fl (80.0-100.0); MEAN CORPUSCULAR HEMOGLOBIN 23 pg (27-31); MEAN CORPUSCULAR HGB CONC 31 g/dl (33.0-37.0); MEAN PLATELET VOLUME 10.7 fl (7.4-10.4); MONO # 0.5 K/mm3 (0.1-0.6); MONO % 5.3 % (1.7-9.3); PLATELET COUNT 328 K/mm3 (130-400); RED BLOOD COUNT 4.61 M/mm3 (4.10-5.30); REDCELL DISTRIBUTION WIDTH-CV 14.3 % (11.5-14.5)
[2022-04-14 03:02] LABS: HEMATOCRIT 34.1 % (37.0-47.0)
[2022-04-14 03:13] LABS: ALANINE AMINOTRANSFERASE 19 U/L (0-55); ALBUMIN 4.1 gm/dL (3.5-5.0); ALKALINE PHOSPHATASE 71 U/L (40-150); ANION GAP 17 mmol/L (7-16); AST,SGOT 11 U/L (5-34); BILIRUBIN,TOTAL 0.3 mg/dL (0.2-1.2); BLOOD UREA NITROGEN 10 mg/dL (7-19); CALCIUM 9.5 mg/dL (8.4-10.2); CARBON DIOXIDE 21 mmol/L (22-29); CHLORIDE 103 mmol/L (98-107); CREATININE, serum 0.94 mg/dL (0.57-1.11); GLUCOSE 218 mg/dL (70-99); POTASSIUM 4.2 mmol/L (3.5-4.5); SODIUM 141 mmol/L (136-145); TOTAL PROTEIN 7.5 gm/dL (6.2-8.1)
[2022-04-14 03:18] LABS: TROPONIN-I < 0.010 ng/mL (0.00-0.033)
[2022-04-14] MEDS ORDERED: ZOFRAN ODT4 MG PO (04:27)
[2022-04-14 04:34] VITALS: BP 138/89; PULSE 91; TEMP 98.2
[2022-04-15] MEDS ORDERED: CARAFATE 1GM1 G PO (23:15)
[2022-04-15] MEDS ORDERED: PROTONIX 40MG T40 MG PO (23:15)
[2022-04-15] MEDS ORDERED: NORCO 325 MG-51 TAB PO ×2 (23:38)
[2022-04-15] MEDS ORDERED: PERCOCET 325 MG1 TA3 PO (23:46)
== END 2022-04-14 04:40 | disposition home or self-care (01) ==
LOC: COL.ER 02:31
PROVIDERS: Personal Emergency Response Attendant
DX: R07.9 Chest pain, unspecified (principal); R11.2 Nausea with vomiting, unspecified; E66.9 Obesity, unspecified; Z86.79 Personal history of other diseases of the circulatory system; Z88.6 Allergy status to analgesic agent; Z28.311 Partially vaccinated for COVID-19
CPT/HCPCS: J1790; J7030

== ENCOUNTER 2022-04-15 22:18 | Emergency (ER) | payer MEDICAID ==
[~2022-04-15] VITALS: Ht 170.2 cm; Wt 83.2 kg
[2022-04-15] MEDS ORDERED: CARAFATE 1GM1 G PO (23:15)
[2022-04-15] MEDS ORDERED: PROTONIX 40MG T40 MG PO (23:15)
[2022-04-15] MEDS ORDERED: NORCO 325 MG-51 TAB PO ×2 (23:38)
[2022-04-15] MEDS ORDERED: PERCOCET 325 MG1 TA3 PO (23:46)
[2022-04-15 23:57] VITALS: BP 136/98; PULSE 90; TEMP 98.4
== END 2022-04-15 23:57 | disposition home or self-care (01) ==
LOC: COL.ER 22:18
DX: K29.70 Gastritis, unspecified, without bleeding (principal); E66.9 Obesity, unspecified; Z86.711 Personal history of pulmonary embolism; Z79.01 Long term (current) use of anticoagulants; Z88.6 Allergy status to analgesic agent; Z28.311 Partially vaccinated for COVID-19
CPT/HCPCS: J2270; J2550

== ENCOUNTER 2022-04-24 21:51 | Emergency (ER) | payer MEDICAID ==
[~2022-04-24] VITALS: Ht 170.2 cm; Wt 83.2 kg
[2022-04-24 23:27] LABS: BASO % 0.4 % (0.0-2.0); EOS % 0.1 % (0.0-4.0); GRAN # 5.7 K/mm3 (1.4-6.5); GRAN % 84.9 % (42.2-75.2); HEMOGLOBIN 10.1 g/dl (12.5-16.0); LYMPH # 0.3 K/mm3 (1.2-3.4); LYMPH % 4.6 % (20.0-51.0); MEAN CELL VOLUME 73 fl (80.0-100.0); MEAN CORPUSCULAR HEMOGLOBIN 23 pg (27-31); MEAN CORPUSCULAR HGB CONC 31 g/dl (33.0-37.0); MEAN PLATELET VOLUME 10.6 fl (7.4-10.4); MONO # 0.7 K/mm3 (0.1-0.6); MONO % 9.7 % (1.7-9.3); PLATELET COUNT 291 K/mm3 (130-400); RED BLOOD COUNT 4.43 M/mm3 (4.10-5.30); REDCELL DISTRIBUTION WIDTH-CV 14.5 % (11.5-14.5)
[2022-04-24 23:28] LABS: HEMATOCRIT 32.5 % (37.0-47.0)
[2022-04-24 23:40] LABS: ALANINE AMINOTRANSFERASE 14 U/L (0-55); ALBUMIN 4.2 gm/dL (3.5-5.0); ALKALINE PHOSPHATASE 73 U/L (40-150); ANION GAP 17 mmol/L (7-16); AST,SGOT 12 U/L (5-34); BILIRUBIN,TOTAL 0.2 mg/dL (0.2-1.2); BLOOD UREA NITROGEN 9 mg/dL (7-19); CALCIUM 9.5 mg/dL (8.4-10.2); CARBON DIOXIDE 20 mmol/L (22-29); CHLORIDE 99 mmol/L (98-107); CREATININE, serum 0.91 mg/dL (0.57-1.11); GLUCOSE 242 mg/dL (70-99); POTASSIUM 4.5 mmol/L (3.5-4.5); SODIUM 136 mmol/L (136-145); TOTAL PROTEIN 7.7 gm/dL (6.2-8.1)
[2022-04-24 23:53] LABS: TROPONIN-I < 0.010 ng/mL (0.00-0.033)
[2022-04-25 03:00] VITALS: BP 126/98; PULSE 103; TEMP 99.3
== END 2022-04-25 03:00 | disposition home or self-care (01) ==
LOC: COL.ER 21:51
PROVIDERS: Physician Assistant
DX: U07.1 COVID-19 (principal); E11.9 Type 2 diabetes mellitus without complications; R00.0 Tachycardia, unspecified; Z88.6 Allergy status to analgesic agent; Z79.4 Long term (current) use of insulin; Z28.310 Unvaccinated for COVID-19
CPT/HCPCS: J1200; J1885; J2550; J7030; Q0222

== ENCOUNTER 2022-04-30 20:09 | Emergency (ER) | payer MEDICAID ==
[~2022-04-30] VITALS: Ht 170.2 cm; Wt 82.3 kg
[2022-04-30 20:13] VITALS: TEMP 97.8
[2022-04-30 21:17] LABS: BASO % 0.2 % (0.0-2.0); GRAN # 2.4 K/mm3 (1.4-6.5); GRAN % 55.5 % (42.2-75.2); LYMPH # 1.5 K/mm3 (1.2-3.4); LYMPH % 34.9 % (20.0-51.0); MEAN CELL VOLUME 73 fl (80.0-100.0); MEAN CORPUSCULAR HEMOGLOBIN 22 pg (27-31); MEAN CORPUSCULAR HGB CONC 30 g/dl (33.0-37.0); MEAN PLATELET VOLUME 10.7 fl (7.4-10.4); MONO # 0.4 K/mm3 (0.1-0.6); MONO % 9.2 % (1.7-9.3); PLATELET COUNT 304 K/mm3 (130-400); RED BLOOD COUNT 4.94 M/mm3 (4.10-5.30); REDCELL DISTRIBUTION WIDTH-CV 14.2 % (11.5-14.5)
[2022-04-30 21:21] LABS: HEMATOCRIT 36.2 % (37.0-47.0)
[2022-04-30 21:43] LABS: ALANINE AMINOTRANSFERASE 38 U/L (0-55); ALBUMIN 4.3 gm/dL (3.5-5.0); ALKALINE PHOSPHATASE 82 U/L (40-150); AMYLASE 96 U/L (25-125); ANION GAP 19 mmol/L (7-16); AST,SGOT 15 U/L (5-34); BILIRUBIN,TOTAL 0.3 mg/dL (0.2-1.2); BLOOD UREA NITROGEN 11 mg/dL (7-19); C-REACTIVE PROTEIN 0.51 mg/dL (0.00-0.50); CALCIUM 9.7 mg/dL (8.4-10.2); CARBON DIOXIDE 20 mmol/L (22-29); CHLORIDE 100 mmol/L (98-107); CREATININE, serum 1.12 mg/dL (0.57-1.11); LIPASE 75 U/L (8-78); POTASSIUM 3.7 mmol/L (3.5-4.5); SODIUM 139 mmol/L (136-145)
[2022-04-30 21:54] LABS: GLUCOSE 449 mg/dL (70-99); TROPONIN-I < 0.010 ng/mL (0.00-0.033)
[2022-04-30 22:02] LABS: COLLECTION METHOD CLEAN CATCH
[2022-04-30 22:09] LABS: PH 5 (5-8); SQUAMOUS EPITHELIAL 0-2 /hpf (0-10); URINE APPEARANCE Clear (CLEAR/HAZY); URINE BACTERIA Rare /hpf (NONE SEEN); URINE BLOOD 1+ (NEGATIVE); URINE COLOR Straw (YELLOW); URINE GLUCOSE 3+ (NEGATIVE); URINE KETONE Trace (NEGATIVE); URINE NITRATE Negative (NEGATIVE); URINE PROTEIN(semi-quant) Negative (NEGATIVE); URINE RBC 0-2 /hpf (0-2); URINE UROBILINOGEN Negative (NEGATIVE)
[2022-05-01 02:04] VITALS: BP 167/91; PULSE 92
[2022-05-01] MEDS ORDERED: PRINIVIL20 MG PO (02:28)
== END 2022-05-01 02:09 | disposition home or self-care (01) ==
LOC: COL.ER 20:09
PROVIDERS: Nurse Practitioner Family
DX: K29.00 Acute gastritis without bleeding (principal); E11.9 Type 2 diabetes mellitus without complications; I10 Essential (primary) hypertension; K22.89 Other specified disease of esophagus; E66.9 Obesity, unspecified; Z86.16 Personal history of COVID-19
CPT/HCPCS: C9113; J1815; J1885; J2270; J2405; J7030; Q9967

== ENCOUNTER 2022-05-07 05:13 | Emergency (ER) | payer MEDICAID ==
[~2022-05-07] VITALS: Ht 170.2 cm; Wt 86.4 kg
[2022-05-07 05:19] VITALS: TEMP 98.8
[2022-05-07 06:20] LABS: ANION GAP 17 mmol/L (7-16); BLOOD UREA NITROGEN 10 mg/dL (7-19); CALCIUM 9.2 mg/dL (8.4-10.2); CARBON DIOXIDE 21 mmol/L (22-29); CHLORIDE 100 mmol/L (98-107); POTASSIUM 3.8 mmol/L (3.5-4.5); SODIUM 138 mmol/L (136-145)
[2022-05-07 06:33] LABS: GLUCOSE 424 mg/dL (70-99); TROPONIN-I < 0.010 ng/mL (0.00-0.033)
[2022-05-07] MEDS ORDERED: TORADOL 10MG TA10 MG PO (07:00)
[2022-05-07] MEDS ORDERED: MAALOX ADVANCE148 ML PO (07:01)
[2022-05-07 07:04] VITALS: BP 155/96; PULSE 93
[2022-05-07] MEDS ORDERED: BENTYL 20MG20 MG/TAB PO (23:26)
[2022-05-07] MEDS ORDERED: DULCOLAX STOOL100 MG PO (23:26)
== END 2022-05-07 07:33 | disposition home or self-care (01) ==
LOC: COL.ER 05:13
PROVIDERS: Emergency Medicine
DX: R07.81 Pleurodynia (principal); Z86.711 Personal history of pulmonary embolism; Z79.01 Long term (current) use of anticoagulants; Z28.310 Unvaccinated for COVID-19
CPT/HCPCS: J1815; J1885; J2270

== ENCOUNTER 2022-05-07 20:15 | Emergency (ER) | payer MEDICAID ==
[~2022-05-07] VITALS: Ht 170.2 cm; Wt 86.4 kg
[~2022-05-07 20:15] MED LIST changes: +MAALOX ADVANCE148 ML PO; +TORADOL 10MG TA10 MG PO
[2022-05-07 20:59] LABS: BASO % 0.2 % (0.0-2.0); EOS % 0.2 % (0.0-4.0); GRAN # 4.2 K/mm3 (1.4-6.5); LYMPH # 1.4 K/mm3 (1.2-3.4); LYMPH % 23.5 % (20.0-51.0); MEAN CELL VOLUME 73 fl (80.0-100.0); MEAN CORPUSCULAR HEMOGLOBIN 23 pg (27-31); MEAN CORPUSCULAR HGB CONC 32 g/dl (33.0-37.0); MEAN PLATELET VOLUME 10.5 fl (7.4-10.4); MONO # 0.4 K/mm3 (0.1-0.6); MONO % 6.8 % (1.7-9.3); PLATELET COUNT 365 K/mm3 (130-400); RED BLOOD COUNT 4.32 M/mm3 (4.10-5.30); REDCELL DISTRIBUTION WIDTH-CV 14.5 % (11.5-14.5)
[2022-05-07 21:06] LABS: HEMATOCRIT 31.4 % (37.0-47.0)
[2022-05-07 21:22] LABS: ALBUMIN 3.9 gm/dL (3.5-5.0); ANION GAP 16 mmol/L (7-16); BLOOD UREA NITROGEN 10 mg/dL (7-19); CALCIUM 9.5 mg/dL (8.4-10.2); CARBON DIOXIDE 22 mmol/L (22-29); CHLORIDE 99 mmol/L (98-107); CREATININE, serum 1.14 mg/dL (0.57-1.11); MAGNESIUM 1.4 mg/dL (1.6-2.6); PHOSPHOROUS 3.4 mg/dL (2.3-4.7); POTASSIUM 4.5 mmol/L (3.5-4.5); SODIUM 137 mmol/L (136-145)
[2022-05-07 21:24] LABS: ALCOHOL(ethanol),MEDICAL < 10 mg/dL (0-10); GLUCOSE 581 mg/dL (70-99); SALICYLATE < 5.0 mg/dL (15.0-30.0)
[2022-05-07 21:37] LABS: TROPONIN-I < 0.010 ng/mL (0.00-0.033)
[2022-05-07 22:06] LABS: COLLECTION METHOD CATHETER
[2022-05-07 22:14] LABS: PH 6 (5-8); SQUAMOUS EPITHELIAL 0-2 /hpf (0-10); URINE APPEARANCE Clear (CLEAR/HAZY); URINE BACTERIA None Seen /hpf (NONE SEEN); URINE BLOOD Negative (NEGATIVE); URINE COLOR Straw (YELLOW); URINE GLUCOSE 3+ (NEGATIVE); URINE KETONE Negative (NEGATIVE); URINE NITRATE Negative (NEGATIVE); URINE PROTEIN(semi-quant) Negative (NEGATIVE); URINE RBC 0-2 /hpf (0-2); URINE UROBILINOGEN Negative (NEGATIVE)
[2022-05-07 22:28] LABS: TRICYCLIC ANTIDEPRESS URINE NEGATIVE
[2022-05-07] MEDS ORDERED: BENTYL 20MG20 MG/TAB PO (23:26)
[2022-05-07] MEDS ORDERED: DULCOLAX STOOL100 MG PO (23:26)
[2022-05-07 23:54] VITALS: BP 129/93; PULSE 106; TEMP 98.3
== END 2022-05-07 23:40 | disposition home or self-care (01) ==
LOC: COL.ER 20:15
PROVIDERS: Emergency Medicine
DX: E11.65 Type 2 diabetes mellitus with hyperglycemia (principal); K59.00 Constipation, unspecified; E11.10 Type 2 diabetes mellitus with ketoacidosis without coma; Z79.01 Long term (current) use of anticoagulants; Z79.4 Long term (current) use of insulin
CPT/HCPCS: J0500; J1790; J1815; J1885; J7120

== ENCOUNTER 2022-05-10 01:24 | Emergency (ER) | payer MEDICAID ==
[~2022-05-10] VITALS: Ht 170.2 cm; Wt 86.4 kg
[~2022-05-10 01:24] MED LIST changes: +BENTYL 20MG20 MG/TAB PO
[2022-05-10 01:28] VITALS: TEMP 97.1
[2022-05-10] MEDS ORDERED: FLEXERIL 1010 MG/TAB PO (03:20)
[2022-05-10] MEDS ORDERED: LIDODERM 5% PATC1 EA TP (03:20)
[2022-05-10 03:38] VITALS: BP 154/78; PULSE 76
== END 2022-05-10 03:38 | disposition home or self-care (01) ==
LOC: COL.ER 01:24
DX: S16.1XXA Strain of muscle, fascia and tendon at neck level, initial encounter (principal); S39.012A Strain of muscle, fascia and tendon of lower back, initial encounter; S70.01XA Contusion of right hip, initial encounter; Z79.01 Long term (current) use of anticoagulants; Z28.310 Unvaccinated for COVID-19; W01.0XXA Fall on same level from slipping, tripping and stumbling without subsequent striking against object, initial encounter

== ENCOUNTER 2022-05-20 21:32 | Emergency (ER) | payer MEDICAID ==
[~2022-05-20] VITALS: Ht 170.2 cm; Wt 84.1 kg
[2022-05-20 21:40] VITALS: BP 157/113; PULSE 116; TEMP 97.9
== END 2022-05-20 23:39 | disposition left against medical advice (07) ==
LOC: COL.ER 21:32
DX: R07.9 Chest pain, unspecified (principal); R11.10 Vomiting, unspecified; Z28.310 Unvaccinated for COVID-19

== ENCOUNTER 2022-05-27 16:49 | Emergency (ER) | payer MEDICAID ==
[~2022-05-27] VITALS: Ht 170.2 cm; Wt 82.3 kg
[2022-05-27 17:00] VITALS: TEMP 98.8
[2022-05-27 17:42] LABS: BASO % 0.6 % (0.0-2.0); EOS % 0.4 % (0.0-4.0); GRAN # 2.5 K/mm3 (1.4-6.5); GRAN % 50.6 % (42.2-75.2); HEMOGLOBIN 10.9 g/dl (12.5-16.0); LYMPH # 2.1 K/mm3 (1.2-3.4); MEAN CELL VOLUME 76 fl (80.0-100.0); MEAN CORPUSCULAR HEMOGLOBIN 23 pg (27-31); MEAN CORPUSCULAR HGB CONC 30 g/dl (33.0-37.0); MEAN PLATELET VOLUME 10.3 fl (7.4-10.4); MONO # 0.3 K/mm3 (0.1-0.6); MONO % 6.2 % (1.7-9.3); PLATELET COUNT 317 K/mm3 (130-400); RED BLOOD COUNT 4.73 M/mm3 (4.10-5.30); REDCELL DISTRIBUTION WIDTH-CV 14.6 % (11.5-14.5)
[2022-05-27 17:46] LABS: HEMATOCRIT 35.8 % (37.0-47.0)
[2022-05-27 17:51] LABS: ALANINE AMINOTRANSFERASE 25 U/L (0-55); ALBUMIN 3.9 gm/dL (3.5-5.0); ALKALINE PHOSPHATASE 91 U/L (40-150); ANION GAP 13 mmol/L (7-16); AST,SGOT 17 U/L (5-34); BILIRUBIN,TOTAL 0.2 mg/dL (0.2-1.2); BLOOD UREA NITROGEN 12 mg/dL (7-19); CALCIUM 9.5 mg/dL (8.4-10.2); CARBON DIOXIDE 23 mmol/L (22-29); CHLORIDE 103 mmol/L (98-107); GLUCOSE 316 mg/dL (70-99); POTASSIUM 4.5 mmol/L (3.5-4.5); SODIUM 139 mmol/L (136-145); TOTAL PROTEIN 7.5 gm/dL (6.2-8.1)
[2022-05-27 17:57] LABS: TROPONIN-I < 0.010 ng/mL (0.00-0.033)
[2022-05-27 19:58] VITALS: BP 150/89; PULSE 89
== END 2022-05-27 19:58 | disposition home or self-care (01) ==
LOC: COL.ER 16:49
PROVIDERS: Physician Assistant
DX: G89.29 Other chronic pain (principal); R11.2 Nausea with vomiting, unspecified; Z87.891 Personal history of nicotine dependence; Z86.73 Personal history of transient ischemic attack (TIA), and cerebral infarction without residual deficits; Z86.711 Personal history of pulmonary embolism; Z79.01 Long term (current) use of anticoagulants; Z79.891 Long term (current) use of opiate analgesic
CPT/HCPCS: J1790; J7030

== ENCOUNTER 2022-05-30 19:00 | Emergency (ER) | payer MEDICAID ==
[~2022-05-30] VITALS: Ht 170.2 cm; Wt 82.3 kg
[2022-05-30 19:14] VITALS: TEMP 98.2
[2022-05-30] MEDS ORDERED: CEPHALEXIN500 M1 PO (19:43)
[2022-05-30 20:20] VITALS: BP 191/71; PULSE 89
== END 2022-05-30 20:20 | disposition home or self-care (01) ==
LOC: COL.ER 19:00
DX: L03.032 Cellulitis of left toe (principal); Z86.711 Personal history of pulmonary embolism; Z88.0 Allergy status to penicillin; Z79.01 Long term (current) use of anticoagulants

== ENCOUNTER → 2022-06-12 | Emergency (ER) | payer MEDICAID ==
[~2022-06-12] VITALS: Ht 170.2 cm; Wt 83.6 kg
[2022-06-12 00:37] VITALS: TEMP 97.1
[2022-06-12 01:03] LABS: BASO % 0.7 % (0.0-2.0); EOS % 0.7 % (0.0-4.0); GRAN # 1.5 K/mm3 (1.4-6.5); GRAN % 35.2 % (42.2-75.2); HEMATOCRIT 32.8 % (37.0-47.0); HEMOGLOBIN 10.2 g/dl (12.5-16.0); LYMPH # 2.4 K/mm3 (1.2-3.4); LYMPH % 56.5 % (20.0-51.0); MEAN CELL VOLUME 75 fl (80.0-100.0); MEAN CORPUSCULAR HEMOGLOBIN 23 pg (27-31); MEAN CORPUSCULAR HGB CONC 31 g/dl (33.0-37.0); MEAN PLATELET VOLUME 10.4 fl (7.4-10.4); MONO # 0.3 K/mm3 (0.1-0.6); MONO % 6.7 % (1.7-9.3); PLATELET COUNT 337 K/mm3 (130-400); REDCELL DISTRIBUTION WIDTH-CV 14.1 % (11.5-14.5)
[2022-06-12 01:16] LABS: ALANINE AMINOTRANSFERASE 19 U/L (0-55); ALKALINE PHOSPHATASE 77 U/L (40-150); ANION GAP 17 mmol/L (7-16); AST,SGOT 12 U/L (5-34); BILIRUBIN,TOTAL 0.1 mg/dL (0.2-1.2); BLOOD UREA NITROGEN 11 mg/dL (7-19); CALCIUM 9.6 mg/dL (8.4-10.2); CARBON DIOXIDE 21 mmol/L (22-29); CHLORIDE 99 mmol/L (98-107); CREATININE, serum 1.07 mg/dL (0.57-1.11); GLUCOSE 364 mg/dL (70-99); POTASSIUM 3.9 mmol/L (3.5-4.5); SODIUM 137 mmol/L (136-145); TOTAL PROTEIN 7.6 gm/dL (6.2-8.1)
[2022-06-12 01:25] LABS: TROPONIN-I < 0.010 ng/mL (0.00-0.033)
[2022-06-12 02:20] VITALS: BP 124/94; PULSE 103
== END ==
LOC: COL.ER 00:28
PROVIDERS: Emergency Medicine
DX: R07.89 Other chest pain (principal); Z28.311 Partially vaccinated for COVID-19

== ENCOUNTER 2022-06-26 18:29 | Emergency (ER) | payer MEDICAID ==
[~2022-06-26] VITALS: Ht 170.2 cm; Wt 84.5 kg
[2022-06-26 19:38] VITALS: TEMP 97.7
[2022-06-26 20:42] LABS: BASO % 0.7 % (0.0-2.0); EOS % 0.7 % (0.0-4.0); GRAN # 2.2 K/mm3 (1.4-6.5); GRAN % 52.9 % (42.2-75.2); HEMATOCRIT 32.4 % (37.0-47.0); HEMOGLOBIN 10.1 g/dl (12.5-16.0); LYMPH # 1.6 K/mm3 (1.2-3.4); LYMPH % 38.2 % (20.0-51.0); MEAN CELL VOLUME 75 fl (80.0-100.0); MEAN CORPUSCULAR HEMOGLOBIN 23 pg (27-31); MEAN CORPUSCULAR HGB CONC 31 g/dl (33.0-37.0); MEAN PLATELET VOLUME 10.3 fl (7.4-10.4); MONO # 0.3 K/mm3 (0.1-0.6); MONO % 7.3 % (1.7-9.3); PLATELET COUNT 312 K/mm3 (130-400); RED BLOOD COUNT 4.34 M/mm3 (4.10-5.30); REDCELL DISTRIBUTION WIDTH-CV 13.7 % (11.5-14.5)
[2022-06-26 21:14] LABS: ALBUMIN 4.1 gm/dL (3.5-5.0); BILIRUBIN,TOTAL 0.3 mg/dL (0.2-1.2); CALCIUM 10.1 mg/dL (8.4-10.2); CREATININE, serum 0.84 mg/dL (0.57-1.11); POTASSIUM 4.5 mmol/L (3.5-4.5); TOTAL PROTEIN 7.2 gm/dL (6.2-8.1)
[2022-06-26 21:20] LABS: TROPONIN-I 0.017 ng/mL (0.00-0.033)
[2022-06-26 21:56] VITALS: BP 139/101; PULSE 89
== END 2022-06-26 21:56 | disposition home or self-care (01) ==
LOC: COL.ER 18:29
PROVIDERS: Physician Assistant
DX: D64.9 Anemia, unspecified (principal)

== ENCOUNTER 2022-07-03 18:44 | Emergency (ER) | payer MEDICAID ==
[~2022-07-03] VITALS: Ht 170.2 cm; Wt 84.5 kg
[2022-07-03 18:46] VITALS: TEMP 97.2
[2022-07-03 19:40] LABS: BASO % 0.5 % (0.0-2.0); EOS % 0.7 % (0.0-4.0); GRAN # 1.8 K/mm3 (1.4-6.5); GRAN % 44.5 % (42.2-75.2); HEMOGLOBIN 10.7 g/dl (12.5-16.0); LYMPH # 1.8 K/mm3 (1.2-3.4); MEAN CELL VOLUME 77 fl (80.0-100.0); MEAN CORPUSCULAR HEMOGLOBIN 24 pg (27-31); MEAN CORPUSCULAR HGB CONC 31 g/dl (33.0-37.0); MEAN PLATELET VOLUME 10.5 fl (7.4-10.4); MONO # 0.4 K/mm3 (0.1-0.6); MONO % 9.1 % (1.7-9.3); PLATELET COUNT 364 K/mm3 (130-400); RED BLOOD COUNT 4.55 M/mm3 (4.10-5.30); REDCELL DISTRIBUTION WIDTH-CV 13.6 % (11.5-14.5)
[2022-07-03 19:49] LABS: HEMATOCRIT 34.8 % (37.0-47.0)
[2022-07-03 19:57] LABS: ALANINE AMINOTRANSFERASE 15 U/L (0-55); ALBUMIN 4.5 gm/dL (3.5-5.0); ALKALINE PHOSPHATASE 77 U/L (40-150); ANION GAP 15 mmol/L (7-16); AST,SGOT 11 U/L (5-34); BILIRUBIN,TOTAL 0.3 mg/dL (0.2-1.2); BLOOD UREA NITROGEN 17 mg/dL (7-19); CARBON DIOXIDE 26 mmol/L (22-29); CHLORIDE 97 mmol/L (98-107); CREATININE, serum 1.13 mg/dL (0.57-1.11); GLUCOSE 297 mg/dL (70-99); POTASSIUM 4.2 mmol/L (3.5-4.5); SODIUM 138 mmol/L (136-145); TOTAL PROTEIN 7.8 gm/dL (6.2-8.1)
[2022-07-03 20:11] LABS: TROPONIN-I < 0.010 ng/mL (0.00-0.033)
[2022-07-03] MEDS ORDERED: REGLAN 10MG10 MG/TAB PO (21:20)
[2022-07-03 21:35] VITALS: BP 142/74; PULSE 81
== END 2022-07-03 21:43 | disposition home or self-care (01) ==
LOC: COL.ER 18:44
PROVIDERS: Physician Assistant
DX: R10.13 Epigastric pain (principal); Z88.6 Allergy status to analgesic agent
CPT/HCPCS: J2270; J2765; J7030

== ENCOUNTER 2022-08-13 18:26 | Emergency (ER) | payer OTHER, MEDICAID ==
[~2022-08-13] VITALS: Ht 170.2 cm; Wt 80.0 kg
[2022-08-13 18:37] VITALS: TEMP 99.3
[2022-08-13 19:00] LABS: BASO % 0.3 % (0.0-2.0); GRAN # 4.6 K/mm3 (1.4-6.5); GRAN % 74.7 % (42.2-75.2); HEMATOCRIT 37.9 % (37.0-47.0); HEMOGLOBIN 11.9 g/dl (12.5-16.0); LYMPH # 1.3 K/mm3 (1.2-3.4); LYMPH % 20.8 % (20.0-51.0); MEAN CELL VOLUME 73 fl (80.0-100.0); MEAN CORPUSCULAR HEMOGLOBIN 23 pg (27-31); MEAN CORPUSCULAR HGB CONC 31 g/dl (33.0-37.0); MEAN PLATELET VOLUME 10.7 fl (7.4-10.4); MONO # 0.2 K/mm3 (0.1-0.6); MONO % 3.9 % (1.7-9.3); PLATELET COUNT 388 K/mm3 (130-400); RED BLOOD COUNT 5.18 M/mm3 (4.10-5.30); REDCELL DISTRIBUTION WIDTH-CV 14.1 % (11.5-14.5)
[2022-08-13 19:12] LABS: ALANINE AMINOTRANSFERASE 17 U/L (0-55); ALBUMIN 4.9 gm/dL (3.5-5.0); ALKALINE PHOSPHATASE 87 U/L (40-150); ANION GAP 17 mmol/L (7-16); AST,SGOT 11 U/L (5-34); BILIRUBIN,TOTAL 0.2 mg/dL (0.2-1.2); BLOOD UREA NITROGEN 7 mg/dL (10-20); CARBON DIOXIDE 23 mmol/L (22-29); CHLORIDE 98 mmol/L (98-107); POTASSIUM 3.8 mmol/L (3.5-4.5); SODIUM 138 mmol/L (136-145); TOTAL PROTEIN 8.9 gm/dL (6.2-8.1)
[2022-08-13 19:14] LABS: GLUCOSE 433 mg/dL (70-99)
[2022-08-13 19:18] LABS: TROPONIN-I < 0.010 ng/mL (0.00-0.033)
[2022-08-13 20:37] LABS: COLLECTION METHOD CLEAN CATCH
[2022-08-13 20:59] LABS: MUCOUS Present (NOT PRESENT); URINE BACTERIA None Seen /hpf (NONE SEEN); URINE RBC 0-2 /hpf (0-2)
[2022-08-13 21:00] LABS: URINE APPEARANCE Clear (CLEAR/HAZY); URINE BLOOD TRACE-INTACT (NEGATIVE); URINE COLOR Yellow (YELLOW); URINE GLUCOSE 3+ (NEGATIVE); URINE KETONE 2+ (NEGATIVE); URINE NITRATE Negative (NEGATIVE); URINE PROTEIN(semi-quant) 2+ (NEGATIVE); URINE UROBILINOGEN 0.2 E.U/dL (0.2-1.0)
[2022-08-13] MEDS ORDERED: LOPRESSOR 225 MG/TAB PO ×2 (21:22→21:24)
[2022-08-13] MEDS ORDERED: ZESTRIL 20MG TA20 MG PO (21:24)
[2022-08-13 21:34] VITALS: BP 167/109; PULSE 75
== END 2022-08-13 21:46 | disposition home or self-care (01) ==
LOC: COL.ER 18:26
PROVIDERS: Physician Assistant
DX: S09.90XA Unspecified injury of head, initial encounter (principal); E11.65 Type 2 diabetes mellitus with hyperglycemia; R11.2 Nausea with vomiting, unspecified; Z86.711 Personal history of pulmonary embolism; Z79.01 Long term (current) use of anticoagulants; Z88.6 Allergy status to analgesic agent; W18.30XA Fall on same level, unspecified, initial encounter
CPT/HCPCS: J1815; J1885; J2270; J2405; J7030

== ENCOUNTER 2022-08-20 17:57 | Emergency (ER) | payer OTHER, MEDICAID ==
[~2022-08-20] VITALS: Ht 170.2 cm; Wt 79.5 kg
[2022-08-20 18:13] VITALS: TEMP 97.9
[2022-08-20 18:40] LABS: BASO % 0.6 % (0.0-2.0); EOS % 0.4 % (0.0-4.0); GRAN # 2.6 K/mm3 (1.4-6.5); GRAN % 48.7 % (42.2-75.2); HEMOGLOBIN 10.6 g/dl (12.5-16.0); LYMPH # 2.3 K/mm3 (1.2-3.4); LYMPH % 43.2 % (20.0-51.0); MEAN CELL VOLUME 75 fl (80.0-100.0); MEAN CORPUSCULAR HEMOGLOBIN 23 pg (27-31); MEAN CORPUSCULAR HGB CONC 31 g/dl (33.0-37.0); MEAN PLATELET VOLUME 11.1 fl (7.4-10.4); MONO # 0.4 K/mm3 (0.1-0.6); MONO % 6.9 % (1.7-9.3); PLATELET COUNT 336 K/mm3 (130-400); REDCELL DISTRIBUTION WIDTH-CV 14.5 % (11.5-14.5)
[2022-08-20 18:45] LABS: HEMATOCRIT 34.5 % (37.0-47.0)
[2022-08-20 18:52] LABS: BILIRUBIN,TOTAL 0.1 mg/dL (0.2-1.2); CALCIUM 9.4 mg/dL (8.4-10.2); CREATININE, serum 0.83 mg/dL (0.57-1.11); POTASSIUM 4.3 mmol/L (3.5-4.5); TOTAL PROTEIN 7.6 gm/dL (6.2-8.1)
[2022-08-20 19:37] LABS: PROTHROMBIN TIME 11.7 SECONDS (9.7-12.8)
[2022-08-20 19:40] LABS: PARTIAL THROMBOPLASTIN TIME 32.8 SECONDS (26.0-37.0)
[2022-08-20] MEDS ORDERED: CATAPRES0.2 MG PO (20:12)
[2022-08-20 20:54] VITALS: BP 116/85; PULSE 82
== END 2022-08-20 21:12 | disposition home or self-care (01) ==
LOC: COL.ER 17:57
PROVIDERS: Family Medicine
DX: I10 Essential (primary) hypertension (principal); R07.89 Other chest pain
CPT/HCPCS: J2270; J2550

== ENCOUNTER 2022-10-11 16:32 | Emergency (ER) | payer MEDICAID ==
[~2022-10-11] VITALS: Ht 170.2 cm; Wt 83.2 kg
[2022-10-11 16:45] VITALS: TEMP 98.6
[2022-10-11 17:20] LABS: BASO % 0.4 % (0.0-2.0); EOS % 0.1 % (0.0-4.0); GRAN # 5.7 K/mm3 (1.4-6.5); GRAN % 71.8 % (42.2-75.2); HEMATOCRIT 38.9 % (37.0-47.0); HEMOGLOBIN 12.2 g/dl (12.5-16.0); LYMPH # 1.9 K/mm3 (1.2-3.4); LYMPH % 23.1 % (20.0-51.0); MEAN CELL VOLUME 73 fl (80.0-100.0); MEAN CORPUSCULAR HEMOGLOBIN 23 pg (27-31); MEAN CORPUSCULAR HGB CONC 31 g/dl (33.0-37.0); MEAN PLATELET VOLUME 10.3 fl (7.4-10.4); MONO # 0.4 K/mm3 (0.1-0.6); MONO % 4.5 % (1.7-9.3); PLATELET COUNT 375 K/mm3 (130-400); RED BLOOD COUNT 5.35 M/mm3 (4.10-5.30); REDCELL DISTRIBUTION WIDTH-CV 15.2 % (11.5-14.5)
[2022-10-11 17:31] LABS: COLLECTION METHOD CLEAN CATCH
[2022-10-11 17:33] LABS: ALANINE AMINOTRANSFERASE 22 U/L (0-55); ALBUMIN 4.4 gm/dL (3.5-5.0); ALKALINE PHOSPHATASE 115 U/L (40-150); ANION GAP 17 mmol/L (7-16); AST,SGOT 11 U/L (5-34); BILIRUBIN,TOTAL 0.3 mg/dL (0.2-1.2); BLOOD UREA NITROGEN 10 mg/dL (10-20); CALCIUM 10.9 mg/dL (8.4-10.2); CARBON DIOXIDE 21 mmol/L (22-29); CHLORIDE 100 mmol/L (98-107); GLUCOSE 396 mg/dL (70-99); LIPASE 60 U/L (8-78); POTASSIUM 4.1 mmol/L (3.5-4.5); SODIUM 138 mmol/L (136-145); TOTAL PROTEIN 8.8 gm/dL (6.2-8.1)
[2022-10-11 17:38] LABS: SQUAMOUS EPITHELIAL 0-2 /hpf (0-10); URINE BACTERIA None Seen /hpf (NONE SEEN); URINE RBC None Seen /hpf (0-2)
[2022-10-11 17:38] LABS: TROPONIN-I < 0.010 ng/mL (0.00-0.033)
[2022-10-11 17:39] LABS: URINE APPEARANCE Clear (CLEAR/HAZY); URINE BLOOD Negative (NEGATIVE); URINE COLOR Yellow (YELLOW); URINE GLUCOSE 3+ (NEGATIVE); URINE KETONE 1+ (NEGATIVE); URINE NITRATE Negative (NEGATIVE); URINE PROTEIN(semi-quant) Negative (NEGATIVE); URINE UROBILINOGEN 0.2 E.U/dL (0.2-1.0)
[2022-10-11 19:00] VITALS: BP 152/109; PULSE 95
[2022-10-14] MEDS ORDERED: ATARAX 25MG25 MG/TAB PO (14:58)
[2023-05-06] MEDS ORDERED: ZOFRAN ODT4 MG PO (07:14)
[2023-05-06] MEDS ORDERED: PROTONIX 40MG T40 MG PO (07:14)
[2023-05-06] MEDS ORDERED: BENTYL 20MG20 MG/TAB PO (07:16)
[2023-05-06] MEDS ORDERED: XANAX 1MG1 MG PO (07:16)
[2023-05-14] MEDS ORDERED: BACITRACIN TOPIC1 TU TOP (05:06)
[2023-05-21] MEDS ORDERED: DOXYCYCLINE 10100 MG PO (17:10)
[2023-06-01] MEDS ORDERED: CEPHALEXIN500 M1 PO (15:13)
[2023-06-28] MEDS ORDERED: ZOFRAN ODT4 MG PO (15:49)
[2023-06-28] MEDS ORDERED: CATAPRES0.2 MG PO (15:49)
== END 2022-10-11 19:00 | disposition home or self-care (01) ==
LOC: COL.ER 16:32
PROVIDERS: Emergency Medicine
DX: R07.89 Other chest pain (principal); R10.11 Right upper quadrant pain; R00.0 Tachycardia, unspecified; R03.0 Elevated blood-pressure reading, without diagnosis of hypertension; Z32.02 Encounter for pregnancy test, result negative; Z28.311 Partially vaccinated for COVID-19
CPT/HCPCS: J1170; J2405; J7120; Q9967

== ENCOUNTER 2022-11-06 17:45 | Emergency (ER) | payer MEDICAID ==
[~2022-11-06] VITALS: Ht 170.2 cm; Wt 79.5 kg
[~2022-11-06 17:45] MED LIST changes: +ATARAX 25MG25 MG/TAB PO
[2022-11-06 17:46] VITALS: TEMP 98.5
[2022-11-06 18:21] LABS: BASO % 0.6 % (0.0-2.0); EOS % 0.8 % (0.0-4.0); GRAN # 3.3 K/mm3 (1.4-6.5); GRAN % 63.5 % (42.2-75.2); HEMOGLOBIN 10.9 g/dl (12.5-16.0); LYMPH # 1.5 K/mm3 (1.2-3.4); LYMPH % 29.3 % (20.0-51.0); MEAN CELL VOLUME 74 fl (80.0-100.0); MEAN CORPUSCULAR HEMOGLOBIN 23 pg (27-31); MEAN CORPUSCULAR HGB CONC 31 g/dl (33.0-37.0); MEAN PLATELET VOLUME 10.6 fl (7.4-10.4); MONO # 0.3 K/mm3 (0.1-0.6); MONO % 5.6 % (1.7-9.3); PLATELET COUNT 329 K/mm3 (130-400); RED BLOOD COUNT 4.74 M/mm3 (4.10-5.30); REDCELL DISTRIBUTION WIDTH-CV 14.4 % (11.5-14.5)
[2022-11-06 18:22] LABS: HEMATOCRIT 34.9 % (37.0-47.0)
[2022-11-06 18:38] LABS: ALANINE AMINOTRANSFERASE 14 U/L (0-55); ALKALINE PHOSPHATASE 100 U/L (40-150); ANION GAP 16 mmol/L (7-16); AST,SGOT 14 U/L (5-34); BILIRUBIN,TOTAL 0.2 mg/dL (0.2-1.2); BLOOD UREA NITROGEN 11 mg/dL (10-20); CARBON DIOXIDE 22 mmol/L (22-29); CHLORIDE 101 mmol/L (98-107); CREATININE, serum 0.91 mg/dL (0.57-1.11); GLUCOSE 285 mg/dL (70-99); POTASSIUM 4.2 mmol/L (3.5-4.5); SODIUM 139 mmol/L (136-145); TOTAL PROTEIN 7.8 gm/dL (6.2-8.1)
[2022-11-06 18:44] LABS: TROPONIN-I < 0.010 ng/mL (0.00-0.033)
[2022-11-06 20:14] VITALS: BP 129/86; PULSE 94
== END 2022-11-06 20:15 | disposition home or self-care (01) ==
LOC: COL.ER 17:45
PROVIDERS: Nurse Practitioner
DX: R07.89 Other chest pain (principal); I26.99 Other pulmonary embolism without acute cor pulmonale; Z79.01 Long term (current) use of anticoagulants; Z28.311 Partially vaccinated for COVID-19

== ENCOUNTER 2023-01-09 18:29 | Emergency (ER) | payer MEDICAID ==
[~2023-01-09] VITALS: Ht 170.2 cm; Wt 79.5 kg
[2023-01-09 18:36] VITALS: TEMP 98.4
[2023-01-09 19:06] LABS: BASO % 0.5 % (0.0-2.0); EOS % 0.3 % (0.0-4.0); GRAN # 3.1 K/mm3 (1.4-6.5); GRAN % 51.9 % (42.2-75.2); HEMATOCRIT 40.5 % (37.0-47.0); HEMOGLOBIN 12.6 g/dl (12.5-16.0); LYMPH # 2.5 K/mm3 (1.2-3.4); MEAN CELL VOLUME 74 fl (80.0-100.0); MEAN CORPUSCULAR HEMOGLOBIN 23 pg (27-31); MEAN CORPUSCULAR HGB CONC 31 g/dl (33.0-37.0); MEAN PLATELET VOLUME 10.7 fl (7.4-10.4); MONO # 0.4 K/mm3 (0.1-0.6); MONO % 6.1 % (1.7-9.3); PLATELET COUNT 343 K/mm3 (130-400); RED BLOOD COUNT 5.48 M/mm3 (4.10-5.30); REDCELL DISTRIBUTION WIDTH-CV 14.2 % (11.5-14.5)
[2023-01-09 19:20] LABS: ALANINE AMINOTRANSFERASE 29 U/L (0-55); ALBUMIN 4.6 gm/dL (3.5-5.0); ALKALINE PHOSPHATASE 101 U/L (40-150); ANION GAP 17 mmol/L (7-16); AST,SGOT 19 U/L (5-34); BILIRUBIN,TOTAL 0.2 mg/dL (0.2-1.2); BLOOD UREA NITROGEN 10 mg/dL (10-20); CALCIUM 10.2 mg/dL (8.4-10.2); CARBON DIOXIDE 25 mmol/L (22-29); CHLORIDE 95 mmol/L (98-107); GLUCOSE 330 mg/dL (70-99); LIPASE 24 U/L (8-78); POTASSIUM 3.8 mmol/L (3.5-4.5); SODIUM 137 mmol/L (136-145); TOTAL PROTEIN 8.6 gm/dL (6.2-8.1)
[2023-01-09 19:44] LABS: TROPONIN-I < 0.010 ng/mL (0.00-0.033)
[2023-01-09 20:06] LABS: COLLECTION METHOD CLEAN CATCH
[2023-01-09 20:27] LABS: URINE APPEARANCE Clear (CLEAR/HAZY); URINE COLOR Yellow (YELLOW)
[2023-01-09 20:28] LABS: PH 8.5 (5.0-8.5); URINE BACTERIA None Seen /hpf (NONE SEEN); URINE BLOOD Negative (NEGATIVE); URINE GLUCOSE 2+ (NEGATIVE); URINE KETONE TRACE (NEGATIVE); URINE NITRATE Negative (NEGATIVE); URINE PROTEIN(semi-quant) Negative (NEGATIVE); URINE RBC None Seen /hpf (0-2); URINE UROBILINOGEN 0.2 E.U/dL (0.2-1.0); URINE WBC 0-2 /hpf (0-2)
[2023-01-09 22:15] VITALS: BP 164/81; PULSE 88
== END 2023-01-09 22:16 | disposition home or self-care (01) ==
LOC: COL.ER 18:29
PROVIDERS: Emergency Medicine
DX: R07.89 Other chest pain (principal); R10.13 Epigastric pain; R00.0 Tachycardia, unspecified; R74.02 Elevation of levels of lactic acid dehydrogenase [LDH]; F17.210 Nicotine dependence, cigarettes, uncomplicated
CPT/HCPCS: J1170; J1815; J2405; J7030

== ENCOUNTER 2023-01-10 02:21 | Emergency (ER) | payer MEDICAID ==
[~2023-01-10] VITALS: Ht 170.2 cm; Wt 79.5 kg
[2023-01-10 02:24] VITALS: BP 160/113; PULSE 110; TEMP 97.1
== END 2023-01-10 03:18 | disposition home or self-care (01) ==
LOC: COL.ER 02:21
DX: R10.13 Epigastric pain (principal); R07.9 Chest pain, unspecified; Z86.711 Personal history of pulmonary embolism; Z28.310 Unvaccinated for COVID-19; Z79.01 Long term (current) use of anticoagulants

== ENCOUNTER 2023-03-09 13:28 | Emergency (ER) | payer MEDICAID ==
[~2023-03-09] VITALS: Ht 170.2 cm; Wt 74.1 kg
[2023-03-09 14:09] LABS: COLLECTION METHOD CLEAN CATCH
[2023-03-09 14:13] LABS: BASO % 0.4 % (0.0-2.0); EOS % 0.1 % (0.0-4.0); GRAN # 4.9 K/mm3 (1.4-6.5); GRAN % 71.2 % (42.2-75.2); HEMOGLOBIN 10.9 g/dl (12.5-16.0); LYMPH # 1.7 K/mm3 (1.2-3.4); LYMPH % 23.9 % (20.0-51.0); MEAN CELL VOLUME 76 fl (80.0-100.0); MEAN CORPUSCULAR HEMOGLOBIN 23 pg (27-31); MEAN CORPUSCULAR HGB CONC 30 g/dl (33.0-37.0); MEAN PLATELET VOLUME 10.3 fl (7.4-10.4); MONO # 0.3 K/mm3 (0.1-0.6); MONO % 4.3 % (1.7-9.3); PLATELET COUNT 343 K/mm3 (130-400); RED BLOOD COUNT 4.75 M/mm3 (4.10-5.30); REDCELL DISTRIBUTION WIDTH-CV 14.7 % (11.5-14.5)
[2023-03-09 14:18] LABS: HEMATOCRIT 35.9 % (37.0-47.0)
[2023-03-09 14:19] LABS: SQUAMOUS EPITHELIAL 0-2 /hpf (0-10); URINE BACTERIA None Seen /hpf (NONE SEEN); URINE RBC 0-2 /hpf (0-2)
[2023-03-09 14:21] LABS: URINE APPEARANCE Hazy (CLEAR/HAZY); URINE BLOOD Negative (NEGATIVE); URINE COLOR Yellow (YELLOW); URINE KETONE Negative (NEGATIVE); URINE NITRATE Negative (NEGATIVE); URINE PROTEIN(semi-quant) Negative (NEGATIVE); URINE UROBILINOGEN 0.2 (NEGATIVE)
[2023-03-09 14:22] LABS: URINE GLUCOSE 3+ (NEGATIVE)
[2023-03-09 14:30] LABS: ALANINE AMINOTRANSFERASE 20 U/L (0-55); ALKALINE PHOSPHATASE 93 U/L (40-150); ANION GAP 11 mmol/L (7-16); AST,SGOT 12 U/L (5-34); BILIRUBIN,TOTAL 0.2 mg/dL (0.2-1.2); BLOOD UREA NITROGEN 15 mg/dL (10-20); CALCIUM 9.8 mg/dL (8.4-10.2); CARBON DIOXIDE 24 mmol/L (22-29); CHLORIDE 102 mmol/L (98-107); LIPASE 92 U/L (8-78); POTASSIUM 4.4 mmol/L (3.5-4.5); SODIUM 137 mmol/L (136-145); TOTAL PROTEIN 7.7 gm/dL (6.2-8.1)
[2023-03-09 14:32] LABS: GLUCOSE 436 mg/dL (70-99)
[2023-03-09 14:46] LABS: TROPONIN-I < 0.010 ng/mL (0.00-0.033)
[2023-03-09] MEDS ORDERED: MACROBID 1100 MG/CAP PO (15:09)
[2023-03-09] MEDS ORDERED: PEPCID 20MG TAB20 MG PO (15:09)
[2023-03-09] MEDS ORDERED: ZOFRAN ODT4 MG PO (15:16)
[2023-03-09] MEDS ORDERED: FLAGYL500 MG PO (15:17)
[2023-03-09 15:33] VITALS: BP 139/108; PULSE 83; TEMP 98.2
== END 2023-03-09 15:32 | disposition home or self-care (01) ==
LOC: COL.ER 13:28
PROVIDERS: Emergency Medicine
DX: R07.89 Other chest pain (principal); G89.29 Other chronic pain; N39.0 Urinary tract infection, site not specified; N76.0 Acute vaginitis; R11.10 Vomiting, unspecified; Z88.0 Allergy status to penicillin
CPT/HCPCS: J2405

== ENCOUNTER 2023-07-27 03:41 | Emergency (ER) | payer MEDICAID ==
[~2023-07-27] VITALS: Ht 170.2 cm; Wt 85.5 kg
[~2023-07-27 03:41] MED LIST changes: +BACITRACIN TOPIC1 TU TOP; +PEPCID 20MG TAB20 MG PO
[2023-07-27 03:49] VITALS: TEMP 97.7
[2023-07-27 04:43] LABS: BASO % 0.8 % (0.0-2.0); EOS % 0.6 % (0.0-4.0); GRAN # 2.2 K/mm3 (1.4-6.5); GRAN % 42.8 % (42.2-75.2); HEMOGLOBIN 10.2 g/dl (12.5-16.0); LYMPH # 2.6 K/mm3 (1.2-3.4); LYMPH % 48.9 % (20.0-51.0); MEAN CELL VOLUME 77 fl (80.0-100.0); MEAN CORPUSCULAR HEMOGLOBIN 23 pg (27-31); MEAN CORPUSCULAR HGB CONC 30 g/dl (33.0-37.0); MEAN PLATELET VOLUME 10.7 fl (7.4-10.4); MONO # 0.4 K/mm3 (0.1-0.6); MONO % 6.9 % (1.7-9.3); PLATELET COUNT 335 K/mm3 (130-400); RED BLOOD COUNT 4.44 M/mm3 (4.10-5.30); REDCELL DISTRIBUTION WIDTH-CV 14.6 % (11.5-14.5)
[2023-07-27 05:09] LABS: ALANINE AMINOTRANSFERASE 17 U/L (0-55); ALKALINE PHOSPHATASE 82 U/L (40-150); ANION GAP 16 mmol/L (7-16); AST,SGOT 12 U/L (5-34); BILIRUBIN,TOTAL 0.2 mg/dL (0.2-1.2); BLOOD UREA NITROGEN 13 mg/dL (10-20); C-REACTIVE PROTEIN 0.17 mg/dL (0.00-0.50); CALCIUM 9.5 mg/dL (8.4-10.2); CARBON DIOXIDE 22 mmol/L (22-29); CHLORIDE 101 mmol/L (98-107); GLUCOSE 319 mg/dL (70-99); LIPASE 33 U/L (8-78); MAGNESIUM 1.1 mg/dL (1.6-2.6); POTASSIUM 3.4 mmol/L (3.5-4.5); SODIUM 139 mmol/L (136-145); TOTAL PROTEIN 7.3 gm/dL (6.2-8.1)
[2023-07-27 05:16] LABS: TROPONIN-I < 0.010 ng/mL (0.00-0.033)
[2023-07-27] MEDS ORDERED: MAG-OX 400400 MG/TAB PO (05:44)
[2023-07-27] MEDS ORDERED: CATAPRES 0.1MG0.1 MG PO (05:44)
[2023-07-27] MEDS ORDERED: PERCOCET 325 MG1 TA3 PO (05:48)
[2023-07-27 06:09] VITALS: BP 139/90; PULSE 93
== END 2023-07-27 06:11 | disposition home or self-care (01) ==
LOC: COL.ER 03:41
PROVIDERS: Emergency Medicine
DX: R07.9 Chest pain, unspecified (principal); R10.13 Epigastric pain; E66.9 Obesity, unspecified; E87.6 Hypokalemia; R79.89 Other specified abnormal findings of blood chemistry; Z86.711 Personal history of pulmonary embolism; Z86.79 Personal history of other diseases of the circulatory system; Z68.29 Body mass index [BMI] 29.0-29.9, adult; Z28.311 Partially vaccinated for COVID-19; Z79.01 Long term (current) use of anticoagulants
CPT/HCPCS: J2270; J2405; J7030

== ENCOUNTER 2023-10-19 21:12 | Emergency (ER) | payer MEDICAID ==
[~2023-10-19] VITALS: Ht 170.2 cm; Wt 82.7 kg
[~2023-10-19 21:12] MED LIST changes: +MAG-OX 400400 MG/TAB PO
[2023-10-19 21:26] VITALS: TEMP 98.1
[2023-10-19] MEDS ORDERED: CLEOCIN HC150 MG/CAP PO (21:38)
[2023-10-19 22:10] VITALS: BP 126/84; PULSE 88
[2023-10-22] MEDS ORDERED: PERCOCET 325 MG1 TA3 PO ×2 (11:09→11:35)
== END 2023-10-19 22:10 | disposition home or self-care (01) ==
LOC: COL.ER 21:12
DX: K02.9 Dental caries, unspecified (principal); Z88.0 Allergy status to penicillin

== ENCOUNTER 2023-10-22 09:32 | Emergency (ER) | payer MEDICAID ==
[~2023-10-22] VITALS: Ht 170.2 cm; Wt 83.2 kg
[2023-10-22] MEDS ORDERED: Morphine 4 MG/ML VIAL IV ONE (10:00)
[2023-10-22] MEDS ORDERED: Pantoprazole 40 MG in NS 10 ML IV ONE (10:00)
[2023-10-22] MEDS ORDERED: NS 1,000 ML IV ONE (10:00)
[2023-10-22] MEDS ORDERED: Ondansetron 4 MG/2 ML VIAL IV ONE (10:00)
[2023-10-22 10:11] LABS: BASO % 0.2 % (0.0-2.0); EOS % 0.4 % (0.0-4.0); GRAN # 2.4 K/mm3 (1.4-6.5); GRAN % 49.8 % (42.2-75.2); LYMPH % 40.2 % (20.0-51.0); MEAN CELL VOLUME 75 fl (80.0-100.0); MEAN CORPUSCULAR HEMOGLOBIN 23 pg (27-31); MEAN CORPUSCULAR HGB CONC 31 g/dl (33.0-37.0); MEAN PLATELET VOLUME 10.4 fl (7.4-10.4); MONO # 0.5 K/mm3 (0.1-0.6); MONO % 9.2 % (1.7-9.3); PLATELET COUNT 279 K/mm3 (130-400); RED BLOOD COUNT 4.38 M/mm3 (4.10-5.30); REDCELL DISTRIBUTION WIDTH-CV 13.5 % (11.5-14.5)
[2023-10-22 10:15] LABS: HEMATOCRIT 32.7 % (37.0-47.0)
[2023-10-22 10:20] LABS: INR 1.3 (0.8-3.0); PROTHROMBIN TIME 14.6 SECONDS (9.7-12.8)
[2023-10-22 10:22] LABS: PARTIAL THROMBOPLASTIN TIME 34.6 SECONDS (26.0-37.0)
[2023-10-22 10:40] LABS: ALANINE AMINOTRANSFERASE 62 U/L (0-55); ALBUMIN 3.6 gm/dL (3.5-5.0); ALKALINE PHOSPHATASE 93 U/L (40-150); ANION GAP 10 mmol/L (7-16); AST,SGOT 25 U/L (5-34); BILIRUBIN,TOTAL 0.2 mg/dL (0.2-1.2); BLOOD UREA NITROGEN 16 mg/dL (10-20); CALCIUM 9.9 mg/dL (8.4-10.2); CARBON DIOXIDE 26 mmol/L (22-29); CHLORIDE 103 mmol/L (98-107); CREATINE KINASE 236 U/L (29-168); CREATININE, serum 0.87 mg/dL (0.57-1.11); GLUCOSE 180 mg/dL (70-99); LIPASE 22 U/L (8-78); MAGNESIUM 1.7 mg/dL (1.6-2.6); POTASSIUM 4.3 mmol/L (3.5-4.5); SODIUM 139 mmol/L (136-145); TOTAL PROTEIN 7.5 gm/dL (6.2-8.1)
[2023-10-22] MEDS ORDERED: PROTONIX 40MG T40 MG PO (10:58)
[2023-10-22 11:02] LABS: TROPONIN-I < 0.010 ng/mL (0.00-0.033)
[2023-10-22] MEDS ORDERED: PERCOCET 325 MG1 TA3 PO (11:09)
[2023-10-22] MEDS ORDERED: SOMA 350MG350 MG/TAB PO ×2 (11:09→11:35)
[2023-10-22] MEDS ORDERED: HYDROmorphone 0.5 MG/0.5 ML SYRINGE IV ONE (11:15)
[2023-10-22 11:44] VITALS: BP 125/88; PULSE 88; TEMP 97.9
== END 2023-10-22 11:44 | disposition home or self-care (01) ==
LOC: COL.ER 09:32
PROVIDERS: Emergency Medicine
DX: K29.70 Gastritis, unspecified, without bleeding (principal); R07.89 Other chest pain; I26.99 Other pulmonary embolism without acute cor pulmonale; T47.1X6A Underdosing of other antacids and anti-gastric-secretion drugs, initial encounter; E66.9 Obesity, unspecified; Z79.01 Long term (current) use of anticoagulants; Z91.128 Patient's intentional underdosing of medication regimen for other reason
CPT/HCPCS: C9113; J1170; J2270; J2405; J7030

== ENCOUNTER 2023-11-01 00:45 | Emergency (ER) | payer MEDICAID ==
[~2023-11-01] VITALS: Ht 170.2 cm; Wt 83.2 kg
[2023-11-01 00:46] VITALS: TEMP 98.2
[2023-11-01 01:00] LABS: BASO % 0.5 % (0.0-2.0); EOS % 0.9 % (0.0-4.0); GRAN # 1.6 K/mm3 (1.4-6.5); GRAN % 37.5 % (42.2-75.2); HEMATOCRIT 32.7 % (37.0-47.0); HEMOGLOBIN 10.1 g/dl (12.5-16.0); LYMPH # 2.3 K/mm3 (1.2-3.4); LYMPH % 53.6 % (20.0-51.0); MEAN CELL VOLUME 75 fl (80.0-100.0); MEAN CORPUSCULAR HEMOGLOBIN 23 pg (27-31); MEAN CORPUSCULAR HGB CONC 31 g/dl (33.0-37.0); MEAN PLATELET VOLUME 9.8 fl (7.4-10.4); MONO # 0.3 K/mm3 (0.1-0.6); MONO % 7.3 % (1.7-9.3); PLATELET COUNT 353 K/mm3 (130-400); RED BLOOD COUNT 4.36 M/mm3 (4.10-5.30); REDCELL DISTRIBUTION WIDTH-CV 14.4 % (11.5-14.5)
[2023-11-01] MEDS ORDERED: Insulin Regular Human (NovoLIN R/HumuLIN R) IV ONE (01:00)
[2023-11-01] MEDS ORDERED: Dicyclomine 10 MG/ML 2 ML VIAL IM ONE (01:00)
[2023-11-01 01:11] LABS: ACETONE,SERUM NEGATIVE
[2023-11-01 01:18] LABS: ALANINE AMINOTRANSFERASE 46 U/L (0-55); ALBUMIN 3.5 gm/dL (3.5-5.0); ALKALINE PHOSPHATASE 86 U/L (40-150); ANION GAP 12 mmol/L (7-16); AST,SGOT 32 U/L (5-34); BILIRUBIN,TOTAL 0.3 mg/dL (0.2-1.2); BLOOD UREA NITROGEN 16 mg/dL (10-20); CALCIUM 8.9 mg/dL (8.4-10.2); CARBON DIOXIDE 23 mmol/L (22-29); CHLORIDE 102 mmol/L (98-107); CREATININE, serum 1.12 mg/dL (0.57-1.11); LIPASE 42 U/L (8-78); POTASSIUM 4.3 mmol/L (3.5-4.5); SODIUM 137 mmol/L (136-145); TOTAL PROTEIN 6.9 gm/dL (6.2-8.1)
[2023-11-01 01:22] LABS: GLUCOSE 462 mg/dL (70-99)
[2023-11-01 01:31] LABS: COLLECTION METHOD CLEAN CATCH
[2023-11-01] MEDS ORDERED: oxyCODONE/Acetaminophen 5-325 MG TAB PO ONE (01:45)
[2023-11-01 01:51] LABS: URINE APPEARANCE Clear (CLEAR/HAZY); URINE BACTERIA Rare /hpf (NONE SEEN); URINE BLOOD Negative (NEGATIVE); URINE COLOR Yellow (YELLOW); URINE GLUCOSE 3+ (NEGATIVE); URINE KETONE Negative (NEGATIVE); URINE NITRATE Negative (NEGATIVE); URINE PROTEIN(semi-quant) Negative (NEGATIVE); URINE RBC 0-2 /hpf (0-2); URINE UROBILINOGEN 0.2 E.U/dL (0.2-1.0)
[2023-11-01] MEDS ORDERED: Iohexol 300 - 100 ML VIAL IV ONE (02:00)
[2023-11-01] MEDS ORDERED: NS 60 ML IV ONE (02:01)
[2023-11-01 02:08] VITALS: BP 154/78; PULSE 76
== END 2023-11-01 02:09 | disposition left against medical advice (07) ==
LOC: COL.ER 00:45
PROVIDERS: Emergency Medicine
DX: E11.65 Type 2 diabetes mellitus with hyperglycemia (principal); D72.819 Decreased white blood cell count, unspecified; R10.84 Generalized abdominal pain; E66.9 Obesity, unspecified; Z79.4 Long term (current) use of insulin; Z68.28 Body mass index [BMI] 28.0-28.9, adult
CPT/HCPCS: J0500; J1815; J2765; Q9967

== ENCOUNTER 2024-01-31 12:06 | Emergency (ER) | payer MEDICAID ==
[~2024-01-31] VITALS: Ht 170.2 cm; Wt 89.5 kg
[~2024-01-31 12:06] MED LIST changes: +NEURONTIN100 MG/CAP PO
[2024-01-31 12:13] VITALS: TEMP 98.4
[2024-01-31] MEDS ORDERED: NS 1,000 ML IV ONE (14:45)
[2024-01-31] MEDS ORDERED: fentaNYL 50 MCG/ML 2 ML VIAL IV ONE ×2 (14:45→16:15)
[2024-01-31] MEDS ORDERED: Ondansetron 4 MG/2 ML VIAL IV ONE (14:45)
[2024-01-31 15:19] LABS: BASO % 0.7 % (0.0-2.0); EOS # 0.1 K/mm3 (0.0-0.7); EOS % 1.2 % (0.0-4.0); GRAN # 2.1 K/mm3 (1.4-6.5); GRAN % 50.3 % (42.2-75.2); HEMOGLOBIN 10.4 g/dl (12.5-16.0); LYMPH # 1.7 K/mm3 (1.2-3.4); LYMPH % 42.5 % (20.0-51.0); MEAN CELL VOLUME 75 fl (80.0-100.0); MEAN CORPUSCULAR HEMOGLOBIN 23 pg (27-31); MEAN CORPUSCULAR HGB CONC 31 g/dl (33.0-37.0); MEAN PLATELET VOLUME 10.2 fl (7.4-10.4); MONO # 0.2 K/mm3 (0.1-0.6); MONO % 5.1 % (1.7-9.3); PLATELET COUNT 295 K/mm3 (130-400); RED BLOOD COUNT 4.49 M/mm3 (4.10-5.30); REDCELL DISTRIBUTION WIDTH-CV 13.7 % (11.5-14.5)
[2024-01-31 15:34] LABS: HEMATOCRIT 33.5 % (37.0-47.0)
[2024-01-31 15:37] LABS: ALBUMIN 3.8 g/dL (3.5-5.0); BILIRUBIN,TOTAL 0.1 mg/dL (0.2-1.2); C-REACTIVE PROTEIN 0.42 mg/dL (0.00-0.50); CALCIUM 9.2 mg/dL (8.4-10.2); CREATININE, serum 0.87 mg/dL (0.57-1.11); POTASSIUM 4.2 mEq/L (3.5-4.5); TOTAL PROTEIN 7.4 g/dl (6.2-8.1)
[2024-01-31] MEDS ORDERED: Iohexol 300 - 100 ML VIAL IV ONE (15:51)
[2024-01-31] MEDS ORDERED: NS 100 ML IV SCH (15:52)
[2024-01-31 16:26] LABS: COLLECTION METHOD CLEAN CATCH
[2024-01-31 16:57] LABS: URINE APPEARANCE CLEAR (CLEAR/HAZY); URINE COLOR YELLOW (YELLOW)
[2024-01-31 16:58] LABS: PH 6.5 (5.0-8.5); URINE PROTEIN(semi-quant) Negative (NEGATIVE)
[2024-01-31 16:59] LABS: URINE GLUCOSE 1+ (NEGATIVE); URINE KETONE Negative (NEGATIVE)
[2024-01-31 17:00] LABS: URINE BLOOD Negative (NEGATIVE); URINE NITRATE Negative (NEGATIVE); URINE UROBILINOGEN 0.2 E.U/dL (0.2-1.0)
[2024-01-31] MEDS ORDERED: Home HYDROcodone/Acetaminophen 5/325 MG #4 TABS/PACK PO ONE (17:00)
[2024-01-31 17:07] VITALS: BP 155/98; PULSE 92
== END 2024-01-31 17:07 | disposition home or self-care (01) ==
LOC: COL.ER 12:06
PROVIDERS: Nurse Practitioner
DX: R10.11 Right upper quadrant pain (principal); R07.9 Chest pain, unspecified; R10.31 Right lower quadrant pain; E66.9 Obesity, unspecified; Z68.30 Body mass index [BMI] 30.0-30.9, adult
CPT/HCPCS: J2405; J3010; J7030; Q9967

== ENCOUNTER 2024-02-03 10:22 | Emergency (ER) | payer MEDICAID ==
[~2024-02-03] VITALS: Ht 170.2 cm; Wt 90.9 kg
[2024-02-03 10:31] VITALS: TEMP 98.3
[2024-02-03] MEDS ORDERED: cloNIDine 0.1 MG TAB PO ONE (11:15)
[2024-02-03] MEDS ORDERED: LR 1,000 ML IV ONE (11:15)
[2024-02-03] MEDS ORDERED: droPERidol 2.5 MG/ML 2 ML VIAL IV ONE (11:15)
[2024-02-03] MEDS ORDERED: Dicyclomine 10 MG CAP PO ONE (11:15)
[2024-02-03 11:46] LABS: BASO % 0.3 % (0.0-2.0); EOS % 0.5 % (0.0-4.0); GRAN # 3.8 K/mm3 (1.4-6.5); GRAN % 63.6 % (42.2-75.2); HEMOGLOBIN 10.6 g/dl (12.5-16.0); LYMPH # 1.8 K/mm3 (1.2-3.4); LYMPH % 30.5 % (20.0-51.0); MEAN CELL VOLUME 74 fl (80.0-100.0); MEAN CORPUSCULAR HEMOGLOBIN 23 pg (27-31); MEAN CORPUSCULAR HGB CONC 31 g/dl (33.0-37.0); MEAN PLATELET VOLUME 10.4 fl (7.4-10.4); MONO # 0.3 K/mm3 (0.1-0.6); MONO % 4.9 % (1.7-9.3); PLATELET COUNT 307 K/mm3 (130-400); RED BLOOD COUNT 4.61 M/mm3 (4.10-5.30); REDCELL DISTRIBUTION WIDTH-CV 13.7 % (11.5-14.5)
[2024-02-03 11:47] LABS: HEMATOCRIT 34.3 % (37.0-47.0)
[2024-02-03 11:57] LABS: ALANINE AMINOTRANSFERASE 18 U/L (0-55); ALKALINE PHOSPHATASE 98 U/L (40-150); ANION GAP 13 mmol/L (7-16); AST,SGOT 14 U/L (5-34); BILIRUBIN,TOTAL 0.2 mg/dL (0.2-1.2); BLOOD UREA NITROGEN 9 mg/dL (10-20); CALCIUM 9.6 mg/dL (8.4-10.2); CHLORIDE 106 mEq/L (98-107); CREATININE, serum 0.81 mg/dL (0.57-1.11); GLUCOSE 192 mg/dL (70-99); LIPASE 63 U/L (8-78); POTASSIUM 3.9 mEq/L (3.5-4.5); SODIUM 139 mEq/L (136-145); TOTAL PROTEIN 7.9 g/dl (6.2-8.1)
[2024-02-03 12:15] LABS: TROPONIN-I < 0.010 ng/mL (0.00-0.033)
[2024-02-03] MEDS ORDERED: Ketorolac 15 MG/ML VIAL IV ONE (13:15)
[2024-02-03] MEDS ORDERED: IRON TABLETS325 MG PO (14:28)
[2024-02-03 14:30] VITALS: BP 152/101; PULSE 82
[2024-02-03] MEDS ORDERED: PAMELOR 10MG10 MG PO (14:31)
[2024-02-03] MEDS ORDERED: NEURONTIN100 MG/CAP PO (14:43)
[2024-02-03] MEDS ORDERED: XALATAN EYE DROPS OD (14:44)
[2024-02-03] MEDS ORDERED: INSULIN AS100 UNIT/3 (14:45)
[2024-02-03] MEDS ORDERED: KLONOPIN 0.5MG0.5 MG PO (14:46)
[2024-02-03] MEDS ORDERED: REGLAN 10MG10 MG/TAB PO (14:48)
[2024-02-03] MEDS ORDERED: BENTYL 20MG20 MG/TAB PO (14:48)
== END 2024-02-03 15:04 | disposition home or self-care (01) ==
LOC: COL.ER 10:22
PROVIDERS: Emergency Medicine
DX: K76.0 Fatty (change of) liver, not elsewhere classified (principal); I10 Essential (primary) hypertension
CPT/HCPCS: J1790; J1885; J2765; J7120

== ENCOUNTER 2024-03-25 01:46 | Emergency (ER) | payer MEDICAID ==
[~2024-03-25] VITALS: Ht 170.2 cm; Wt 95.5 kg
[~2024-03-25 01:46] MED LIST changes: +INSULIN AS100 UNIT/3; +IRON TABLETS325 MG PO; +KLONOPIN 0.5MG0.5 MG PO; +PAMELOR 10MG10 MG PO; +XALATAN EYE DROPS OD
[2024-03-25 01:51] VITALS: BP 122/84; TEMP 97.9
[2024-03-25] MEDS ORDERED: POLYMYXIN B OT ONE (02:15)
[2024-03-25] MEDS ORDERED: HYDROCORTISONE OT ONE (02:15)
[2024-03-25] MEDS ORDERED: Azithromycin 250 MG TAB PO ONE (02:15)
[2024-03-25] MEDS ORDERED: NEOMYCIN OT ONE (02:15)
[2024-03-25] MEDS ORDERED: oxyCODONE/Acetaminophen 5-325 MG TAB PO ONE (02:30)
[2024-03-25 02:35] VITALS: PULSE 98
[2024-04-04] MEDS ORDERED: APRESOLINE50 MG PO (16:24)
== END 2024-03-25 03:31 | disposition home or self-care (01) ==
LOC: COL.ER 01:46
DX: H60.93 Unspecified otitis externa, bilateral (principal); K08.89 Other specified disorders of teeth and supporting structures; Z88.0 Allergy status to penicillin

== ENCOUNTER 2024-03-30 09:34 | Emergency (ER) | payer MEDICAID ==
[~2024-03-30] VITALS: Ht 170.2 cm; Wt 95.5 kg
[2024-03-30 09:43] VITALS: BP 164/91; TEMP 97.7
[2024-03-30] MEDS ORDERED: Famotidine 20 MG TAB PO ONE (10:30)
[2024-03-30] MEDS ORDERED: Mag/Al Hydrox/Simeth Susp 30 ML CUP PO ONE (10:30)
[2024-03-30] MEDS ORDERED: LORazepam 1 MG TAB PO ONE (10:30)
[2024-03-30 11:22] VITALS: PULSE 81
[2024-04-04] MEDS ORDERED: APRESOLINE50 MG PO (16:24)
== END 2024-03-30 11:22 | disposition home or self-care (01) ==
LOC: COL.ER 09:34
DX: K21.9 Gastro-esophageal reflux disease without esophagitis (principal); F41.9 Anxiety disorder, unspecified; Z79.899 Other long term (current) drug therapy

== ENCOUNTER 2024-04-13 23:10 | Emergency (ER) | payer MEDICAID ==
[~2024-04-13] VITALS: Ht 170.2 cm; Wt 95.5 kg
[~2024-04-13 23:10] MED LIST changes: +APRESOLINE50 MG PO
[2024-04-13] MEDS ORDERED: Acetaminophen 500 MG TAB PO ONE (23:15)
[2024-04-13] MEDS ORDERED: NS 1,000 ML IV ONE (23:15)
[2024-04-13] MEDS ORDERED: Ondansetron 4 MG/2 ML VIAL IV ONE (23:15)
[2024-04-14 00:04] LABS: BASO % 0.6 % (0.0-2.0); EOS % 0.8 % (0.0-4.0); GRAN % 58.5 % (42.2-75.2); HEMOGLOBIN 10.5 g/dl (12.5-16.0); LYMPH # 1.7 K/mm3 (1.2-3.4); LYMPH % 33.2 % (20.0-51.0); MEAN CELL VOLUME 74 fl (80.0-100.0); MEAN CORPUSCULAR HEMOGLOBIN 22 pg (27-31); MEAN CORPUSCULAR HGB CONC 30 g/dl (33.0-37.0); MEAN PLATELET VOLUME 10.6 fl (7.4-10.4); MONO # 0.3 K/mm3 (0.1-0.6); MONO % 6.1 % (1.7-9.3); PLATELET COUNT 275 K/mm3 (130-400); RED BLOOD COUNT 4.68 M/mm3 (4.10-5.30); REDCELL DISTRIBUTION WIDTH-CV 14.4 % (11.5-14.5)
[2024-04-14 00:14] LABS: HEMATOCRIT 34.5 % (37.0-47.0)
[2024-04-14 00:28] LABS: ALANINE AMINOTRANSFERASE 27 U/L (0-55); ALBUMIN 3.8 g/dL (3.5-5.0); ALKALINE PHOSPHATASE 105 U/L (40-150); ANION GAP 12 mmol/L (7-16); AST,SGOT 21 U/L (5-34); BILIRUBIN,TOTAL 0.2 mg/dL (0.2-1.2); BLOOD UREA NITROGEN 10 mg/dL (10-20); C-REACTIVE PROTEIN 0.69 mg/dL (0.00-0.50); CALCIUM 9.1 mg/dL (8.4-10.2); CHLORIDE 101 mEq/L (98-107); CREATININE, serum 1.18 mg/dL (0.57-1.11); POTASSIUM 4.9 mEq/L (3.5-4.5); SODIUM 136 mEq/L (136-145); TOTAL PROTEIN 7.7 g/dl (6.2-8.1)
[2024-04-14 00:29] LABS: GLUCOSE 498 mg/dL (70-99)
[2024-04-14 00:36] LABS: TROPONIN-I < 0.010 ng/mL (0.00-0.033)
[2024-04-14] MEDS ORDERED: NS 1,000 ML IV ONE (00:45)
[2024-04-14] MEDS ORDERED: oxyCODONE 5 MG TAB PO ONE (01:00)
[2024-04-14] MEDS ORDERED: Iohexol 300 - 100 ML VIAL IV ONE (03:22)
[2024-04-14] MEDS ORDERED: NS 50 ML IV SCH (03:22)
[2024-04-14 03:46] LABS: COLLECTION METHOD CLEAN CATCH
[2024-04-14] MEDS ORDERED: Morphine 4 MG/ML VIAL IV ONE ×2 (04:00→06:30)
[2024-04-14] MEDS ORDERED: LIPITOR20 MG PO (04:02)
[2024-04-14] MEDS ORDERED: PRINIVIL10 MG PO (04:02)
[2024-04-14 04:11] LABS: URINE APPEARANCE CLEAR (CLEAR/HAZY); URINE BLOOD NEGATIVE (NEGATIVE); URINE COLOR YELLOW (YELLOW); URINE GLUCOSE 3+ (NEGATIVE); URINE KETONE NEGATIVE (NEGATIVE); URINE NITRATE NEGATIVE (NEGATIVE); URINE PROTEIN(semi-quant) NEGATIVE (NEGATIVE); URINE UROBILINOGEN 0.2 E.U/dL (0.2-1.0)
[2024-04-14] MEDS ORDERED: FLAGYL500 MG PO (06:25)
[2024-04-14] MEDS ORDERED: CIPRO 500MG TA500 MG PO (06:25)
[2024-04-14] MEDS ORDERED: metroNIDAZOLE 250 MG TAB PO ONE (06:30)
[2024-04-14] MEDS ORDERED: Home HYDROcodone/Acetaminophen 5/325 MG #4 TABS/PACK PO ONE (06:30)
[2024-04-14] MEDS ORDERED: Ciprofloxacin 500 MG TAB PO ONE (06:30)
[2024-04-14 06:46] VITALS: BP 147/104; PULSE 79; TEMP 97.1
== END 2024-04-14 06:46 | disposition home or self-care (01) ==
LOC: COL.ER 23:10
PROVIDERS: Nurse Practitioner
DX: R50.9 Fever, unspecified (principal); R10.31 Right lower quadrant pain; R10.11 Right upper quadrant pain; R07.89 Other chest pain; R74.02 Elevation of levels of lactic acid dehydrogenase [LDH]; E66.9 Obesity, unspecified; Z86.711 Personal history of pulmonary embolism; Z88.0 Allergy status to penicillin; Z79.01 Long term (current) use of anticoagulants
CPT/HCPCS: J2270; J7030; Q9967

== ENCOUNTER 2024-04-18 12:55 | Emergency (ER) | payer MEDICAID ==
[~2024-04-18] VITALS: Ht 170.2 cm; Wt 95.5 kg
[~2024-04-18 12:55] MED LIST changes: +CIPRO 500MG TA500 MG PO; +LIPITOR20 MG PO; +PRINIVIL10 MG PO
[2024-04-18 12:56] VITALS: TEMP 98.4
[2024-04-18 13:13] LABS: BASO % 0.2 % (0.0-2.0); EOS % 0.5 % (0.0-4.0); GRAN # 4.2 K/mm3 (1.4-6.5); GRAN % 68.7 % (42.2-75.2); HEMATOCRIT 37.2 % (37.0-47.0); HEMOGLOBIN 11.4 g/dl (12.5-16.0); LYMPH # 1.6 K/mm3 (1.2-3.4); LYMPH % 25.3 % (20.0-51.0); MEAN CELL VOLUME 73 fl (80.0-100.0); MEAN CORPUSCULAR HEMOGLOBIN 22 pg (27-31); MEAN CORPUSCULAR HGB CONC 31 g/dl (33.0-37.0); MEAN PLATELET VOLUME 9.7 fl (7.4-10.4); MONO # 0.3 K/mm3 (0.1-0.6); MONO % 4.5 % (1.7-9.3); PLATELET COUNT 293 K/mm3 (130-400); RED BLOOD COUNT 5.08 M/mm3 (4.10-5.30); REDCELL DISTRIBUTION WIDTH-CV 14.7 % (11.5-14.5)
[2024-04-18] MEDS ORDERED: droPERidol 2.5 MG/ML 2 ML VIAL IV ONE (13:15)
[2024-04-18] MEDS ORDERED: diphenhydrAMINE 50 MG/ML 1 ML VIAL IV ONE (13:15)
[2024-04-18 13:19] LABS: INR 1.1 (0.8-3.0); PROTHROMBIN TIME 11.8 SECONDS (9.7-12.8)
[2024-04-18 13:21] LABS: PARTIAL THROMBOPLASTIN TIME 32.9 SECONDS (26.0-37.0)
[2024-04-18 13:28] LABS: COLLECTION METHOD CLEAN CATCH
[2024-04-18 13:30] LABS: ALANINE AMINOTRANSFERASE 41 U/L (0-55); ALBUMIN 4.1 g/dL (3.5-5.0); ALKALINE PHOSPHATASE 101 U/L (40-150); ANION GAP 13 mmol/L (7-16); AST,SGOT 24 U/L (5-34); BILIRUBIN,TOTAL 0.3 mg/dL (0.2-1.2); BLOOD UREA NITROGEN 9 mg/dL (10-20); CALCIUM 9.8 mg/dL (8.4-10.2); CHLORIDE 104 mEq/L (98-107); CREATININE, serum 0.92 mg/dL (0.57-1.11); GLUCOSE 293 mg/dL (70-99); MAGNESIUM 1.5 mg/dL (1.6-2.6); POTASSIUM 4.1 mEq/L (3.5-4.5); SODIUM 139 mEq/L (136-145); TOTAL PROTEIN 7.7 g/dl (6.2-8.1)
[2024-04-18] MEDS ORDERED: amLODIPine 5 MG TAB PO ONE (13:30)
[2024-04-18 13:36] LABS: PH 6.5 (5.0-8.5); URINE APPEARANCE CLEAR (CLEAR/HAZY); URINE BLOOD NEGATIVE (NEGATIVE); URINE COLOR YELLOW (YELLOW); URINE GLUCOSE 3+ (NEGATIVE); URINE KETONE NEGATIVE (NEGATIVE); URINE NITRATE NEGATIVE (NEGATIVE); URINE PROTEIN(semi-quant) TRACE (NEGATIVE); URINE UROBILINOGEN 0.2 E.U/dL (0.2-1.0)
[2024-04-18 13:44] LABS: TROPONIN-I < 0.010 ng/mL (0.00-0.033)
[2024-04-18] MEDS ORDERED: hydrALAZINE 20 MG/ML 1 ML VIAL IV ONE (14:00)
[2024-04-18] MEDS ORDERED: oxyCODONE/Acetaminophen 7.5-325 MG TAB PO ONE (15:00)
[2024-04-18 15:07] VITALS: BP 144/89; PULSE 97
== END 2024-04-18 15:17 | disposition home or self-care (01) ==
LOC: COL.ER 12:55
PROVIDERS: Family Medicine
DX: I10 Essential (primary) hypertension (principal); G89.29 Other chronic pain; R10.9 Unspecified abdominal pain; E66.9 Obesity, unspecified; Z86.711 Personal history of pulmonary embolism; Z98.61 Coronary angioplasty status; Z68.32 Body mass index [BMI] 32.0-32.9, adult; Z79.01 Long term (current) use of anticoagulants
CPT/HCPCS: J0360; J1200; J1790

== ENCOUNTER 2024-04-18 19:21 | Emergency (ER) | payer MEDICAID ==
[~2024-04-18] VITALS: Ht 170.2 cm; Wt 90.9 kg
[2024-04-18 19:23] VITALS: TEMP 98.1
[2024-04-18] MEDS ORDERED: NS 1,000 ML IV ONE (20:00)
[2024-04-18 20:02] LABS: BASO % 0.4 % (0.0-2.0); EOS % 0.1 % (0.0-4.0); GRAN # 5.4 K/mm3 (1.4-6.5); GRAN % 70.3 % (42.2-75.2); HEMOGLOBIN 11.1 g/dl (12.5-16.0); INR 1.3 (0.8-3.0); LYMPH # 1.8 K/mm3 (1.2-3.4); LYMPH % 22.9 % (20.0-51.0); MEAN CELL VOLUME 73 fl (80.0-100.0); MEAN CORPUSCULAR HEMOGLOBIN 22 pg (27-31); MEAN CORPUSCULAR HGB CONC 31 g/dl (33.0-37.0); MEAN PLATELET VOLUME 10.3 fl (7.4-10.4); MONO # 0.5 K/mm3 (0.1-0.6); MONO % 5.8 % (1.7-9.3); PLATELET COUNT 351 K/mm3 (130-400); PROTHROMBIN TIME 13.7 SECONDS (9.7-12.8); RED BLOOD COUNT 4.97 M/mm3 (4.10-5.30); REDCELL DISTRIBUTION WIDTH-CV 14.8 % (11.5-14.5)
[2024-04-18 20:03] LABS: HEMATOCRIT 36.4 % (37.0-47.0)
[2024-04-18 20:13] LABS: ALANINE AMINOTRANSFERASE 39 U/L (0-55); ALBUMIN 4.1 g/dL (3.5-5.0); ALKALINE PHOSPHATASE 107 U/L (40-150); ANION GAP 16 mmol/L (7-16); AST,SGOT 21 U/L (5-34); BILIRUBIN,TOTAL 0.3 mg/dL (0.2-1.2); BLOOD UREA NITROGEN 10 mg/dL (10-20); CALCIUM 9.8 mg/dL (8.4-10.2); CHLORIDE 102 mEq/L (98-107); CREATININE, serum 1.14 mg/dL (0.57-1.11); GLUCOSE 390 mg/dL (70-99); POTASSIUM 4.6 mEq/L (3.5-4.5); SODIUM 137 mEq/L (136-145); TOTAL PROTEIN 7.6 g/dl (6.2-8.1)
[2024-04-18 20:16] LABS: ALCOHOL(ethanol),MEDICAL < 10 mg/dL (0-10)
[2024-04-18 20:25] LABS: TROPONIN-I < 0.010 ng/mL (0.00-0.033)
[2024-04-18] MEDS ORDERED: Ondansetron 4 MG/2 ML VIAL IV ONE (21:15)
[2024-04-18] MEDS ORDERED: Insulin Regular Human (NovoLIN R/HumuLIN R) IV ONE (21:45)
[2024-04-18 21:56] LABS: COLLECTION METHOD CLEAN CATCH
[2024-04-18 22:00] VITALS: BP 135/111; PULSE 76
[2024-04-18 22:05] LABS: URINE APPEARANCE CLOUDY (CLEAR/HAZY); URINE BLOOD NEGATIVE (NEGATIVE); URINE COLOR YELLOW (YELLOW); URINE GLUCOSE 3+ (NEGATIVE); URINE KETONE 1+ (NEGATIVE); URINE NITRATE NEGATIVE (NEGATIVE); URINE PROTEIN(semi-quant) TRACE (NEGATIVE); URINE UROBILINOGEN 0.2 E.U/dL (0.2-1.0)
[2024-04-18 22:23] LABS: TRICYCLIC ANTIDEPRESS URINE POSITIVE (NEGATIVE)
== END 2024-04-18 22:11 | disposition home or self-care (01) ==
LOC: COL.ER 19:21
PROVIDERS: Emergency Medicine
DX: E11.649 Type 2 diabetes mellitus with hypoglycemia without coma (principal); K14.0 Glossitis
CPT/HCPCS: J1815; J2405; J7030